=== PATIENT | male | born 1940 | race Asian ===

== ENCOUNTER 2016-09-05 12:56 | Inpatient (IN) | payer OTHER ==
[2016-09-05] VITALS (10 sets, daily range): BP systolic 125–147; BP diastolic 57–77
[~2016-09-05] VITALS: Ht 162.6 cm; Wt 83.9 kg
[~2016-09-05 12:56] MED LIST: ACET-1182 GT; ALLO100T21 GT; AMLO10TA GT; ASPI81CT89 GT; BISA10SU2 GT; CARV12.52 GT; CRAN450C GT; DIGO-91 GT; DOCU100C14 GT; FURO-570 PO; ISOS10TA9 GT; LACT1POW GT; MAGN400S GT; METO5SOL24 IVP; MIRABULK GT; PANT40VI GT; SIMV20TA6 GT; [UNRECOGNIZED DRUG - CODE] GT; [UNRECOGNIZED DRUG - CODE] IV
[2016-09-05] MEDS ORDERED: NACL 0.9% 1,000 ML IV SCH (13:03)
[2016-09-05] MEDS ORDERED: ONDANSETRON 4 MG/2 ML VIAL IVP ONE (13:05)
--- NOTE | 2016-09-05 13:37 | NUR ---
75/M BIBA TO ED WITH FOR R/O TB. PT WAS SENT FROM [facility] WITH POSITIVE CHEST XRAY AND LEFT LOWER LOBE INFILTRATE. PT IS NOT COUGHING. PT IS NOT AAO. LUNGS CLEAR BILAT. PT ARRIVED WITH G-TUBE IN PLACE AND MENDIETA CATHETER. NO SIGNS OF PAIN. PT IS ON MECHANICAL VENTILALTOR WITH TRACH. VSS. HR EVEN AND REGULAR. NO SIGNS OF DISTRESS.
[2016-09-05 13:38] LABS: BASOPHILS # (AUTO) 0.1 K/uL (0.00-0.22); BASOPHILS % (AUTO) 1.1 % (0.0-2.0); EOSINOPHILS # (AUTO) 0.4 K/uL (0-0.4); HEMATOCRIT 37.3 % (36-52); HEMOGLOBIN 12.2 g/dL (12.0-18.0); LYMPHOCYTES # (AUTO) 0.9 K/uL (2.0-11.5); LYMPHOCYTES % (AUTO) 11.1 % (20.5-51.1); MEAN CORPUSCULAR HEMOGLOBIN 30 pg (27-31); MEAN CORPUSCULAR HGB CONC 33 g/dL (33-37); MEAN CORPUSCULAR VOLUME 93 fL (80-94); MONOCYTES # (AUTO) 0.7 K/uL (0.8-1.0); MONOCYTES % (AUTO) 8.8 % (1.7-9.3); NEUTROPHILS # (AUTO) 6.4 K/uL (1.8-7.7); PLATELET COUNT (AUTO) 250 K/uL (140-450); RED CELL DISTRIBUTION WIDTH 13.1 % (11.6-13.7); WHITE BLOOD COUNT (AUTO) 8.5 K/uL (4.8-10.8)
[2016-09-05 13:47] LABS: APPEARANCE,URINE CLOUDY (CLEAR); BILIRUBIN,URINE NEGATIVE (NEGATIVE); BLOOD, URINE TRACE-I (NEGATIVE); COLOR,URINE YELLOW (YELLOW); LEUKOCYTE ESTERASE ,URINE 2+ (NEGATIVE); NITRITE, URINE NEGATIVE (NEGATIVE); PROTEIN,URINE 1+ (NEGATIVE); UGLUCOSE NEGATIVE (NEGATIVE); UROBILINOGEN,URINE 0.2 EU/dL (0.2 - 1)
[2016-09-05 13:55] LABS: BLOOD GAS BASE EXCESS 4.6 mmol/L (-2.0-2.0); BLOOD GAS HCO3 29.2 mmol/L; BLOOD GAS PCO2 43.6 mmHg (20-50); BLOOD GAS PH 7.444 (7.35-7.45); BLOOD GAS PO2 85.7 mmHg
[2016-09-05 13:57] LABS: ALANINE AMINOTRANSFERASE 25 U/L (12-78); ALBUMIN 3.8 g/dL (3.4-5.0); ALKALINE PHOSPHATASE 82 U/L (46-116); ANION GAP 10.8 (8-16); ASPARTATE AMINOTRANSFERASE 23 U/L (15-37); CALCIUM 9.6 mg/dL (8.5-10.1); CARBON DIOXIDE 33.1 mmol/L (21-32); CHLORIDE 99 mmol/L (98-107); GLUCOSE 159 mg/dL (74-106); POTASSIUM 3.9 mmol/L (3.5-5.1); SODIUM SERUM 139 mmol/L (136-145); TOTAL BILIRUBIN 0.6 mg/dL (0.0-1.0); TOTAL PROTEIN, SERUM 8.2 g/dL (6.4-8.2); UREA NITROGEN, BLOOD 31 mg/dL (7-18)
--- NOTE | 2016-09-05 13:58 | NUR ---
TRACH PT EQUIPPED WITH A PORTEX 7. INNER CANNULA, TRACH GAUZE AND TIES ARE NOT SOILED AT THIS TIME AND DONT NEED TO BE REPLACED. AIRWAY IS PATENT AND TRACH IS SECURE. VENT SETTINGS ARE AC 12, VT 500, PEEP 5 AND FIO2 28%. PT IS NOT SOB AND NOT IN RESPIRATORY DISTRESS AT THIS TIME. VENT IS PLUGGED INTO RED OUTLET WITH ALARMS ON AND FUNCTIONING. B.S ARE CLEAR BILATERALLY TO AUSCULTATION.
[2016-09-05 13:59] LABS: AMYLASE 10 U/L (25-115); INR 1.1 (0.8-1.2); LIPASE 54 U/L (73-393); PARTIAL THROMBOPLASTIN TIME 25.6 secs (22-35.6); PROTHROMBIN TIME 10.8 secs (10.8-13.4)
--- NOTE | 2016-09-05 14:13 | NUR ---
TRANSFERRED PATIENT TO RADIOLOGY FOR CHEST CT REMOVED FROM VENTILATOR PLACED AMBU BAG TO TRACH WITH SUPPLEMENTAL OXYGENT AT 15 LPM BAG DEPRESSION EVERY 6 SECONDS HR 72 SATURATION 100% TOLERATED TRANSFER AND CT SCAN WELL WITHOUT INCIDENT
--- NOTE | 2016-09-05 14:25 | NUR ---
TRANSFERRED BACK TO ICU-8 PLACED BACK ON VENTILATOR WITH SAME SETTINGS NOTED TOLERATED WELL WITHOUT INCIDENT
[2016-09-05 14:28] LABS: BACTERIA,URINE 3+ /HPF (None Seen); RBC,URINE 0-5 (RARE) /HPF (0-5); SQUAMOUS EPITHELIAL CELL,UR 0-3 (FEW) /LPF (0-3 (FEW)); WBC,URINE 16-25 (MOD) /HPF (0-5)
--- NOTE | 2016-09-05 14:30 | NUR ---
PT TAKEN TO CT VIA [facility]
[2016-09-05] MEDS ORDERED: DIGO-91 PO (14:56)
[2016-09-05] MEDS ORDERED: POTA10TA10 GT (15:04)
[2016-09-05] MEDS ORDERED: SIME80CT70 GT (15:04)
[2016-09-05] MEDS ORDERED: CLON-527 GT (15:04)
[2016-09-05] MEDS ORDERED: NUTR-583 GT (15:04)
[2016-09-05] MEDS ORDERED: INSU100S45 SUBQ (15:04)
[2016-09-05] MEDS ORDERED: MULT-2253 GT (15:04)
[2016-09-05] MEDS ORDERED: FAMO-90 GT (15:04)
[2016-09-05] MEDS ORDERED: NA P135N19 RC (15:04)
--- NOTE | 2016-09-05 15:10 | NUR ---
Patient appears to be resting comfortably in bed. Vital Signs within normal limits. Respirations even and unlabored.
[2016-09-05] MEDS ORDERED: cefTRIAXone 2,000 MG in DEXTROSE 5% 100 ML IV ONE (15:20)
[2016-09-05] MEDS ORDERED: cefTRIAXone 2,000 MG VIAL ONE (15:39)
[2016-09-05] MEDS ORDERED: ONDANSETRON 4 MG/2 ML VIAL IVP PRN (16:35)
[2016-09-05] MEDS ORDERED: MORPHINE SULFATE 2 MG/ML SYR IVP PRN (16:35)
[2016-09-05] MEDS ORDERED: HYDROcodone/APAP 5/325 MG 1 TAB TAB GT PRN (16:35)
[2016-09-05 16:43] LABS: LACTIC ACID 1.3 mmol/L (0.4-2.0)
[2016-09-05] MEDS ORDERED: SODIUM PHOSPHATE 118 ML ENEM RC PRN (16:45)
[2016-09-05] MEDS ORDERED: BISACODYL 5 MG TABEC GT PRN (16:45)
[2016-09-05] MEDS ORDERED: ACETAMINOPHEN 160 MG/5 ML UDC GT PRN (16:45)
[2016-09-05] MEDS ORDERED: cloNIDine 0.1 MG TAB GT PRN (16:45)
--- NOTE | 2016-09-05 16:51 | NUR ---
Patient appears to be resting comfortably in bed. Vital Signs within normal limits. Respirations even and unlabored.
[2016-09-05] MEDS ORDERED: SIMETHICONE 80 MG TAB.CHEW GT SCH (17:00)
[2016-09-05] MEDS ORDERED: CARVEDILOL 12.5 MG TAB GT SCH (17:14)
[2016-09-05] MEDS ORDERED: FUROSEMIDE 40 MG TAB GT SCH (17:23)
[2016-09-05] MEDS: NACL 0.9% 1,000 ML IV SCH (17:30)
--- NOTE | 2016-09-05 17:30 | NUR ---
ADMITTED A 75 YO MALE FROM [facility] WITH ADMITTING DX TO RO TB,ELEVATED TROPONIN,NSTEMI.PT SATURATING 99 PERCENT.FLACC=0,RIGHT WRIST 22 GAUGE PIV WITH NS AT 100 ML/H.MENDIETA TO GRAVITY AND CHANGED WITH A NEW ONE BY SOLDER LEVELER PRINTED CIRCUIT BOARDS.PT TOLERATED WELL.PACED RHYTHM.GTUBE CLAMPED WITH GTUBE SITE CLEAN.TRACHE TO VENT PORTEX NUMBER 7 WITH VENT SETTING FOLLOWS.FIO2=28 PERCENT,ST=432,AC=12,PEEP=5.ON TB ISOLATION ROOM.
--- NOTE | 2016-09-05 17:32 | NUR ---
Patient will be admitted to care of DR MEDLEY. Admited to ICU. Will go to room 3. Belongings list completed. Report to NATANAEL QUIROZ.
--- NOTE | 2016-09-05 17:50 | NUR ---
ASLEEP RESTING COMFORTABLY NO PULMONARY DISTRESS NOTED BREATH SOUNDS CLEAR BILATERAL WITH GOOD CHEST RISE AIRWAY PATENT
[2016-09-05] MEDS ORDERED: METOCLOPRAMIDE 10 MG/2 ML INJ VIAL IVP SCH (18:00)
[2016-09-05 18:01] LABS: FREE T4 (FREE THYROXINE) 1.34 ng/dL (0.76-1.46)
[2016-09-05 18:02] LABS: MAGNESIUM 2.2 mg/dL (1.8-2.4); PHOSPHORUS 4.4 mg/dL (2.5-4.9); THYROID STIMULATING HORMONE 2.58 uIU/mL (0.34-3.76)
[2016-09-05 18:16] LABS: CHOL/HDL RATIO 3.8 (1-4.5)
--- NOTE | 2016-09-05 18:46 | NUR ---
RCV'D PT ON CARESPARE VENT SETTINGS ARE AC 12,500,5,28% VENT IS PLUGGED INTO RED OUTLET. AMBU BAG AT BEDSIDE. PT HAS A TRACH PORTEX 7. TRACH IS SECURED AND IN PLACE. SKIN IS PATENT AND CLEAN. CLEAR BS SAT 97%. NO DISTRESS OR SOB NOTED. PT IS ASLEEP COMFORTABLY. WILL CONTINUE TO MONITOR.
--- NOTE | 2016-09-05 19:45 | NUR ---
RECEIVED REPORT FROM GABRIELLA SANTOYO. PATIENT IS AAOX1, NONVERBAL, AND BEDBOUND. PATIENT IS TRACH TO VENT WITH SETTINGS OF FIO2 28%, TIDAL VOLUME 500, A/C 12, AND PEEP 5. NO SIGNS OF RESPIRATORY DISTRESS OR SOB NOTED. VITALS ARE WNL. FLACC 0. BREATH SOUNDS ARE DIMINISHED AND THERE ARE ACTIVE BOWEL SOUNDS. THERE IS A G-TUBE IN THE LEFT UPPER QUADRANT AND IT IS CLAMPED. THERE IS A MENDIETA CATHETER IN PLACE DRAINING TO GRAVITY WITH MODERATE AMOUNT OF YELLOW URINE NOTED. THERE IS A #22 IN THE RIGHT WRIST RECEIVING NORMAL SALINE AT 100ML/HR. SITE IS DRY, INTACT, AND PATENT. HOB AT 30 DEGREES WITH BED IN LOW POSITION. CONTINUE TO MONITOR PATIENT.
[2016-09-05] MEDS ORDERED: DEXTROSE 50% 50 ML SYR IVP PRN (19:50)
[2016-09-05] MEDS ORDERED: ALBUTEROL SULFATE/IPRATROPIU 3 ML SOL IH PRN (19:50)
--- NOTE | 2016-09-05 19:55 | NUR ---
VAP ORAL CARE RENDERED. NO SIGNS OF RESPIRATORY DISTRESS NOTED. CONTINUE TO MONITOR.
[2016-09-05] MEDS ORDERED: NON-FORMULARY ITEM (Cranberry Fruit Concentrate (Cranberry) 450 MG) GT SCH (21:00)
--- NOTE | 2016-09-05 21:10 | NUR ---
VENT CHECK DONE. SPUTUM SAMPLE COLLECTED AND SENT TO LAB WITHOUT INCIDENT. NO SOB OR DISTRESS NOTED. WILL CONTINUE TO MONITOR.
[2016-09-05] MEDS: LACTOBACILLUS RHAMNOSUS GG 1 EACH CAP GT SCH (21:37)
[2016-09-05] MEDS: METOCLOPRAMIDE 10 MG/2 ML INJ VIAL IVP SCH (21:37)
[2016-09-05] MEDS: ISOSORBIDE DINITRATE 10 MG TAB GT SCH (21:37)
[2016-09-05] MEDS: FAMOTIDINE 20 MG TAB GT SCH (21:37)
--- NOTE | 2016-09-05 21:45 | NUR ---
DUST COLLECTOR TREATER AT BEDSIDE FOR SCHEDULED LAB DRAW.
[2016-09-05] MEDS: BLOOD GLUCOSE MONITORING 1 DEV DEV FS SCH (21:47)
[2016-09-05] MEDS: SIMVASTATIN 20 MG TAB GT SCH (21:55)
--- NOTE | 2016-09-05 21:59 | NUR ---
TOLERATED DUE MEDICATIONS WITH NO S/S OF SOB OR DISCOMFORT NOTED. CONTINUE TO MONITOR.
--- NOTE | 2016-09-05 22:14 | NUR ---
PATIENT HAD MODERATE SOFT LOOSE YELLOWISH BROWN STOOL. PERINEAL CARE PROVIDED. PATIENT REPOSITIONED FOR COMFORT. NO SIGNS OF SOB OR RESPIRATORY DISTRESS NOTED. HOB AT 30 DEGREES WITH BED IN LOW POSITION. CONTINUE TO MONITOR PATIENT.
--- NOTE | 2016-09-05 23:41 | NUR ---
RESPIRATORY THERAPIST AT BEDSIDE.
[2016-09-06] VITALS (24 sets, daily range): BP systolic 120–158; BP diastolic 66–81
--- NOTE | 2016-09-06 00:26 | NUR ---
PATIENT REPOSITIONED FOR COMFORT. VAP ORAL CARE RENDERED. NO SIGNS OF SOB OR RESPIRATORY DISTRESS NOTED. HOB AT 30 DEGREES WITH BED IN LOW POSITION. CONTINUE TO MONITOR PATIENT.
--- NOTE | 2016-09-06 02:04 | NUR ---
PATIENT REPOSITIONED FOR COMFORT. NO SIGNS OF SOB NOTED. HOB AT 30 DEGREES WITH BED IN LOW POSITION. CONTINUE TO MONITOR PATIENT.
[2016-09-06] MEDS: NACL 0.9% 1,000 ML IV SCH ×2 (03:21→15:13)
--- NOTE | 2016-09-06 03:30 | NUR ---
VAP ORAL CARE RENDERED. NO SIGNS OF SOB NOTED. CONTINUE TO MONITOR PATIENT.
--- NOTE | 2016-09-06 03:30 | NUR ---
OBTAINED SPUTUM WITH NO INCIDENT AND SENT TO THE LAB. NO SOB OR DISTRESS NOTED. WILL CONTINUE TO MONITOR.
--- NOTE | 2016-09-06 03:35 | NUR ---
RESPIRATORY THERAPIST AT BEDSIDE.
[2016-09-06] MEDS: METOCLOPRAMIDE 10 MG/2 ML INJ VIAL IVP SCH ×3 (04:24→21:01)
--- NOTE | 2016-09-06 04:53 | NUR ---
MORNING CARE RENDERED. PROVIDED BED BATH. PATIENT HAD SMALL LOOSE YELLOW BROWNISH BM. PERINEAL CARE PROVIDED. CHANGED LINENS AND GOWN. REPOSITIONED PATIENT TO OFFLOAD PRESSURE AREAS. NO SIGNS OF SOB NOTED. SCDS IN PLACE FOR VTE PROPHYLAXIS. HOB AT 30 DEGREES WITH BED IN LOW POSITION. CONTINUE TO MONITOR PATIENT.
--- NOTE | 2016-09-06 05:20 | NUR ---
CERTIFIED ALCOHOL AND DRUG COUNSELOR AT BEDSIDE FOR SCHEDULED LAB DRAWS.
--- NOTE | 2016-09-06 05:20 | NUR ---
TRACH CARE DONE WITHOUT INCIDENT. NO SOB OR DISTRESS NOTED. PRECISION STRUCTURAL METAL FITTER AT BEDSIDE TO DRAW BLOOD AND RN MONIQUE AT BEDSIDE. WILL CONTINUE TO MONITOR.
[2016-09-06 05:46] LABS: BASOPHILS # (AUTO) 0.1 K/uL (0.00-0.22); BASOPHILS % (AUTO) 0.7 % (0.0-2.0); EOSINOPHILS # (AUTO) 0.6 K/uL (0-0.4); HEMATOCRIT 38.1 % (36-52); HEMOGLOBIN 12.6 g/dL (12.0-18.0); LYMPHOCYTES # (AUTO) 1.1 K/uL (2.0-11.5); LYMPHOCYTES % (AUTO) 11.8 % (20.5-51.1); MEAN CORPUSCULAR HEMOGLOBIN 31 pg (27-31); MEAN CORPUSCULAR HGB CONC 33 g/dL (33-37); MEAN CORPUSCULAR VOLUME 93 fL (80-94); MONOCYTES # (AUTO) 0.7 K/uL (0.8-1.0); MONOCYTES % (AUTO) 7.9 % (1.7-9.3); NEUTROPHILS # (AUTO) 6.8 K/uL (1.8-7.7); NEUTROPHILS % (AUTO) 73.6 % (42.2-75.2); PLATELET COUNT (AUTO) 234 K/uL (140-450); RED BLOOD CELL COUNT(AUTO) 4.09 MIL/uL (4.20-6.10); RED CELL DISTRIBUTION WIDTH 12.7 % (11.6-13.7); WHITE BLOOD COUNT (AUTO) 9.3 K/uL (4.8-10.8)
[2016-09-06] MEDS: ALBUTEROL SULFATE/IPRATROPIU 3 ML SOL IH SCH ×3 (06:00→19:33)
[2016-09-06 06:05] LABS: ANION GAP 11.3 (8-16); CARBON DIOXIDE 32.1 mmol/L (21-32); CHLORIDE 102 mmol/L (98-107); CREATININE 0.9 mg/dL (0.6-1.3); GLUCOSE 117 mg/dL (74-106); POTASSIUM 3.4 mmol/L (3.5-5.1); SODIUM SERUM 142 mmol/L (136-145); UREA NITROGEN, BLOOD 24 mg/dL (7-18)
[2016-09-06 06:21] LABS: HIV 1/0/2 ABS, QUAL Non Reactive (Non Reactive)
[2016-09-06] MEDS: BLOOD GLUCOSE MONITORING 1 DEV DEV FS SCH ×4 (06:32→21:00)
--- NOTE | 2016-09-06 06:32 | NUR ---
PATIENT'S BLOOD SUGAR IS 121. NO INSULIN COVERAGE NEEDED AT THIS TIME. RESPIRATORY THERAPIST AT BEDSIDE FOR SCHEDULED BREATHING TX. WILL CONTINUE TO MONITOR PATIENT. Addendum: 09/06/16 at 0636 by Jayla Otto RN VENT CHECK, NOT BREATHING TX.
--- NOTE | 2016-09-06 06:35 | NUR ---
REC'D PT ON CARESCAPE VENT SETTINGS AC12 VT 500 PEEP 5 FIO2 28% ALARMS ON AND FUNCTIONING PROPERLY, NO I\L TX GIVEN, SXN PT MODERATE AMT OF THICK YELLOW SECRETIONS, B\S ARE RHONCHI BILATERALLY, AMBU BAG AT [facility] AND VENTILATOR IS PLUGGED INTO RED OUTLET, PT IS TRACH WITH PORTEX 7 AND SKIN INTEGRITY IS INTACT, PT IS RESTING WITH NO SIGNS OF DISTRESS NOTED AT THIS TIME
--- NOTE | 2016-09-06 06:40 | NUR ---
DR. ZAVALETA AT BEDSIDE.
[2016-09-06 06:50] LABS: PHOSPHORUS 3.1 mg/dL (2.5-4.9)
--- NOTE | 2016-09-06 07:10 | NUR ---
PATIENT IN STABLE CONDITION. NO S/S OF SOB OR RESPIRATORY DISTRESS NOTED. ALL PATIENT'S NEEDS ATTENDED TO DURING SHIFT. ENDORSED CONTINUITY OF CARE TO SUCHADA RN.
--- NOTE | 2016-09-06 07:17 | NUR ---
RECEIVED REPORT FROM MONIQUE SANTYOO. . PT IS BED BOUND TRACH TO VENT SETTING AC 12 VT 500 FIO 228%PEEP OF 5 FIO2 98% IV FLUID HAS #22 ONRT WRIST INFUSING NS AE 100ML/HR GT FEEDING WITH DIABETIC SOURCE AT 10 ML/HR ABD SLIGHT DISTENDED. B/S ACTIVE.F/C TO GRAVITY DRAINAGE .DRAIN CLEAR JANIS URINE.
--- NOTE | 2016-09-06 07:49 | NUR ---
PATIENT HAS BEEN SCREENED AND CATEGORIZED HIGH NUTRITION RISK. PATIENT WILL BE SEEN WITHIN 1-2 DAYS OF ADMISSION. 09/06/16-09/07/[address]
[2016-09-06 08:19] LABS: T4 (THYROXINE) 8.3 ug/dL (4.5-12.0)
--- NOTE | 2016-09-06 08:30 | NUR ---
vent check, no sxn required at this time, airway is patent and pt is resting with no signs of distress noted at this time
[2016-09-06] MEDS: POLYETHYLENE GLYCOL 17 GM/PKT GT SCH (08:44)
[2016-09-06] MEDS: LACTOBACILLUS RHAMNOSUS GG 1 EACH CAP GT SCH ×2 (08:45→21:01)
[2016-09-06] MEDS: ALLOPURINOL 100 MG TAB GT SCH (08:45)
[2016-09-06] MEDS: amLODIPine 5 MG TAB GT SCH (08:46)
[2016-09-06] MEDS: CARVEDILOL 12.5 MG TAB GT SCH ×2 (08:46→17:42)
[2016-09-06] MEDS: ASPIRIN 81 MG TAB.CHEW GT SCH (08:46)
[2016-09-06] MEDS: ISOSORBIDE DINITRATE 10 MG TAB GT SCH ×2 (08:47→21:02)
[2016-09-06] MEDS: FUROSEMIDE 40 MG TAB GT SCH ×2 (08:48→21:02)
[2016-09-06] MEDS: FAMOTIDINE 20 MG TAB GT SCH ×2 (08:48→21:02)
[2016-09-06] MEDS ORDERED: LACTOBACILLUS RHAMNOSUS GG 1 EACH CAP GT SCH (09:00)
[2016-09-06] MEDS ORDERED: DIGOXIN 0.125 MG TAB GT SCH (09:00)
[2016-09-06] MEDS ORDERED: cefTRIAXone 2,000 MG in DEXTROSE 5% 100 ML IV SCH (09:00)
[2016-09-06] MEDS ORDERED: FUROSEMIDE 40 MG TAB GT SCH (09:00)
--- NOTE | 2016-09-06 09:40 | NUR ---
SEEN BY DR. KEITA AT BEDSIDE , NO ORDER CHANGED.
--- NOTE | 2016-09-06 10:24 | NUR ---
VENT CHECK, SXN PT FOR ACID FAST MODERATE AMT OF YELLOW SECRETIONS, SPUTUM GIVEN TO RN BERNICE Murphy\S ARE RHONCHI BILATERALLY PT IS RESTING WITH NO SIGNS OF DISTRESS NOTED AT THIS TIME
--- NOTE | 2016-09-06 11:30 | NUR ---
BL GLUCOSE 114 NO INSULIN COVER NEEDED
--- NOTE | 2016-09-06 12:54 | NUR ---
VENT CHECK, NO SXN NEEDED AIRWAY PATENT I\L TX GIVEN WITH DUONEB 3ML WITH NO ADVERSE REACTION POST TX, B\S ARE RHONCHI AND PT IS RESTING WITH NO SIGNS OF DISTRESS NOTED
[2016-09-06] MEDS ORDERED: POTASSIUM CHLORIDE 20% 40 MEQ/15 ML UDC GT SCH (13:00)
[2016-09-06] MEDS ORDERED: CLINICAL MONITORING MC PRN (13:00)
[2016-09-06 13:08] LABS: HEMOGLOBIN A1C 5.7 % (4.8-5.6)
--- NOTE | 2016-09-06 14:00 | NUR ---
SEEN BY DR. HERNANDEZ AT BEDSIDE ORDER RECEIVED
--- NOTE | 2016-09-06 14:10 | NUR ---
09/06/16 RD INITIAL ASSESSMENT COMPLETED PLEASE REFER TO NUTRITION ASSESSMENT UNDER CARE ACTIVITY FOR ESTIMATED NUTRITIONAL NEEDS. RD RECOMMENDATIONS: RECOMMEND INCREASE TUBE FEED DIABETISOURCE TO 55 ML/HR X 24 HR AND DISCONTINUE PROSOURCE QD --THIS WILL PROVIDE 1584 KCAL AND 79 GM PROTEIN AND WILL MEET 100% OF ESTIMATED KCAL AND PROTEIN NEEDS. --NOTE RD WILL MONITOR RENAL LABS 2. RD WILL F/U 2-3 DAYS; HIGH RISK. DOMINIC WIN RD
--- NOTE | 2016-09-06 14:42 | NUR ---
VENT CHECK, SXN PT SMALL AMT OF YELLOW SECRETIONS, B\S ARE RHONCHI AND TRACH CARE DONE: CHANGED TRACH TIE AND GAUZE AND INNER CANNULA
--- NOTE | 2016-09-06 16:30 | NUR ---
BLOOD GLUCOSE 127 NO INSULIN NEEDED. PT INCONTINENT LOOSE YELLOW BM MODERATE AMOUNT.
[2016-09-06] MEDS ORDERED: SIMETHICONE 80 MG TAB.CHEW GT PRN (17:00)
--- NOTE | 2016-09-06 17:22 | NUR ---
VENT CHECK, NATANAEL ELLIS PT MODERATE AMT OF YELLOW SECRETIONS, PT IS NOW RESTING WITH NO SIGNS OF DISTRESS NOTED AT THIS TIME
[2016-09-06] MEDS: PIPERACILLIN/TAZOBACTAM 4.5 GM in DEXTROSE 5% 100 ML IV SCH ×2 (17:43→23:03)
--- NOTE | 2016-09-06 20:00 | NUR ---
EYES OPEN, DOES NOT FOLLOW COMMANDS, PACED RHYTHM, TRACH TO VENT, NO RESPIRATORY DISTRESS, IVF NS AT 50 ML/HR, IV SITE LFA G#22 PATENT, MENDIETA CATH DRAINING LT JANIS URINE. GT FEEDING DIABETISOURCE AT 40 ML/HR, NO RESIDUAL OBTAINED, HOB ELEVATED, TURNED AND REPOSITIONED, FLACC 0. Addendum: 09/06/16 at 2324 by Nicolle Polanco RN MENDIETA CATH DRAINING CLEAR YELLOW URINE
[2016-09-06] MEDS ORDERED: DIGOXIN 0.125 MG/2.5 ML UDC GT SCH (20:10)
[2016-09-06] MEDS: SIMVASTATIN 20 MG TAB GT SCH (21:02)
--- NOTE | 2016-09-06 21:21 | NUR ---
US BLE DONE AT BEDSIDE AT THIS TIME.
--- NOTE | 2016-09-06 23:26 | NUR ---
PATIENT HAD A MODERATE AMOUNT OF SOFT STOOL, BED BATH GIVEN COMPLETE LINEN CHANGE DONE. SUCTIONED WITH SMALL AMOUNT OF WHITE SECRETIONS, TURNED AND REPOSITIONED, FLACC 0.
[2016-09-07] VITALS (24 sets, daily range): BP systolic 126–154; BP diastolic 55–90
--- NOTE | 2016-09-07 03:58 | NUR ---
GT FEEDING RATE INCREASED TO 50 ML/HR, NO RESIDUAL OBTAINED, TURNED AND REPOSITIONED, NO RESPIRATORY DISTRESS, FLACC 0.
[2016-09-07] MEDS: PIPERACILLIN/TAZOBACTAM 4.5 GM in DEXTROSE 5% 100 ML IV SCH (05:23)
[2016-09-07] MEDS: METOCLOPRAMIDE 10 MG/2 ML INJ VIAL IVP SCH ×3 (05:23→20:33)
[2016-09-07 05:45] LABS: ANION GAP 12.5 (8-16); CALCIUM 8.6 mg/dL (8.5-10.1); CARBON DIOXIDE 31.1 mmol/L (21-32); CHLORIDE 103 mmol/L (98-107); GLUCOSE 135 mg/dL (74-106); POTASSIUM 3.6 mmol/L (3.5-5.1); SODIUM SERUM 143 mmol/L (136-145); UREA NITROGEN, BLOOD 21 mg/dL (7-18)
[2016-09-07 05:48] LABS: BASOPHILS % (AUTO) 0.5 % (0.0-2.0); EOSINOPHILS # (AUTO) 0.6 K/uL (0-0.4); EOSINOPHILS % (AUTO) 5.9 % (0.0-4.0); HEMATOCRIT 35.7 % (36-52); LYMPHOCYTES % (AUTO) 10.3 % (20.5-51.1); MEAN CORPUSCULAR HEMOGLOBIN 31 pg (27-31); MEAN CORPUSCULAR HGB CONC 33 g/dL (33-37); MEAN CORPUSCULAR VOLUME 93 fL (80-94); MONOCYTES # (AUTO) 1.1 K/uL (0.8-1.0); MONOCYTES % (AUTO) 11.1 % (1.7-9.3); NEUTROPHILS # (AUTO) 7.1 K/uL (1.8-7.7); NEUTROPHILS % (AUTO) 72.2 % (42.2-75.2); PLATELET COUNT (AUTO) 219 K/uL (140-450); RED BLOOD CELL COUNT(AUTO) 3.84 MIL/uL (4.20-6.10); WHITE BLOOD COUNT (AUTO) 9.8 K/uL (4.8-10.8)
[2016-09-07 05:50] LABS: MAGNESIUM 2.1 mg/dL (1.8-2.4); PHOSPHORUS 2.7 mg/dL (2.5-4.9)
--- NOTE | 2016-09-07 06:00 | NUR ---
AM CARE PROVIDED, GT FEEDING TOLERATING WELL, NO RESPIRATORY DISTRESS, TURNED AND REPOSITIONED, FLACC 0.
[2016-09-07] MEDS: ALBUTEROL SULFATE/IPRATROPIU 3 ML SOL IH SCH ×3 (06:55→19:23)
--- NOTE | 2016-09-07 06:58 | NUR ---
RECEIVED PT ON CARESCAPE ON A/C 12 VT500 PEEP5 FIO2 28 ALARMS ARE ON AND FUNCTIONAL BMV HOB PTS TRACH PORTEX 7 IS SECURE PT IN HF QUIET BS CRACKLES HHN GIVEN I\L WITH 3 MG DUONEB VENT PLUGGED INTO RED OUTLET
--- NOTE | 2016-09-07 07:30 | NUR ---
RECEIVED REPORT FROM NATANAEL JOLLY. NO SIGNS OF ACUTE DISTRESS AT THIS TIME, FLACC 0. IV TO LEFT FOREARM #22 PATENT AND INTACT. PT IS TRACH TO VENT. FIO2: 28%, AC: 12, TV: 500, PEEP: 5. PACEMAKER TO LEFT UPPER CHEST. WOUND NOTED TO RIGHT SCAPULA, DRESSING DRY AND INTACT. G TUBE IN PLACE TO TUBE FEEDING. MENDIETA CATHETER IN PLACE DRAINING TO GRAVITY DRAINAGE BAG. SAFETY PRECAUTIONS IN PLACE WITH BED IN LOWEST POSITION AND SIDE RAILS UP. CALL LIGHT WITHIN REACH. PT IS ON AIRBORNE AND CONTACT ISOLATION WITH SIGNS POSTED OUTSIDE OF PT'S ROOM. PT IS CURRENTLY PACED RHYTHM. WILL CONTINUE TO MONITOR.
[2016-09-07] MEDS: BLOOD GLUCOSE MONITORING 1 DEV DEV FS SCH ×4 (07:39→20:56)
--- NOTE | 2016-09-07 07:44 | NUR ---
DR. ZAVALETA IN TO SEE PT. WILL FOLLOW UP ON ORDERS.
[2016-09-07] MEDS: DIGOXIN 0.125 MG/2.5 ML UDC GT SCH (08:11)
[2016-09-07] MEDS: CARVEDILOL 12.5 MG TAB GT SCH ×2 (08:11→17:04)
[2016-09-07] MEDS: FAMOTIDINE 20 MG TAB GT SCH ×2 (08:11→20:32)
[2016-09-07] MEDS: POLYETHYLENE GLYCOL 17 GM/PKT GT SCH (08:11)
[2016-09-07] MEDS: LACTOBACILLUS RHAMNOSUS GG 1 EACH CAP GT SCH ×2 (08:12→20:31)
[2016-09-07] MEDS: ISOSORBIDE DINITRATE 10 MG TAB GT SCH ×2 (08:12→20:56)
[2016-09-07] MEDS: amLODIPine 5 MG TAB GT SCH (08:12)
[2016-09-07] MEDS: FUROSEMIDE 40 MG TAB GT SCH ×2 (08:12→20:34)
[2016-09-07] MEDS: ALLOPURINOL 100 MG TAB GT SCH (08:19)
--- NOTE | 2016-09-07 08:53 | NUR ---
CHECKED TUBE FEEDING RESIDUAL: NONE NOTED. CHECKED BP: 131/64 AND HR: 60. ADMINISTERED MEDICATION ORDERED. PT TOLERATED WELL. INCREASED TUBE FEEDING RATE TO GOAL OF 55 ML/HR. WILL CONTINUE TO MONITOR.
--- NOTE | 2016-09-07 08:54 | NUR ---
PT HAD MODERATE SIZED BOWEL MOVEMENT. SOFT AND BROWN IN COLOR. PROVIDED HYGIENE CARE, TURNED AND REPOSITIONED FOR COMFORT.
[2016-09-07] MEDS: ASPIRIN 81 MG TAB.CHEW GT SCH (09:03)
--- NOTE | 2016-09-07 09:08 | NUR ---
VENT CHECK BS CRACKLES I\L LAVAGE AND SX MOD WHITE
--- NOTE | 2016-09-07 09:26 | NUR ---
DR. BECKER IN TO SEE PT. WILL FOLLOW UP ON ORDERS.
[2016-09-07] MEDS: Z-GUARD PASTE TP SCH (09:30)
--- NOTE | 2016-09-07 09:59 | NUR ---
DR. KEITA IN TO SEE PT. WILL FOLLOW UP ON ORDERS.
--- NOTE | 2016-09-07 10:23 | NUR ---
VENT CHECK BS DIMINISHED
[2016-09-07] MEDS: INSULIN LISPRO SLIDING SCALE 100 UNITS/ML VIAL SUBQ PRN (11:50)
[2016-09-07] MEDS ORDERED: MEROPENEM 1,000 MG in NACL 0.9% 100 ML IV SCH (13:00)
[2016-09-07] MEDS: ERTAPENEM SODIUM 1,000 MG in NACL 0.9% 50 ML IV SCH (14:11)
[2016-09-07] MEDS: NACL 0.9% 1,000 ML IV SCH (14:12)
--- NOTE | 2016-09-07 14:20 | NUR ---
PT TOLERATED MEDS WELL.
--- NOTE | 2016-09-07 17:00 | NUR ---
QUANTIFERON TB GOLD NEGATIVE, PT NO LONGER ON AIRBORNE PRECAUTIONS, BUT STILL REMAINS ON CONTACT ISOLATION.
--- NOTE | 2016-09-07 19:17 | NUR ---
ENDORSED CARE TO NATANAEL JOLLY. PT IN STABLE CONDITION.
--- NOTE | 2016-09-07 19:37 | NUR ---
RECEIVED PT ON NOTED PARAMETERS, TOLERATING SUPPORT WELL. NO RESP DISTRESS NOTED, SXN SMALL AMT OT THICK/THIN CREAM SECRETIONS, ADMINISTERED HHNTX TOLERATED WELL. AIRWAY PATENT AND SECURED.
--- NOTE | 2016-09-07 20:00 | NUR ---
OPEN EYES TO VERBAL STIMULUS, PACED RHYTHM, TRACH TO VENT, ON GT FEEDING DIABETISOURCE AT 55 ML/HR, NO RESIDUAL OBTAINED, HOB ELEVATED, IVF NS AT 50 ML/HR, RFA G#22 PATENT AND INTACT, MENDIETA CATH DRAINING CLEAR YELLOW URINE. PATIENT HAS SMALL SOFT BM, WASHED AND CLEANED, TURNED AND REPOSITIONED, FLACC 0.
[2016-09-07] MEDS: SIMVASTATIN 20 MG TAB GT SCH (20:34)
--- NOTE | 2016-09-07 22:18 | NUR ---
PATIENT RESTING COMFORTABLY, TURNED AND REPOSITIONED, FLACC 0.
[2016-09-08] VITALS (20 sets, daily range): BP systolic 111–162; BP diastolic 64–81
[2016-09-08] MEDS: NACL 0.9% 1,000 ML IV SCH ×2 (00:11→10:06)
--- NOTE | 2016-09-08 00:49 | NUR ---
TURNED AND REPOSITIONED, NO GT RESIDUAL OBTAINED, NO SOB, FLACC 0.
--- NOTE | 2016-09-08 03:33 | NUR ---
PATIENT SLEEPING COMFORTABLY, NO RESPIRATORY DISTRESS, NO GT RESIDUAL OBTAINED.
--- NOTE | 2016-09-08 05:11 | NUR ---
PATIENT HAD A LARGE SOFT STOOL, WASHED AND CLEANED, KEEP DRY AND CLEAN. SUCTIONED WITH SMALL AMOUNT OF WHITE SECRETIONS, FLACC 0
[2016-09-08] MEDS: METOCLOPRAMIDE 10 MG/2 ML INJ VIAL IVP SCH ×3 (06:02→21:29)
[2016-09-08 06:27] LABS: ANION GAP 11.1 (8-16); CARBON DIOXIDE 30.2 mmol/L (21-32); CHLORIDE 103 mmol/L (98-107); CREATININE 0.9 mg/dL (0.6-1.3); GLUCOSE 150 mg/dL (74-106); POTASSIUM 3.3 mmol/L (3.5-5.1); SODIUM SERUM 141 mmol/L (136-145); UREA NITROGEN, BLOOD 17 mg/dL (7-18)
--- NOTE | 2016-09-08 06:28 | NUR ---
AM CARE PROVIDED, GT FEEDING TOLERATED WELL, NO RESPIRATORY DISTRESS, TURNED AND REPOSITIONED, FLACC 0.
[2016-09-08 06:29] LABS: BASOPHILS % (AUTO) 0.5 % (0.0-2.0); EOSINOPHILS # (AUTO) 0.7 K/uL (0-0.4); EOSINOPHILS % (AUTO) 7.8 % (0.0-4.0); HEMATOCRIT 35.5 % (36-52); HEMOGLOBIN 11.9 g/dL (12.0-18.0); LYMPHOCYTES % (AUTO) 11.1 % (20.5-51.1); MEAN CORPUSCULAR HEMOGLOBIN 31 pg (27-31); MEAN CORPUSCULAR HGB CONC 33 g/dL (33-37); MEAN CORPUSCULAR VOLUME 93 fL (80-94); MONOCYTES # (AUTO) 0.9 K/uL (0.8-1.0); MONOCYTES % (AUTO) 9.6 % (1.7-9.3); NEUTROPHILS # (AUTO) 6.6 K/uL (1.8-7.7); PLATELET COUNT (AUTO) 227 K/uL (140-450); RED CELL DISTRIBUTION WIDTH 13.3 % (11.6-13.7); WHITE BLOOD COUNT (AUTO) 9.2 K/uL (4.8-10.8)
[2016-09-08] MEDS: BLOOD GLUCOSE MONITORING 1 DEV DEV FS SCH ×4 (06:30→21:53)
[2016-09-08 06:32] LABS: MAGNESIUM 2.2 mg/dL (1.8-2.4); PHOSPHORUS 2.4 mg/dL (2.5-4.9)
[2016-09-08] MEDS: INSULIN LISPRO SLIDING SCALE 100 UNITS/ML VIAL SUBQ PRN (06:39)
[2016-09-08] MEDS: ALBUTEROL SULFATE/IPRATROPIU 3 ML SOL IH SCH ×3 (07:00→20:17)
--- NOTE | 2016-09-08 07:00 | NUR ---
RECEIVED ON A [employer] Entertainment[employer]APE R860 VENTILATOR PLUGGED INTO RED OUTLET TOLERATING WELL WITHOUT INCIDENT TO A PORTEX #7 DCT AIRWAY SECURED WITH A EDMAR TRAC TIE CUFF PRESSURE CHECKED FOR MOV AMBU BAG NOTED AT [facility] LOC ASLEEP RESTING WELL NO RESPIRATORY DISTRESS NOTED BREATH SOUNDS DIFFUSED RHONCHI BILATERAL WITH GOOD CHEST RISE DEEP TRACHEAL SUCTION FOR SMALL THIN YELLOW SECRETIONS AIRWAY PATENT
[2016-09-08] MEDS: CARVEDILOL 12.5 MG TAB GT SCH ×2 (07:45→16:56)
--- NOTE | 2016-09-08 08:00 | NUR ---
INITIAL SHIFT ASSESSMENT DONE (SEE ASSESSMENT PART). OPENING EYES SPONTANEOUSLY BUT NOT FOLLOWING ANY COMMAND. LUE IS CONTRACTED. RUE AND BLE ARE RIGID. NO SIGNS OF PAIN OR AGITATION. ON VENTILATOR VIA TRACH, TOLERATING CURRENT SETTINGS WELL. O2 SAT 96-99%. SBP IN 130'S-140'S. 100% PACED ON MONITOR. NO ECTOPY NOTED. ON TUBE FEEDING VIA G-TUBE, TOLERATING WELL. NO RESIDUALS NOTED. HOB ELEVATED. UPDATED OF PLAN OF CARE. WILL CONTINUE TO MONITOR.
--- NOTE | 2016-09-08 08:30 | NUR ---
DR ZAVALETA AND MEDICAL INTERNS ARE IN THE ROOM. UPDATED OF STATUS AND LAB RESULTS. STATED THAT HE WILL ORDER IN THE CPOE FOR [facility].
[2016-09-08] MEDS: ASPIRIN 81 MG TAB.CHEW GT SCH (09:01)
[2016-09-08] MEDS: DIGOXIN 0.125 MG/2.5 ML UDC GT SCH (09:01)
[2016-09-08] MEDS: ISOSORBIDE DINITRATE 10 MG TAB GT SCH ×2 (09:01→21:26)
[2016-09-08] MEDS: LACTOBACILLUS RHAMNOSUS GG 1 EACH CAP GT SCH ×2 (09:01→21:26)
[2016-09-08] MEDS: FUROSEMIDE 40 MG TAB GT SCH ×2 (09:02→21:28)
[2016-09-08] MEDS: FAMOTIDINE 20 MG TAB GT SCH ×2 (09:02→21:28)
[2016-09-08] MEDS: amLODIPine 5 MG TAB GT SCH (09:02)
[2016-09-08] MEDS: ALLOPURINOL 100 MG TAB GT SCH (09:02)
[2016-09-08] MEDS: POLYETHYLENE GLYCOL 17 GM/PKT GT SCH (09:02)
[2016-09-08] MEDS: Z-GUARD PASTE TP SCH (09:03)
--- NOTE | 2016-09-08 09:11 | NUR ---
ASLEEP RESTING WELL NO SOB NOTED GOOD CHEST RISE
[2016-09-08] MEDS ORDERED: POTASSIUM PHOSPHATE 15 MM in NACL 0.9% 250 ML IV ONE (09:15)
--- NOTE | 2016-09-08 10:00 | NUR ---
RESTING IN BED. NO SIGNS OF PAIN OR AGITATION NOTED. TOLERATING VENTILATOR WELL. O2 SAT 96-99%. SBP IN 110'S-130'S. 100% PACED ON MONITOR. NO ECTOPY NOTED. HOB ELEVATED. WILL CONTINUE TO MONITOR.
--- NOTE | 2016-09-08 10:48 | NUR ---
RESTING COMFORTABLY NO PULMONARY DISTRESS NOTED BREATH SOUNDS DIFFUSED RHONCHI BILATERAL GOOD CHEST RISE DEEP TRACHEAL SUCTION FOR SMALL THIN YELLOW SECRETIONS AIRWAY PATENT
--- NOTE | 2016-09-08 11:20 | NUR ---
DR TOVAR IS IN THE ROOM. UPDATED OF STATUS. NO NEW ORDER RECEIVE.
--- NOTE | 2016-09-08 12:00 | NUR ---
REASSESSMENT DONE. NEURO STATUS STILL THE SAME. NO SIGNS OF PAIN OR AGITATION. TOLERATING CURRENT VENTILATOR SETTINGS WELL. O2 SAT 98-100%. SBP IN 120'S. 100% PACED ON MONITOR. NO ECTOPY NOTED. TOLERATING TUBE FEEDING WELL. NO RESIDUALS NOTED. HOB ELEVATED. UPDATED OF PLAN OF CARE. WILL CONTINUE TO MONITOR.
[2016-09-08] MEDS: ERTAPENEM SODIUM 1,000 MG in NACL 0.9% 50 ML IV SCH (12:45)
--- NOTE | 2016-09-08 12:57 | NUR ---
NO PULMONARY DISTRESS NOTED BREATH SOUNDS DIFFUSED RHONCHI BILATERAL WITH GOOD CHEST RISE DEEP TRACHEAL SUCTION FOR SMALL THIN YELLOW SECRETIONS AIRWAY PATENT
--- NOTE | 2016-09-08 13:23 | NUR ---
SS NOTE: SENT CURRENT MICROBIOLOGY TO [facility], RECEIVED FAX CONFIRMATION
--- NOTE | 2016-09-08 14:00 | NUR ---
RESTING IN BED. NO SIGNS OF PAIN OR AGITATION NOTED. TOLERATING VENTILATOR WELL. O2 SAT 98-99%. SBP IN 110'S-120'S. 100% PACED ON MONITOR. NO ECTOPY NOTED. HOB ELEVATED. WILL CONTINUE TO MONITOR.
--- NOTE | 2016-09-08 14:30 | NUR ---
HAS BM AT THIS TIME, MODERATE AMOUNT, PASTY, AND BROWN COLOR. GIVEN PERICARE AND LINENS ARE CHANGE. TOLERATED THE PROCEDURE WELL.
--- NOTE | 2016-09-08 14:42 | NUR ---
DR HERNANDEZ IS IN THE ROOM. UPDATED OF STATUS. NO NEW ORDER RECEIVE.
--- NOTE | 2016-09-08 14:53 | NUR ---
ASLEEP STABLE NO PULMONARY DISTRESS NOTED BREATH SOUNDS INSP/EXP RHONCHI RIGHT SIDE; DIFFUSED EXP RHONCHI LEFT SIDE GOOD CHEST RISE DEEP TRACHEAL SUCTION FOR SMALL THIN YELLOW SECRETIONS AIRWAY PATENT
--- NOTE | 2016-09-08 16:00 | NUR ---
REASSESSMENT DONE. NEURO STATUS UNCHANGED. NO SIGNS OF PAIN OR AGITATION NOTED. TOLERATING CURRENT VENTILATOR SETTINGS WELL. O2 SAT 98-99%. SBP IN 110'S-120'S. 100% PACED ON MONITOR. NO ECTOPY NOTED. TOLERATING TUBE FEEDING WELL. NO RESIDUALS NOTED. HOB ELEVATED. UPDATED OF PLAN OF CARE. WILL CONTINUE TO MONITOR.
--- NOTE | 2016-09-08 17:06 | NUR ---
STABLE NO SOB NOTED BREATH SOUNDS CLEAR BILATERAL WITH GOOD AERATION THROUGHOUT AIRWAY PATENT
--- NOTE | 2016-09-08 17:10 | NUR ---
HAS BM AGAIN AT THIS TIME, LARGE AMOUNT, PASTY, AND BROWN COLOR. GIVEN PARTIAL BATH AND LINENS ARE CHANGE. TOLERATED THE PROCEDURE WELL.
--- NOTE | 2016-09-08 17:30 | NUR ---
REPORT GIVEN TO JEROD RN, RN GIA.
--- NOTE | 2016-09-08 19:00 | NUR ---
REPORT GIVEN TO INCOMING HAND PAINTER RN, RN AYLIN.
--- NOTE | 2016-09-08 19:20 | NUR ---
RECEIVED PATIENT REPORT FROM DAY SHIFT NATANAEL HURST. ON MOLD TOOLER, FULL CODE, WITHDRAWS TO PAIN, UNABLE TO FOLLOW COMMANDS. WITH TRACH TO VENT: FIO2 28%, TV 500, AC RATE OF 12, PEEP OF 5. WITH G-TUBE CONNECTED TO FEEDING PUMP RUNNING TUBE FEEDING DIABETISOURCE AC AT 55ML/HR, WATER FLUSH 40 ML Q4H. WITH PERIPHERAL IV G22 ON RIGHT ARM, CONNECTED TO IV PUMP RUNNING IVF OF NS AT 50 ML/HR. WITH MENDIETA CATHETER CONNECTED TO URINE BAG DRAINING YELLOWISH URINE OUTPUT. SCD ON BOTH LEGS. FOR TRANSFER TO TELEMETRY UNIT.
--- NOTE | 2016-09-08 19:20 | NUR ---
REPORT GIVEN TO NATANAEL VIERA. Addendum: 09/08/16 at 1942 by Abeba Louis RN NATANAEL VIERA RECEIVED REPORT FROM FILLER SHAKER.
--- NOTE | 2016-09-08 19:30 | NUR ---
TRANSFERRED TO TELEMETRY UNIT ROOM 109 B PER BED WITH RT MYESHA AND OPERATIONS LIAISON IRENE WITH PORTABLE MONITOR AND MANUAL AMBUBAGGING ON OXYGEN.
--- NOTE | 2016-09-08 20:00 | NUR ---
ORAL CARE DONE WITH VAP ORAL KIT ASSISTED WITH SUCTIONING. REPOSITIONED PATIENT. BED IN LOW POSITION. ASPIRATION PRECAUTION. NO RESIDUAL.
[2016-09-08] MEDS: SIMVASTATIN 20 MG TAB GT SCH (21:28)
[2016-09-09] VITALS (8 sets, daily range): BP systolic 128–146; BP diastolic 66–79
--- NOTE | 2016-09-09 | NUR ---
HAD A BOWEL MOVEMENT, CLEANED UP AND REPOSITIONED PATIENT. Addendum: 09/09/16 at 0222 by Jennifer Spicer RN LARGE BM OF LOOSE YELLOWISH STOOL.
--- NOTE | 2016-09-09 04:12 | NUR ---
ORAL CARE DONE WITH VAP ORAL KIT ASSISTED WITH SUCTIONING. REPOSITIONED PATIENT. BED IN LOW POSITION. NO SIGNS OF DISTRESS OR DISCOMFORT AT THIS TIME.
[2016-09-09] MEDS: METOCLOPRAMIDE 10 MG/2 ML INJ VIAL IVP SCH ×3 (05:02→20:39)
--- NOTE | 2016-09-09 05:28 | NUR ---
AM CARE DONE. HAD A BOWEL MOVEMENT, SMALL YELLOWISH, SOFT. PATIENT CLEANED UP AND REPOSITIONED.
[2016-09-09] MEDS: BLOOD GLUCOSE MONITORING 1 DEV DEV FS SCH ×4 (06:34→20:49)
--- NOTE | 2016-09-09 06:36 | NUR ---
SUCTIONING OF SECRETIONS DONE PER TRACH. SKIN TEAR ON RT. SCAPULAR AREA OPEN WOUND SLIGHTLY SOAKED, DRESSING CHANGED.
[2016-09-09] MEDS: ALBUTEROL SULFATE/IPRATROPIU 3 ML SOL IH SCH ×3 (06:49→19:41)
--- NOTE | 2016-09-09 07:00 | NUR ---
received pt on vent with settings as charted breath sounds present bilat clear sxn pt with min amt clear secs trach site secure portex 7 pt stable no resp distress a this time ambu bag at bedside will continue to monitor pt vent plugged into red outlet
--- NOTE | 2016-09-09 07:12 | NUR ---
PATIENT REPORT ENDORSED TO LUIGI HERZOG RN FOR CONTINUITY OF CARE. NO SIGNS OF RESPIRATORY DISTRESS OR DISCOMFORT AT THIS TIME.
--- NOTE | 2016-09-09 07:13 | NUR ---
RECEIVED REPORT FROM NIGHT RN AT PT BEDSIDE. PT RESTING IN BED, ON TRACH TO VENT FIO2 28% SATURATING 100%. PATIENT APHASIC. EYES OPEN TO STIMULI. LUE CONTRACTED, EDEMATOUS BUE/BLE. HAS PACEMAKER TO RANDI. G-TUBE TO LUQ, 250ML RESIDUAL NOTED, ABDOMINAL DISTENSION NOTED. SCDS IN PLACE. MENDIETA TO GRAVITY TO MODERATE OUTPUT. LINENS CLEAN AND DRY. NO S/S OF DISTRESS NOTED. BED IN LOWEST POSITION. BED ALARM CHECKED.
[2016-09-09] MEDS: LACTOBACILLUS RHAMNOSUS GG 1 EACH CAP GT SCH ×2 (08:45→20:40)
[2016-09-09] MEDS: ASPIRIN 81 MG TAB.CHEW GT SCH (08:45)
[2016-09-09] MEDS: ISOSORBIDE DINITRATE 10 MG TAB GT SCH ×2 (08:46→20:40)
[2016-09-09] MEDS: DIGOXIN 0.125 MG/2.5 ML UDC GT SCH (08:46)
[2016-09-09] MEDS: POLYETHYLENE GLYCOL 17 GM/PKT GT SCH (08:47)
[2016-09-09] MEDS: FUROSEMIDE 40 MG TAB GT SCH ×2 (08:47→20:39)
[2016-09-09] MEDS: amLODIPine 5 MG TAB GT SCH (08:48)
[2016-09-09] MEDS: CARVEDILOL 12.5 MG TAB GT SCH ×2 (08:48→16:16)
[2016-09-09] MEDS: FAMOTIDINE 20 MG TAB GT SCH ×2 (08:48→20:40)
[2016-09-09] MEDS: ALLOPURINOL 100 MG TAB GT SCH (08:49)
[2016-09-09] MEDS: Z-GUARD PASTE TP SCH (09:00)
[2016-09-09 09:14] LABS: BASOPHILS # (AUTO) 0.1 K/uL (0.00-0.22); BASOPHILS % (AUTO) 0.8 % (0.0-2.0); EOSINOPHILS # (AUTO) 0.5 K/uL (0-0.4); EOSINOPHILS % (AUTO) 5.7 % (0.0-4.0); HEMATOCRIT 37.4 % (36-52); HEMOGLOBIN 12.2 g/dL (12.0-18.0); LYMPHOCYTES # (AUTO) 1.1 K/uL (2.0-11.5); LYMPHOCYTES % (AUTO) 13.5 % (20.5-51.1); MEAN CORPUSCULAR HEMOGLOBIN 31 pg (27-31); MEAN CORPUSCULAR HGB CONC 33 g/dL (33-37); MEAN CORPUSCULAR VOLUME 94 fL (80-94); MONOCYTES # (AUTO) 0.7 K/uL (0.8-1.0); MONOCYTES % (AUTO) 7.9 % (1.7-9.3); NEUTROPHILS # (AUTO) 5.9 K/uL (1.8-7.7); NEUTROPHILS % (AUTO) 72.1 % (42.2-75.2); PLATELET COUNT (AUTO) 213 K/uL (140-450); RED BLOOD CELL COUNT(AUTO) 3.99 MIL/uL (4.20-6.10); RED CELL DISTRIBUTION WIDTH 13.4 % (11.6-13.7); WHITE BLOOD COUNT (AUTO) 8.3 K/uL (4.8-10.8)
--- NOTE | 2016-09-09 09:24 | NUR ---
VENT CHECK COMPLETED. PT IS NOT SOB AND NOT IN RESPIRATORY DISTRESS AT THIS TIME. TRACH IS SECURE. VENT ALARMS ARE ON AND FUNCTIONING.
[2016-09-09 09:31] LABS: MAGNESIUM 2.4 mg/dL (1.8-2.4); PHOSPHORUS 2.7 mg/dL (2.5-4.9)
[2016-09-09 09:34] LABS: CALCIUM 8.8 mg/dL (8.5-10.1); CARBON DIOXIDE 29.6 mmol/L (21-32); CHLORIDE 105 mmol/L (98-107); CREATININE 0.8 mg/dL (0.6-1.3); GLUCOSE 120 mg/dL (74-106); POTASSIUM 3.6 mmol/L (3.5-5.1); SODIUM SERUM 142 mmol/L (136-145); UREA NITROGEN, BLOOD 17 mg/dL (7-18)
--- NOTE | 2016-09-09 09:35 | NUR ---
PATIENT TOLERATED AM MEDS. NO S/S OF DISTRESS AT THIS TIME. WILL CONTINUE TO MONITOR.
--- NOTE | 2016-09-09 10:00 | NUR ---
PATIENT ASSISTED IN CHANGING OF POSITIONS. NO S/S OF ACUTE DISTRESS.
--- NOTE | 2016-09-09 12:20 | NUR ---
ASSISTED PT IN CHANGE OF POSITIONS. LINENS CLEAN AND DRY. IV SITE PATENT AND INTACT. PATIENT TOLERATING G-TUBE FEEDING AT THIS TIME. SAFETY MEASURES ENSURED. NO S/S OF ACUTE DISTRESS.
[2016-09-09] MEDS: ERTAPENEM SODIUM 1,000 MG in NACL 0.9% 50 ML IV SCH (13:04)
--- NOTE | 2016-09-09 14:17 | NUR ---
ASSISTED PATIENT IN CHANGING OF POSITIONS. LINENS CLEAN AND DRY. NO S/S OF ACUTE DISTRESS NOTED. WILL CONTINUE TO MONITOR.
--- NOTE | 2016-09-09 14:47 | NUR ---
09/09/16 RD FOLLOW UP COMPLETED PLEASE REFER TO NUTRITION PROGRESS NOTE UNDER CARE ACTIVITY FOR ESTIMATED NUTRITION NEEDS. RD RECOMMENDATIONS: 1. CONTINUE CURRENT NUTRITION SUPPORT DIABETISOURCE AC AT 55 ML/HR X 24 HR, FREE WATER FLUSH: 40 ML Q4H, VIA GTUBE. 2. IF PT CONTINUES WITH HIGH RESIDUALS AND DISTENDED ABDOMEN CONSIDER DECREASE TUBE FEED RATE TO 20 ML/HR AND GRADUALLY INCREASE TOLERATED BY 10 ML Q6H TO GOAL OF 55 ML/HR. 3. RD WILL F/U 2-3 DAYS; HIGH RISK. DOMINIC WIN RD
--- NOTE | 2016-09-09 16:10 | NUR ---
ASSISTED IN CHANGING OF POSITIONS. LINENS CLEAN AND DRY. NO S/S OF ACUTE DISTRESS.
[2016-09-09] MEDS: NACL 0.9% 1,000 ML IV SCH (16:11)
--- NOTE | 2016-09-09 19:19 | NUR ---
ENDORSED PLAN OF CARE TO NIGHT RN AT PT BEDSIDE. NO S/S OF ACUTE DISTRESS.
--- NOTE | 2016-09-09 19:30 | NUR ---
RECEIVED REPORT FROM LUIGI SANTOYO. PATIENT IS SLEEPING IN BED, BUT OPENS EYES SPONTANEOUSLY. PATIENT IS NONVERBAL, BEDBOUND, AND DOES NOT FOLLOW SIMPLE COMMANDS. NO SIGNS OF SOB OR RESPIRATORY DISTRESS NOTED. PATIENT IS TRACH TO VENT WITH SETTINGS OF FIO2 28%, TIDAL VOLUME 500, A/C 12, AND PEEP 5. BREATH SOUNDS ARE CLEAR AND BOWEL SOUNDS ARE ACTIVE. THERE IS A G-TUBE PRESENT. PATIENT IS RECEIVING G-TUBE FEEDING OF DIABETESOURCE AC AT 55ML/HR. PATIENT IS TOLERATING FEEDING WELL WITH 5ML RESIDUAL. THERE IS A MENDIETA CATHETER DRAINING TO GRAVITY WITH MODERATE AMOUNT OF CLEAR YELLOW URINE NOTED. SCDS ARE IN PLACE FOR VTE PROPHYLAXIS. VAP ORAL CARE RENDERED. HOB AT 30 DEGREES WITH BED IN LOW POSITION FOR SAFETY PRECAUTIONS. CALL LIGHT WITHIN REACH. WILL CONTINUE TO MONITOR PATIENT. Addendum: 09/09/16 at 2109 by Jayla Otto RN THERE IS A #22 IN THE RIGHT FOREARM RECEIVING NORMAL SALINE AT 50 ML/HR. SITE IS DRY, INTACT, AND PATENT.
--- NOTE | 2016-09-09 19:41 | NUR ---
PT RECEIVED FROM [facility] ON NOTED VENT SETTINGS. PT EYES OPEN, PT HAS A #7 [place] TRACH SECURE IN PLACE. BREATH SOUNDS ARE COARSE, CLEARING AFTER HHN INLINE TX AND SUCTIONING OF SMALL AMOUNT THICK CREAMY SECRETIONS. NO ADVERSE EFFECTS NOTED. VENT ALARMS ON AND AUDIBLE. VENT PLUGGED INTO RED ELECTRICAL OUTLET. AMBU BAG ON SIDE OF VENT.
[2016-09-09] MEDS: SIMVASTATIN 20 MG TAB GT SCH (20:40)
--- NOTE | 2016-09-09 20:56 | NUR ---
TOLERATED SCHEDULED MEDICATION ADMINISTRATION. NO SIGNS OF SOB OR DISTRESS NOTED. BLOOD SUGAR IS 142. NO INSULIN COVERAGE NEEDED AT THIS TIME. HOB AT 30 DEGREES WITH BED IN LOW POSITION. WILL CONTINUE TO MONITOR PATIENT.
--- NOTE | 2016-09-09 21:32 | NUR ---
VENT CHECKED. PT AWAKE, BREATH SOUNDS DIM/CLEAR. NO SUCTIONING DONE AT THIS TIME. NO DISTRESS NOTED. WILL CONTINUE TO MONITOR.
--- NOTE | 2016-09-09 21:44 | NUR ---
PATIENT REPOSITIONED FOR COMFORT. NO SIGNS OF SOB NOTED. HOB AT 30 DEGREES WITH BED IN LOW POSITION. CONTINUE TO MONITOR PATIENT.
--- NOTE | 2016-09-09 23:28 | NUR ---
VENT CHECKED. PT ASLEEP, BREATH SOUNDS COARSE, PT LAVAGED AND SUCTIONED SMALL AMOUNT THICK CREAMY SECRETIONS. NO ADVERSE EFFECTS NOTED. WILL CONTINUE TO MONITOR.
--- NOTE | 2016-09-09 23:48 | NUR ---
PATIENT REPOSITIONED FOR COMFORT. VAP ORAL CARE RENDERED. NO SIGNS OF SOB OR RESPIRATORY DISTRESS NOTED. HOB AT 30 DEGREES WITH BED IN LOW POSITION FOR SAFETY MEASURES. WILL CONTINUE TO MONITOR PATIENT.
[2016-09-10] VITALS: BP 145/74
--- NOTE | 2016-09-10 01:15 | NUR ---
VENT CHECKED. PT AWAKE, BREATH SOUNDS CLEAR/DIMINISHED BASES. NO DISTRESS/SOB/WHEEZING NOTED AT THIS TIME. NO SUCTIONING DONE. WILL CONTINUE TO MONITOR.
--- NOTE | 2016-09-10 01:55 | NUR ---
PATIENT REPOSITIONED FOR COMFORT. NO SIGNS OF SHORTNESS OF BREATH OR DISTRESS NOTED. HOB AT 30 DEGREES WITH BED IN LOW POSITION. CONTINUE TO MONITOR PATIENT.
--- NOTE | 2016-09-10 03:32 | NUR ---
PATIENT SLEEPING IN BED. NO SIGNS OF SOB OR RESPIRATORY DISTRESS NOTED. VITALS ARE WNL. VAP ORAL CARE RENDERED. HOB AT 30 DEGREES WITH BED IN LOW POSITION. CONTINUE TO MONITOR PATIENT.
--- NOTE | 2016-09-10 03:41 | NUR ---
VENT CHECKED. PT ASLEEP, HME, TRACH GAUZE CHANGED. BREATH SOUNDS, SLIGHTLY COARSE, CLEARING POST LAVAGE AND SUCTIONING OF SMALL AMOUNT CREAMY SECRETIONS. NO ADVERSE EFFECTS NOTED. WILL CONTINUE TO MONITOR.
[2016-09-10 04:00] VITALS: BP 142/68
--- NOTE | 2016-09-10 04:30 | NUR ---
MORNING CARE RENDERED. BED BATH PROVIDED. PATIENT'S LINENS AND GOWN CHANGED. PATIENT REPOSITIONED FOR COMFORT. NO SIGNS OF RESPIRATORY DISTRESS NOTED. HOB AT 30 DEGREES WITH BED IN LOW POSITION. CONTINUE TO MONITOR.
[2016-09-10] MEDS: METOCLOPRAMIDE 10 MG/2 ML INJ VIAL IVP SCH ×3 (05:11→22:04)
--- NOTE | 2016-09-10 05:27 | NUR ---
VENT CHECKED. PT AWAKE. BREATH SOUNDS CLEAR DIMINISHED BASES, NO SUCTIONING NEEDED.
--- NOTE | 2016-09-10 05:45 | NUR ---
CPAS AT BEDSIDE FOR SCHEDULED LAB DRAWS.
[2016-09-10] MEDS: BLOOD GLUCOSE MONITORING 1 DEV DEV FS SCH ×4 (06:23→20:48)
--- NOTE | 2016-09-10 07:00 | NUR ---
PATIENT IN STABLE CONDITION. ALL NEEDS ATTENDED TO DURING SHIFT. ENDORSED CONTINUITY OF CARE TO LUIGI SANTOYO.
--- NOTE | 2016-09-10 07:02 | NUR ---
RECEIVED SBAR REPORT FROM NIGHT NURSE AT PT BEDSIDE. PT RESTING IN BED. APHASIC, ON TRACH TO VENT. NO S/S OF ACUTE DISTRESS. G-TUBE SITE PATENT AND INTACT, 10ML RESIDUAL NOTED. IV SITE PATENT AND INTACT. SCDS IN PLACE. PATIENT ON 28% FIO2 SATURATING 99%. SAFETY MEASURES ENSURED. WILL CONTINUE TO MONITOR.
[2016-09-10 07:25] LABS: BASOPHILS # (AUTO) 0.1 K/uL (0.00-0.22); BASOPHILS % (AUTO) 0.7 % (0.0-2.0); EOSINOPHILS # (AUTO) 0.4 K/uL (0-0.4); EOSINOPHILS % (AUTO) 4.1 % (0.0-4.0); HEMATOCRIT 36.2 % (36-52); HEMOGLOBIN 11.8 g/dL (12.0-18.0); LYMPHOCYTES # (AUTO) 1.4 K/uL (2.0-11.5); LYMPHOCYTES % (AUTO) 14.4 % (20.5-51.1); MEAN CORPUSCULAR HEMOGLOBIN 30 pg (27-31); MEAN CORPUSCULAR HGB CONC 33 g/dL (33-37); MEAN CORPUSCULAR VOLUME 93 fL (80-94); MONOCYTES # (AUTO) 0.9 K/uL (0.8-1.0); MONOCYTES % (AUTO) 9.5 % (1.7-9.3); NEUTROPHILS % (AUTO) 71.3 % (42.2-75.2); PLATELET COUNT (AUTO) 213 K/uL (140-450); RED BLOOD CELL COUNT(AUTO) 3.88 MIL/uL (4.20-6.10); RED CELL DISTRIBUTION WIDTH 13.6 % (11.6-13.7); WHITE BLOOD COUNT (AUTO) 9.8 K/uL (4.8-10.8)
[2016-09-10] MEDS: ALBUTEROL SULFATE/IPRATROPIU 3 ML SOL IH SCH ×3 (07:32→19:24)
[2016-09-10 07:43] LABS: MAGNESIUM 2.5 mg/dL (1.8-2.4); PHOSPHORUS 2.6 mg/dL (2.5-4.9)
[2016-09-10 07:45] LABS: ANION GAP 11.8 (8-16); CALCIUM 8.5 mg/dL (8.5-10.1); CARBON DIOXIDE 28.6 mmol/L (21-32); CHLORIDE 105 mmol/L (98-107); CREATININE 0.9 mg/dL (0.6-1.3); GLUCOSE 138 mg/dL (74-106); POTASSIUM 3.4 mmol/L (3.5-5.1); SODIUM SERUM 142 mmol/L (136-145); UREA NITROGEN, BLOOD 18 mg/dL (7-18)
[2016-09-10 08:00] VITALS: BP 158/81
--- NOTE | 2016-09-10 08:00 | NUR ---
ASSISTED PT IN CHANGING OF POSITIONS. LINENS CLEAN AND DRY. OFFLOADED PRESSURE AREAS. NO S/S OF ACUTE DISTRESS. ORAL CARE DONE.
--- NOTE | 2016-09-10 08:40 | NUR ---
PATIENT ATE BREAKFAST WITHOUT ASSIST. NO S/S OF ACUTE DISTRESS. TREMORS NOTED. IV SITE PATENT AND INTACT. CALL LIGHT WITHIN REACH. Addendum: 09/10/16 at 1328 by Max Nunez RN WRONG PATIENT.
--- NOTE | 2016-09-10 08:41 | NUR ---
PATIENT RESTING IN BED. NO S/S OF ACUTE DISTRESS. IV SITE PATENT AND INTACT.
[2016-09-10] MEDS: Z-GUARD PASTE TP SCH (09:00)
[2016-09-10] MEDS: FUROSEMIDE 40 MG TAB GT SCH (09:00)
[2016-09-10] MEDS: ALLOPURINOL 100 MG TAB GT SCH (10:04)
[2016-09-10] MEDS: LACTOBACILLUS RHAMNOSUS GG 1 EACH CAP GT SCH ×2 (10:05→21:00)
[2016-09-10] MEDS: CARVEDILOL 12.5 MG TAB GT SCH ×2 (10:05→16:23)
[2016-09-10] MEDS: amLODIPine 5 MG TAB GT SCH (10:05)
[2016-09-10] MEDS: ISOSORBIDE DINITRATE 10 MG TAB GT SCH ×2 (10:06→22:04)
[2016-09-10] MEDS: FAMOTIDINE 20 MG TAB GT SCH ×2 (10:06→22:04)
[2016-09-10] MEDS: ASPIRIN 81 MG TAB.CHEW GT SCH (10:06)
[2016-09-10] MEDS: DIGOXIN 0.125 MG/2.5 ML UDC GT SCH (10:07)
[2016-09-10] MEDS: POLYETHYLENE GLYCOL 17 GM/PKT GT SCH (10:08)
--- NOTE | 2016-09-10 10:10 | NUR ---
PATIENT ASSISTED IN CHANGING OF POSITIONS. LINENS CLEAN AND DRY. MENDIETA DRAINING TO GRAVITY. NO S/S OF ACUTE DISTRESS. WILL CONTINUE TO MONITOR.
[2016-09-10 12:00] VITALS: BP 116/67
--- NOTE | 2016-09-10 12:00 | NUR ---
ASSISTED PT IN CHANGING OF POSITIONS. LINENS CLEAN AND DRY. OFFLOADED PRESSURE AREAS. NO S/S OF ACUTE DISTRESS. ORAL CARE DONE.
[2016-09-10] MEDS: ERTAPENEM SODIUM 1,000 MG in NACL 0.9% 50 ML IV SCH (12:21)
[2016-09-10] MEDS: NACL 0.9% 1,000 ML IV SCH (12:24)
--- NOTE | 2016-09-10 13:20 | NUR ---
PATIENT SLEEPING. NO S/S OF ACUTE DISTRESS.
--- NOTE | 2016-09-10 13:25 | NUR ---
PATIENT SITTING UP AT BEDSIDE EATING LUNCH. PATIENT STILL HAVING MILD TREMORS, TOLERATING LUNCH WELL. Addendum: 09/10/16 at 1327 by Max Nunez RN WRONG PATIENT.
--- NOTE | 2016-09-10 14:20 | NUR ---
ASSISTED PT IN CHANGING OF POSITIONS. LINENS CLEAN AND DRY. OFFLOADED PRESSURE AREAS. NO S/S OF ACUTE DISTRESS. ORAL CARE DONE.
[2016-09-10] MEDS ORDERED: KCL 20 MEQ/WATER INJ PREMIX 100 ML IV SCH (14:45)
[2016-09-10 16:00] VITALS: BP 130/63
--- NOTE | 2016-09-10 16:10 | NUR ---
PT ASSISTED IN CHANGING OF POSITIONS. LINENS CLEAN AND DRY. NO S/S OF DISTRESS NOTED.
--- NOTE | 2016-09-10 18:00 | NUR ---
ASSISTED PT IN CHANGING OF POSITIONS. LINENS CLEAN AND DRY. IV SITE PATENT AND INTACT.
--- NOTE | 2016-09-10 19:14 | NUR ---
ENDORSED PLAN OF CARE TO NIGHT RN. SBAR REPORT GIVEN AT BEDSIDE. NO S/S OF ACUTE DISTRESS.
--- NOTE | 2016-09-10 19:15 | NUR ---
RECEIVED REPORT FROM MORNING NURSE AT BEDSIDE. PT IS DROWSY, APHASIC, OPEN EYES TO PAIN STIMULI, UNABLE TO RESPOND TO COMMAND, FLACC 0. ON TRACH TO VENT WITH SETTING FIO2 28, TV 500, R 12, PEEP 5, NO S/S OF SOB/DISTRESS, BREATHING EVEN AND UNLABORED, CLEAR LUNG SOUNDS. TELE MONITOR WITH 100% PACED, SOFT ABD WITH ACTIVE BOWEL SOUNDS, GT TO TF WITH DIABETICSOURCE AT 55ML/HR, RESIDUAL 10ML. IV SITE TO RIGHT FOREARM 22GA RUNNING WITH NS. MENDIETA CATHETER DRAINING CLOUDY YELLOW URINE VIA GRAVITY. AFRIBRILE, SKIN IS WARM AND DRY TO TOUCH, REDNESS TO SACRAL AREA, SKIN TEAR TO RIGHT SCAPULA. CONTRACTURE TO ALL EXTREMITIES, REQUIRES TOTAL CARE. SCD'S TO BLE. ASPIRATION PRECAUTION IN PLACE, SAFETY MEASURES MAINTAINED. WILL CONTINUE TO MONITOR.
[2016-09-10 20:00] VITALS: BP 139/76
--- NOTE | 2016-09-10 20:15 | NUR ---
ORAL CARE PROVIDED, POSITION CHANGED FOR OFF LOAD PRESSURE, VSS.
--- NOTE | 2016-09-10 21:30 | NUR ---
SCHEDULED MEDICATION GIVEN, PT TOLERATED WELL.
[2016-09-10] MEDS: SIMVASTATIN 20 MG TAB GT SCH (22:03)
[2016-09-10] MEDS: FUROSEMIDE 20 MG TAB GT SCH (22:04)
[2016-09-11] VITALS (7 sets, daily range): BP systolic 98–138; BP diastolic 59–82
--- NOTE | 2016-09-11 | NUR ---
NO CHANGE OF CONDITION AT THIS TIME. POSITION CHANGED FOR OFF LOAD PRESSURE, ORAL CARE PROVIDED, VSS.
--- NOTE | 2016-09-11 04:00 | NUR ---
NO CHANGE OF CONDITION, AM CARE PROVIDED, ORAL CARE PROVIDED, POSITION CHANGED FOR OFF LOAD PRESSURE. VSS.
[2016-09-11] MEDS: METOCLOPRAMIDE 10 MG/2 ML INJ VIAL IVP SCH ×2 (05:25→13:31)
[2016-09-11] MEDS: BLOOD GLUCOSE MONITORING 1 DEV DEV FS SCH ×3 (06:01→16:33)
[2016-09-11] MEDS: ALBUTEROL SULFATE/IPRATROPIU 3 ML SOL IH SCH ×2 (06:52→12:48)
[2016-09-11 06:56] LABS: BASOPHILS # (AUTO) 0.1 K/uL (0.00-0.22); EOSINOPHILS # (AUTO) 0.4 K/uL (0-0.4); EOSINOPHILS % (AUTO) 4.8 % (0.0-4.0); HEMATOCRIT 36.3 % (36-52); LYMPHOCYTES # (AUTO) 1.5 K/uL (2.0-11.5); LYMPHOCYTES % (AUTO) 18.2 % (20.5-51.1); MEAN CORPUSCULAR HEMOGLOBIN 31 pg (27-31); MEAN CORPUSCULAR HGB CONC 33 g/dL (33-37); MEAN CORPUSCULAR VOLUME 93 fL (80-94); MONOCYTES # (AUTO) 0.8 K/uL (0.8-1.0); MONOCYTES % (AUTO) 9.4 % (1.7-9.3); NEUTROPHILS # (AUTO) 5.3 K/uL (1.8-7.7); NEUTROPHILS % (AUTO) 66.6 % (42.2-75.2); PLATELET COUNT (AUTO) 226 K/uL (140-450); RED BLOOD CELL COUNT(AUTO) 3.93 MIL/uL (4.20-6.10); RED CELL DISTRIBUTION WIDTH 13.6 % (11.6-13.7); WHITE BLOOD COUNT (AUTO) 8.1 K/uL (4.8-10.8)
--- NOTE | 2016-09-11 07:00 | NUR ---
RECEIVED PT STABLE ON VENT SUPPORT AT DOCUMENTED SETTINGS, SUCTIONED SMALL THICK CLEAR WHITE SECRETIONS, HHN TX GIVEN, TOLERATED WELL, NO RESP DISTRESS OR SOB NOTED, PORTEX 7 TRACH PATENT/SECURED/MIDLINE, CONT PULSE OX ON, VENT PLUGGED INTO RED OUTLET, AMBU BAG BEDSIDE, WILL CONTINUE TO MONITOR.
--- NOTE | 2016-09-11 07:10 | NUR ---
REPORT GIVEN TO MORNING SHIFT NURSE AT BEDSIDE FOR CONTINUE OF CARE.
--- NOTE | 2016-09-11 07:11 | NUR ---
RECEIVED PT ASLEEP BUT RESPONSIVE TO STIMULI, NO S/S OF RESPIRATORY DISTRESS, NONVERBAL, WITH TRACH CONNECTED TO VENT FIO2 28%, WITH GTUBE 5ML RESIDUAL CONNECTED TO DIABETISOURCE TOLERATING WELL. WITH MENDIETA CATH CONNECTED TO URINE BAG DRAINING YELLOW URINE, WITH IV ACCESS AT RIGHT FOREARM 22G INFUSING FLUIDS WELL, WITH RIGHT SCAPULAR SKIN TEAR. SAFETY PRECAUTIONS ENFORCED. CALL LIGHT WITHIN REACH, WILL CONTINUE TO MONITOR.
[2016-09-11 07:14] LABS: SODIUM SERUM 142 mmol/L (136-145)
[2016-09-11 07:15] LABS: ANION GAP 9.3 (8-16); CALCIUM 8.8 mg/dL (8.5-10.1); CARBON DIOXIDE 29.3 mmol/L (21-32); CHLORIDE 107 mmol/L (98-107); CREATININE 0.9 mg/dL (0.6-1.3); GLUCOSE 133 mg/dL (74-106); POTASSIUM 3.6 mmol/L (3.5-5.1); UREA NITROGEN, BLOOD 18 mg/dL (7-18)
[2016-09-11 07:25] LABS: MAGNESIUM 2.4 mg/dL (1.8-2.4); PHOSPHORUS 2.5 mg/dL (2.5-4.9)
[2016-09-11] MEDS: POLYETHYLENE GLYCOL 17 GM/PKT GT SCH (08:15)
[2016-09-11] MEDS: DIGOXIN 0.125 MG/2.5 ML UDC GT SCH (08:15)
[2016-09-11] MEDS: ALLOPURINOL 100 MG TAB GT SCH (08:15)
[2016-09-11] MEDS: FAMOTIDINE 20 MG TAB GT SCH (08:15)
[2016-09-11] MEDS: ASPIRIN 81 MG TAB.CHEW GT SCH (08:17)
[2016-09-11] MEDS: CARVEDILOL 12.5 MG TAB GT SCH ×2 (08:18→17:21)
[2016-09-11] MEDS: amLODIPine 5 MG TAB GT SCH (08:19)
[2016-09-11] MEDS: FUROSEMIDE 20 MG TAB GT SCH (08:19)
[2016-09-11] MEDS: ISOSORBIDE DINITRATE 10 MG TAB GT SCH (08:20)
[2016-09-11] MEDS: NACL 0.9% 1,000 ML IV SCH (08:20)
[2016-09-11] MEDS: LACTOBACILLUS RHAMNOSUS GG 1 EACH CAP GT SCH (08:21)
--- NOTE | 2016-09-11 08:42 | NUR ---
DUE MEDS GIVEN VIA GTUBE WITH 2 ML RESIDUAL, TOLERATED WELL. REPOSITIONED PT ON THE SIDE
[2016-09-11] MEDS: Z-GUARD PASTE TP SCH (08:59)
--- NOTE | 2016-09-11 10:03 | NUR ---
REPOSITIONED PT TO THE SIDE WITH ACUTE CARE CERTIFIED NURSING ASSISTANT, NO S/S OF DISTRESS. WILL CONTINUE TO MONITOR.
--- NOTE | 2016-09-11 12:09 | NUR ---
REPOSITIONED PT TO SIDE, SUCTIONED PRN. NO S/S OF RESPIRATORY DISTRESS. WILL CONTINUE TO MONITOR.
[2016-09-11] MEDS ORDERED: BLOO1STR10 FS (13:22)
[2016-09-11] MEDS ORDERED: FURO20TA8 GT (13:22)
[2016-09-11] MEDS ORDERED: D50SYR IVP (13:22)
[2016-09-11] MEDS ORDERED: HEPA500055 SUBQ (13:22)
[2016-09-11] MEDS ORDERED: CLON0.1T42 GT (13:22)
[2016-09-11] MEDS ORDERED: HUMSLIDE SUBQ (13:22)
[2016-09-11] MEDS ORDERED: ERTA1VIA IV (13:25)
[2016-09-11] MEDS: ERTAPENEM SODIUM 1,000 MG in NACL 0.9% 50 ML IV SCH (13:30)
--- NOTE | 2016-09-11 14:12 | NUR ---
PT REPOSITIONED TO SIDE, KEPT CLEAN AND DRY.
--- NOTE | 2016-09-11 15:45 | NUR ---
DC ORDER ACKNOWLEDGED; PER [facility], PT MAY RETURN TO [facility]24A W/ ISOLATION PRECAUTIONS AT ANYTIME. ENDORSED TO NATANAEL MILLER, MAY CALL REPORT TO [phone] [facility] ARRANGED PENDING AUTH#. SPOKE WITH MASOUD AT [facility], AUTH# FOR TRANSPORT PENDING. WILL FOLLOW UP.
--- NOTE | 2016-09-11 16:12 | NUR ---
ASSISTED PT IN REPOSITIONING, KEPT CLEAN AND DRY, ALL NEEDS ATTENDED. CALL LIGHT WITHIN REACH, WILL CONTINUE TO MONITOR.
--- NOTE | 2016-09-11 17:06 | NUR ---
CALLED MASOUD ([facility] [phone]), NO ANSWER, LEFT MESSAGE REQUESTING AUTH# FOR TRANSPORTATION. Addendum: 09/11/16 at 1848 by Idalmis Valdez RN CORRECTION: [facility] [phone]
--- NOTE | 2016-09-11 18:00 | NUR ---
SISTER TONY NOTIFIED
--- NOTE | 2016-09-11 18:05 | NUR ---
[facility] ARRIVED AT THIS TIME TO TRANSPORT PT. CALLED [facility], DISPATCH STATES THAT THEY CAN TRANSPORT PATIENT WITHOUT AUTH# AT THIS TIME. ATTEMPTED TO CALL [email or web address], NO ANSWER. REPORT GIVEN TO NATANAEL PADGETT AT [facility].
--- NOTE | 2016-09-11 18:29 | NUR ---
PT PICKED UP BY [facility], SCAPULAR WOUND PHOTOS TAKEN, GTUBE DISCONNECTED FROM FEEDING AND VENT, NO S/S OF RESPIRATORY DISTRESS. PT LEFT WITH MENDIETA CATH AND IV ACCESS ON LEFT HAND 22G PATENT AND INTACT. ALSO WITH GTUBE. PT LEFT UNIT IN STABLE CONDITION ACCOMPANIED BY [facility] NURSES WITH RT SPECIALIST. TELE BOX REMOVED.
== END 2016-09-11 18:29 | DRG 207 ==
LOC: MED 12:56 → MIC 16:43 → MTU 09-08 19:59
PROVIDERS: ADMIT Family Medicine; ATTEND Family Medicine
PROC: 5A1955Z Respiratory Ventilation, Greater than 96 Consecutive Hours (ICD-10-PCS; principal; 2016-09-05)
DX: J69.0 Pneumonitis due to inhalation of food and vomit (principal); N17.0 Acute kidney failure with tubular necrosis; I50.43 Acute on chronic combined systolic (congestive) and diastolic (congestive) heart failure; J96.10 Chronic respiratory failure, unspecified whether with hypoxia or hypercapnia; D68.69 Other thrombophilia; I69.359 Hemiplegia and hemiparesis following cerebral infarction affecting unspecified side; N39.0 Urinary tract infection, site not specified; E11.21 Type 2 diabetes mellitus with diabetic nephropathy; I48.2 Chronic atrial fibrillation; I11.0 Hypertensive heart disease with heart failure; N13.9 Obstructive and reflux uropathy, unspecified; R13.10 Dysphagia, unspecified; E78.1 Pure hyperglyceridemia; E66.9 Obesity, unspecified; E78.00 Pure hypercholesterolemia, unspecified; E87.6 Hypokalemia; B96.20 Unspecified Escherichia coli [E. coli] as the cause of diseases classified elsewhere; E78.5 Hyperlipidemia, unspecified; J44.9 Chronic obstructive pulmonary disease, unspecified; M10.9 Gout, unspecified; K21.9 Gastro-esophageal reflux disease without esophagitis; Z79.82 Long term (current) use of aspirin; Z93.0 Tracheostomy status; Z93.1 Gastrostomy status; Z79.899 Other long term (current) drug therapy; Z68.33 Body mass index [BMI] 33.0-33.9, adult; Z95.0 Presence of cardiac pacemaker
CPT/HCPCS: 36415; 36600; 71010; 71250; 80048; 80053; 80162; 81001; 82150; 82248; 82553; 82803; 82948; 83036; 83605; 83690; 83735; 83880; 84100; 84436; 84439; 84443; 84479; 84484; 85025; 85379; 85610; 85730; 86702; 87040; 87070; 87077; 87081; 87086; 87116; 87186; 87190; 87205; 87206; 89220; 93005; 93925; 93970; 94003; 94640; 96361; 96365; 96375; 99285; J0696; J1335; J1644; J1815; J2185; J2405; J2543; J2765; J3480; J7030; J7060; J7620; Q0092

== ENCOUNTER 2018-01-09 13:43 | Inpatient (IN) | payer OTHER ==
[~2018-01-09] VITALS: Ht 180.3 cm; Wt 86.4 kg
[2018-01-09] VITALS (8 sets, daily range): BP systolic 93–132; BP diastolic 25–51
[2018-01-09] MEDS: DEXT 5% / NACL 0.9% 500 ML IV SCH (00:45)
[~2018-01-09 13:43] MED LIST changes: +BLOO1STR56 FS; +CLON0.1T42 GT; +D50SYR IVP; -DIGO-91 GT; +DIGO-91 PO; +DOCU-3 GT; -DOCU100C14 GT; +ERTA1VIA IV; +FAMO-90 GT; -FURO-570 PO; +FURO20TA8 GT; +HEPA500056 SUBQ; +HUMSLIDE SUBQ; +INSU100S45 SUBQ; -LACT1POW GT; -MAGN400S GT; -METO5SOL24 IVP; -MIRABULK GT; +MULT-2253 GT; +NA P133E RC; -PANT40VI GT; +SIME80CT70 GT; -[UNRECOGNIZED DRUG - CODE] IV
--- NOTE | 2018-01-09 13:55 | NUR ---
PT BIBA FOR ABNORMAL LABS PLACED ON CARESCAPE VENT WITH SETTINGS AC12 VT 500 PEEP 5 FIO2 50% B\S ARE COARSE BILATERALLY AND SPUTUM WAS COLLECTED AND GIVEN TO NATANAEL POLLOCK PT IS TRACH WITH PORTEX 7 AND SKIN INTEGRITY IS INTACT.
[2018-01-09] MEDS ORDERED: NACL 0.9% 1,000 ML IV ONE (14:05)
--- NOTE | 2018-01-09 14:05 | NUR ---
77m biba from [facility] [place] with c/o elevated temp and abnormal labs. Patient is trach to vent. Pulse ox on arrival 98%. RR are tachypneic and unlabored. Skin is pale/dry/warm. HR= 60s. Per premium card cancellation clerk, patient was given tylenol at 1230 today, unknown dose. Pt abd is distended and firm with gtube in place. Patient with jain, noted hematuria. RT by bedside. Patient placed on cardiac monitoring, bp, pulse, and pulse ox monitoring. NAD at this time. WIll continue to monitor.
--- NOTE | 2018-01-09 14:30 | NUR ---
lab by bedside
[2018-01-09 14:50] LABS: HEMATOCRIT 24.3 % (36-52); HEMOGLOBIN 7.6 g/dL (12.0-18.0); MEAN CORPUSCULAR HEMOGLOBIN 29 pg (27-31); MEAN CORPUSCULAR HGB CONC 31 g/dL (33-37); MEAN CORPUSCULAR VOLUME 91.9 fL (80-94); PLATELET COUNT (AUTO) 194 K/uL (140-450); RED BLOOD CELL COUNT(AUTO) 2.65 MIL/uL (4.20-6.10); RED CELL DISTRIBUTION WIDTH 16.3 % (11.6-13.7); WHITE BLOOD COUNT (AUTO) 25.7 K/uL (4.8-10.8)
--- NOTE | 2018-01-09 14:50 | NUR ---
er md bautista by bedside for central line placement. patient tolerating well.
--- NOTE | 2018-01-09 15:25 | NUR ---
VENT CHECK, AIRWAY IS PATENT AND PT IS RESTING
[2018-01-09 15:27] LABS: LYMPHOCYTES % (MANUAL) 4 % (20-46); MONOCYTES % (MANUAL) 4 % (5-12)
[2018-01-09 15:41] LABS: ALBUMIN 2.3 g/dL (3.4-5.0); ANION GAP 16.6 (8-16); ASPARTATE AMINOTRANSFERASE 41 U/L (15-37); CARBON DIOXIDE 22.4 mmol/L (21-32); CHLORIDE 92 mmol/L (98-107); CREATININE 3.3 mg/dL (0.7-1.3); GLUCOSE 287 mg/dL (74-106); SODIUM SERUM 125 mmol/L (136-145); TOTAL BILIRUBIN 0.7 mg/dL (0.0-1.0)
[2018-01-09 15:43] LABS: UREA NITROGEN, BLOOD 166 mg/dL (7-18)
[2018-01-09] MEDS ORDERED: PIPERACILLIN/TAZOBACTAM 3.375 GM in DEXTROSE 5% 50 ML IV ONE (15:45)
[2018-01-09] MEDS ORDERED: INSULIN REGULAR, HUMAN 100 UNIT/ML VIAL SUBQ ONE (15:45)
[2018-01-09] MEDS ORDERED: LEVOFLOXACIN 500 MG/D5W PREMIX 100 ML IV ONE (15:45)
[2018-01-09] MEDS ORDERED: FUROSEMIDE 40 MG/4 ML VIAL IVP ONE (15:45)
[2018-01-09] MEDS ORDERED: PIPERACILLIN/TAZOBACTAM 3.375 GM VIAL IV ONE (15:59)
[2018-01-09] MEDS ORDERED: NACL 0.9% 1,000 ML IV SCH (16:11)
[2018-01-09] MEDS ORDERED: HYDROcodone/APAP 5/325 MG 1 TAB TAB PO PRN (16:15)
[2018-01-09] MEDS ORDERED: ACETAMINOPHEN 325 MG TAB PO PRN (16:15)
[2018-01-09] MEDS ORDERED: ONDANSETRON 4 MG/2 ML VIAL IM/IVP PRN (16:15)
[2018-01-09] MEDS ORDERED: ZOLPIDEM 5 MG TAB PO PRN (16:15)
[2018-01-09] MEDS ORDERED: LORazepam 2 MG/ML VIAL IM/IVP PRN (16:15)
[2018-01-09] MEDS ORDERED: DOCUSATE SODIUM 100 MG GELCAP PO PRN (16:15)
[2018-01-09] MEDS ORDERED: MORPHINE SULFATE 2 MG/ML SYR IVP PRN (16:15)
--- NOTE | 2018-01-09 16:20 | NUR ---
pt positioned to left side. diaper changed. large bm noted. nad. vss.
[2018-01-09 16:39] LABS: APPEARANCE,URINE SL CLOUDY (CLEAR); BILIRUBIN,URINE NEGATIVE (NEGATIVE); BLOOD, URINE 3+ (NEGATIVE); COLOR,URINE YELLOW (YELLOW); LEUKOCYTE ESTERASE ,URINE 3+ (NEGATIVE); NITRITE, URINE NEGATIVE (NEGATIVE); UGLUCOSE NEGATIVE (NEGATIVE)
[2018-01-09 16:42] LABS: RBC,URINE 20-50 /HPF (0-5); WBC,URINE 20-60 /HPF (0-5)
--- NOTE | 2018-01-09 17:01 | NUR ---
VENT CHECK, NO SXN NEEDED AIRWAY IS PATENT AND DECREASED FIO2 TO 40% NOTIFIED DR. GARCIA
[2018-01-09 17:03] LABS: MAGNESIUM 3.4 mg/dL (1.8-2.4); PHOSPHORUS 4.4 mg/dL (2.5-4.9); THYROID STIMULATING HORMONE 1.17 uIU/mL (0.34-3.74)
--- NOTE | 2018-01-09 17:31 | NUR ---
awaiting to transfer patient. nikolay. drake.
--- NOTE | 2018-01-09 17:51 | NUR ---
Patient will be admitted to care of [facility]. Admited to Tele. Will go to room icu 1. Belongings list completed. Report to Nafisa partida bedside report.
--- NOTE | 2018-01-09 18:00 | NUR ---
RECEIVED PT FROM ER VIA GURNEY. HAS SPONTANEOUS EYES OPENING, NONVERBAL, WITHDRAWS TO PAIN. SKIN DRY AND WARM TO TOUCH. PUPILS REACTIVE TO LIGHT. ON TRACH TO VENT AC 12 FIO2 40/% TV 500 PEEP 5. RIGHT IJ TRIPLE LUMEN CATHETER NOTED. INTACT WITH GOOD BLOOD RETURNS. FLUSHED. LUNGS WHEEZING. ABDOMEN ROUND, NON-TENDER, DISTENDED. ACTIVE BOWEL SOUND. G-TUBE IN LUQ. ATTACHED TO LOW TO INTERMITTENT SUCTION. MENDIETA CATHETER IN PLACE DRAINING CLEAR YELLOW URINE VIA GRAVITY IN MINIMAL AMOUNT. CONTRACTED UPPER AND LOWER EXTREMITIES. EDEMATOUS BOTH UPPER AND LOWER EXTREMITIES. KEPT HOB ELEVATED. BED IN LOW POSITION LOCKED. WILL CONTINUE TO MONITOR.
--- NOTE | 2018-01-09 19:00 | NUR ---
DR. MARROQUIN WAS PAGE FOR CONSULTED.
--- NOTE | 2018-01-09 19:30 | NUR ---
RECEIVED REPORT FROM MORNING SHIFT RNCHOLO, FOR CONTINUITY OF CARE. AFEBRILE VSS. AFEBRILE. NONVERBAL AT BASELINE, UNABLE TO RESPOND TO COMMANDS. FAINT WHEEZES HEARD ON UPPER BILATERAL LOBES. TRACH TO VENT AC/VC, FIO2=35%, VT 500, RR 12, FLOW 40L/MIN, PEEP 5. 100% PACED CARDIAC RHYTHM, LEFT UPPER CHEST PACEMAKER. GTUBE IN PLACE, HYPOACTIVE BOWEL SOUNDS ON AUSCULTATION. UNKNOWN OF LAST BOWEL MOVEMENT. MENDIETA CATHETER IN PLACE, PATENT, URINE IS JANIS IN COLOR 400ML IN BAG AT START OF SHIFT. PICC LINE IN RIGHT UPPER CHEST INFUSING NS AT 60ML/HR. ASYMPTOMATIC, SALINE FLUSH. SKIN IS NORMAL IN COLOR, WARM AND DRY. 1+ PITTING EDEMA ON BILATERAL FEET. PT WITHDRAWS TO PAIN. CONTRACTURE OF UPPER EXTREMITIES. Addendum: 01/10/18 at 0314 by Delia Lombardo RN NOT A PICC LINE. CORRECTION: PT HAS CENTRAL LINE INSERTED AT RIGHT UPPER CHEST.
--- NOTE | 2018-01-09 19:50 | NUR ---
REPORT GIVEN TO GLUER AND WEDGER RN FOR CONTINUITY OF CARE. PT ON STABLE CONDITION.
[2018-01-09] MEDS ORDERED: DEXTROSE 50% 50 ML SYR IVP PRN (19:55)
--- NOTE | 2018-01-09 20:05 | NUR ---
DR. VELASCO AT BEDSIDE TO SEE PATIENT. STAT ORDER BMP.
--- NOTE | 2018-01-09 20:20 | NUR ---
LAB AT BEDSIDE TO COLLECT BMP.
[2018-01-09] MEDS ORDERED: THERAHONEY GEL 42.5 GM TP PRN (20:25)
[2018-01-09] MEDS ORDERED: Z-GUARD PASTE TP PRN (20:25)
--- NOTE | 2018-01-09 20:39 | NUR ---
RAFAELA AT BEDSIDE TO PERFORM RENAL ULTRASOUND.
[2018-01-09] MEDS ORDERED: cloNIDine 0.1 MG TAB GT PRN (20:45)
[2018-01-09] MEDS: BLOOD GLUCOSE MONITORING 1 DEV DEV FS SCH (21:19)
[2018-01-09] MEDS: INSULIN LISPRO SLIDING SCALE 100 UNITS/ML VIAL SUBQ PRN (21:25)
--- NOTE | 2018-01-09 21:27 | NUR ---
BG = 214, 4 UNITS INSULIN GIVEN PER PROTOCOL/SLIDING SCALE.
[2018-01-09 21:42] LABS: ANION GAP 14.5 (8-16); CARBON DIOXIDE 24.5 mmol/L (21-32); CHLORIDE 93 mmol/L (98-107); CREATININE 3.2 mg/dL (0.7-1.3); GLUCOSE 233 mg/dL (74-106); SODIUM SERUM 127 mmol/L (136-145)
[2018-01-09 21:48] LABS: UREA NITROGEN, BLOOD 163 mg/dL (7-18)
[2018-01-09] MEDS: ISOSORBIDE DINITRATE 10 MG TAB GT SCH (22:00)
[2018-01-09] MEDS: PIPER/TAZO 2.25GM/D5W PREMIX 50 ML IV SCH (22:00)
[2018-01-09] MEDS ORDERED: PIPERACILLIN/TAZOBACTAM 2.25 GM VIAL IV ONE (22:00)
--- NOTE | 2018-01-09 22:00 | NUR ---
CALLED DR. VELASCO AND INFORMED OF CRITICAL LAB RESULT AND PATIENT CONDITION. PROVIDED TELEPHONE ORDER TO INCREASE FLUIDS TO 75ML/HR. SOFIYA CRUZ OUT.
[2018-01-09] MEDS: GLYCOPYRROLATE 0.2 MG/ML VIAL IV SCH (22:07)
[2018-01-09] MEDS ORDERED: GLYCOPYRROLATE 0.2 MG/ML VIAL ONE (22:09)
[2018-01-09] MEDS ORDERED: DEXT 5% / NACL 0.45% 1,000 ML IV SCH (22:45)
--- NOTE | 2018-01-09 23:51 | NUR ---
CALLED DR. SMITH, INFORMED OF PRIOR TELEPHONE ORDER VIA DR. VELASCO. DR OF 75ML/HR NS. D5 CURRENTLY ORDERED IN EMAR AT 60ML/HR. DR. SMITH TO ADJUST/UPDATE NEW ORDER.
[2018-01-10] VITALS (19 sets, daily range): BP systolic 96–156; BP diastolic 42–66
--- NOTE | 2018-01-10 00:28 | NUR ---
LEFT MSG FOR DR. SMITH VIA DR. SAGASTUME. REPORTED CRITICAL LAB VALUE: TROPONIN 0.185.
[2018-01-10] MEDS: Z-GUARD PASTE TP SCH ×2 (01:03→13:48)
--- NOTE | 2018-01-10 03:40 | NUR ---
IRRIGATED MENDIETA WITH 40ML NS FLUSHES. WILL CONTINUE TO MONITOR I/O. URINE OUTPUT OF 675ml FROM START OF SHIFT.
--- NOTE | 2018-01-10 03:44 | NUR ---
VAP ORAL CARE PROVIDED. HOB ELEVATED ABOVE 30 DEG. CONTACT PRECAUTIONS MAINTAINED.
--- NOTE | 2018-01-10 04:50 | NUR ---
LAB A BEDSIDE TO COLLECT SAMPLE.
[2018-01-10] MEDS: PIPER/TAZO 2.25GM/D5W PREMIX 50 ML IV SCH ×2 (04:54→13:47)
--- NOTE | 2018-01-10 05:04 | NUR ---
DR. SMITH ON UNIT, REITERATED THAT THERE ARE NO TUBE FEEDING ORDER AT THIS TIME, WAITING TO SEE A1C RESULT.
[2018-01-10 05:53] LABS: HEMATOCRIT 24.1 % (36-52); HEMOGLOBIN 7.7 g/dL (12.0-18.0); MEAN CORPUSCULAR HEMOGLOBIN 29 pg (27-31); MEAN CORPUSCULAR HGB CONC 32 g/dL (33-37); MEAN CORPUSCULAR VOLUME 91.3 fL (80-94); PLATELET COUNT (AUTO) 183 K/uL (140-450); RED BLOOD CELL COUNT(AUTO) 2.64 MIL/uL (4.20-6.10); RED CELL DISTRIBUTION WIDTH 16.3 % (11.6-13.7); WHITE BLOOD COUNT (AUTO) 16.4 K/uL (4.8-10.8)
--- NOTE | 2018-01-10 06:15 | NUR ---
PT IS SLEEPING, APPEARS TO BE WITHOUT DISTRESS.
[2018-01-10 06:19] LABS: ANION GAP 15.6 (8-16); CARBON DIOXIDE 23.5 mmol/L (21-32); CHLORIDE 94 mmol/L (98-107); CREATININE 3.2 mg/dL (0.7-1.3); GLUCOSE 181 mg/dL (74-106); POTASSIUM 5.1 mmol/L (3.5-5.1); SODIUM SERUM 128 mmol/L (136-145)
[2018-01-10] MEDS: BLOOD GLUCOSE MONITORING 1 DEV DEV FS SCH ×4 (06:42→20:33)
[2018-01-10] MEDS: INSULIN LISPRO SLIDING SCALE 100 UNITS/ML VIAL SUBQ PRN ×3 (06:57→16:16)
--- NOTE | 2018-01-10 07:09 | NUR ---
REC'D PT ON CARESCAPE VENT SETTINGS AC12 VT 500 PEEP 5 FIO2 35% ALARMS ON AND AUDIBLE VENT IS PLUGGED INTO RED OUTLET, SXN PT MODERATED AMT OF THIN YELLOW SECRETIONS, B\S ARE CRACKLES BILATERALLY, PT IS TRACH WITH PORTEX 7 AND SKIN INTEGRITY IS INTACT PT IS RESTING WITH NO SIGNS OF DISTRESS NOTED AT THIS TIME AMBU BAG AT SIDE OF VENT
--- NOTE | 2018-01-10 07:30 | NUR ---
RECEIVED REPORT FROM SENIOR PROJECT LEADER/TEAM LEAD RN. PT RESTING IN BED. SPONTANEOUS EYES OPENING, NONVERBAL, DOES NOT FOLLOW COMMAND. PACED RHYTHM ON MONITOR. SKIN DR AND WARM TO TOUCH. ON TRACH TO VENT AC 12 FIO2 35% TV 500 PEEP 5. RIGHT IJ TRIPLE LUMEN INTACT WITH GOOD BLOOD RETURNS. D5% NS RUNNING AT 75 ML/HR. LUNGS WHEEZES ON AUSCULTATION. ABDOMEN ROUND, DISTENDED. G-TUBE IN PLACE ATTACHED TO LOW TO INTERMITTENT SUCTION. ON MENDIETA CATH DRAINING YELLOW CLOUDY URINE VIA GRAVITY IN MINIMAL AMOUNT. SACRAL PRESSURE WOUND PRESENT. EDEMATOUS BOTH LOWER EXTREMITIES. QUADRIPLEGIC. CONTRACTED UPPER EXTREMITIES. KEPT HOB ELEVATED, BED IN LOW POSITION, LOCKED. WILL CONTINUE TO MONITOR.
[2018-01-10 08:12] LABS: UREA NITROGEN, BLOOD 171 mg/dL (7-18)
[2018-01-10 08:17] LABS: HEPATITIS B SURFACE ANTIBODY Reactive (.); HEPATITIS B SURFACE ANTIGEN Negative (Negative); HEPATITIS C VIRUS ANTIBODY 0.1 s/co ratio (0.0-0.9); T4 (THYROXINE) 4.7 ug/dL (4.5-12.0)
[2018-01-10 08:41] LABS: MAGNESIUM 3.4 mg/dL (1.8-2.4); PHOSPHORUS 3.7 mg/dL (2.5-4.9)
[2018-01-10 08:54] LABS: LYMPHOCYTES % (MANUAL) 4 % (20-46); MONOCYTES % (MANUAL) 7 % (5-12)
[2018-01-10] MEDS: ISOSORBIDE DINITRATE 10 MG TAB GT SCH ×2 (08:55→20:32)
[2018-01-10] MEDS: ASPIRIN 81 MG TAB.CHEW GT SCH (08:55)
[2018-01-10] MEDS: ATORVASTATIN 20 MG TAB GT SCH (08:55)
[2018-01-10] MEDS: CARVEDILOL 12.5 MG TAB GT SCH ×2 (08:55→20:32)
[2018-01-10] MEDS: FAMOTIDINE 20 MG TAB GT SCH (08:56)
[2018-01-10] MEDS: amLODIPine 5 MG TAB GT SCH (08:56)
[2018-01-10] MEDS: BISACODYL 10 MG SUPP RC SCH ×2 (08:57→09:00)
[2018-01-10] MEDS: DOCUSATE SODIUM 100 MG GELCAP PO SCH (08:57)
[2018-01-10] MEDS: DIGOXIN 0.125 MG TAB PO SCH (08:58)
[2018-01-10] MEDS ORDERED: FUROSEMIDE 40 MG/4 ML VIAL IVP SCH (09:00)
--- NOTE | 2018-01-10 09:00 | NUR ---
OKAY TO GIVE G-TUBE MEDICATION PER DR. BANKS. ADMINISTER MEDICATION ORDER. HR RANGED FRO 60-64. DIGOXIN NOT GIVEN. DR. BANKS AWARE.
--- NOTE | 2018-01-10 09:01 | NUR ---
PATIENT HAS BEEN SCREENED AND CATEGORIZED HIGH NUTRITION RISK. PATIENT WILL BE SEEN WITHIN 1-2 DAYS OF ADMISSION. 01/10/18 01/11/[address]
[2018-01-10] MEDS: ALLOPURINOL 100 MG TAB GT SCH (09:02)
[2018-01-10] MEDS: GLYCOPYRROLATE 0.2 MG/ML VIAL IV SCH ×2 (09:07→20:33)
--- NOTE | 2018-01-10 09:15 | NUR ---
WOUND CARE EVALUATION NOTE: REASON FOR EVALUATION: LOW SUE SCORE AND SACRAL WOUND SKIN ASSESSMENT DONE WITH PRIMARY RN AT 9:00 AM WITH THIS 77Y/O MALE PT ADMITTED [place] [facility] [place] [facility] WITH INITIAL DX ELEVATED TEMP. AND ABNORMAL LABS. PAST MEDICAL HX INCLUDES HTN, COPD, CHRONIC TRACH, DM, A FIB, GOUT, CVA WITH HEMIPLEGIA AND LEFT UPPER ARM CONTRACTURES. ALL ABOVE INFORMATION OBTAINED FROM ADMISSION H&P. LABS ARE WBC 16.4, H/H 7.7/21.1, GLUCOSE 181 AND ALBUMIN 2.3. PT IS AWAKE. SKIN IS WARM AND DRY, R/L ARMS NULTIPLE TATTOO. GT AND F/C IN PLACE. BLE FEW HAIR GROWTH, NO EDEMA. DORSAL PEDAL PULSES PRESENT AND NORMAL. CAPILLARY REFILLED < 2 SEC.FOOT DROP OBSERVED. INCONTINENT OF BOWEL AND X1 DURING ASSESSMENT. PLAN OF CARE DISCUSSED WITH PRIMARY RN. CLARIFICATION: NO PRESSURE INJURY OBSERVED AT THIS TIME. INCONTINENT ASSOCIATE DERMATITIS OBSERVED TO R/L INNER BUTTOCKS NOTICED. INTEGUMENTARY: -TRACH SITE KENNETH STOMA SKIN DRY AND CLEAN. SKIN INTACT. - GT SITE KENNETH STOMA SKIN REDNESS WITH SKIN INTACT. -ABDOMEN DISTENDED, NON-TENDER TO TOUCH. -BLANCHABLE REDNESS TO SACROCOCCYX 2X2CM -IAD TO RIGHT AND LEFT INNER BUTTOCKS EXTENDED TO PERIANAL PARTIAL THICKNESS SKIN LOSS WITH 5X4X0.2 CM IRREGULAR SHAPE, WOUND BED IS PINK, CLEAN AND MOIST. NO ODOR. -BLE DRYNESS. RECOMMENDATIONS: -KEEP SKIN DRY AND CLEAN AT ALL TIMES, PLEASE CHECK Q2H AND PRN FOR INCONTINENCY OF BOWEL AND BLADDER. -CLEANSE GT SITE KENNETH STOMA SKIN EROSION WITH WOUND CARE SOLUTION, PAT DRY, APPLY HYDRAGUARD TO GT-SITE KENNETH-STOMA SKIN AND COVER WITH SPLIT DRESSING QD AND PRN IF SOILING. -APPLY HYDRAGUARD TO R/L LE BIDWC AND PRN IF SOILING - APPLY Z-GUARD TO INNER BUTTOCKS EXTENDED TO PERIANAL BID AND PRN IF SOILING -APPLY FORM DRESSING TO SACROCOCCY Q7 DAYS AND PRN IF SOILING PREVENTION -OFFLOAD BILATERAL HEELS BY PLACING PILLOWS UNDER CALVES UNLESS OTHERWISE CONTRAINDICATED -PRESSURE REDISTUBUTION SURFACE THERAPY -TURN AND REPOSITION Q2H, OFFLOAD SACRALCOCCYX AND BUTTOCKS BY TURNING RIGHT AND LEFT -CONTINUE TO FOLLOW RD RECOMMENDATIONS ALL ABOVE RECOMMENDATIONS DISCUSSED WITH PRIMARY RN. WILL FOLLOW UP PT Q7-10 DAYS. PLEASE CONTACT WOUND CARE NURSE FOR ANY QUESTION AND CHANGE OF WOUND CONDITION.
--- NOTE | 2018-01-10 09:42 | NUR ---
UPDATED LABS TO DR. MARIE AND MADE AWARE ABOUT BRADYCARDIA AND HOLDING DIGOXIN. SAID OKAY.
--- NOTE | 2018-01-10 09:45 | NUR ---
PT HAD BM X1, NORMAL. DULCOLAX SUPPOSITORY NOT GIVEN. DR. BANKS MADE AWARE.
--- NOTE | 2018-01-10 10:19 | NUR ---
SEEN BY DR. STANLEY. MADE AWARE ABOUT BLOOD STAIN ON CATHETER AND WIDE URETHRAL OPENING. NO ACTIVE BLEEDING AT CATHETER AT THIS TIME.
[2018-01-10] MEDS ORDERED: PROBIOTIC SCREEN 1 EA MISC MC PRN (10:50)
--- NOTE | 2018-01-10 11:13 | NUR ---
VENT CHECK, SXN PT SMALL AMT OF YELLOW SECRETIONS, LAB AT BEDSIDE
--- NOTE | 2018-01-10 12:22 | NUR ---
RT MADE AWARE ABOUT SPUTUM RE-COLLECTION.
[2018-01-10 12:26] LABS: CHOL/HDL RATIO 4.5 (1-4.5)
[2018-01-10 12:41] LABS: HEPATITIS B CORE AB TOTAL Positive (Negative)
--- NOTE | 2018-01-10 12:55 | NUR ---
SEEN BY DR. FAUSTIN. UPDATED PT CONDITION.
--- NOTE | 2018-01-10 13:08 | NUR ---
VENT CHECK DONE SPUTUM SAMPLE OBTAINED PT SUCTIONED
[2018-01-10] MEDS: DEXT 5% / NACL 0.9% 500 ML IV SCH ×3 (13:10→20:00)
[2018-01-10] MEDS ORDERED: VANCOMYCIN PER PHARMACY MC PRN (13:10)
--- NOTE | 2018-01-10 13:34 | NUR ---
CALLED CT AND RT FOR F/U CT ABDOMEN AND PELVIS ORDER. SAID WILL GIVE CALL BACK WHEN THEY ARE READY.
[2018-01-10] MEDS: THERAHONEY GEL 42.5 GM TP SCH (13:48)
[2018-01-10] MEDS ORDERED: VANCOMYCIN 1GM/DEXT 5% PREMIX 200 ML IV SCH (14:00)
--- NOTE | 2018-01-10 14:19 | NUR ---
PT TO CT FOR SCAN OF ABD BAGGED WITH 100% FIO2 AT 1433 BACK TO ICU ONE AND PLACED ON VENT WITH SAME SETTINGS
--- NOTE | 2018-01-10 14:38 | NUR ---
01/10/18 RD INITIAL ASSESSMENT COMPLETED PLEASE REFER TO NUTRITION ASSESSMENT UNDER CARE ACTIVITY FOR ESTIMATED NUTRITIONAL NEEDS. 1. NEPRO WITH CARBSTEADY AT GOAL RATE 50 ML/HR. START RATE @ 10 ML/HR. INCREASE BY 10 Q6H. WATER FLUSH 100 ML Q4H. (2160 KCAL, 97 G PROTEIN, 1440 ML FLUID). 2. RD TO FOLLOW-UP 2-3 DAYS, HIGH RISK CHAPINCITO DOMINGUEZ, RD
--- NOTE | 2018-01-10 14:55 | NUR ---
VENT CHECK, NO SXN NEEDED AIRWAY IS PATENT DECREASED FIO2 TO 28%
--- NOTE | 2018-01-10 15:00 | NUR ---
Maitre D' Notes: I attempted to met with patient for a screen to discuss, gather and confirm Patient information. Patient was not awake and alert. Unable to verbalized his needs.
--- NOTE | 2018-01-10 15:10 | NUR ---
RESTING IN BED AWAKE. ADMINISTERED MEDICATION. TOLERATING WELL. NO CHANGE IN LOC. WILL CONTINUE TO MONITOR.
[2018-01-10] MEDS ORDERED: SODIUM PHOSPHATE 118 ML ENEM RC SCH (17:00)
[2018-01-10] MEDS ORDERED: BISACODYL 10 MG SUPP RC SCH (17:00)
--- NOTE | 2018-01-10 17:16 | NUR ---
Stool for ob sent to the lab.
--- NOTE | 2018-01-10 19:15 | NUR ---
ENDORSED TO REAL ESTATE AGENT/BROKER RN FOR CONTINUITY OF CARE. PT ON STABLE CONDITION.
--- NOTE | 2018-01-10 19:20 | NUR ---
RECEIVED BEDSIDE REPORT FROM MORNING SHIFT RNCHOLO. PT IS NONVERBAL AT BASELINE WITH SPONTANEOUS EYE OPENING. TRACH TO JOSE, FIO2=35, VT 500, RATE 12/MIN, FLOW 40L/MIN, PEEP=5, PMAX 50. VAP ORAL CARE PROVIDED AT BEDSIDE. TEMP 99.2 VSS, 100% PACED RHYTHM ON PUBLISHING SPECIALIST NOTED. TUBE FEEDING ON HOLD PER DR. SEYMOUR (ENDORSED VIA MORNING SHIFT RN) GTUBE IN PLACE, NO RESIDUAL, AUSCULTATED FOR APPROPRIATE PLACEMENT. BOWEL SOUNDS ACTIVE IN ALL FOUR QUADRANTS.MENDIETA IN PLACE, PATENT INFUSING, 24HOUR URINE COLLECTION STARTED AT 1645, URINE IS LIGHT JANIS IN COLOR. NO BLEEDING AT SITE OF MENDIETA CATHETER. SKIN IS NON-INTACT, WOUND AT SACRAL AREA/BUTTOCKS. PT IS PARAPLEGIC, BILATERAL UPPER EXTREMITY CONTRACTURES. SCDS ON BILATERAL LEGS. HOB ELEVATED ABOVE 30 DEG. Addendum: 01/10/18 at 2245 by Delia Lombardo RN 1+ PITTING EDEMA ON BILATERAL FEET.
[2018-01-10] MEDS: MEROPENEM 500 MG in NACL 0.9% 50 ML IV SCH (20:33)
--- NOTE | 2018-01-10 22:45 | NUR ---
PT IS SLEEPING QUIETLY, NO SIGNS OF DISTRESS NOTED.
--- NOTE | 2018-01-10 23:31 | NUR ---
PRN COLACE GIVEN. VAP ORAL CARE PROVIDED AT BEDSIDE AND PT REPOSITIONED AND PILLOW SUPPORT PROVIDED, APPEARS FREE OF DISCOMFORT AND LYING RESTFULLY/QUIETLY.
--- NOTE | 2018-01-10 23:48 | NUR ---
TEMP OF 100.5. PRN TYLENOL GIVEN AND ICE PACK FOR COOLING MEASURES.
[2018-01-11] VITALS (19 sets, daily range): BP systolic 98–160; BP diastolic 41–65
--- NOTE | 2018-01-11 00:02 | NUR ---
CALLED AND INFORMED DR. SAGASTUME THAT COLACE WAS GIVEN PER ORDER AND THAT DULCOLAX WAS NOT GIVEN PRIOR TO START OF SHIFT AND NOW DC'D. STATED IF NO BM DURING THE NIGHT, THEN WILL FOLLOW-UP WITH ORDERS FOR AM IF NEEDED.
[2018-01-11] MEDS: Z-GUARD PASTE TP SCH ×2 (01:33→12:59)
--- NOTE | 2018-01-11 01:37 | NUR ---
TEMP REASSESS: 99.4
[2018-01-11] MEDS: DEXT 5% / NACL 0.9% 500 ML IV SCH (02:30)
--- NOTE | 2018-01-11 02:45 | NUR ---
TEMP 99.0, BED BATH W/ PILLOW SUPPORT, REPOSITIONING, CATHETER CARE PROVIDED. SCD'S ON BILATERAL LEGS. MENDIETA IS PATENT, URINE CLOUDY, YELLOW IN COLOR. NO BM AT THIS TIME.
--- NOTE | 2018-01-11 04:10 | NUR ---
VAP ORAL CARE PROVIDED, HOB ELEVATED. 75ML/HR D5NS INFUSING. CONTACT AND PRECAUTIONS MAINTAINED. FLACC 0, PT SLEEPING APPEARS WITHOUT DISTRESS. AFEBRILE, TEMP OF 97.6.
[2018-01-11 05:11] LABS: HEMATOCRIT 22.1 % (36-52); MEAN CORPUSCULAR HEMOGLOBIN 29 pg (27-31); MEAN CORPUSCULAR HGB CONC 32 g/dL (33-37); MEAN CORPUSCULAR VOLUME 91.3 fL (80-94); PLATELET COUNT (AUTO) 188 K/uL (140-450); RED BLOOD CELL COUNT(AUTO) 2.42 MIL/uL (4.20-6.10); RED CELL DISTRIBUTION WIDTH 16.4 % (11.6-13.7); WHITE BLOOD COUNT (AUTO) 14.5 K/uL (4.8-10.8)
[2018-01-11 05:36] LABS: MAGNESIUM 3.3 mg/dL (1.8-2.4); PHOSPHORUS 4.2 mg/dL (2.5-4.9)
[2018-01-11 05:42] LABS: ANION GAP 14.9 (8-16); CARBON DIOXIDE 22.4 mmol/L (21-32); CHLORIDE 99 mmol/L (98-107); CREATININE 3.3 mg/dL (0.7-1.3); GLUCOSE 180 mg/dL (74-106); POTASSIUM 4.3 mmol/L (3.5-5.1); SODIUM SERUM 132 mmol/L (136-145)
[2018-01-11 06:25] LABS: UREA NITROGEN, BLOOD 166 mg/dL (7-18)
[2018-01-11 06:40] LABS: LYMPHOCYTES % (MANUAL) 11 % (20-46); MONOCYTES % (MANUAL) 4 % (5-12)
--- NOTE | 2018-01-11 06:40 | NUR ---
PT HAD A SMEAR. DULCOLAX SUPPOSITORY INSERTED AT THIS TIME PER DR. BANKS VERBAL ORDER. PT CURRENTLY HAVING A BOWEL MOVEMENT, WILL CONTINUE TO MONITOR.
--- NOTE | 2018-01-11 07:10 | NUR ---
PROVIDED BEDSIDE REPORT TO MORNING SHIFT RNJANET, FOR CONTINUITY OF CARE.
--- NOTE | 2018-01-11 07:22 | NUR ---
RECEIVED REPORT FROM NOC RN FOR CONTINUITY OF CARE. PATIENT IS ASLEEP. ON TRACH TO VENT, AC 12, TV 500, FIO2 35% AND PEEP OF 5. SKIN WARM TO TOUCH WNL TOENAILS WNL, NO EDEMA, WITH HAIR GROWTH AND +2 BILATERAL PEDAL PULSES. FC IN PLACE TO CLOUDY YELLOW URINE IN MODERATE AMOUNT. LUQ G TUBE PATENT AND INTACT, CLAMPED AT THIS TIME. ON NPO EXCEPT MEDS. ABDOMEN IS DISTENDED. PUPILS REACTIVE TO LIGHT. BM NOTED TO PASTY BROWN/BLACK STOOLS IN MODERATE AMOUNT. CLEANED AND REPOSITIONED, PATIENT TOLERATED WELL. RIJ CENTRAL LINE TLC PATENT AND INTACT TO NS AT 75 CC/H. SAFETY MEASURES IN PLACE. WILL CONTINUE TO MONITOR PATIENT.
[2018-01-11] MEDS: BLOOD GLUCOSE MONITORING 1 DEV DEV FS SCH ×4 (07:41→20:29)
[2018-01-11] MEDS: INSULIN LISPRO SLIDING SCALE 100 UNITS/ML VIAL SUBQ PRN ×4 (07:45→21:57)
--- NOTE | 2018-01-11 08:10 | NUR ---
DR TOVAR AND GROUP ROUNDING ON THE PATIENT. WILL FOLLOW UP WITH ORDERS.
--- NOTE | 2018-01-11 08:19 | NUR ---
RECEIVED ON A my[employer]SCAPE R860 VENTILATOR PLUGGED INTO RED OUTLET TOLERATING WELL WITHOUT ADVERSE REACTIONS NOTED TO A PORTEX DCT #7 AIRWAY SECURED WITH A D ISSA TRACH TIE CUFF PRESSURE CHECKED NOTED AMBU BAG NOTED AT HOB LOC ASLEEP NO EVIDENCE OF SOB NOTED BREATH SOUNDS COARSE CRACKLES BILATERAL WITH GOOD CHEST RISE DEEP TRACHEAL SUCTION FOR MODERATE THIN YELLOW SECRETIONS AIRWAY PATENT
[2018-01-11] MEDS: ATORVASTATIN 20 MG TAB GT SCH (08:21)
[2018-01-11] MEDS: ALLOPURINOL 100 MG TAB GT SCH (08:21)
[2018-01-11] MEDS: MEROPENEM 500 MG in NACL 0.9% 50 ML IV SCH ×2 (08:21→20:30)
[2018-01-11] MEDS: CARVEDILOL 12.5 MG TAB GT SCH ×3 (08:22→20:30)
[2018-01-11] MEDS: LACTOBACILLUS RHAMNOSUS GG 1 EACH CAP PO SCH (08:22)
[2018-01-11] MEDS: ISOSORBIDE DINITRATE 10 MG TAB GT SCH ×3 (08:22→20:29)
[2018-01-11] MEDS: FAMOTIDINE 20 MG TAB GT SCH (08:22)
[2018-01-11] MEDS: DIGOXIN 0.125 MG TAB PO SCH ×2 (08:23→08:59)
[2018-01-11] MEDS: amLODIPine 5 MG TAB GT SCH ×2 (08:23→08:59)
[2018-01-11] MEDS: TAMSULOSIN 0.4 MG CAP PO SCH (08:23)
[2018-01-11] MEDS: DOCUSATE SODIUM 100 MG GELCAP PO SCH (08:23)
[2018-01-11] MEDS: GLYCOPYRROLATE 0.2 MG/ML VIAL IV SCH ×2 (08:24→21:52)
[2018-01-11] MEDS: ASPIRIN 81 MG TAB.CHEW GT SCH (08:25)
--- NOTE | 2018-01-11 08:30 | NUR ---
BP AND HEART RATE MEDICATIONS WITHELD AT THIS TIME, HR 59 BPM. HEPARIN AND ASPIRIN WITHELD WELL PATIENT WITH STOOL OB +. RESIDENT PHYSICIAN DR. BANKS AWARE.
[2018-01-11] MEDS ORDERED: VANCOMYCIN 1,250 MG in DEXTROSE 5% 250 ML IV SCH (09:30)
[2018-01-11] MEDS ORDERED: VANCOMYCIN 1,250 MG in NACL 0.9% 250 ML IV SCH (09:30)
--- NOTE | 2018-01-11 09:44 | NUR ---
PATIENT IS RESTING QUIETLY AT THIS TIME. NOT ON ANY RESPIRATORY DISTRESS.
--- NOTE | 2018-01-11 10:08 | NUR ---
RESTING WELL NO APPARENT PULMONARY DISTRESS NOTED AT THIS TIME BREATH SOUNDS DIFFUSED EXP RHONCHI BILATERAL WITH GOOD CHEST RISE DEEP TRACHEAL SUCTIONS FOR SMALL THICK YELLOW WITH BLOOD TINGE SECRETIONS AIRWAY PATENT
[2018-01-11] MEDS: DEXT 5% /NACL 0.9% 1,000 ML IV SCH ×2 (10:29→21:59)
--- NOTE | 2018-01-11 10:35 | NUR ---
DR. STANLEY IN, SEEN AND EXAMINED PATIENT. WILL FOLLOW UP WITH ORDERS.
--- NOTE | 2018-01-11 10:50 | NUR ---
PATIENT'S SISTER TONY PALACIOS IN, UPDATED OF PATIENT'S CONDITION. DR. STANLEY DISCUSSED CODE STATUS TO PATIENT'S SISTER . PATIENT'S SISTER SIGNED DNR CODE STATUS. FORM PLACED IN THE CHART.
--- NOTE | 2018-01-11 11:14 | NUR ---
STABLE NO APPARENT PULMONARY DISTRESS NOTED BREATH SOUNDS DIFFUSED RHONCHI BILATERAL GOOD CHEST RISE DEEP TRACHEAL SUCTION FOR SMALL THIN YELLOW WITH BLOOD TINGE SECRETIONS AIRWAY PATENT SATURATION 99% ON FIO2 OF 30% TITRATED FIO2 TO 30% JANET/RN NOTIFIED
--- NOTE | 2018-01-11 11:15 | NUR ---
PER RT FIO2 DECREASED TO 30%. PATIENT TOLERATING WELL. O2 SAT 97%.
[2018-01-11] MEDS: THERAHONEY GEL 42.5 GM TP SCH (12:58)
--- NOTE | 2018-01-11 13:06 | NUR ---
NO APPARENT RESPIRATORY DISTRESS NOTED GOOD CHEST RISE
--- NOTE | 2018-01-11 13:15 | NUR ---
DR. COX IN, SEEN AND EXAMINED PATIENT. WILL FOLLOW UP WITH ORDERS.
--- NOTE | 2018-01-11 13:37 | NUR ---
NO S/S OF RESPIRATORY DISTRESS NOTED AT THIS TIME
--- NOTE | 2018-01-11 13:50 | NUR ---
DR FAUSTIN IN, SEEN AND EXAMINED PATIENT. NO NEW ORDERS MADE AT THIS TIME.
--- NOTE | 2018-01-11 14:11 | NUR ---
BM NOTED TO SMALL PASTY BROWN STOOLS. CLEANSED AND REPOSITION AT THIS TIME. PATIENT TOLERATED WELL.
--- NOTE | 2018-01-11 15:06 | NUR ---
STABLE NO SOB NOTED GOOD CHEST RISE AND AERATION THROUGHOUT PULMONARY VELAZCO AIRWAY PATENT TOLERATING VENTILATORY SUPPORT WELL WITHOUT INCIDENT
[2018-01-11] MEDS ORDERED: fentaNYL 0.05 MG/ML VIAL ONE (15:36)
[2018-01-11] MEDS ORDERED: MIDAZOLAM 2 MG/2 ML VIAL ONE (15:36)
--- NOTE | 2018-01-11 15:40 | NUR ---
REQUEST FOR SERVICES Jess RODRIGUEZ RCP ATTENDING FOR NEPHROSTOMY PROCEDURE WITH VENTILATOR MANAGEMENT
--- NOTE | 2018-01-11 15:43 | NUR ---
TAKEN TO OR FOR LEFT NEPHROSTOMY TUBE INSERTION ACCOMPANIED BY OR STAFF AND RT.
--- NOTE | 2018-01-11 15:43 | NUR ---
PATIENT TAKEN OFF VENTILATOR BY Rj SPAIN PLACED ON SUPPLEMENTAL OXYGEN VIA E-TANK AT 15 LPM TO AMBU BAG/INLINE SUCTION CATHETER/TRACHEOSTOMY AMBU BAG DEPRESSED EVERY 6 SECONDS HR 60 SATURATION 96% PATIENT TRANSFERRED TO [facility] FOR NEPHROSTOMY PROCEDURE TOLERATED TRANSFER WELL WITHOUT ANY ADVERSE REACTIONS NOTED Addendum: 01/11/18 at 1707 by Giorgio Webster RT Rj SPAIN RCP
--- NOTE | 2018-01-11 15:48 | NUR ---
PATIENT TRANSFERRED TO OR TABLE AND PLACED ON RIGHT SIDE FLAT POSITION FOR LEFT NEPHROSTOMY PROCEDURE DR GUTIERREZ ATTENDING
--- NOTE | 2018-01-11 16:00 | NUR ---
DUE TO PATIENT POSITION INDICATED AT 1548 SATURATION DESCENDING TO 91% INCREASED FIO2 TO 60% DR GUTIERREZ MADE AWARE
[2018-01-11] MEDS ORDERED: LIDOCAINE 2% 1000 MG/50 ML VIAL INJ ONE (16:01)
--- NOTE | 2018-01-11 16:03 | NUR ---
SATURATION ASCENDING TO 98% ON FIO2 OF 60% DR GUTIERREZ MADE AWARE
--- NOTE | 2018-01-11 16:20 | NUR ---
NEPHROSTOMY PROCEDURE COMPLETED THIS TIME TOLERATED VENTILATORY AND PROCEDURE WELL WITHOUT INCIDENT
--- NOTE | 2018-01-11 16:28 | NUR ---
PATIENT REMOVED FROM VENTILATORY SUPPORT PLACED ON SUPPLEMENTAL OXYGEN VIA E-TANK AT 15 LPM TO AMBU BAG/INLINE SUCTION CATHETER/TRACHEOSTOMY PATIENT TRANSFERRED BACK TO ICU-1 AMBU BAG DEPRESSED EVERY 6 SECONDS HR 59-60 SATURATION 95%
--- NOTE | 2018-01-11 16:30 | NUR ---
GOT A CALL FROM RADIOLOGIST DR. GUTIERREZ, STATED THAT PROCEDURE WENT WELL AND PATIENT TOLERATED WELL. HE STATED THAT PUS DRAINAGE WAS SENT OUT TO LAB FOR CULTURE. DRESSING WILL BE CHANGE EVERY OTHER DAY OR IF SOILED.
--- NOTE | 2018-01-11 16:33 | NUR ---
PATIENT PLACED BACK ON VENTILATOR SUPPORT WITH SAME SETTINGS BY Rj SPAIN RCP
--- NOTE | 2018-01-11 16:36 | NUR ---
RECEIVED PATIENT FROM OR STAFF, S/P LEFT NEPHROSTOMY INSERTION. ATTACHED BACK TO MONITOR. PATIENT IN STABLE CONDITION.
[2018-01-11] MEDS ORDERED: AMIKACIN PER PHARMACY MC PRN (17:10)
--- NOTE | 2018-01-11 17:24 | NUR ---
DR. Jase MARIE IN SEEN AND EXAMINED PATIENT, WILL FOLLOW UP WITH ORDERS.
--- NOTE | 2018-01-11 17:34 | NUR ---
NO APPARENT RESPIRATORY DISTRESS NOTED BREATH SOUNDS RHONCHI BILATERAL WITH GOOD CHEST RISE DEEP TRACHEAL SUCTION FOR MODERATE THICK YELLOW SECRETIONS AIRWAY PATENT
--- NOTE | 2018-01-11 18:52 | NUR ---
Received pt stable on vent support at documented settings, suctioned small amounts of thick yellow secretions, no resp distress or sob noted at this time, Portex 7 trach secured/patent/midline, alarms set and audible, ambu bag at bedside, vent plugged into red outlet, pulse ox on, will cont to monitor.
--- NOTE | 2018-01-11 19:15 | NUR ---
RECEIVED BEDSIDE REPORT FROM MORNING SHIFT RN FOR CONTINUITY OF CARE. PT NONVERBAL AT BASELINE, UNABLE TO RESPOND TO COMMANDS, OPENS EYES SPONTANEOUSLY. TRACH TO VENT FI02= 30%, VT 500, RATE 12/MIN, FLOW 45L/MIN, PEEP5, PMAX 45. 100% PACED RHYTHM ON SAFETY TEACHER, HR 59-60, AFEBRILE TEMP 98.0. LUNG SOUNDS CLEAR ON UPPER BILATERAL LOBES, DIMINISHED IN BILATERAL LOWER LOBES. BOWEL SOUND HYPOACTIVE IN ALL FOR QUADRANTS ON AUSCULTATION, GTUBE IN PLACE IN LUQ, NEPHRO 1.8 CALS AT 10ML PER HOUR INFUSING. ABDOMINAL DISTENSION NOTED, ROUNDED AND FIRM TO TOUCH. LEFT NEPHROSTOMY TUBE RED AND YELLOW, PUS-FILLED FLUID NOTED, DRESSING IS DRY AND INTACT. MENDIETA CATHETER IN PLACE, PATENT, URINE IS CLOUDY AND YELLOW IN COLOR. RIGHT SUBCLAVIAN CENTRAL LINE INFUSING D5NS AT 75ML/HR, SALINE FLUSHED WITH BLOOD RETURN. UPPER BILATERAL EXTREMITY CONTRACTURE, OPTIFORM ON SACROCOCCYX DRY AND INTACT. 1+ PITTING EDEMA ON BIALTERAL FEET. HOB ELEVATED ABOVE 30 DEG, CONTACT AND FALL PRECAUTIONS MAINTAINED.
[2018-01-11] MEDS ORDERED: AMIKACIN 400 MG in DEXTROSE 5% 100 ML IV SCH (20:00)
--- NOTE | 2018-01-11 21:40 | NUR ---
HELD SUBQ HEPARIN SODIUM PER ORDER, LOW HGB AND POSITIVE FOBT.
--- NOTE | 2018-01-11 23:25 | NUR ---
PT REPOSITIONED, PILLOW SUPPORT PROVIED, SCDS ON BILATERAL LEGS. HOB ELEVATED ABOVE 30 DEG. VAP ORAL CARE PROVIDED, EMPTIED NEPHROSTOMY BAG 275ML (RED-YELLOW, PUSS LIKE FLUID). EMPTIED MENDIETA, 625ML.
[2018-01-12] VITALS (17 sets, daily range): BP systolic 123–151; BP diastolic 48–64
[2018-01-12] MEDS: Z-GUARD PASTE TP SCH ×2 (00:42→12:17)
--- NOTE | 2018-01-12 01:22 | NUR ---
BED BATH PROVIDED, SACRAL-COCCYX WOUND AREA CLEANSED WITH WOUND CLEANSER, THERAHONEY, AND CLEAN DRESSING. PT REPOSITIONED, PILLOW SUPPORT PROVIDED, SCDS ON BILATERAL LEGS. HYDRAGUARD APPLIED TO PERINEUM PER ORDER. CLEANSED GTUBE SITE WITH WOUND CLEANSER, NEW DRESSING APPLIED.
--- NOTE | 2018-01-12 02:13 | NUR ---
INCREASE TUBE FEEDING BY 10ML/HR PER ORDER. GTUBE TO FEED NOW AT 30ML/HR, H20 FLUSH Q4H OF 100ML.
--- NOTE | 2018-01-12 04:36 | NUR ---
LAB, [facility], AT BEDSIDE FOR BLOOD DRAW.
[2018-01-12 05:48] LABS: ANION GAP 13.5 (8-16); CARBON DIOXIDE 22.3 mmol/L (21-32); CHLORIDE 103 mmol/L (98-107); CREATININE 2.8 mg/dL (0.7-1.3); GLUCOSE 201 mg/dL (74-106); POTASSIUM 3.8 mmol/L (3.5-5.1); SODIUM SERUM 135 mmol/L (136-145)
[2018-01-12 05:56] LABS: UREA NITROGEN, BLOOD 143 mg/dL (7-18)
[2018-01-12] MEDS ORDERED: VANCOMYCIN PER PHARMACY MC PRN (06:15)
--- NOTE | 2018-01-12 06:35 | NUR ---
PT SISTER, TONY PALACIOS, CALLED WANTED TO SPEAK TO DOCTOR TO DISCUSS THE INFECTION PT HAS IN HIS BLOOD. STATED SHE SPOKE WITH DOCTOR YESTERDAY AND WOULD LIKE TO GET MORE CLARIFICATION ON 'NAME/TYPE" OF SPECIFIC INFECTION. WILL ENDORSE TO MORNING SHIFT RN.
--- NOTE | 2018-01-12 06:36 | NUR ---
Called resident for critical lab result bun 143, no new order received
[2018-01-12] MEDS: NACL 0.9% 1,000 ML IV SCH ×2 (06:40→19:50)
[2018-01-12 06:47] LABS: HEMATOCRIT 24.2 % (36-52); HEMOGLOBIN 7.7 g/dL (12.0-18.0); MEAN CORPUSCULAR HEMOGLOBIN 29 pg (27-31); MEAN CORPUSCULAR HGB CONC 32 g/dL (33-37); MEAN CORPUSCULAR VOLUME 91.6 fL (80-94); PLATELET COUNT (AUTO) 231 K/uL (140-450); RED BLOOD CELL COUNT(AUTO) 2.64 MIL/uL (4.20-6.10); RED CELL DISTRIBUTION WIDTH 16.1 % (11.6-13.7); WHITE BLOOD COUNT (AUTO) 15.7 K/uL (4.8-10.8)
--- NOTE | 2018-01-12 07:20 | NUR ---
DR. BANKS AT BEDSIDE, INFORMED THAT PATIENT HAD BOWEL MOVEMENT, DESCRIBED PASTY. INFORMED DRTd THAT LAB CALLED, [facility], STATED BMP WAS ALREADY COLLECTED WITH THE 5AM LAB AND THAT THE CURRENT/NEW ORDER STATED "TRENDING" DR. BANKS STATED SHE WOULD CANCEL THE ORDER DUE TO PRIOR COLLECTION FORM LAB. LAB CALLED BACK AND UPDATED THAT THE WOULD CANCEL THE ORDER.
[2018-01-12 07:21] LABS: MAGNESIUM 3.3 mg/dL (1.8-2.4); PHOSPHORUS 3.8 mg/dL (2.5-4.9)
[2018-01-12] MEDS: BLOOD GLUCOSE MONITORING 1 DEV DEV FS SCH ×4 (07:30→20:37)
--- NOTE | 2018-01-12 07:30 | NUR ---
PROVIDED BEDSIDE REPORT TO MORNING SHIFT RN. Addendum: 01/12/18 at 0757 by Delia Lombardo RN ENDORSED TO MORNING SHIFT DREAD SANTOYO, THAT TONY PALACIOS (PT SISTER) REQUESTED FOLLOWUP ABOUT "SPECIFIC TYPE OF INFECTION PT HAS IN HIS BLOOD"
--- NOTE | 2018-01-12 07:34 | NUR ---
RECEIVED TRACH PT WITH A PORTEX 7 TRACH ON VENT. SETTINGS AC 12, VT 500, PEEP 5 AND FIO2 30%. PT SUCTIONED OBTAINED SMALL AMOUNT OF THICK YELLOW SECRETIONS, AIRWAY IS PATENT AND TRACH IS SECURE. PT OPENS HIS EYES BUT IS NOT ALERT. VENT IS PLUGGED INTO A RED OUTLET WITH ALARMS ON AND FUNCTIONING. AMBU BAG IS PRESENT NEAR BEDSIDE. WILL CONTINUE TO MONITOR.
--- NOTE | 2018-01-12 07:35 | NUR ---
RECEIVED REPORT FROM PIGS FEET CLEANER RN AT BEDSIDE, PT IS OPEN EYES ONLY, NON-VERBAL, UNABLE TO FOLLOW COMMANDS AND MAKE NEEDS KNOWN. VSS, FLACC 0, TRACH TO VENT WITH SETTING FIO2 30, TV 500, R 12, PEEP 5, NO S/S OF DISTRESS, RHONCHI LUNG SOUNDS BERT. PT HAS A PACEMAKER, PACED RHYTHM ON AGRISCIENCE TEACHER, DISTENDED ABDOMEN WITH ACTIVE BOWEL SOUNDS, GT IN PLACE FEEDING WITH NEPRO AT 50ML/HR, 20ML RESIDUALS NOTED. NEPHROSTOMY TUBE TO GRAVITY NOTED, F/C IN PLACE WITH YELLOW URINE TO GRAVITY, RIGID TO ALL EXTREMITIES, SKIN IS WARM AND DRY TO TOUCH, (SEE WOUND ASSESSMENT), CENTRAL LINE TO RIJ, TLC, PATENT, RUNNING NS AT 75ML/HR, PLACED PT IN COMFORT POSITION, HOB ELEVATED, SAFETY MEASURES IN PLACE, CALL LIGHT WITHIN REACH, WILL CONTINUE TO MONITOR.
[2018-01-12 07:45] LABS: EOSINOPHILS % (MANUAL) 2 % (0-4); LYMPHOCYTES % (MANUAL) 7 % (20-46); MONOCYTES % (MANUAL) 5 % (5-12)
[2018-01-12] MEDS: MEROPENEM 500 MG in NACL 0.9% 50 ML IV SCH ×2 (08:57→20:12)
[2018-01-12] MEDS: DOCUSATE 100 MG/10 ML UDC GT SCH (08:58)
[2018-01-12] MEDS: ASCORBIC ACID 500 MG/5 ML ORASYR PO SCH (08:58)
[2018-01-12] MEDS: GLYCOPYRROLATE 0.2 MG/ML VIAL IV SCH (08:58)
[2018-01-12] MEDS: ASPIRIN 81 MG TAB.CHEW GT SCH (08:58)
[2018-01-12] MEDS: CARVEDILOL 12.5 MG TAB GT SCH ×2 (08:59→20:13)
[2018-01-12] MEDS: TAMSULOSIN 0.4 MG CAP PO SCH (08:59)
[2018-01-12] MEDS: amLODIPine 5 MG TAB GT SCH (08:59)
[2018-01-12] MEDS: ISOSORBIDE DINITRATE 10 MG TAB GT SCH ×2 (08:59→20:13)
[2018-01-12] MEDS: ATORVASTATIN 20 MG TAB GT SCH (08:59)
[2018-01-12] MEDS: LACTOBACILLUS RHAMNOSUS GG 1 EACH CAP PO SCH (08:59)
[2018-01-12] MEDS: DIGOXIN 0.125 MG TAB PO SCH (09:00)
[2018-01-12] MEDS ORDERED: FERROUS SULFATE 300 MG/5 ML UDC GT SCH (09:00)
[2018-01-12] MEDS: ALLOPURINOL 100 MG TAB GT SCH (09:00)
[2018-01-12] MEDS ORDERED: SODIUM FERRIC GLUCONATE 125 MG in NACL 0.9% 100 ML IV SCH (09:00)
[2018-01-12] MEDS: FAMOTIDINE 20 MG TAB GT SCH (09:00)
--- NOTE | 2018-01-12 09:00 | NUR ---
SCHEDULED MEDICATION GIVEN, NO ADVERSE EFFECTS NOTED, PT TOLERATED WELL.
[2018-01-12] MEDS: INSULIN LISPRO SLIDING SCALE 100 UNITS/ML VIAL SUBQ PRN ×4 (09:25→20:46)
--- NOTE | 2018-01-12 09:33 | NUR ---
PT SUCTIONED OBTAINED SMALL AMOUNT OF THICK YELLOW SECRETIONS, AIRWAY IS PATENT AND TRACH REMAINS SECURE. WILL CONTINUE TO MONITOR.
--- NOTE | 2018-01-12 10:15 | NUR ---
DR. STANLEY CAME IN TO SEE PT AT BEDSIDE, WILL FOLLOW UP WITH NEW ORDERS.
--- NOTE | 2018-01-12 11:00 | NUR ---
Applied Psychology Chair Notes: I attempted to contact patients Sister Taty Pickens at [phone] to discuss and gather Patient's additional information. Patient's Sister did not responded and these handbook writer left her a Voice Mail MSG with my contact information and a request for a call back.
--- NOTE | 2018-01-12 11:30 | NUR ---
DR. MARIE CAME IN TO SEE PT AT BEDSIDE, WILL FOLLOW UP WITH NEW ORDERS.
--- NOTE | 2018-01-12 12:00 | NUR ---
NO S/S OF DISTRESS, ORAL CARE PROVIDED,POSITION CHANGED FOR OFF LAOD PRESSURE. VSS, FLACC 0
[2018-01-12] MEDS: THERAHONEY GEL 42.5 GM TP SCH (12:17)
[2018-01-12 12:26] LABS: FERRITIN 324 ng/mL (30-400); FOLIC ACID > 20.00 ng/mL (>3.0)
--- NOTE | 2018-01-12 13:41 | NUR ---
PT TOLERATING VENT SETTINGS WELL NO RESPIRATORY DISTRESS NOTED. PT BEING CLEANED BY NURSES AT THIS TIME. WILL CONTINUE TO MONITOR.
--- NOTE | 2018-01-12 14:30 | NUR ---
DR. WALTER CAME IN TO SEE PT AT BEDSIDE, WILL FOLLOW UP WITH NEW ORDERS.
--- NOTE | 2018-01-12 15:00 | NUR ---
Cage Cashier Notes: I attempted to met with patient for a screen to discuss, gather and confirm Patient information. Patient was not awake and alert. Unable to verbalized his needs.
--- NOTE | 2018-01-12 16:00 | NUR ---
NO S/S OF DISTRESS, VSS, FLACC 0, ORAL CARE PROVIDED, POSITION CHANGED FOR OFF LOAD PRESSURE.
--- NOTE | 2018-01-12 16:38 | NUR ---
01/12/18 RD FOLLOW UP COMPLETED PLEASE REFER TO NUTRITION PROGRESS NOTE UNDER CARE ACTIVITY FOR ESTIMATED NUTRITIONAL NEEDS. 1. CONTINUE NEPRO WITH CARBSTEADY AT GOAL RATE 50 ML/HR. WATER FLUSH 100 ML Q4H DIET TOLERATED --THIS WILL PROVIDE 2160 KCAL (92% ESTIMATED ENERGY NEEDS) AND 97 GM PROTEIN (103% ESTIMATED PROTEIN NEEDS) 2. RD TO FOLLOW-UP 2-3 DAYS, HIGH RISK CHAPINCITO DOMINGUEZ, RD
--- NOTE | 2018-01-12 16:47 | NUR ---
Risk Management Internship Notes: I called Yasir from admissions at [facility] to discuss, confirm and gather patient's information. Per Yasir Patient has sister Taty Davidson as his Medical decision maker. Patient is on 7 days skilled bed hold and is able to return to their facility when ready and clear for discharge. Patient has no issues with medications and there is a possible discharge for 01/13/18. I thanked Yasir for her information and told her that I will follow up with updates tomorrow.
--- NOTE | 2018-01-12 17:31 | NUR ---
PT REMAINS ON DOCUMENTED VENT SETTINGS. PT SUCTIONED OBTAINED SMALL AMOUNT OF THICK YELLOW SECRETIONS, AIRWAYS IS PATENT AND TRACH IS SECURE. PT IS NOT IN ANY DISTRESS AT THIS TIME. VENT ALARMS REMAIN ON AND FUNCTIONING.
--- NOTE | 2018-01-12 19:04 | NUR ---
Received pt stable on vent support at documented settings, suctioned small amount of thick yellow secretions, no resp distress or SOB noted at this time, Portex 7 trach secured/patent/midline, alarms set and audible, ambu bag at bedside, vent plugged into red outlet, pulse ox on, will cont to monitor.
--- NOTE | 2018-01-12 19:17 | NUR ---
REPORT GIVEN TO DEPENDENCY CASE MANAGER NURSE FOR CONTINUE OF CARE, PT IS IN STABLE CONDITION AT THIS TIME.
--- NOTE | 2018-01-12 19:19 | NUR ---
RECEIVED REPORT FROM AM NURSE. PATIENT NONVERBAL OPENS EYES SPONTANEOUSLY. AFEBRILE. LUNG SOUNDS DIMINISHED CHRONIC TRACH TO VENT. FIO2 20 VT 500 RATE 12 PEEP 5/ [ACED RHYTHM ON MONITOR. GT PATENT NO RESIDUAL NOTED. ON NEPRO 60ML/HR. ABD DISTENDED. F/C PATENT INTACT. NEPHROSTOMY TUBE PATENT INTACT. IV SITE RIGHT IJ. PATENT INTACT. BED IN LOWEST POSITION. CALL LIGHT WITHIN REACH. WILL CONTINUE TO MONITOR.
[2018-01-12] MEDS: METOCLOPRAMIDE 10 MG/2 ML INJ VIAL IVP SCH (20:12)
[2018-01-12] MEDS: SENNA 8.6 MG TAB PO SCH (20:12)
[2018-01-12 21:09] LABS: TRANSFERRIN 173 mg/dL (200-370)
--- NOTE | 2018-01-12 23:05 | NUR ---
PT IN STABLE CONDITION. NO SIGNS OF ACUTE DISTRESS NOTED. WILL CONTINUE TO MONITOR.
--- NOTE | 2018-01-12 23:50 | NUR ---
DR. ASENCIO TO EVALUATE PATIENT. ORDERED CBC AND BNP LAB TEST IN AM.
[2018-01-13] VITALS (16 sets, daily range): BP systolic 135–158; BP diastolic 53–77
--- NOTE | 2018-01-13 00:22 | NUR ---
PT REPOSITIONED AT [facility] ORAL CARE PROVIDED AT THIS TIME. WILL CONTINUE TO MONITOR.
[2018-01-13] MEDS: Z-GUARD PASTE TP SCH ×2 (00:43→12:51)
--- NOTE | 2018-01-13 02:20 | NUR ---
CHANGED TO NEW FEEDING TUBE AND FEEDING NEPRO 50 ML/HR. NO RESIDUAL NOTED. ABD STILL DISTENDED. REPOSITIONED AT THIS TIME. NO SIGNS OF ACUTE DISTRESS NOTED.
[2018-01-13] MEDS: METOCLOPRAMIDE 10 MG/2 ML INJ VIAL IVP SCH ×2 (04:15→12:50)
--- NOTE | 2018-01-13 04:58 | NUR ---
LAB AT BEDSIDE AT THIS TIME. [facility] LABS VIA CENTRAL LINE RIJ. NO SIGNS OF ACUTE DISTRESS NOTED.
[2018-01-13 05:35] LABS: HEMOGLOBIN 7.6 g/dL (12.0-18.0)
[2018-01-13 05:45] LABS: HEMATOCRIT 23.5 % (36-52); MEAN CORPUSCULAR HEMOGLOBIN 29 pg (27-31); MEAN CORPUSCULAR HGB CONC 32 g/dL (33-37); MEAN CORPUSCULAR VOLUME 91.6 fL (80-94); PLATELET COUNT (AUTO) 281 K/uL (140-450); RED BLOOD CELL COUNT(AUTO) 2.57 MIL/uL (4.20-6.10); RED CELL DISTRIBUTION WIDTH 16.2 % (11.6-13.7); WHITE BLOOD COUNT (AUTO) 15.1 K/uL (4.8-10.8)
[2018-01-13 06:14] LABS: ANION GAP 13.5 (8-16); CARBON DIOXIDE 22.7 mmol/L (21-32); CHLORIDE 108 mmol/L (98-107); CREATININE 2.4 mg/dL (0.7-1.3); GLUCOSE 175 mg/dL (74-106); POTASSIUM 3.2 mmol/L (3.5-5.1); SODIUM SERUM 141 mmol/L (136-145)
[2018-01-13 06:15] LABS: MAGNESIUM 3.3 mg/dL (1.8-2.4); PHOSPHORUS 3.6 mg/dL (2.5-4.9)
[2018-01-13 06:16] LABS: UREA NITROGEN, BLOOD 127 mg/dL (7-18)
--- NOTE | 2018-01-13 06:24 | NUR ---
RECIEVED CRITICAL LAB VALUE AT 0615 OF BUN [address] REPORTED TO DR. SMITH. BUN TRENDING DOWNWARD AT THIS TIME. WILL CONTINUE TO FOLLOW UP ADDITIONAL ORDERS.
--- NOTE | 2018-01-13 06:36 | NUR ---
REC'D PT ON CARESCAPE VENT SETTINGS AC12 500 PEEP 5 FIO2 30% ALARMS ON AND AUDIBLE AND AMBU BAG IS AT SIDE OF VENT AND VENT IS PLUGGED INTO RED OUTLET, SNX PT SMALL AMT OF YELLOW THICK SECRETIONS,B\S ARE CLEAR BILATERALLY, PT IS TRACH WITH PORTEX 7 AND SKIN INTEGRITY IS INTACT PT IS RESTING WITH NO SIGNS OF DISTRESS NOTED
--- NOTE | 2018-01-13 06:39 | NUR ---
DR. FAUSTIN AT BEDSIDE TO EVALUATE PATIENT. UPDATED ON PATIENT'S CURRENT CONDITION. WILL CONTINUE TO FOLLOW UP ANY ADDITIONAL ORDERS.
[2018-01-13] MEDS: BLOOD GLUCOSE MONITORING 1 DEV DEV FS SCH ×3 (06:45→16:30)
[2018-01-13] MEDS ORDERED: KCL 20 MEQ/WATER INJ PREMIX 100 ML IV SCH (07:00)
--- NOTE | 2018-01-13 07:15 | NUR ---
ENDORSED CARE TO INCOMING SHIFT. PT IN STABLE CONDITION. BED IN LOWEST POSITION. CALL LIGHT WITHIN REACH.
[2018-01-13 07:22] LABS: EOSINOPHILS % (MANUAL) 3 % (0-4); LYMPHOCYTES % (MANUAL) 10 % (20-46); MONOCYTES % (MANUAL) 8 % (5-12)
[2018-01-13] MEDS ORDERED: AMIKACIN 400 MG in DEXTROSE 5% 100 ML IV SCH (08:00)
--- NOTE | 2018-01-13 08:21 | NUR ---
RECEIVED REPORT FROM NIGHT NURSE GLADYS. PATIENT [id number] TO NAME. NON VERBAL. SPONTANEOUS EYE OPENING. TRACH TO VENT. VENT SETTING: FiO2-30% TV-500 RATE-12 PEEP-5. LUNG SOUNDS DIMINISHED. S1S2 HEARD. SKIN WARM DRY. EYES REACTIVE TO LIGHT. ABD DISTENDED. REDNESS IN KENNETH AREA. NEPHROSTOMY SIGHT COVERED AND DRAINING. GT TUBE TO FEEDING. MENDIETA CATH IN PLACE. RIJ FLUSHED NS RUNNING AT 75MLS. PACED RHYTHM ON MONITOR. Addendum: 01/13/18 at 1100 by Tricia Sood RN SPELLING ERROR: RESPONSIVE
--- NOTE | 2018-01-13 08:29 | NUR ---
VENT CHECK, PT IS SLEEPING WITH NO SIGNS OF DISTRESS NOTED AIRWAY IS PATENT
[2018-01-13] MEDS: MEROPENEM 500 MG in NACL 0.9% 50 ML IV SCH (08:44)
[2018-01-13] MEDS: DOCUSATE 100 MG/10 ML UDC GT SCH (08:46)
[2018-01-13] MEDS: ASCORBIC ACID 500 MG/5 ML ORASYR PO SCH (08:46)
[2018-01-13] MEDS: SENNA 8.6 MG TAB PO SCH (08:47)
[2018-01-13] MEDS: ALLOPURINOL 100 MG TAB GT SCH (08:47)
[2018-01-13] MEDS: LACTOBACILLUS RHAMNOSUS GG 1 EACH CAP PO SCH (08:47)
[2018-01-13] MEDS: ASPIRIN 81 MG TAB.CHEW GT SCH (08:48)
[2018-01-13] MEDS: CARVEDILOL 12.5 MG TAB GT SCH (08:48)
[2018-01-13] MEDS: FAMOTIDINE 20 MG TAB GT SCH (08:48)
[2018-01-13] MEDS: ISOSORBIDE DINITRATE 10 MG TAB GT SCH (08:48)
[2018-01-13] MEDS: TAMSULOSIN 0.4 MG CAP PO SCH (08:49)
[2018-01-13] MEDS: DIGOXIN 0.125 MG TAB PO SCH (08:49)
[2018-01-13] MEDS: amLODIPine 5 MG TAB GT SCH (08:49)
[2018-01-13] MEDS: ATORVASTATIN 20 MG TAB GT SCH (08:49)
--- NOTE | 2018-01-13 10:25 | NUR ---
VENT CHECK, SXN PT MODERATE AMT OF THICK YELLOW SECRETIONS, PT IS RESTING
[2018-01-13] MEDS: NACL 0.9% 1,000 ML IV SCH (11:00)
--- NOTE | 2018-01-13 11:00 | NUR ---
SPOKE WITH DR FAUSTIN ABOUT PATIENT BEING DISCHARGED BACK TO SNF TODAY. CALLED SOCIAL WORK TO INFORM. WILL FOLLOW UP.
[2018-01-13] MEDS ORDERED: VANCOMYCIN 1GM/DEXT 5% PREMIX 200 ML IV SCH ×2 (11:15→14:00)
[2018-01-13] MEDS ORDERED: VANCOMYCIN PER PHARMACY MC PRN (11:15)
[2018-01-13] MEDS ORDERED: Amikacin Per Pharmacy MC (11:32)
[2018-01-13] MEDS ORDERED: LACT10CA GT (11:32)
[2018-01-13] MEDS ORDERED: Vancomycin Per Pharmacy MC (11:32)
[2018-01-13] MEDS: INSULIN LISPRO SLIDING SCALE 100 UNITS/ML VIAL SUBQ PRN ×2 (11:57→18:16)
[2018-01-13] MEDS: THERAHONEY GEL 42.5 GM TP SCH (12:50)
--- NOTE | 2018-01-13 13:34 | NUR ---
VENT CHECK, SXN PT SMALL AMT OF YELLOW SECRETIONS, PT IS RESTING
[2018-01-13] MEDS ORDERED: VANC1.2511 IV (14:01)
[2018-01-13] MEDS ORDERED: MERO500P2 IV (14:03)
[2018-01-13] MEDS ORDERED: AMIK500I IV (14:06)
--- NOTE | 2018-01-13 14:47 | NUR ---
Barrel Tester And Drainer Notes: I called [facility] at to discuss Patient discharge today. I spoke to Kaylan about discussion with Yasir yesterday in regards to Patient discharging today and needing an isolation bed. Per Kaylan she will be calling me in about 15 mins to give me a room number due to making changes of rooms. Per Kaylan Accepting MD is Dr. Jeffery and they prefer for Patient to have his transport set up after 7:00 PM today. I thanked her for the information and ended the call.
--- NOTE | 2018-01-13 15:18 | NUR ---
Collections Curator Notes: I called [facility] at . I spoke to Kaylan about patient's room; She stated that Patient can go to room [address] Jeffery. Per Kaylan patient can arrive to [facility] after 18:00
--- NOTE | 2018-01-13 15:31 | NUR ---
VENT CHECK, NO SXN NEEDED PT IS RESTING
--- NOTE | 2018-01-13 17:07 | NUR ---
VENT CHECK, SNX PT SMALL AMT OF YELLOW SECRETIONS TRACH CARE DONE PT RESTING
--- NOTE | 2018-01-13 18:02 | NUR ---
CALLED REPORT TO [facility]. GAVE REPORT TO NURSE LORIN. WILL CONTINUE TO MONITOR PATIENT UNTIL TRANSPORT ARRIVES.
--- NOTE | 2018-01-13 19:45 | NUR ---
PATIENT WAS DISCHARGED BY BERNICE BECKFORD (ICU INFORMATION CLERK) AND SHERYL LOPEZ (RN) TO [facility] PATIENT TRANSPORTED BY [facility], PATIENT DOES NOT HAVE ANY BELONGINGS. CALLED PATIENT'S SISTER TONY PALACIOS TO NOTIFY ABOUT PATIENT'S TRANSFER TO [facility].
== END 2018-01-13 19:45 | DRG 870 ==
LOC: MED 13:43 → MIC 16:17
PROVIDERS: ADMIT General Practice; ATTEND General Practice
PROC: 5A1955Z Respiratory Ventilation, Greater than 96 Consecutive Hours (ICD-10-PCS; principal; 2018-01-09)
PROC: 05H533Z Insertion of Infusion Device into Right Subclavian Vein, Percutaneous Approach (ICD-10-PCS; 2018-01-09)
PROC: 0T9130Z Drainage of Left Kidney with Drainage Device, Percutaneous Approach (ICD-10-PCS; 2018-01-11)
DX: A41.81 Sepsis due to Enterococcus (principal); R65.21 Severe sepsis with septic shock; N17.0 Acute kidney failure with tubular necrosis; E43 Unspecified severe protein-calorie malnutrition; G82.50 Quadriplegia, unspecified; G93.41 Metabolic encephalopathy; J15.1 Pneumonia due to Pseudomonas; I21.4 Non-ST elevation (NSTEMI) myocardial infarction; G93.40 Encephalopathy, unspecified; J69.0 Pneumonitis due to inhalation of food and vomit; J96.21 Acute and chronic respiratory failure with hypoxia; G93.1 Anoxic brain damage, not elsewhere classified; E87.1 Hypo-osmolality and hyponatremia; I69.359 Hemiplegia and hemiparesis following cerebral infarction affecting unspecified side; J44.0 Chronic obstructive pulmonary disease with (acute) lower respiratory infection; Z99.11 Dependence on respirator [ventilator] status; D68.59 Other primary thrombophilia; N13.2 Hydronephrosis with renal and ureteral calculous obstruction; N39.0 Urinary tract infection, site not specified; D64.9 Anemia, unspecified; E87.5 Hyperkalemia; E83.41 Hypermagnesemia; B96.20 Unspecified Escherichia coli [E. coli] as the cause of diseases classified elsewhere; E11.22 Type 2 diabetes mellitus with diabetic chronic kidney disease; E86.0 Dehydration; I12.9 Hypertensive chronic kidney disease with stage 1 through stage 4 chronic kidney disease, or unspecified chronic kidney disease; I48.91 Unspecified atrial fibrillation; M10.9 Gout, unspecified; K21.9 Gastro-esophageal reflux disease without esophagitis; N18.3 Chronic kidney disease, stage 3 (moderate); E11.65 Type 2 diabetes mellitus with hyperglycemia; E78.5 Hyperlipidemia, unspecified; E87.8 Other disorders of electrolyte and fluid balance, not elsewhere classified; N40.0 Benign prostatic hyperplasia without lower urinary tract symptoms; L89.151 Pressure ulcer of sacral region, stage 1; B96.4 Proteus (mirabilis) (morganii) as the cause of diseases classified elsewhere; Z51.5 Encounter for palliative care; Z66 Do not resuscitate; Z79.4 Long term (current) use of insulin; Z93.0 Tracheostomy status; Z93.1 Gastrostomy status; Z93.6 Other artificial openings of urinary tract status; Z79.899 Other long term (current) drug therapy; Z79.82 Long term (current) use of aspirin; Z68.26 Body mass index [BMI] 26.0-26.9, adult
CPT/HCPCS: 36415; 36556; 36600; 50432; 51702; 71045; 74018; 76700; 76770; 77003; 80048; 80053; 80150; 80162; 80202; 81001; 82272; 82607; 82728; 82746; 82803; 82948; 83036; 83540; 83605; 83690; 83735; 83880; 84100; 84134; 84436; 84443; 84484; 85025; 85045; 85610; 85730; 86704; 86706; 86803; 87040; 87070; 87075; 87081; 87086; 87186; 87205; 87340; 89220; 93005; 94002; 94003; 96365; 96368; 96372; 96375; 99291; C1729; J0278; J1644; J1815; J1940; J1956; J2001; J2185; J2250; J2543; J2765; J2916; J3010; J3370; J3480; J3490; J7030; J7042; J7060; Q0092; Q9967

== ENCOUNTER 2018-01-15 11:33 | Inpatient (IN) | payer OTHER, MEDICAID ==
[~2018-01-15] VITALS: Ht 160 cm; Wt 82.6 kg
[2018-01-15] VITALS (8 sets, daily range): BP systolic 111–170; BP diastolic 44–69
[~2018-01-15 11:33] MED LIST changes: +AMIK500I IV; +Amikacin Per Pharmacy MC; -ERTA1VIA IV; +LACT10CA GT; +MERO500P2 IV; +VANC1.2511 IV; +Vancomycin Per Pharmacy MC
--- NOTE | 2018-01-15 11:33 | NUR ---
Patient BIBA to bed 1 at this time.
--- NOTE | 2018-01-15 11:40 | NUR ---
76 biba from [facility] for g-tube malfunction since this am. SEEN & ADMITTED HERE 01/09/18 FOR SEPSIS. PICC LINE R UPPER CHEST. MENDIETA'S CATH ;URINE GOOD FLOW 600 CC. NEPHROS L FLANK URINE WELL FLOW. Med Hx: CRF, Trach to Vent, DM, HTN, COPD. Contact Iso for ROOF ASSEMBLER-Sputum, ESBL-urine, MDRO-Blood. PT ON TRACH WITH VENT .AC Rate-12, TV-500,Peep-5, O2-3l Trach size Portex 7 cultrel. Rx: Amikacin 250mg q24hrs, Meropenem 500mg q 12hr, Vancomycin 250mg q 24hr.
--- NOTE | 2018-01-15 11:40 | NUR ---
pt biba for g tube malfunction placed on carescape vent settings ac12 vt 500 peep 5 fio2 30% alarms and audible vent is plugged into red outlet b\s are clear bilaterally sxn pt no return on sputum pt is trach with portex 7 and skin integrity is intact, ambu bag at hob
--- NOTE | 2018-01-15 12:08 | NUR ---
LAB AT BEDSIDE.
--- NOTE | 2018-01-15 12:25 | NUR ---
PT BACK FROM CT.
--- NOTE | 2018-01-15 12:27 | NUR ---
X [facility] AT BEDSIDE
[2018-01-15 12:54] LABS: HEMATOCRIT 26.8 % (36-52); HEMOGLOBIN 8.2 g/dL (12.0-18.0); MEAN CORPUSCULAR HEMOGLOBIN 28 pg (27-31); MEAN CORPUSCULAR HGB CONC 31 g/dL (33-37); MEAN CORPUSCULAR VOLUME 92.1 fL (80-94); PLATELET COUNT (AUTO) 422 K/uL (140-450); RED BLOOD CELL COUNT(AUTO) 2.91 MIL/uL (4.20-6.10); RED CELL DISTRIBUTION WIDTH 16.4 % (11.6-13.7)
[2018-01-15 13:19] LABS: EOSINOPHILS % (MANUAL) 1 % (0-4); LYMPHOCYTES % (MANUAL) 6 % (20-46); MONOCYTES % (MANUAL) 1 % (5-12)
--- NOTE | 2018-01-15 13:27 | NUR ---
REPORT GIVEN TO DAVID DU
[2018-01-15 13:30] LABS: APPEARANCE,URINE HAZY (CLEAR); COLOR,URINE YELLOW (YELLOW)
[2018-01-15 13:31] LABS: BILIRUBIN,URINE NEGATIVE (NEGATIVE); BLOOD, URINE 2+ (NEGATIVE); LEUKOCYTE ESTERASE ,URINE 2+ (NEGATIVE); NITRITE, URINE NEGATIVE (NEGATIVE); UGLUCOSE NEGATIVE (NEGATIVE)
[2018-01-15 13:31] LABS: PROTHROMBIN TIME 10.9 secs (10.8-13.4)
[2018-01-15 13:38] LABS: RBC,URINE 3-10 (FEW) /HPF (0-5); WBC,URINE 16-25 (MOD) /HPF (0-5)
--- NOTE | 2018-01-15 13:38 | NUR ---
vent check, no sxn needed airway is patent and pt is resting
[2018-01-15 13:39] LABS: ALBUMIN 2.9 g/dL (3.4-5.0); ANION GAP 13.7 (8-16); ASPARTATE AMINOTRANSFERASE 23 U/L (15-37); CARBON DIOXIDE 25.4 mmol/L (21-32); CHLORIDE 115 mmol/L (98-107); CREATININE 1.7 mg/dL (0.7-1.3); GLUCOSE 171 mg/dL (74-106); POTASSIUM 3.1 mmol/L (3.5-5.1); SODIUM SERUM 151 mmol/L (136-145); TOTAL BILIRUBIN 0.3 mg/dL (0.0-1.0)
[2018-01-15 13:46] LABS: UREA NITROGEN, BLOOD 93 mg/dL (7-18)
--- NOTE | 2018-01-15 13:51 | NUR ---
BUN-93, TROP, 0.169. DR ERICA MCCRARY.
[2018-01-15] MEDS ORDERED: ACETAMINOPHEN 325 MG TAB PO PRN (13:55)
[2018-01-15] MEDS ORDERED: DOCUSATE SODIUM 100 MG GELCAP PO PRN (13:55)
[2018-01-15] MEDS ORDERED: ONDANSETRON 4 MG/2 ML VIAL IM/IVP PRN (13:55)
[2018-01-15] MEDS ORDERED: NACL 0.9% 1,000 ML IV SCH (13:55)
[2018-01-15] MEDS ORDERED: HYDROcodone/APAP 7.5/325 MG 1 TAB PO PRN (14:00)
--- NOTE | 2018-01-15 14:00 | NUR ---
RECEIVED REPORT FROM DAVID DU
[2018-01-15] MEDS ORDERED: SODIUM PHOSPHATE 118 ML ENEM RC SCH (14:10)
[2018-01-15] MEDS ORDERED: ACETAMINOPHEN 650 MG/20.3 ML UDC GT SCH (14:10)
[2018-01-15] MEDS ORDERED: MEROPENEM 500 MG in NACL 0.9% 100 ML IV ONE ×2 (14:10→14:20)
[2018-01-15] MEDS ORDERED: DEXTROSE 50% 50 ML SYR IVP PRN ×2 (14:10→15:05)
[2018-01-15] MEDS ORDERED: INSULIN LISPRO SLIDING SCALE 100 UNITS/ML VIAL SUBQ PRN (14:10)
[2018-01-15] MEDS ORDERED: MEROPENEM 1,000 MG VIAL IV ONE (14:14)
[2018-01-15] MEDS ORDERED: VANCOMYCIN PER PHARMACY MC PRN (14:20)
[2018-01-15] MEDS ORDERED: MEROPENEM 500 MG VIAL IV ONE ×2 (14:27→21:10)
[2018-01-15] MEDS ORDERED: ASPIRIN 600 MG SUPP RC ONE (14:40)
[2018-01-15 14:45] LABS: CHOL/HDL RATIO 2.8 (1-4.5); FREE T4 (FREE THYROXINE) 1.11 ng/dL (0.76-1.46); MAGNESIUM 2.9 mg/dL (1.8-2.4); PHOSPHORUS 4.6 mg/dL (2.5-4.9); THYROID STIMULATING HORMONE 1.88 uIU/mL (0.34-3.74)
[2018-01-15] MEDS ORDERED: ALBUTEROL SULFATE/IPRATROPIU 3 ML SOL IH PRN (14:50)
[2018-01-15] MEDS ORDERED: cloNIDine 0.1 MG TAB GT PRN (15:00)
[2018-01-15] MEDS ORDERED: ACETAMINOPHEN 650 MG/20.3 ML UDC GT PRN (15:05)
--- NOTE | 2018-01-15 15:10 | NUR ---
BM : LOOSE STOOL ;LARGE AMOUNT.
[2018-01-15] MEDS ORDERED: AMIKACIN PER PHARMACY MC PRN (15:15)
--- NOTE | 2018-01-15 15:18 | NUR ---
VENT CHECK, ABG DRAWN ON RR WITHOUT INCIDENT NO SXN NEEDED AIRWAY PATENT
[2018-01-15] MEDS ORDERED: SODIUM PHOSPHATE 118 ML ENEM RC PRN (15:30)
--- NOTE | 2018-01-15 15:30 | NUR ---
Patient will be admitted to care of DR TOVAR. Admited to TELE. Will go to room 123B. Belongings list completed. Report to CECELIA SANTOYO.
--- NOTE | 2018-01-15 15:30 | NUR ---
ARRIVED ON THE UNIT WITH R/T, 2 ER NURSES. PT IS AWAKE. NOT ORIENTED. PT HAS TRACH TO VENT. INTRODUCED MYSELF AND UPDATED THE BOARD. PT WAS HERE A WEEK AGO FOR SEPSIS. TODAY, IS HERE FOR DISPLACED GTUBE. PT HAS PICC LINE ON R SUBCLAVIAN, TRIPLE LUMEN SL. MENDIETA CATH IN PLACE. NEPHROSTOMY IN PLACE, CLOUDY SEDIMENTS IN BAG. FALL RISK PROTOCOL IN PLACE. 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 SACRAL WOUND AND L HEEL WOUND, ALL IN DRESSING. LARGE, DISTENDED ABD. DISPLACE GTUBE IN PLACE. MRSA SCREENING DONE. WILL CONTINUE TO ASSESS PT.
--- NOTE | 2018-01-15 15:39 | NUR ---
PT MOVED TO 123B BAGGED WITH 100% FIO2 AND PLACED BACK ON VENT WITH SAME SETTINGS
--- NOTE | 2018-01-15 16:10 | NUR ---
DR WALTER CAME AND ASSESSED PT. REMOVED GTUBE AT BEDSIDE. NO BLEEDING NOTED. WILL CONTINUE TO MONITOR PT.
[2018-01-15] MEDS: DEXT 5% / NACL 0.45% 1,000 ML IV SCH (16:30)
[2018-01-15] MEDS ORDERED: BLOOD GLUCOSE MONITORING 1 DEV DEV FS SCH (16:30)
[2018-01-15] MEDS: BLOOD GLUCOSE MONITORING 1 DEV DEV FS SCH ×2 (16:30→21:01)
[2018-01-15] MEDS: SIMETHICONE 80 MG TAB.CHEW GT SCH (17:00)
[2018-01-15] MEDS ORDERED: KCL 20 MEQ/WATER INJ PREMIX 200 ML IV SCH (17:00)
--- NOTE | 2018-01-15 17:00 | NUR ---
ABD US IS BEING DONE.
--- NOTE | 2018-01-15 17:10 | NUR ---
VENT CHECK, SXN PT FOR SPUTUM COLLECTION MODERATE AMT OF WHITE THICK SECRETIONS, RN CECELIA NOTIFIED, TRACH CARE DONE
--- NOTE | 2018-01-15 17:25 | NUR ---
R/T HERE FOR SPUTUM SAMPLE.
[2018-01-15] MEDS: INSULIN LISPRO SLIDING SCALE 100 UNITS/ML VIAL SUBQ PRN (17:45)
[2018-01-15] MEDS: METOCLOPRAMIDE 10 MG/2 ML INJ VIAL IVP SCH (17:45)
--- NOTE | 2018-01-15 18:00 | NUR ---
NG TUBE PLACED. ASKED MD TO ORDER A KUB TO CHECK FOR PLACEMENT.
--- NOTE | 2018-01-15 18:48 | NUR ---
CALLED RADIOLOGY TO COME AND TAKE XRAY.
--- NOTE | 2018-01-15 19:19 | NUR ---
ENDORSED PT TO THE QUENCHING CAR OPERATOR NURSE AT BEDSIDE FOR CONTINUITY OF CARE. PT IS IN STABLE CONDITION.
--- NOTE | 2018-01-15 19:20 | NUR ---
RECEIVED FROM AM RN IN BED WITH TRACH TO VENT. FI02 AT 50 %. 98 % 02 SAT. NEPHROSTOMY BAG PRESENT AND DRAINING WITH URINE. MENDIETA CATHETER IN PLACE AND DRAINING WITH URINE TOO. NONE VERBAL. TOTAL CARE. TELEMETRY MONITORING. PICC LINE TO RIGHT SUBCLAVIAN. ISOLATION PRECAUTION RT VARIOUS HX. OF INFECTION. DX. OF GT MALFUNCTION, UTI AND PNA. NEEDS WILL BE ANTICIPATED AND WILL BE MET. BED ALARM ON. FLACC 0-
[2018-01-15] MEDS: ALBUTEROL SULFATE/IPRATROPIU 3 ML SOL IH SCH (19:25)
[2018-01-15] MEDS: ISOSORBIDE DINITRATE 10 MG TAB GT SCH (21:00)
[2018-01-15] MEDS: FERROUS SULFATE 300 MG/5 ML UDC GT SCH (21:00)
[2018-01-15] MEDS ORDERED: MEROPENEM 500 MG VIAL IV SCH (21:00)
[2018-01-15] MEDS: DOCUSATE 100 MG/10 ML UDC GT SCH (21:00)
[2018-01-15] MEDS: CARVEDILOL 12.5 MG TAB GT SCH (21:00)
[2018-01-15] MEDS: MEROPENEM 500 MG in NACL 0.9% 50 ML IV SCH (21:10)
[2018-01-15] MEDS ORDERED: GLYCOPYRROLATE 0.2 MG/ML VIAL ONE (21:32)
[2018-01-15] MEDS: GLYCOPYRROLATE 0.2 MG/ML VIAL IV SCH (21:47)
--- NOTE | 2018-01-15 21:55 | NUR ---
CXR ORDERED BY RESIDENT MD REQUESTED BY ME TO CONFIRM NGT PLACEMENT. WAITING FOR RESULTS OF CXR TAKEN JUST NOW.
[2018-01-15] MEDS ORDERED: GENTAMICIN PER PHARMACY MC PRN (23:25)
--- NOTE | 2018-01-15 23:25 | NUR ---
PT. HAD CXR FOR CONFIRMATION OF NGT PLACEMENT. NO RESULTS IN TILL NOW. UNABLE TO GIVE TABLET FORM MEDICATIONS.
[2018-01-16] VITALS (10 sets, daily range): BP systolic 120–168; BP diastolic 47–72
[2018-01-16] MEDS ORDERED: GENTAMICIN 120 MG in NACL 0.9% 100 ML IV SCH ×2
[2018-01-16] MEDS ORDERED: AMPICILLIN 1,000 MG VIAL ONE ×2 (00:27→05:14)
[2018-01-16] MEDS ORDERED: GENTAMICIN 80 MG/2 ML VIAL ONE (00:28)
--- NOTE | 2018-01-16 00:39 | NUR ---
PT. ABDOMINAL DRAINAGE SUBMITTED FOR CULTURE. TOTAL CARE. TURNED TO SIDES Q 2H. ISOLATION PRECAUTIONS OBSERVED.
[2018-01-16] MEDS: AMPICILLIN 1,000 MG in NACL 0.9% 50 ML IV SCH ×5 (00:57→23:40)
--- NOTE | 2018-01-16 01:53 | NUR ---
INFORMED RESIDENT MD RE NGT PLACEMENT CXR RESULT. "OK" I WILL GO THERE AND CHECK IT AND SEE WHAT WE WILL DO ".
--- NOTE | 2018-01-16 03:00 | NUR ---
NGT DISCONTINUED ORDERED WITH TIP INTACT. TELEMETRY MONITORING. TURNED TO SIDES Q2H. TELEMETRY MONITORING.
--- NOTE | 2018-01-16 04:19 | NUR ---
SLEEPING. MOANS A LITTLE WHEN TOUCHED. TURNED TO SIDES Q 2H WITH PILLOW SUPPORT TO PRESSURE AREAS. NEEDS ANTICIPATED AND MET.
[2018-01-16] MEDS: BLOOD GLUCOSE MONITORING 1 DEV DEV FS SCH ×4 (05:52→21:30)
[2018-01-16] MEDS: INSULIN LISPRO SLIDING SCALE 100 UNITS/ML VIAL SUBQ PRN (05:53)
[2018-01-16 06:09] LABS: BASOPHILS % (AUTO) 0.1 % (0.0-2.0); EOSINOPHILS # (AUTO) 0.1 K/uL (0-0.4); EOSINOPHILS % (AUTO) 0.7 % (0.0-4.0); HEMATOCRIT 26.9 % (36-52); HEMOGLOBIN 8.5 g/dL (12.0-18.0); LYMPHOCYTES # (AUTO) 1.3 K/uL (2.0-11.5); LYMPHOCYTES % (AUTO) 7.4 % (20.5-51.1); MEAN CORPUSCULAR HEMOGLOBIN 29 pg (27-31); MEAN CORPUSCULAR HGB CONC 31 g/dL (33-37); MEAN CORPUSCULAR VOLUME 92.6 fL (80-94); MONOCYTES # (AUTO) 0.7 K/uL (0.8-1.0); MONOCYTES % (AUTO) 4.2 % (1.7-9.3); NEUTROPHILS # (AUTO) 15.3 K/uL (1.8-7.7); NEUTROPHILS % (AUTO) 87.6 % (42.2-75.2); PLATELET COUNT (AUTO) 440 K/uL (140-450); RED BLOOD CELL COUNT(AUTO) 2.91 MIL/uL (4.20-6.10); RED CELL DISTRIBUTION WIDTH 16.4 % (11.6-13.7); WHITE BLOOD COUNT (AUTO) 17.5 K/uL (4.8-10.8)
[2018-01-16 06:31] LABS: MAGNESIUM 2.7 mg/dL (1.8-2.4); PHOSPHORUS 4.1 mg/dL (2.5-4.9)
[2018-01-16 06:36] LABS: T4 (THYROXINE) 5.6 ug/dL (4.5-12.0)
[2018-01-16 06:37] LABS: ANION GAP 12.7 (8-16); CARBON DIOXIDE 25.9 mmol/L (21-32); CHLORIDE 118 mmol/L (98-107); CREATININE 1.5 mg/dL (0.7-1.3); GLUCOSE 169 mg/dL (74-106); POTASSIUM 3.6 mmol/L (3.5-5.1); SODIUM SERUM 153 mmol/L (136-145)
[2018-01-16] MEDS: ALBUTEROL SULFATE/IPRATROPIU 3 ML SOL IH SCH ×3 (06:48→19:31)
--- NOTE | 2018-01-16 06:54 | NUR ---
RCV'D PT ON MECHANICAL VENTILATION WITH CHARTED SETTINGS. PT IS TRACHED WITH PORTEX [address]ACH IS IN PLACE AND SECURED. VENT IS CONNECTED TO RED OUTLET. ALARMS AUDIBLE. HHN TX OF DUONEB IS GIVEN WITH NO ADVERSE REACTION. DECREASED FIO2 TO 30% SPO2 IS 99%. WILL CONTINUE TO MONITOR.
[2018-01-16 07:02] LABS: UREA NITROGEN, BLOOD 79 mg/dL (7-18)
--- NOTE | 2018-01-16 07:30 | NUR ---
RECEIVED REPORT FROM PATIENT SERVICES MANAGER RN. PT RESTING IN BED SPONTANEOUS EYES OPENING, RESPONSIVE TO STIMULI. ON TRACH TO VENT AC 12 FIO2 50% PEEP 5 TV 500. LUNGS CLEAR. ACTIVE BOWEL SOUND. ON MENDIETA CATHETER. NEPHROSTOMY TUBE ON LEFT FLANK REGION DRAINING STRAW COLORED DRAINAGE. OPEN WOUND NOTED ON LEFT HEEL COVERED WITH DRESSING. KEPT HOB ELEVATED. BED IN LOW POSITION LOCKED. WILL CONTINUE TO MONITOR. Addendum: 01/16/18 at 1943 by Nafisa Johnson RN BLISTER ON LEFT HEEL
--- NOTE | 2018-01-16 08:56 | NUR ---
PATIENT HAS BEEN SCREENED AND CATEGORIZED HIGH NUTRITION RISK. PATIENT WILL BE SEEN WITHIN 1-2 DAYS OF ADMISSION. 01/16/18 01/17/[address]
[2018-01-16] MEDS ORDERED: AMIKACIN 500 MG/2 ML VIAL IV SCH (09:00)
[2018-01-16] MEDS: FERROUS SULFATE 300 MG/5 ML UDC GT SCH ×2 (09:00→21:00)
[2018-01-16] MEDS: ASPIRIN 81 MG TAB.CHEW GT SCH (09:00)
[2018-01-16] MEDS: DOCUSATE 100 MG/10 ML UDC GT SCH ×2 (09:00→21:00)
--- NOTE | 2018-01-16 09:04 | NUR ---
BP 168/57. DR. BECK MADE AWARE.
[2018-01-16] MEDS: FUROSEMIDE 40 MG/4 ML VIAL IVP SCH (09:13)
[2018-01-16] MEDS: METOCLOPRAMIDE 10 MG/2 ML INJ VIAL IVP SCH ×3 (09:13→17:31)
[2018-01-16] MEDS: MEROPENEM 500 MG in NACL 0.9% 50 ML IV SCH ×2 (09:14→21:25)
--- NOTE | 2018-01-16 09:30 | NUR ---
PLACED NG-TUBE ORDERED. WILL FOLLOW UP FOR POSITIVE PLACEMENT. MED WILL BE ADMINISTERED AFTER CONFIRMATION OF NG-TUBE IN RIGHT PLACE. DR. KIRAN VILLANUEVA.
[2018-01-16] MEDS: GLYCOPYRROLATE 0.2 MG/ML VIAL IV SCH ×2 (10:01→21:46)
--- NOTE | 2018-01-16 11:55 | NUR ---
PT RESTING IN BED COMFORTABLY. NO CHANGE IN LOC. BP CHECKED WAS 159/61. DR. BECK MADE AWARE. WILL FOLLOW UP ON ORDER.
--- NOTE | 2018-01-16 13:46 | NUR ---
WAITING FOR CHEST X-RAY RESULT.
--- NOTE | 2018-01-16 14:49 | NUR ---
BP 173/64. DR. BECK MADE AWARE.
[2018-01-16] MEDS: CARVEDILOL 12.5 MG TAB GT SCH ×2 (14:51→21:00)
[2018-01-16] MEDS: LACTOBACILLUS RHAMNOSUS GG 1 EACH CAP GT SCH (14:51)
[2018-01-16] MEDS: SIMETHICONE 80 MG TAB.CHEW GT SCH ×3 (14:52→17:00)
[2018-01-16] MEDS: ISOSORBIDE DINITRATE 10 MG TAB GT SCH ×2 (14:52→21:00)
[2018-01-16] MEDS: amLODIPine 5 MG TAB GT SCH (14:52)
[2018-01-16] MEDS: FAMOTIDINE 20 MG TAB GT SCH (14:52)
[2018-01-16] MEDS: ATORVASTATIN 20 MG TAB PO SCH (14:53)
[2018-01-16] MEDS: MULTIVITAMIN/MINERALS 1 TAB GT SCH (14:53)
[2018-01-16] MEDS: ALLOPURINOL 100 MG TAB GT SCH (14:53)
[2018-01-16] MEDS: DIGOXIN 0.125 MG TAB PO SCH (14:53)
[2018-01-16] MEDS: SENNA 8.6 MG TAB GT SCH (14:53)
--- NOTE | 2018-01-16 14:58 | NUR ---
NG-TUBE INSERTED NOT COILED IN PART OF NECK PER X-RAY RESULT.B UNABLE TO ADMINISTER NG-TUBE MEDICINES FROM [address] BECK MADE AWARE. DISCONTINUED NGT-TUBE PER ORDERED.
[2018-01-16] MEDS: METOPROLOL 5 MG/5 ML VIAL IV PRN ×2 (15:13→21:24)
--- NOTE | 2018-01-16 15:45 | NUR ---
01/16/18 RD INITIAL ASSESSMENT COMPLETED PLEASE REFER TO NUTRITION ASSESSMENT UNDER CARE ACTIVITY FOR ESTIMATED NUTRITIONAL NEEDS. 1. CONTINUE NPO MEDICALLY APPROPRIATE 2. IF/WHEN MEDICALLY STABLE CONSIDER VITAL AF @ GOAL RATE 60 ML/HR. START AT 10 ML/HR AND INCREASE BY 10ML/HR Q6H. -THIS WILL PROVIDE 1440 ML, 1728 KCAL, 108 GM PROTEIN, MEETING 100% OF ESTIMATED NEEDS. 3. FREE WATER FLUSH [address] TO FOLLOW-UP 2-3 DAYS, HIGH RISK [address]
--- NOTE | 2018-01-16 16:08 | NUR ---
SEEN BY DR. WALTER. PLANNED FOR PEG TUBE PLACEMENT TOMORROW. WILL FOLLOW UP ON ORDER. Addendum: 01/16/18 at 1609 by Nafisa Johnson RN NEW PEG TUBE
--- NOTE | 2018-01-16 16:36 | NUR ---
BP 168/58. DR. BECK AWARE.
[2018-01-16] MEDS: DEXT 5% / NACL 0.45% 1,000 ML IV SCH (16:56)
[2018-01-16] MEDS ORDERED: ENALAPRILAT 2.5 MG/2 ML VIAL IVP SCH (17:00)
--- NOTE | 2018-01-16 18:28 | NUR ---
PT HAD NO BM DURING SHIFT. UNABLE TO COLLECT STOOL SAMPLE FOR C. DIFF.
--- NOTE | 2018-01-16 19:04 | NUR ---
RESTING IN BED COMFORTABLY. NO CHANGE IN LOC. WILL CONTINUE TO MONITOR.
--- NOTE | 2018-01-16 19:25 | NUR ---
RECEIVED IN BED TOTAL CARE. QUADRIPLEGIC. NEPHROSTOMY AND MENDIETA CATHETER INTACT AND DRAINING WITH YELLOW URINE. DRESSING TO ABDOMEN PEG SITE INTACT. TRACH TO VENT WITH BREATHING TREATMENTS SCHEDULED. ISOLATION PRECAUTIONS OBSERVED RT HISTORY OF VARIOUS INFECTION. ON IV ABT THERAPY. FOR PEG INSERTION TOMORROW BY MD WALTER.(GI SPECIALIST). PT. WILL BE TURNED Q 2 H . TELEMETRY MONITORING.
--- NOTE | 2018-01-16 19:25 | NUR ---
ENDORSED TO ELEMENTARY SPANISH TEACHER RN FOR CONTINUITY OF CARE. PT ON STABLE CONDITION.
--- NOTE | 2018-01-16 19:39 | NUR ---
Received pt stable on vent support at documented settings, suctioned small amount of thick white secretions, hhn tx given, tolerated well, no resp distress or SOB noted at this time, Portex 7 trach secured/patent/midline, alarms set and audible, ambu bag at bedside, vent plugged into red outlet, pulse ox on, will cont to monitor.
[2018-01-16] MEDS ORDERED: GLYCOPYRROLATE 0.2 MG/ML VIAL ONE (21:38)
--- NOTE | 2018-01-16 21:49 | NUR ---
HEPARIN SUBQ HELD FOR NOW ORDERED BY RESIDENT MD PORTILLO RT BLEEDING IN THE NOSE FROM NGT RE-INSERTION BY AM RN. STILL ON CONTINUOS NOSE CLAMP APPLIED. WASHTUB WORKER AWARE AND ASSISTED IN TAKING CARE OF PT. TURNED TO SIDES. PILLOW SUPPORT TO PRESSURE AREAS.
--- NOTE | 2018-01-16 22:18 | NUR ---
RAPID RHINO APPLIED TO BILATERAL NOSE BY SLIPPER MAKER . WILL MONITOR CLOSELY. RESIDENT BANDAR CAME IN TO SEE PT. NO FURTHER ORDERS GIVEN. KEPT CLEAN AND DRY.
--- NOTE | 2018-01-16 23:19 | NUR ---
RESIDENT MDS IN HERE TO CHECK ON PT. NO FURTHER ORDERS GIVEN. NEEDS WILL BE ANTICIPATED AND WILL BE MET. TURNED PT. TO SIDES BY SASH FINISHER,PROGRESSIVE DIE MAKER , AND NURSES. PILLOW SUPPORT TO PRESSURE AREAS.
--- NOTE | 2018-01-17 00:21 | NUR ---
PT. STILL WITH SLIGHT BLOOD COMING FROM MOUTH. SUCTIONED PRN. WILL BE TURNED Q 2H. TOTAL CARE.
[2018-01-17] MEDS: GENTAMICIN 80 MG in DEXTROSE 5% 100 ML IV SCH (00:30)
--- NOTE | 2018-01-17 02:00 | NUR ---
TURNED TO SIDES . PILLOW SUPPORT TO PRESSURE AREAS. TELEMETRY MONITORING. PT. ASLEEP. WAKES UP / OPENS EYES WHEN MOVED OR TOUCHED. APHASIC. COLD GAUZE TO NOSTRILS . ISOLATION PRECAUTIONS .
--- NOTE | 2018-01-17 04:00 | NUR ---
PT. SUCTIONED BY RESIDENT MD OLMOS THRU MOUTH AND NOSE WITH KASSIE . ABLE TO SUCTION SUSAN BLOOD . RESPIRATORY THERAPIST ASSISTED MD. CONTINUOS COLD GAUZE INSERTED IN NOSTRILS. TRACH TO VENT. 02 SAT 99 %. TELEMETRY MONITORING. NEEDS ANTICIPATED AND MET.
[2018-01-17] MEDS: AMPICILLIN 1,000 MG in NACL 0.9% 50 ML IV SCH ×4 (04:52→23:58)
[2018-01-17] MEDS: INSULIN LISPRO SLIDING SCALE 100 UNITS/ML VIAL SUBQ PRN ×3 (05:20→21:42)
[2018-01-17] MEDS: BLOOD GLUCOSE MONITORING 1 DEV DEV FS SCH ×4 (05:20→21:31)
[2018-01-17 06:15] VITALS: BP 152/58
[2018-01-17 06:17] LABS: MEAN CORPUSCULAR HEMOGLOBIN 29 pg (27-31); MEAN CORPUSCULAR HGB CONC 31 g/dL (33-37); MEAN CORPUSCULAR VOLUME 92.8 fL (80-94); PLATELET COUNT (AUTO) 508 K/uL (140-450); RED BLOOD CELL COUNT(AUTO) 2.37 MIL/uL (4.20-6.10); RED CELL DISTRIBUTION WIDTH 16.6 % (11.6-13.7); WHITE BLOOD COUNT (AUTO) 22.7 K/uL (4.8-10.8)
--- NOTE | 2018-01-17 06:26 | NUR ---
AM PERSONAL HYGIENE RENDERED. TURNED TO SIDES Q 2H. TELEMETRY MONITORING. TOTAL CARE.
[2018-01-17 06:30] LABS: ANION GAP 12.7 (8-16); CARBON DIOXIDE 24.8 mmol/L (21-32); CHLORIDE 123 mmol/L (98-107); CREATININE 1.9 mg/dL (0.7-1.3); GLUCOSE 189 mg/dL (74-106); POTASSIUM 3.5 mmol/L (3.5-5.1); SODIUM SERUM 157 mmol/L (136-145)
[2018-01-17 06:38] LABS: MAGNESIUM 2.2 mg/dL (1.8-2.4); PHOSPHORUS 2.7 mg/dL (2.5-4.9)
[2018-01-17 07:02] LABS: HEMOGLOBIN 6.8 g/dL (12.0-18.0)
--- NOTE | 2018-01-17 07:25 | NUR ---
ENDORSED TO THE NEXT RN FOR CONTINUITY OF CARE. PT. TOTAL CARE. HGB RESULT 6.8 REPORTED TO RESIDENT MD. PT. OPENS EYES WHEN TOUCHED. APHASIC AND TOTAL CARE. IMMOBILE.
--- NOTE | 2018-01-17 07:26 | NUR ---
RECEIVED REPORT FROM STATION USHER NURSE. PATIENT SITTING IN BED. CONTINUOUSLY BLEEDING THROUGH NOSE AND MOUTH, MD ALREADY AWARE. ON TRACH TO VENT WITH VENT SETTINGS: FI02:30%, VT:500, RR:12, PEEP:5, WITH O2 SAT AT 100%. NO DISTRESS NOTED. ABDOMEN SOFT, GTUBE SITE STOMA NOTED WITHOUT GTUBE. HAS RIGHT IJ TRIPLE LUMEN INFUSING IVF PER MD ORDERS. APHASIC, HAS SACRAL WOUND AND LEFT HEEL WOUND. DRESSING IS DRY AND INTACT. REVIEWED PLAN OF CARE WITH PATIENT. UNABLE TO COMPREHEND. SAFETY MEASURES IN PLACE, CALL LIGHT WITHIN REACH. WILL CONTINUE TO MONITOR.
[2018-01-17] MEDS: ALBUTEROL SULFATE/IPRATROPIU 3 ML SOL IH SCH ×3 (07:41→19:29)
--- NOTE | 2018-01-17 07:41 | NUR ---
RECEIVED ON A [employer] IntermediaSCAPE R860 VENTILATOR PLUGGED INTO RED OUTLET TOLERATING WELL WITHOUT ADVERSE REACTIONS NOTED TO A PORTEX DCT #7 SECURED WITH A EDMAR TRACH TIE CUFF PRESSURE CHECKED NOTED AMBU BAG NOTED AT BEDSIDE LOC QUIET BUT RESPONSIVE PATIENT PRESENTING WITH PERFUSE BLEEDING FROM LEFT NARES SUCTIONED RIGHT NARES FOR THIN TO CLOTTED BLOOD ORAL SUCTION FOR MOEDRATE THIN CLEAR TO BLOOD TINGE SECRETIONS DR CJ TOVAR AND CHAVO/RN AT BEDSIDE AWARE BREATH SOUNDS CLEAR BILATERAL WITH GOOD CHEST RISE AND AERATION THROUGHOUT AIRWAY PATENT
[2018-01-17 07:55] LABS: UREA NITROGEN, BLOOD 90 mg/dL (7-18)
[2018-01-17 08:00] VITALS: BP 162/66
[2018-01-17] MEDS ORDERED: OCTREOTIDE ACETATE 1.25 MG in NACL 0.9% 250 ML IV SCH (08:00)
[2018-01-17] MEDS: ALLOPURINOL 100 MG TAB GT SCH (09:00)
[2018-01-17] MEDS: FAMOTIDINE 20 MG TAB GT SCH (09:00)
[2018-01-17] MEDS: MULTIVITAMIN/MINERALS 1 TAB GT SCH (09:00)
[2018-01-17] MEDS: FERROUS SULFATE 300 MG/5 ML UDC GT SCH ×2 (09:00→21:28)
[2018-01-17] MEDS: DIGOXIN 0.125 MG TAB PO SCH (09:00)
[2018-01-17] MEDS: LACTOBACILLUS RHAMNOSUS GG 1 EACH CAP GT SCH (09:00)
[2018-01-17] MEDS: SIMETHICONE 80 MG TAB.CHEW GT SCH ×3 (09:00→17:35)
[2018-01-17] MEDS: DOCUSATE 100 MG/10 ML UDC GT SCH ×2 (09:00→21:28)
[2018-01-17] MEDS: SENNA 8.6 MG TAB GT SCH (09:00)
[2018-01-17] MEDS: CARVEDILOL 12.5 MG TAB GT SCH ×2 (09:00→21:28)
[2018-01-17] MEDS: ASPIRIN 81 MG TAB.CHEW GT SCH (09:00)
[2018-01-17] MEDS: ISOSORBIDE DINITRATE 10 MG TAB GT SCH ×2 (09:00→21:27)
[2018-01-17] MEDS: ATORVASTATIN 20 MG TAB PO SCH (09:00)
[2018-01-17] MEDS: amLODIPine 5 MG TAB GT SCH (09:00)
[2018-01-17 09:24] LABS: LYMPHOCYTES % (MANUAL) 6 % (20-46); MONOCYTES % (MANUAL) 5 % (5-12)
--- NOTE | 2018-01-17 09:55 | NUR ---
RESTING WELL GOOD CHEST RISE DEEP TRACHEAL SUCTION FOR MODERATE THIN BLOODY SECRETIONS ORAL PHARYNGEAL SUCTIONING FOR COPIOUS THIN BLOOD WITH CLOTS RIGHT NASAL SUCTIONNG FOR MODERATE THIN BLOODY SECRETIONS WITH CLOTS GAUZE PACKING CHANGED AT LEFT NARES
[2018-01-17 10:05] LABS: PROTHROMBIN TIME 12.7 secs (10.8-13.4)
[2018-01-17] MEDS: MEROPENEM 500 MG in NACL 0.9% 50 ML IV SCH ×2 (10:29→22:56)
[2018-01-17] MEDS: FUROSEMIDE 40 MG/4 ML VIAL IVP SCH (10:30)
[2018-01-17] MEDS: PANTOPRAZOLE 40 MG INJ VIAL IVP SCH ×2 (10:30→22:57)
[2018-01-17] MEDS: METOCLOPRAMIDE 10 MG/2 ML INJ VIAL IVP SCH ×3 (10:30→17:35)
[2018-01-17] MEDS: GLYCOPYRROLATE 0.2 MG/ML VIAL IV SCH ×2 (10:31→22:57)
--- NOTE | 2018-01-17 10:49 | NUR ---
NO SOB NOTED GOOD CHEST RISE AND AERATION THROUGHOUT LUNG VELAZCO AIRWAY PATENT
[2018-01-17] MEDS ORDERED: fentaNYL 0.05 MG/ML VIAL ONE (10:56)
[2018-01-17] MEDS ORDERED: diphenhydrAMINE 50 MG/ML VIAL ONE (10:56)
[2018-01-17] MEDS ORDERED: MIDAZOLAM 2 MG/2 ML VIAL ONE (10:56)
--- NOTE | 2018-01-17 11:10 | NUR ---
WOUND CARE CONSULT PENDING, PT IS NOT IN STABLE CONDITION, PER PRIMARY RN, PT. HAVING ACTIVE BLEEDING AT THIS TIME.
--- NOTE | 2018-01-17 11:48 | NUR ---
ACCOUNT RECEIVABLE ASSOCIATE REQUEST FOR STAND BY DR DIANA WALTER AT BEDSIDE FOR EGD AND PEG PLACEMENT
[2018-01-17 12:00] VITALS: BP 118/44
--- NOTE | 2018-01-17 12:00 | NUR ---
DR. WALTER AT BEDSIDE TO PERFORM EGD PROCEDURE AT BEDSIDE. WILL CONTINUE TO MONITOR.
--- NOTE | 2018-01-17 12:34 | NUR ---
EGD PROCEDURE COMPLETE, PATIENT IN STABLE CONDITION. PER DR. WALTER, BLEEDING WAS IN POSTERIOR NASOPHARYNX AREA, 5 CC MENDIETA CATHETER BALLOON PLACED ON IT WITH TENSION. DR. WALTER WANTS MENDIETA CATHETER BALLOON TO STAY FOR [address] ME[address] IN PLACE, CALL LIGHT WITHIN REACH. WILL CONTINUE TO MONITOR.
--- NOTE | 2018-01-17 13:23 | NUR ---
NO DISTRESS NOTED GOOD CHEST RISE DEEP TRACHEAL SUCTION FOR MODERATE THIN BLOODY SECRETIONS AIRWAY PATENT
--- NOTE | 2018-01-17 13:24 | NUR ---
FEVER NOTED ON PATIENT WITH 102.5, TYLENOL GIVEN PER MD ORDERS VIA GTUBE. WILL CONTINUE TO MONITOR.
--- NOTE | 2018-01-17 14:00 | NUR ---
1 UNIT OF PRBC TRANSFUSION STARTED. WILL CONTINUE TO MONITOR PER PROTOCOL. PATIENT CONTINUES TO HAVE BLEEDING IN POSTERIOR NASOPHARANX. SUCTIONED MOUTH. WILL CONTINUE TO MONITOR.
--- NOTE | 2018-01-17 15:18 | NUR ---
WOUND CARE EVALUATION NOTE: REASON FOR EVALUATION: LOW SUE SCORE AND SACRAL WOUND SKIN ASSESSMENT DONE WITH PRIMARY RN AT 3:00PM WITH THIS 77Y/O MALE [place] [facility] [place] [facility] WITH INITIAL DX GT DISPLACEMENT. PAST MEDICAL HX INCLUDES HTN, COPD, CHRONIC TRACH, DM, A FIB, GOUT, CVA WITH HEMIPLEGIA AND LEFT UPPER ARM CONTRACTURES. ALL ABOVE INFORMATION OBTAINED FROM ADMISSION H&P. LABS ARE WBC 22.7, H/H 6.8/22, GLUCOSE 189 AND ALBUMIN 2.9. PT IS ASLEEP. SKIN IS WARM AND DRY, NEW GT IN PLACE AND F/C PATENT WITH MODERATE AMOUNT CLEAR YELLOW URINE OUTPUT. BLE FEW HAIR GROWTH, NO EDEMA. DORSAL PEDAL PULSES PRESENT AND NORMAL. CAPILLARY REFILLED < 2 SEC WITH FOOT DROP OBSERVED. PLAN OF CARE DISCUSSED WITH PRIMARY RN. INTEGUMENTARY: -TRACH SITE KENNETH STOMA SKIN DRY AND CLEAN. SKIN INTACT. - LUQ ABDOMEN OLD GT SITE DRY HEALING SCAR NO S/S OF INFECTION. -MID ABDOMEN NEW GT SITE, KENNETH STOMA SKIN DRY AND INTACT. -ABDOMEN DISTENDED, NON-TENDER TO TOUCH. -LEFT HEEL DTI 1X0.8CM 100% MAROON COLOR -STAGE 2 PRESSURE INJURY SACROCOCCYX 2X0.8X0.1CM WOUND BED IS RED, MOIST, NO ODOR, NO DRAINAGE, PERIWOUND SKIN INTACT, SURROUNDING REDNESS EXTENDED TO RIGHT AND LEFT INNER BUTTOCKS -IAD TO RIGHT AND LEFT INNER BUTTOCKS PARTIAL THICKNESS SKIN LOSS WITH 3X2X0.1 CM IRREGULAR SHAPE, WOUND BED IS PINK, CLEAN AND MOIST. NO ODOR. -BLE DRYNESS. RECOMMENDATIONS: -KEEP SKIN DRY AND CLEAN AT ALL TIMES, PLEASE CHECK Q2H AND PRN FOR INCONTINENCY OF BOWEL -CLEANSE OLD GT SITE CLOSED STOMA SKIN WITH NS, PAT DRY, APPLY HYDRAGUARD BID AND OPEN -APPLY HYDRAGUARD TO R/L LE BIDWC AND PRN IF SOILING -APPLY Z-GUARD TO INNER BUTTOCKS EXTENDED TO PERIANAL BID AND PRN IF SOILING -CLEANSE SACROCOCCYX WOUND WITH NS. PAT DRY APPLY Z-GUARD AND COVER WITH FORM DRESSING TO SACROCOCCYX BIDWC AND PRN IF SOILING -APPLY SKIN PREP TO LEFT HEEL DTI BID -APPLY HEEL RAISER TO LEFT HEEL AT ALL TIMES -OFFLOAD BILATERAL HEELS BY PLACING PILLOWS UNDER CALVES UNLESS OTHERWISE CONTRAINDICATED -PRESSURE REDISTRIBUTION SURFACE THERAPY -TURN AND REPOSITION Q2H, OFFLOAD SACROCOCCYX AND BUTTOCKS BY TURNING RIGHT AND LEFT -CONTINUE TO FOLLOW RD RECOMMENDATIONS COMORBIDITIES RELATED TO DELAY WOUND HEALING AND FURTHER SKIN BREAKS: INFECTION, DM, LOW ALBUMIN LEVEL AND HOB ELEVATED THE MAJORITY OF TIMES DUE TO MEDICAL REASONS. ALL ABOVE RECOMMENDATIONS DISCUSSED WITH PRIMARY RN. WILL FOLLOW UP PT Q7-10 DAYS. PLEASE CONTACT WOUND CARE NURSE FOR ANY QUESTION AND CHANGE OF WOUND CONDITION.
--- NOTE | 2018-01-17 15:55 | NUR ---
RESTING WELL WITH NO EVIDENCE OF RESPIRATORY DISTRESS NOTED GOOD CHEST RISE
[2018-01-17 16:00] VITALS: BP 117/47
--- NOTE | 2018-01-17 16:00 | NUR ---
1 UNIT OF PRBC INFUSION STARTED AT THIS TIME. WILL CONTINUE TO MONITOR PER PROTOCOL. PATIENT LYING DOWN IN BED SLEEPING, AROUSABLE BY SHAKING. CONTINUES TO HAVE BLEEDING ON NOSE AND MOUTH. MENDIETA CATH TENSION BALLOON IN PLACE ON LEFT NOSE.
[2018-01-17] MEDS ORDERED: DEXTROSE 5% 1,000 ML IV SCH (16:40)
--- NOTE | 2018-01-17 17:00 | NUR ---
1 UNIT OF PRBC COMPLETED AT THIS TIME. NO REACTIONS NOTED. WILL CONTINUE TO MONITOR.
[2018-01-17] MEDS: Z-GUARD PASTE TP PRN (17:34)
--- NOTE | 2018-01-17 17:36 | NUR ---
NO SOB NOTED GOOD CHEST RISE AND AERATION THROUGHOUT PULMONARY VELAZCO AIRWAY PATENT
--- NOTE | 2018-01-17 18:50 | NUR ---
2ND UNIT OF PRBC STARTED AT THIS TIME. SUCTIONED PATIENT ON ORAL AREA DUE TO BLEEDING. SAFETY MEASURES IN PLACE, CALL LIGHT WITHIN REACH. WILL CONTINUE TO MONITOR.
--- NOTE | 2018-01-17 19:35 | NUR ---
GAVE REPORT TO MANAGER EMS NURSE FOR CONTINUITY OF CARE. PATIENT IN STABLE CONDITION.
--- NOTE | 2018-01-17 19:36 | NUR ---
RECEIVED REPORT FROM CHAVO ANDRE NURSE AT BEDSIDE FOR CONTINUITY OF CARE PT. SLEEPING HE IS APHASIC. ON A VENT: 30% FIO2 RR 22 NO SOB NO S/S OF DISTRESS. PT HAS RIJ 3 LUMEN RUNNING WITH 1 UNIT OF BLOOD. (BLOOD STARTED AT 1850) PT HAS CATHETER IN LEFT NOSTRIL INFLATED TO STOP ACTIVE BLEEDING. PT ALSO HAS NEPHROSTOMY TUBE IN LEFT KIDNEY WITH DRAINING BAG AT SIDE OF BED. MENDIETA CATHETER IN PLACE. A BOOT ON LEFT AND HAS LEFT HEEL DTI. WOUND SACRAL STAGE II. BED LOWERED WILL CONTINUE TO MONITOR.
[2018-01-17 20:00] VITALS: BP 124/49
[2018-01-17 21:01] VITALS: BP 126/45
--- NOTE | 2018-01-17 21:28 | NUR ---
ADMIN MEDS THROUGH NEW G-TUBE. NO RESIDUAL. FLUSH MEDS FINE. WILL CONTINUE TO MONITOR.
--- NOTE | 2018-01-17 22:50 | NUR ---
END OF BLOOD TRANSFUSION. CHARGE NURSE MD MITESH PARKINSON AWARE OF COMPLETION OF 2 BAG OF 1 UNIT RBC. WILL CONTINUE TO MONITOR.
--- NOTE | 2018-01-17 23:00 | NUR ---
PT STILL ACTIVELY BLEEDING FROM MOUTH AND NOSE. WILL CONTINUE TO MONITOR.
--- NOTE | 2018-01-17 23:58 | NUR ---
AMPICILLIN STARTED AT 2358 50ML TO BE INFUSED AT A RATE 100ML/HR. WILL CONTINUE TO MONITOR.
[2018-01-18] VITALS (8 sets, daily range): BP systolic 104–152; BP diastolic 35–58
[2018-01-18 00:17] LABS: BASOPHILS % (AUTO) 0.1 % (0.0-2.0); HEMOGLOBIN 7.2 g/dL (12.0-18.0); LYMPHOCYTES # (AUTO) 2.2 K/uL (2.0-11.5); MEAN CORPUSCULAR HEMOGLOBIN 29 pg (27-31); MEAN CORPUSCULAR HGB CONC 31 g/dL (33-37); MONOCYTES # (AUTO) 1.9 K/uL (0.8-1.0); MONOCYTES % (AUTO) 7.9 % (1.7-9.3); NEUTROPHILS # (AUTO) 20.3 K/uL (1.8-7.7); PLATELET COUNT (AUTO) 388 K/uL (140-450); RED BLOOD CELL COUNT(AUTO) 2.53 MIL/uL (4.20-6.10); RED CELL DISTRIBUTION WIDTH 15.9 % (11.6-13.7)
--- NOTE | 2018-01-18 00:39 | NUR ---
AMPICILLIN IVPB INFUSION HAS ENDED WILL CONTINUE TO MONITOR.
[2018-01-18 01:00] LABS: WHITE BLOOD COUNT (AUTO) 24.4 K/uL (4.8-10.8)
[2018-01-18] MEDS: GENTAMICIN 80 MG in DEXTROSE 5% 100 ML IV SCH (01:00)
--- NOTE | 2018-01-18 01:03 | NUR ---
*CRITICAL LAB: GENTAMYCIN TROUGH 2.8 HIGH. CALLED AFTER HOURS PHARMACY TO MAKE THEM AWARE OF CHANGES. THEY STATED THEY WILL WAIT UNITL AM TO MAKE A DECISION. MD SAGASTUME AWARE AND WILL CONTINUE TO MONITOR.
[2018-01-18] MEDS ORDERED: NACL 0.9% 500 ML IV ONE (01:05)
--- NOTE | 2018-01-18 01:05 | NUR ---
RT AND MD SAGASTUME AT BEDSIDE. STATED THEY GOT MANY CHUCKS OF COAGULATED BLOOD FROM MOUTH SUCTIONING. WILL CONTINUE TO MONITOR.
--- NOTE | 2018-01-18 01:28 | NUR ---
PER MD SAGASTUME ORDERS STARTED 500ML NS BOLUS ON PT. CURRENT BP 96/42 HR 72.WILL CONTINUE TO MONITOR.
--- NOTE | 2018-01-18 02:03 | NUR ---
ENDED NS 500ML BOLUS. RESTARTED D5 50ML/HR. UPDATED BP 104/42 HR 77. WILL CONTINUE TO MONITOR.
--- NOTE | 2018-01-18 03:24 | NUR ---
CHANGED PT BEDDING AND CLEANED PT . PT HAD SMALL BLK STICKY BOWEL MOVEMENT SIGNS OF BLEEDING. ALSO CHECKED SACRAL WOUND DRY AND INTACT. AND LEFT HEEL DTI BANDAGE STILL IN PLACE DRY AND INTACT WILL CONTINUE TO MONITOR.
[2018-01-18] MEDS: AMPICILLIN 1,000 MG in NACL 0.9% 50 ML IV SCH ×3 (05:40→17:25)
--- NOTE | 2018-01-18 05:40 | NUR ---
STARTED AMPICILLIN 50ML TO BE INFUSED AT RATE 100ML/HR.
[2018-01-18] MEDS: INSULIN LISPRO SLIDING SCALE 100 UNITS/ML VIAL SUBQ PRN ×2 (05:41→23:38)
[2018-01-18] MEDS: BLOOD GLUCOSE MONITORING 1 DEV DEV FS SCH ×4 (05:48→21:00)
[2018-01-18 06:17] LABS: ANION GAP 14.3 (8-16); CARBON DIOXIDE 22.1 mmol/L (21-32); CHLORIDE 125 mmol/L (98-107); CREATININE 2.8 mg/dL (0.7-1.3); GLUCOSE 180 mg/dL (74-106); POTASSIUM 3.4 mmol/L (3.5-5.1); SODIUM SERUM 158 mmol/L (136-145)
[2018-01-18 06:18] LABS: BASOPHILS # (AUTO) 0.1 K/uL (0.00-0.22); BASOPHILS % (AUTO) 0.4 % (0.0-2.0); LYMPHOCYTES # (AUTO) 2.1 K/uL (2.0-11.5); LYMPHOCYTES % (AUTO) 9.1 % (20.5-51.1); MEAN CORPUSCULAR HEMOGLOBIN 28 pg (27-31); MEAN CORPUSCULAR HGB CONC 31 g/dL (33-37); MEAN CORPUSCULAR VOLUME 91.6 fL (80-94); MONOCYTES # (AUTO) 1.5 K/uL (0.8-1.0); MONOCYTES % (AUTO) 6.5 % (1.7-9.3); NEUTROPHILS # (AUTO) 19.2 K/uL (1.8-7.7); PLATELET COUNT (AUTO) 350 K/uL (140-450); RED CELL DISTRIBUTION WIDTH 15.7 % (11.6-13.7); WHITE BLOOD COUNT (AUTO) 22.8 K/uL (4.8-10.8)
[2018-01-18 06:20] LABS: MAGNESIUM 2.3 mg/dL (1.8-2.4)
--- NOTE | 2018-01-18 06:20 | NUR ---
ENDED AMPICILLIN INFUSION. WILL CONTINUE TO MONITOR.
[2018-01-18 06:24] LABS: PROTHROMBIN TIME 12.9 secs (10.8-13.4)
[2018-01-18 06:35] LABS: UREA NITROGEN, BLOOD 112 mg/dL (7-18)
[2018-01-18 06:36] LABS: HEMOGLOBIN 6.8 g/dL (12.0-18.0)
[2018-01-18] MEDS: ALBUTEROL SULFATE/IPRATROPIU 3 ML SOL IH SCH ×3 (06:48→19:17)
--- NOTE | 2018-01-18 07:09 | NUR ---
RECIVEED PT ON VENT WITH SETTINGS CHARTED BREATH SOUNDS PRESENT BILAT WITH SOME RHONCHI IMPROVED POST SXN WITH REDDISH SECS PT WITH BLEEDING FROM NOSE SXN SECS FROM MOUTH VENT PLUGGED INTO RED OUTLET WILL CONTINUE TO MONITOR PT ON VENT TRACH SITE SECURE
--- NOTE | 2018-01-18 07:23 | NUR ---
ENDORSED REPORT TO DAYSNHFT NURSE FOR CONTINUITY OF CARE.
--- NOTE | 2018-01-18 07:24 | NUR ---
RECEIVED REPORT FROM THE ASSOCIATE DIRECTOR FINANCIAL AID NURSE AT BEDSIDE FOR CONTINUITY OF CARE. PT AWAKE, NOT ORIENTED. APHASIC. PT HAS A MENDIETA CATH IN HIS L NOSTRIL, A BALLOON WAS INFLATED TO KEEP FROM BLEEDING. DRY BLOOD ON HIS FACE. PT HAS TRACH TO VENT. PICC LINE ON R SUBCLAVIAN TRIPLE LUMEN, D5 AT 30ML. NEW GTUBE, WORKING FINE PER ASSOCIATE DIRECTOR FINANCIAL AID NURSE. L NEPHROSTOMY TUBE STILL IN PLACE. MENDIETA CATH STILL IN PLACE. STILL NO FEEDING STARTED. LBM, SMALL TARRY BLACK STOOL. PT ALSO HAS A SACRAL WOUND AND L HEEL WOUND, DRESSING IN PLACE. WILL ASSESS LATER. PT LABS TODAY IS EVERYWHERE. LOW K 3.4, BUN/CREAT 112/2.8, HGB 6.8, WBC 22.8 (ON DOWN TREND). PER ASSOCIATE DIRECTOR FINANCIAL AID NURSE, BP IS STABLE, AND HELD THE GENTAMYCIN LAST NIGHT. WILL CONTINUE TO MONITOR PT.
--- NOTE | 2018-01-18 08:40 | NUR ---
NOTIFIED DR BECK REGARDING LOW K, HIGH BUN/CREATININE, LOW HBG. MD AWARE. THERE IS AN ORDER FOR ENT CONSULT AND A TRANSFER ORDER FOR HLOC FOR THE NON-STOP BLEEDING FROM NOSE. WILL BE AWAITING ORDERS.
--- NOTE | 2018-01-18 08:59 | NUR ---
RECEIVED ORDER FOR TRANSFER TO HIGHER LEVEL OF CARE FOR ENT. CALLED [facility] AND SPOKE WITH JULIANO. FAXED FACE SHEET TO HER AT [phone].. SHE CALLED BACK AND ASKED FOR DR. TOVAR'S PHONE NUMBER, WHICH I GAVE HER AND I GAVE HER THE PHONE NUMBER TO THE RESIDENT. I CALLED [facility] AND SPOKE WITH VALENTÍN. I FAXED FACE SHEET , ORDER AND H&P TO HIM AT [phone]. HE TOLD ME TO CALL ER TO GET THE MEDICARE HOSPITALIST PRIVATE INVESTIGATOR TODAY. I CALLED ER AND SPOKE WITH SLOAN. SHE SAID THE PHYSICIAN IS DR. KNOX, . I GAVE THE NUIMBER TO DR. BECK.
[2018-01-18] MEDS: MEROPENEM 500 MG in NACL 0.9% 50 ML IV SCH ×2 (09:33→23:34)
[2018-01-18] MEDS: DOCUSATE 100 MG/10 ML UDC GT SCH ×2 (09:34→23:35)
[2018-01-18] MEDS: PANTOPRAZOLE 40 MG INJ VIAL IVP SCH ×2 (09:34→23:34)
[2018-01-18] MEDS: FERROUS SULFATE 300 MG/5 ML UDC GT SCH ×2 (09:34→23:35)
[2018-01-18] MEDS: METOCLOPRAMIDE 10 MG/2 ML INJ VIAL IVP SCH ×3 (09:34→16:21)
[2018-01-18] MEDS: FUROSEMIDE 40 MG/4 ML VIAL IVP SCH (09:34)
[2018-01-18] MEDS: ATORVASTATIN 20 MG TAB PO SCH (09:35)
[2018-01-18] MEDS: GLYCOPYRROLATE 0.2 MG/ML VIAL IV SCH ×2 (09:35→23:34)
[2018-01-18] MEDS: SIMETHICONE 80 MG TAB.CHEW GT SCH ×3 (09:35→16:21)
[2018-01-18] MEDS: LACTOBACILLUS RHAMNOSUS GG 1 EACH CAP GT SCH (09:35)
[2018-01-18] MEDS: ALLOPURINOL 100 MG TAB GT SCH (09:35)
[2018-01-18] MEDS: FAMOTIDINE 20 MG TAB GT SCH (09:36)
[2018-01-18] MEDS: MULTIVITAMIN/MINERALS 1 TAB GT SCH (09:36)
[2018-01-18] MEDS: SENNA 8.6 MG TAB GT SCH (09:36)
[2018-01-18] MEDS: amLODIPine 5 MG TAB GT SCH (09:36)
[2018-01-18] MEDS: CARVEDILOL 12.5 MG TAB GT SCH ×2 (09:37→23:35)
[2018-01-18] MEDS: ISOSORBIDE DINITRATE 10 MG TAB GT SCH ×2 (09:37→23:35)
[2018-01-18] MEDS: DIGOXIN 0.125 MG TAB PO SCH (09:38)
--- NOTE | 2018-01-18 09:59 | NUR ---
ADMINISTERED MORNING MEDS VIA GTUBE AND PICC LINE. PT TOLERATED WELL. CHECKED FOR PLACEMENT, RESIDUAL -0, AND PATENCY. FUNCTIONING WELL. ADMINISTERED MERREM. PT TOLERATING WELL. NOTED, STILL BLEEDING VIA NOSTRIL. WILL CONTINUE TO MONITOR PT. WILL ASK MD REGARDING G TUBE FEEDING.
--- NOTE | 2018-01-18 10:34 | NUR ---
RECEIVED A CALL FROM JULIANO FROM [facility]. SHE SAID PER HER PHYSICIAN, DR. HANNA, THEY CANNOT ACCEPT THE PATIENT. DR. BECK CALLED [facility] AND FAXED INFORMATION. CALLED [facility] AND SPOKE WITH SUZANNE. SHE SAID SHE WOULD FAX ME A TRANSFER PACKET TO BE FILLED OUT.
--- NOTE | 2018-01-18 11:45 | NUR ---
STARTED BLOOD TRANSFUSION. 2ND RN VERIFIED. PT TOLERATING WELL CONTINUE TO MONITOR PT.
[2018-01-18] MEDS ORDERED: GENTAMICIN 80 MG in DEXTROSE 5% 100 ML IV SCH (12:00)
--- NOTE | 2018-01-18 12:33 | NUR ---
FAXED TRANSFER REQUEST FORM INCLUDING CLINICALS TO [facility] [phone] PHONE [phone]
--- NOTE | 2018-01-18 12:38 | NUR ---
FAXED TRANSFER BACK AGREEMENT TO [facility] [phone]
[2018-01-18] MEDS ORDERED: SILVER NITRATE APPLICATOR 1 EA SWAB TP SCH (12:50)
--- NOTE | 2018-01-18 13:03 | NUR ---
I CALLED [facility] AND SPOKE WITH DAVID. THEY HAVE AN ACCEPTING ENT, BUT STILL MEED [facility] PHYSICIAN TO ACCEPT AND THEY STILL NEED TO GET AN ICU BED. I CALLED [facility] AND SPOKE WITH JULIANO ABOUT POS OF THIS PATIENT BEING ACCEPTED THERE. SHE THOUGHT THAT DR. TOVAR COULD SPEAK WITH [facility] PHYSICIAN [employer] CHAIR, DR. TRIVEDI. PHONE [phone].. I CALLED DR. TOVAR AND THAO TEXTED THE PHONE NUMBER TO HIM.
[2018-01-18] MEDS ORDERED: DEXT 5% / NACL 0.45% 1,000 ML IV SCH (13:10)
--- NOTE | 2018-01-18 13:47 | NUR ---
DR. CERVANTES CAME IN AND SAW PT. REMOVED THE BALLOON FROM THE MENDIETA IN THE NARES. NO MORE BLEEDING. PER DR. BECK, WILL CANCEL THE TRANSFER. PT STILL ON BLOOD TRANSFUSION. WILL CONTINUE TO MONITOR PT. Addendum: 01/18/18 at 1404 by Susie Knox RN DR. WALTER IS HERE ALSO TO ASSESS PT.
[2018-01-18] MEDS: DEXTROSE 5% 1,000 ML IV SCH (14:15)
--- NOTE | 2018-01-18 14:55 | NUR ---
SISTER IS HERE, SIGNED THE POLST. PT IS NOW DNR.
--- NOTE | 2018-01-18 15:20 | NUR ---
01/18/18 RD FOLLOW UP COMPLETED PLEASE REFER TO NUTRITION ASSESSMENT UNDER CARE ACTIVITY FOR ESTIMATED NUTRITIONAL NEEDS. 1. CONTINUE VITAL AF @ GOAL RATE 45 ML/HR. START AT 10 ML/HR AND INCREASE BY 10ML/HR Q6H. -THIS WILL PROVIDE 1080 ML, 1296 KCAL, 81 GM PROTEIN, MEETING 100% OF ESTIMATED KCAL NEEDS AND 90% OF PROTEIN NEEDS. 2. FREE WATER FLUSH [address] TO FOLLOW-UP 2-3 DAYS, HIGH RISK [address] RD
--- NOTE | 2018-01-18 15:25 | NUR ---
FINISHED BLOOD TRANSFUSION. 300ML PRBC'S GIVEN. PT TOLERATED WELL. REMOVED ALL TUBING, PUT IN RED BIO HAZARD BAG AND DISPOSED OF.
--- NOTE | 2018-01-18 15:45 | NUR ---
STARTED GTUBE FEEDING. VITAL AF @ 10ML/HR. INCREASE 10ML Q 6HR. GOAL IS 45ML/HR. H20 FLUSH 70ML/Q4. WILL CONTINUE TO MONITOR PT.
--- NOTE | 2018-01-18 15:52 | NUR ---
CALLED [facility] AND SPOKE WITH DAVID,[phone] AND GAVE HER THE PHONE NUMBER TO THE FLOOR IF A BED BECOMES AVAILABLE. [place] [facility] [place]POKE WITH SALENA,[phone] AND GAVE HER THE PHONE NUMBER TO THE FLOOR IF A BED BECOMES AVAILABLE. I CALLED [facility] AND SPOKE WITH ANEL AND GAVE HER THE PHONE NUMBER TO THE FLOOR IF A BED BECOMES AVILABLE. SHE SAID THEY STILL NEED AND ACCEPTING PHYSICIAN.
--- NOTE | 2018-01-18 17:05 | NUR ---
RECEIVED A CALL FROM [facility] BILL OF LADING CLERK AND STATED THAT THEY MIGHT ACCEPT THE PT BUT OF NOW THERE IS NO BED AVAILABLE. JUVENCIO ALSO STATED THAT SHE HAD BEEN TRYING TO GET HOLD OF DR. TOVAR AND FOR SOME REASONS HER CALLS DID NOT GO THRU. JUVENCIO LEFT A NUMBER FOR DR. TOVAR TO GIVE HER A CALL INSTEAD. DR. FAUSTIN NOTIFIED AND STATED HE WILL PASS THE MESSAGE TO DR. TOVAR. GAVE DR. RAMIN HENNING'S PHONE NUMBER. #[phone]
--- NOTE | 2018-01-18 17:08 | NUR ---
PER CHARGE NURSE, [facility] CALLED. MAY ACCEPT PT BUT NO BED OF YET. THEIR MD WANTS TO TALK TO DR. TOVAR, NOT THE RESIDENT. DR BECK NOTIFIED. DR BECK WILL TEXT DR TOVAR AND RELAY MESSAGE.
--- NOTE | 2018-01-18 17:30 | NUR ---
ADMINISTERED AMPICILLIN. PT TOLERATING WELL. WILL CONTINUE TO MONITOR PT.
--- NOTE | 2018-01-18 17:49 | NUR ---
CONTINUED TO MONITOR PT ON VENT WITH STTINGS CHARTED BREATH SOUNDS PRESENT BILAT SXN PT WITH MIN TO MOD AMT REDDISH SECS TRACH SITE SECURE VENT PLUGGED INTO RED OUTLET AMBU BAG AT BEDSIDE
[2018-01-18] MEDS ORDERED: LEVOFLOXACIN 500 MG/D5W PREMIX 100 ML IV SCH (19:00)
--- NOTE | 2018-01-18 19:12 | NUR ---
ENDORSED PT TO THE SAFETY ASSISTANT NURSE AT BEDSIDE FOR CONTINUITY OF CARE. PT IS IN STABLE CONDITION. LITTLE BIT OF BLEEDING FROM THE NOSE. VERY LITTLE.
--- NOTE | 2018-01-18 19:17 | NUR ---
RECEIVED ON A [employer]maSourceAPE R860 VENTILATOR PLUGGED INTO RED OUTLET TOLERATING WELL WITHOUT ADVERSE REACTIONS NOTED TO A PORTEX DCT #7 AIRWAY SECURED WITH A EDMAR TRACH TIE CUFF PRESSURE CHECKED AC NOTED AMBU BAG AT BEDSIDE AWAKE NO EVIDENCE AT THIS TME OF PULMONARY DISTRESS NOTED BREATH SOUNDS CLEAR BILATERAL WITH GOOD CHEST RISE AND AERATION THROUGHOUT LUNG VELAZCO AIRWAY PATENT Addendum: 01/18/18 at 1944 by Giorgio Webster RT SATURATION 99% ON FIO2 OF 99% POST HHN THERAPY TITRATED FIO2 TO 28% YANETH RIVERA-7 CONTIUOUS PULSE OXIMETRY AT BESIDE ON AND FUNCTIONING WELL LOW SATURATION SET AT 92%
--- NOTE | 2018-01-18 19:30 | NUR ---
RECEIVED REPORT FROM [facility] AT BEDSIDE FOR CONTINUITY OF CARE PT. SLEEPING HE IS APHASIC. ON A VENT: 30% FIO2 RR 22 NO SOB NO S/S OF DISTRESS. PT HAS RIJ 3 LUMEN RUNNING WITH D5 80ML/HR. PT HAS GAUZE ON LEFT NOSTRIL TO STOP NOSE BLEEDING. PT ALSO HAS NEPHROSTOMY TUBE IN LEFT KIDNEY WITH DRAINING BAG AT SIDE OF BED. MENDIETA CATHETER IN PLACE. A BOOT ON LEFT AND HAS LEFT HEEL DTI. WOUND SACRAL STAGE II. TUBE FEEDING 10ML/HR AND 70 WATER Q4H. BED LOWERED WILL CONTINUE TO MONITOR.
--- NOTE | 2018-01-18 20:05 | NUR ---
SHERYL/RN NOTIFIED OF SUPPLEMENTAL OXYGEN TITRATION TO 28%
--- NOTE | 2018-01-18 21:54 | NUR ---
RESTING COMFORTABLY NO DISTRESS NOTED GOOD CHEST RISE
--- NOTE | 2018-01-18 22:00 | NUR ---
TUBE FEEDING RESIDUAL 5ML. INCREASED FEEDING 20ML/HR WATER 70ML. WILL CONTINUE TO MONITOR.
--- NOTE | 2018-01-18 23:00 | NUR ---
SPOKE TO MD DAVIS ABOUT MENDIETA AND UTI. SUSAN STATED HE WILL TAKE A LOOK AT THE PT. NO ORDERS GIVEN.
--- NOTE | 2018-01-18 23:35 | NUR ---
STABLE NO APPARENT RESPIRATORY DISTRESS NOTED GOOD CHEST RISE DEEP TRACHEAL SUCTION FOR MODERATE THICK PALE YELLOW WITH BLOOD TINGE SECRETIONS AIRWAY PATENT
[2018-01-18] MEDS: LINEZOLID 600MG PREMIX 300 ML IV SCH (23:58)
--- NOTE | 2018-01-19 01:09 | NUR ---
STABLE TOLERATING VENTILATORY SUPPORT WELL WITHOUT INCIDENT GOOD CHEST RISE AND AERATION THROUGHOUT BILATERAL LUNG VELAZCO AIRWAY PATENT
[2018-01-19 01:43] VITALS: BP 125/40
--- NOTE | 2018-01-19 02:15 | NUR ---
PT STABLE, NO SIGNS OF DISTRESS NOTED AT THIS TIME. BED IN LOWEST POSITION, BED ALARM ON. CALL LIGHT WITHIN REACH, WILL CONTINUE TO MONITOR.
--- NOTE | 2018-01-19 03:24 | NUR ---
NO SOB NOTED AT THIS TIME GOOD CHEST RISE
--- NOTE | 2018-01-19 03:51 | NUR ---
CHANGED PT AND CHECKED WOUNDS BANDAGES STILL CLEAN AND INTACT. WILL CONTINUE TO MONITOR.
--- NOTE | 2018-01-19 05:07 | NUR ---
ROOPA FROM [facility] CALLED ABOUT POSSIBLE TRANSFER TO HOSPITAL TODAY. LET HIM KNOW PT IS STILL IN SAME CONDITION AND NO CHANGES OVERNIGHT. HE SAID HE IS HOPEFUL PT WILL HAVE A BED BY TODAY.
--- NOTE | 2018-01-19 05:09 | NUR ---
RESTING COMFORTABLY NO DISTRESS NOTED GOOD CHEST RISE AIRWAY PATENT
[2018-01-19] MEDS: DEXTROSE 5% 1,000 ML IV SCH ×2 (05:41→14:48)
[2018-01-19] MEDS: BLOOD GLUCOSE MONITORING 1 DEV DEV FS SCH ×4 (05:41→20:29)
[2018-01-19] MEDS: INSULIN LISPRO SLIDING SCALE 100 UNITS/ML VIAL SUBQ PRN ×3 (05:43→16:52)
--- NOTE | 2018-01-19 06:00 | NUR ---
RESIDUAL 10ML/HR. INCREASED FEEDING BY 30ML/HR. WILL CONTINUE TO MONITOR.
[2018-01-19 06:14] LABS: BASOPHILS % (AUTO) 0.2 % (0.0-2.0); EOSINOPHILS % (AUTO) 0.3 % (0.0-4.0); HEMATOCRIT 23.6 % (36-52); HEMOGLOBIN 7.7 g/dL (12.0-18.0); LYMPHOCYTES # (AUTO) 1.7 K/uL (2.0-11.5); LYMPHOCYTES % (AUTO) 11.8 % (20.5-51.1); MEAN CORPUSCULAR HEMOGLOBIN 29 pg (27-31); MEAN CORPUSCULAR HGB CONC 32 g/dL (33-37); MONOCYTES # (AUTO) 0.8 K/uL (0.8-1.0); MONOCYTES % (AUTO) 5.6 % (1.7-9.3); NEUTROPHILS # (AUTO) 11.7 K/uL (1.8-7.7); NEUTROPHILS % (AUTO) 82.1 % (42.2-75.2); PLATELET COUNT (AUTO) 279 K/uL (140-450); RED BLOOD CELL COUNT(AUTO) 2.66 MIL/uL (4.20-6.10); WHITE BLOOD COUNT (AUTO) 14.3 K/uL (4.8-10.8)
[2018-01-19 06:23] VITALS: BP 118/46
[2018-01-19 07:03] LABS: ANION GAP 15.1 (8-16); CARBON DIOXIDE 22.2 mmol/L (21-32); CHLORIDE 121 mmol/L (98-107); CREATININE 2.4 mg/dL (0.7-1.3); GLUCOSE 197 mg/dL (74-106); POTASSIUM 3.3 mmol/L (3.5-5.1); SODIUM SERUM 155 mmol/L (136-145)
[2018-01-19 07:10] LABS: MAGNESIUM 2.1 mg/dL (1.8-2.4); PHOSPHORUS 4.2 mg/dL (2.5-4.9)
[2018-01-19] MEDS: ALBUTEROL SULFATE/IPRATROPIU 3 ML SOL IH SCH ×3 (07:18→19:35)
--- NOTE | 2018-01-19 07:22 | NUR ---
ENDORSED REPORT TO DAYSHIFT NURSE AT BEDSIDE FOR CONTINUITY OF CARE.
[2018-01-19 07:23] LABS: UREA NITROGEN, BLOOD 102 mg/dL (7-18)
--- NOTE | 2018-01-19 07:25 | NUR ---
RECEIVED TRACH PT WITH A PORTEX 7 TRACH ON VENT. SETTINGS AC 12, VT 500, PEEP 5 AND FIO2 28%. PT IS NOT AWAKE AT THIS TIME BUT IS NOT IN ANY DISTRESS. VENT IS PLUGGED INTO A RED OUTLET WITH ALARMS ON AND FUNCTIONING. WILL CONTINUE TO MONITOR.
[2018-01-19] MEDS ORDERED: KCL 20 MEQ/WATER INJ PREMIX 200 ML IV SCH (08:00)
[2018-01-19] MEDS: MEROPENEM 500 MG in NACL 0.9% 50 ML IV SCH (08:30)
[2018-01-19] MEDS: amLODIPine 5 MG TAB GT SCH (08:31)
[2018-01-19] MEDS: FERROUS SULFATE 300 MG/5 ML UDC GT SCH ×2 (08:31→20:30)
[2018-01-19] MEDS: LINEZOLID 600MG PREMIX 300 ML IV SCH ×2 (08:31→20:31)
[2018-01-19] MEDS: DOCUSATE 100 MG/10 ML UDC GT SCH ×2 (08:31→20:30)
[2018-01-19] MEDS: LACTOBACILLUS RHAMNOSUS GG 1 EACH CAP GT SCH (08:32)
[2018-01-19] MEDS: DIGOXIN 0.125 MG TAB PO SCH (08:32)
[2018-01-19] MEDS: ISOSORBIDE DINITRATE 10 MG TAB GT SCH ×2 (08:32→20:31)
[2018-01-19] MEDS: FAMOTIDINE 20 MG TAB GT SCH (08:32)
[2018-01-19] MEDS: SIMETHICONE 80 MG TAB.CHEW GT SCH ×3 (08:32→16:50)
[2018-01-19] MEDS: MULTIVITAMIN/MINERALS 1 TAB GT SCH (08:33)
[2018-01-19] MEDS: ALLOPURINOL 100 MG TAB GT SCH (08:33)
[2018-01-19] MEDS: ATORVASTATIN 20 MG TAB PO SCH (08:33)
[2018-01-19] MEDS: SENNA 8.6 MG TAB GT SCH (08:33)
[2018-01-19] MEDS: CARVEDILOL 12.5 MG TAB GT SCH ×2 (08:33→20:30)
[2018-01-19] MEDS: METOCLOPRAMIDE 10 MG/2 ML INJ VIAL IVP SCH ×3 (08:34→16:51)
[2018-01-19] MEDS: GLYCOPYRROLATE 0.2 MG/ML VIAL IV SCH ×2 (08:34→20:31)
[2018-01-19] MEDS: PANTOPRAZOLE 40 MG INJ VIAL IVP SCH ×2 (08:34→20:31)
--- NOTE | 2018-01-19 09:03 | NUR ---
ADMINISTERED MORNING MEDS VIA GTUBE. CHECKED FOR PLACEMENT, RESIDUAL-0, AND PATENCY. PT TOLERATING WELL. RESTARTED FEEDING AT 30ML. ANTIBIOTICS KRIDER INFUSING. WILL CONTINUE TO MONITOR PT.
--- NOTE | 2018-01-19 10:05 | NUR ---
PT SUCTIONED OBTAINED MODERATE AMOUNT OF THICK YELLOW SECRETIONS, AIRWAY IS PATENT AND TRACH IS SECURE.
--- NOTE | 2018-01-19 10:59 | NUR ---
PER ORDER, CALLED [facility], [facility], [facility] AND [facility] AND CANCELED TRANSFER TO HIGHER LEVEL OF CARE.
--- NOTE | 2018-01-19 11:21 | NUR ---
R/T HERE. ADMINISTERED BS CHECK. BS 177. WILL NEED 2 UNITS OF INSULIN COVERAGE. WILL GIVE WITH 1300 MEDS. CHECKED RESIDUAL ON GTUBE FEEDING. LESS THAN 5 ML. INCREASED TO 40ML/HR. WILL CONTINUE TO MONITOR PT.
--- NOTE | 2018-01-19 11:30 | NUR ---
Assistant Professor Of Criminal Justice Notes: I Faxed Patient's Clinical information to [facility] at for Patient to return [facility] for [facility]. Possible discharge tomorrow 01/20/18
[2018-01-19 12:00] VITALS: BP 109/40
--- NOTE | 2018-01-19 12:11 | NUR ---
ADMINISTERED AFTERNOON SCHEDULED MED AND INSULIN. PT TOLERATED WELL. NO RESIDUAL. WILL CONTINUE TO MONITOR PT.
--- NOTE | 2018-01-19 14:49 | NUR ---
PT RESTING COMFORTABLY. NO SIGNS OF DISTRESS. WILL CONTINUE TO MONITOR PT.
[2018-01-19 16:00] VITALS: BP 116/44
--- NOTE | 2018-01-19 17:16 | NUR ---
PT REMAINS ON DOCUMENTED VENT SETTINGS NO CHANGES MADE AT THIS TIME. TRACH REMAINS SECURE WITH A PATENT AIRWAY. VENT ALARMS REMAIN ON AND FUNCTIONING.
[2018-01-19] MEDS ORDERED: LEVOFLOXACIN 250 MG/D5 PREMIX 50 ML IV SCH (19:00)
--- NOTE | 2018-01-19 19:13 | NUR ---
ENDORSED PT TO THE DEPLOYMENT ENGINEER NURSE AT BEDSIDE FOR CONTINUITY OF CARE. PT IS IN STABLE CONDITION.
--- NOTE | 2018-01-19 19:15 | NUR ---
RECEIVED REPORT FROM DAY SHIFT RN FOR CONTINUITY OF CARE. PT IS APHASIC, ON TRACH TO VENT SETTINGS: PEEP 5, VT 500, FIO2: 28%, AND FLOW 40. PT IS UNABLE TO MAKE NEEDS KNOWN, UNABLE TO FOLLOW COMMANDS. PT SKIN IS NON-INTACT, SEE WOUND ASSESSMENT. PT HAS A TLC CENTAL LINE TO RIGHT SUBCLAVIAN, ASYMPTOMATIC, INTACT AND PATENT. VITAL SIGNS WITHIN NORMAL LIMITS. PT STABLE, NO SIGNS OF DISTRESS NOTED AT THIS TIME. BED IN LOWEST POSITION, BED ALARM ON. CALL LIGHT WITHIN REACH, WILL CONTINUE TO MONITOR.
--- NOTE | 2018-01-19 19:50 | NUR ---
Received pt stable on vent support at documented settings, suctioned small amounts of thick white secretions, hhn tx given, tolerated well, no resp distress or SOB noted at this time, Portex 7 trach secured/patent/midline, alarms set and audible, ambu bag at bedside, vent plugged into red outlet, pulse ox on, will cont to monitor.
[2018-01-19 20:00] VITALS: BP 116/53
[2018-01-19] MEDS ORDERED: PIPERACILLIN/TAZOBACTAM 3.375 GM VIAL IV ONE (20:29)
[2018-01-19] MEDS: PIPER/TAZO 3.375GM/D5W PREMIX 50 ML IV SCH (20:40)
--- NOTE | 2018-01-19 20:40 | NUR ---
ADMINISTERED SCHEDULED MEDICATIONS, PT TOLERATED WELL. FLUSHED IN BETWEEN MEDS WITH 10CC WATER AND AFTER ALL MEDICATIONS WITH 50cc WATER.
--- NOTE | 2018-01-19 22:40 | NUR ---
NO RESIDUAL NOTICED. SUCTIONED PT BECAUSE HE WAS SATURATING AT 91%, AFTER SUCTIONING O2 SATURATION WENT UP TO 100%. PT STABLE, NO SIGNS OF DISTRESS NOTED AT THIS TIME. BED IN LOWEST POSITION, BED ALARM ON. CALL LIGHT WITHIN REACH, WILL CONTINUE TO MONITOR.
[2018-01-20] VITALS: BP 116/45
--- NOTE | 2018-01-20 02:15 | NUR ---
PT STABLE, NO SIGNS OF DISTRESS NOTED AT THIS TIME. BED IN LOWEST POSITION, BED ALARM ON. CALL LIGHT WITHIN REACH, WILL CONTINUE TO MONITOR.
[2018-01-20] MEDS: DEXTROSE 5% 1,000 ML IV SCH ×2 (03:50→16:53)
[2018-01-20 04:00] VITALS: BP 133/52
[2018-01-20] MEDS ORDERED: PIPERACILLIN/TAZOBACTAM 3.375 GM VIAL IV ONE (04:48)
[2018-01-20] MEDS: PIPER/TAZO 3.375GM/D5W PREMIX 50 ML IV SCH ×3 (04:56→21:08)
--- NOTE | 2018-01-20 06:17 | NUR ---
PT HAD BM, PT WAS CLEANED AGAIN AND REPOSITIONED AGAIN. PT TOLERATED WELL.
[2018-01-20] MEDS: BLOOD GLUCOSE MONITORING 1 DEV DEV FS SCH ×4 (06:59→21:07)
[2018-01-20] MEDS: INSULIN LISPRO SLIDING SCALE 100 UNITS/ML VIAL SUBQ PRN ×3 (06:59→17:08)
[2018-01-20 07:18] LABS: BASOPHILS % (AUTO) 0.2 % (0.0-2.0); EOSINOPHILS # (AUTO) 0.2 K/uL (0-0.4); EOSINOPHILS % (AUTO) 1.3 % (0.0-4.0); HEMATOCRIT 23.2 % (36-52); HEMOGLOBIN 7.6 g/dL (12.0-18.0); LYMPHOCYTES # (AUTO) 1.4 K/uL (2.0-11.5); LYMPHOCYTES % (AUTO) 10.1 % (20.5-51.1); MEAN CORPUSCULAR HEMOGLOBIN 30 pg (27-31); MEAN CORPUSCULAR HGB CONC 33 g/dL (33-37); MEAN CORPUSCULAR VOLUME 90.5 fL (80-94); MONOCYTES # (AUTO) 0.7 K/uL (0.8-1.0); MONOCYTES % (AUTO) 5.3 % (1.7-9.3); NEUTROPHILS # (AUTO) 11.5 K/uL (1.8-7.7); NEUTROPHILS % (AUTO) 83.1 % (42.2-75.2); PLATELET COUNT (AUTO) 281 K/uL (140-450); RED BLOOD CELL COUNT(AUTO) 2.57 MIL/uL (4.20-6.10); RED CELL DISTRIBUTION WIDTH 16.6 % (11.6-13.7); WHITE BLOOD COUNT (AUTO) 13.9 K/uL (4.8-10.8)
--- NOTE | 2018-01-20 07:37 | NUR ---
ENDORSED PT TO DAY SHIFT RN FOR CONTINUITY OF CARE. PT IN STABLE CONDITION.
--- NOTE | 2018-01-20 07:40 | NUR ---
RECEIVED REPORT FROM WIND PLANT MANAGER NURSE, PT IS RESTING IN BED AAOX1, APHASIC, PT HAS CENTRAL LINE ON RIGHT UPPER CHEST, X3 LUMEN, PATENT, INTACT, FLUSHING WELL, PT IS ON A TRACH TO VENT, PT HAS SACRAL PRESSURE ULCER, DRESSING IS DRY AND INTACT, LEFT HEEL WOUND, PT HAS G-TUBE IN PLACE, NO RESIDUAL AT THIS TIME, PT HAS LEFT NEPHROSTOMY, MENDIETA CATHETER IN PLACE, CLOUDY YELLOW URINE NOTED, NO S/S OF RESPIRATORY DISTRESS OR DISCOMFORT NOTED, DISCUSSED PLAN OF CARE WITH PT, PT UNABLE TO VERBALIZE UNDERSTANDING, SAFETY/FALL PRECAUTIONS ARE IN PLACE, CALL LIGHT IS WITHIN REACH, WILL CONTINUE TO MONITOR.
[2018-01-20 07:49] LABS: ANION GAP 11.9 (8-16); CARBON DIOXIDE 22.4 mmol/L (21-32); CHLORIDE 117 mmol/L (98-107); CREATININE 2.2 mg/dL (0.7-1.3); GLUCOSE 171 mg/dL (74-106); POTASSIUM 3.3 mmol/L (3.5-5.1); SODIUM SERUM 148 mmol/L (136-145)
[2018-01-20] MEDS: ALBUTEROL SULFATE/IPRATROPIU 3 ML SOL IH SCH ×3 (07:55→19:14)
--- NOTE | 2018-01-20 07:55 | NUR ---
RECEIVED ON A GE CARESCAPE R860 PLUGGED INTO RED OUTLET TOLERATING WELL WITHOUT INCIDENT TO A PORTEX DCT #7 AIRWAY SECURED WITH A EDMAR TRACH TIE CUFF PRESSURE CHECKED NOTED AMBU BAG AT BEDSIDE YANETH RADICAL-7 CONTINUOUS PULSE OXIMETER AT BEDSIDE ON AND FUNCTIONING WELL LOW SATURATION SET AT 92% LOC AWAKE NO RESPONSIVE TO MECHANICAL ENGINEERING LECTURER VERBAL COMMANDS BREATH SOUNDS RHONCHI BILATERAL WITH GOOD CHEST RISE DEEP TRACHEAL SUCTION FOR SMALL THIN YELLOW SECRETIONS AIRWAY PATENT
[2018-01-20 07:57] LABS: UREA NITROGEN, BLOOD 86 mg/dL (7-18)
[2018-01-20 08:00] VITALS: BP 132/44
[2018-01-20] MEDS: FERROUS SULFATE 300 MG/5 ML UDC GT SCH ×2 (08:13→21:08)
[2018-01-20] MEDS: ISOSORBIDE DINITRATE 10 MG TAB GT SCH ×2 (08:13→21:08)
[2018-01-20] MEDS: DOCUSATE 100 MG/10 ML UDC GT SCH ×2 (08:13→21:07)
[2018-01-20] MEDS: ALLOPURINOL 100 MG TAB GT SCH (08:14)
[2018-01-20] MEDS: CARVEDILOL 12.5 MG TAB GT SCH ×2 (08:14→21:08)
[2018-01-20] MEDS: LACTOBACILLUS RHAMNOSUS GG 1 EACH CAP GT SCH (08:14)
[2018-01-20] MEDS: SENNA 8.6 MG TAB GT SCH (08:14)
[2018-01-20] MEDS: SIMETHICONE 80 MG TAB.CHEW GT SCH ×3 (08:14→16:56)
[2018-01-20] MEDS: ATORVASTATIN 20 MG TAB PO SCH (08:15)
[2018-01-20] MEDS: FAMOTIDINE 20 MG TAB GT SCH (08:15)
[2018-01-20] MEDS: amLODIPine 5 MG TAB GT SCH (08:15)
[2018-01-20] MEDS: DIGOXIN 0.125 MG TAB PO SCH (08:16)
[2018-01-20] MEDS: PANTOPRAZOLE 40 MG INJ VIAL IVP SCH ×2 (08:16→21:08)
[2018-01-20] MEDS: SULFAMETH/TRIMETH DS 800/160MG 1 TAB PO SCH (08:16)
[2018-01-20] MEDS: LINEZOLID 600MG PREMIX 300 ML IV SCH ×2 (08:16→21:09)
[2018-01-20] MEDS: METOCLOPRAMIDE 10 MG/2 ML INJ VIAL IVP SCH ×3 (08:17→16:56)
[2018-01-20] MEDS: GLYCOPYRROLATE 0.2 MG/ML VIAL IV SCH ×2 (08:17→21:08)
[2018-01-20] MEDS: MULTIVITAMIN/MINERALS 1 TAB GT SCH (08:18)
[2018-01-20 08:29] LABS: MAGNESIUM 2.2 mg/dL (1.8-2.4); PHOSPHORUS 3.8 mg/dL (2.5-4.9)
--- NOTE | 2018-01-20 09:22 | NUR ---
01/20/18 RD FOLLOW UP COMPLETED PLEASE REFER TO NUTRITION PROGRESS NOTE UNDER CARE ACTIVITY FOR ESTIMATED NUTRITION NEEDS. RD RECOMMENDATIONS: 1. CONTINUE VITAL AF @ GOAL RATE 45 ML/HR. -THIS WILL PROVIDE 1080 ML, 1296 KCAL, 81 GM PROTEIN, MEETING 100% OF ESTIMATED KCAL NEEDS AND 90% OF PROTEIN NEEDS. 2. RD TO FOLLOW-UP 2-3 DAYS, HIGH RISK RAFAELA MICHELLE, MS, RDN
--- NOTE | 2018-01-20 09:43 | NUR ---
NO EVIDENCE OF PULMONARY DISTRESS NOTED AT THIS TIME GOOD CHEST RISE
--- NOTE | 2018-01-20 10:15 | NUR ---
PATIENT REPOSITIONED FOR COMFORT, ALL NEEDS ARE MET AT THIS TIME, NO S/S OF RESPIRATORY DISTRESS OR DISCOMFORT NOTED, CALL LIGHT WITHIN REACH, WILL CONTINUE TO MONITOR.
--- NOTE | 2018-01-20 11:08 | NUR ---
NO DISTRESS NOTED DEEP TRACHEAL SUCTION FOR SMALL THIN YELLOW SECRETIONS AIRWAY PATENT
[2018-01-20] MEDS ORDERED: POTASSIUM CHLORIDE 20% 40 MEQ/15 ML UDC GT SCH ×2 (11:30→15:15)
[2018-01-20 12:00] VITALS: BP 130/42
--- NOTE | 2018-01-20 12:00 | NUR ---
PT RESTING IN BED, NO S/S OF RESPIRATORY DISTRESS OR DISCOMFORT NOTED.
--- NOTE | 2018-01-20 13:30 | NUR ---
Total PrestigeSCAPE R860 WITH ID# [id number] PRESENTING WITH "FROZEN SCREEN" UNABLE TO PLACE ON STANBY TO TURN OFF AND ON FOR REBOOT "VENTILATOR DID NOT AFFECT PATIENT" VENTILATOR REMOVED FROM PATIENT AND REPLACED WITH A saperatec CARESCAPE R860 WITH ID# [id number] Addendum: 01/20/18 at 1608 by Giorgio Webster RT ACTUAL TIME 1335 Addendum: 01/20/18 at 1746 by Giorgio Webster RT NEW ID # [id number]
--- NOTE | 2018-01-20 13:35 | NUR ---
RESTING WELL NO SOB NOTED GOOD CHEST RISE AND AERATION THROUGHOUT LUNG VELAZCO AIRWAY
--- NOTE | 2018-01-20 15:50 | NUR ---
NO APPARENT RESPIRATORY DISTRESS NOTED GOOD CHEST RISE
[2018-01-20 16:00] VITALS: BP 121/51
--- NOTE | 2018-01-20 17:30 | NUR ---
PATIENT REPOSITIONED FOR COMFORT, NO S/S OF DISCOMFORT NOTED, CALL LIGHT WITHIN REACH.
--- NOTE | 2018-01-20 17:35 | NUR ---
NO PULMONARY DISTRESS NOTED AT THIS TIME DEEP TRACHEAL SUCTION FOR MODERATE THIN YELLOW SECRETIONS AIRWAY PATENT
--- NOTE | 2018-01-20 19:10 | NUR ---
ENDORSED PT TO FRAME CATCHER NURSE FOR CONTINUITY OF CARE. PT STABLE AT THIS TIME.
[2018-01-20 20:00] VITALS: BP 124/44
--- NOTE | 2018-01-20 21:11 | NUR ---
ADMINISTERED SCHEDULED MEDICATIONS, PT TOLERATED WELL.
[2018-01-21] VITALS (7 sets, daily range): BP systolic 103–118; BP diastolic 35–48
[2018-01-21] MEDS: PIPER/TAZO 3.375GM/D5W PREMIX 50 ML IV SCH ×3 (05:02→20:57)
[2018-01-21] MEDS: BLOOD GLUCOSE MONITORING 1 DEV DEV FS SCH ×4 (07:04→20:57)
--- NOTE | 2018-01-21 07:46 | NUR ---
ENDORSED PT TO DAY SHIFT RN FOR CONTINUITY OF CARE. PT IN STABLE CONDITION.
--- NOTE | 2018-01-21 07:47 | NUR ---
RECEIVED REPORT FROM VIOLIN TEACHER NURSE, PT IS RESTING IN BED AAOX1, APHASIC, PT HAS CENTRAL LINE ON RIGHT UPPER CHEST, X3 LUMEN, PATENT, INTACT, FLUSHING WELL, PT IS ON A TRACH TO VENT, PT HAS SACRAL PRESSURE ULCER, DRESSING IS DRY AND INTACT, LEFT HEEL WOUND, PT HAS G-TUBE IN PLACE, NO RESIDUAL AT THIS TIME, PT HAS LEFT NEPHROSTOMY, MENDIETA CATHETER IN PLACE, NO S/S OF RESPIRATORY DISTRESS OR DISCOMFORT NOTED, DISCUSSED PLAN OF CARE WITH PT, PT UNABLE TO VERBALIZE UNDERSTANDING, SAFETY/FALL PRECAUTIONS ARE IN PLACE, CALL LIGHT IS WITHIN REACH, WILL CONTINUE TO MONITOR.
[2018-01-21 07:52] LABS: BASOPHILS % (AUTO) 0.3 % (0.0-2.0); EOSINOPHILS # (AUTO) 0.2 K/uL (0-0.4); EOSINOPHILS % (AUTO) 2.2 % (0.0-4.0); HEMATOCRIT 21.6 % (36-52); HEMOGLOBIN 7.1 g/dL (12.0-18.0); LYMPHOCYTES # (AUTO) 1.2 K/uL (2.0-11.5); LYMPHOCYTES % (AUTO) 12.2 % (20.5-51.1); MEAN CORPUSCULAR HEMOGLOBIN 30 pg (27-31); MEAN CORPUSCULAR HGB CONC 33 g/dL (33-37); MEAN CORPUSCULAR VOLUME 90.8 fL (80-94); MONOCYTES # (AUTO) 0.7 K/uL (0.8-1.0); MONOCYTES % (AUTO) 7.2 % (1.7-9.3); NEUTROPHILS # (AUTO) 7.7 K/uL (1.8-7.7); NEUTROPHILS % (AUTO) 78.1 % (42.2-75.2); PLATELET COUNT (AUTO) 260 K/uL (140-450); RED BLOOD CELL COUNT(AUTO) 2.38 MIL/uL (4.20-6.10); RED CELL DISTRIBUTION WIDTH 16.3 % (11.6-13.7); WHITE BLOOD COUNT (AUTO) 9.9 K/uL (4.8-10.8)
[2018-01-21] MEDS: ALBUTEROL SULFATE/IPRATROPIU 3 ML SOL IH SCH ×3 (07:53→19:02)
--- NOTE | 2018-01-21 07:53 | NUR ---
RECEIVED ON A [employer] CARESCAPE R860 VENTILATOR PLUGGED INT0 RED OUTLET TOLERATING WELL WITHOUT INCIDENT TO A PORTEX DCT #7 AIRWAY SECURED WITH A EDMAR TRACH TIE CUFF PRESSURE CHECKED NOTED AMBU BAG AT BEDSIDE MASIMO RADICAL-7 CONTINUOS PULSE OXIMETER AT BEDSIDE ON AND FUNCTIONING WELL LOW SATURATION ALARM SET AT 92% RESTING WELL NO SOB NOTED BREATH SOUNDS CLEAR BILATERAL WITH GOOD CHEST RISE AND AERATION THROUGHOUT LUNG VELAZCO AIRWAY PATENT
[2018-01-21 08:07] LABS: MAGNESIUM 2.2 mg/dL (1.8-2.4); PHOSPHORUS 3.8 mg/dL (2.5-4.9)
--- NOTE | 2018-01-21 08:10 | NUR ---
SATURATION 100% ON FIO2 OF 28% POST HHN THERAPY TITRATED FIO2 TO 26% HANK/RN NOTIFIED
[2018-01-21 08:11] LABS: ANION GAP 10.1 (8-16); CARBON DIOXIDE 22.2 mmol/L (21-32); CHLORIDE 114 mmol/L (98-107); CREATININE 2.1 mg/dL (0.7-1.3); GLUCOSE 121 mg/dL (74-106); POTASSIUM 3.3 mmol/L (3.5-5.1); SODIUM SERUM 143 mmol/L (136-145)
[2018-01-21] MEDS: LINEZOLID 600MG PREMIX 300 ML IV SCH ×2 (08:49→21:47)
[2018-01-21] MEDS: DOCUSATE 100 MG/10 ML UDC GT SCH ×2 (08:50→20:57)
[2018-01-21] MEDS: PANTOPRAZOLE 40 MG INJ VIAL IVP SCH ×2 (08:50→20:58)
[2018-01-21] MEDS: FERROUS SULFATE 300 MG/5 ML UDC GT SCH ×2 (08:50→20:58)
[2018-01-21] MEDS: FAMOTIDINE 20 MG TAB GT SCH (08:51)
[2018-01-21] MEDS: ATORVASTATIN 20 MG TAB PO SCH (08:51)
[2018-01-21] MEDS: ALLOPURINOL 100 MG TAB GT SCH (08:51)
[2018-01-21] MEDS: SIMETHICONE 80 MG TAB.CHEW GT SCH ×3 (08:51→17:26)
[2018-01-21] MEDS: MULTIVITAMIN/MINERALS 1 TAB GT SCH (08:51)
[2018-01-21] MEDS: amLODIPine 5 MG TAB GT SCH (08:51)
[2018-01-21] MEDS: ISOSORBIDE DINITRATE 10 MG TAB GT SCH ×2 (08:52→20:59)
[2018-01-21] MEDS: SENNA 8.6 MG TAB GT SCH (08:52)
[2018-01-21] MEDS: CARVEDILOL 12.5 MG TAB GT SCH ×2 (08:52→20:59)
[2018-01-21] MEDS: LACTOBACILLUS RHAMNOSUS GG 1 EACH CAP GT SCH (08:52)
--- NOTE | 2018-01-21 08:52 | NUR ---
DUE MEDICATIONS GIVEN, PT TOLERATED WELL. NO S/S OF RESPIRATORY DISTRESS OR DISCOMFORT NOTED, WILL CONTINUE TO MONITOR.
[2018-01-21] MEDS: SULFAMETH/TRIMETH DS 800/160MG 1 TAB PO SCH (08:53)
[2018-01-21] MEDS: DIGOXIN 0.125 MG TAB PO SCH (08:53)
[2018-01-21] MEDS: METOCLOPRAMIDE 10 MG/2 ML INJ VIAL IVP SCH ×3 (08:53→17:26)
[2018-01-21] MEDS: DEXTROSE 5% 1,000 ML IV SCH (08:54)
[2018-01-21] MEDS: GLYCOPYRROLATE 0.2 MG/ML VIAL IV SCH ×2 (08:55→20:58)
--- NOTE | 2018-01-21 09:58 | NUR ---
NO EVIDENCE OF SOB NOTED GOOD CHEST RISE DEEP TRACHEAL SUCTION FOR MODERATE THICK YELLOW SECRETIONS AIRWAY PATENT OROPHARYNGEAL SUCTION FOR LARGE THICK YELLOW/CLEAR SECRETIONS
[2018-01-21 10:07] LABS: UREA NITROGEN, BLOOD 72 mg/dL (7-18)
--- NOTE | 2018-01-21 11:03 | NUR ---
NO PULMONARY DISTRESS NOTED GOOD CHEST RISE DEEP TRACHEAL SUCTION FOR SMALL THIN YELLOW SECRETIONS AIRWAY PATENT
[2018-01-21] MEDS ORDERED: KCL 20 MEQ/WATER INJ PREMIX 100 ML IV SCH (11:50)
[2018-01-21] MEDS: Z-GUARD PASTE TP PRN (12:05)
[2018-01-21] MEDS: INSULIN LISPRO SLIDING SCALE 100 UNITS/ML VIAL SUBQ PRN (12:11)
--- NOTE | 2018-01-21 12:15 | NUR ---
PT REPOSITIONED FOR COMFORT, ALL NEEDS MET AT THIS TIME, NO DISCOMFORT NOTED, WILL CONTINUE TO MONITOR
--- NOTE | 2018-01-21 13:39 | NUR ---
RESTING COMFORTABLY NO RESPIRATORY DISTRESS NOTED GOOD CHEST RISE DEEP TRACHEAL SUCTION FOR SMALL THIN YELLOW SECRETIONS AIRWAY PATENT TOLERATING VENTILATORY SUPPORT WELL
--- NOTE | 2018-01-21 14:47 | NUR ---
PT SLEEPING IN BED AT THIS TIME. NO S/S OF DISTRESS NOTED.
--- NOTE | 2018-01-21 15:39 | NUR ---
RESTING WELL GOOD CHEST RISE DEEP TRACHEAL SUCTION FOR MODERATE PALE YELLOW SECRETIONS AIRWAY PATENT
--- NOTE | 2018-01-21 17:16 | NUR ---
NO EVIDENCE OF PULMONARY DISTRESS NOTED GOOD EQUAL CHEST RISE WITH AERATION THROUGHOUT LUNG VELAZCO AIRWAY PATENT
--- NOTE | 2018-01-21 19:10 | NUR ---
ENDORSED PT TO CLERICAL TRANSCRIBER NURSE FOR CONTINUITY OF CARE. PT STABLE AT THIS TIME.
--- NOTE | 2018-01-21 19:11 | NUR ---
RECEIVED REPORT FROM DAYSHIFT NURSE AT BEDSIDE FOR CONTINUITY OF CARE. PT AWAKE. APHASIC NON-VERBAL PT IS TRACH TO VENT NO SOB NO S/S OF DISTRESS. PT HAS TRIPLE LUMEN UPPER CHEST RIJ. PT HAS MENDIETA AND NEPHROSTOMY TUVE WITH BAG ATTACHED. PT TUBE FEEDING 45ML/HR AND 70ML/H20 Q4H. PT SKIN IS NOT INTACT. (SEE OTHER NURSING NOTES) PT ALSO HAS A BOOT ON LEFT FOOT TO PROTECT HEEL. BED LOWERED CALL LIGHT WITHIN REACH WILL CONTINUE TO MONITOR.
--- NOTE | 2018-01-21 21:00 | NUR ---
PT IS STILL BLEEDING FROM LEFT NOSTRIL WILL CONTINUE TO MONITOR.
[2018-01-22] VITALS: BP 117/46
--- NOTE | 2018-01-22 | NUR ---
PT IS SLEEPING NO SOB NO S/S OF DISTRESS ON RA. WILL CONTINUE TO MONITOR.
--- NOTE | 2018-01-22 03:20 | NUR ---
CHANGED FEEDING ON MY PT TUBE FEEDING VITAL AF 45ML/HR 70 WATER Q4H.
[2018-01-22 04:00] VITALS: BP 121/57
[2018-01-22] MEDS: PIPER/TAZO 3.375GM/D5W PREMIX 50 ML IV SCH ×3 (05:42→20:55)
[2018-01-22] MEDS: BLOOD GLUCOSE MONITORING 1 DEV DEV FS SCH ×4 (05:48→20:55)
[2018-01-22] MEDS: INSULIN LISPRO SLIDING SCALE 100 UNITS/ML VIAL SUBQ PRN ×2 (05:56→13:03)
[2018-01-22 06:28] LABS: BASOPHILS % (AUTO) 0.4 % (0.0-2.0); EOSINOPHILS # (AUTO) 0.2 K/uL (0-0.4); EOSINOPHILS % (AUTO) 2.9 % (0.0-4.0); HEMATOCRIT 21.3 % (36-52); LYMPHOCYTES # (AUTO) 0.9 K/uL (2.0-11.5); LYMPHOCYTES % (AUTO) 11.3 % (20.5-51.1); MEAN CORPUSCULAR HEMOGLOBIN 30 pg (27-31); MEAN CORPUSCULAR HGB CONC 33 g/dL (33-37); MEAN CORPUSCULAR VOLUME 90.2 fL (80-94); MONOCYTES # (AUTO) 0.5 K/uL (0.8-1.0); MONOCYTES % (AUTO) 6.5 % (1.7-9.3); NEUTROPHILS # (AUTO) 6.4 K/uL (1.8-7.7); NEUTROPHILS % (AUTO) 78.9 % (42.2-75.2); PLATELET COUNT (AUTO) 228 K/uL (140-450); RED BLOOD CELL COUNT(AUTO) 2.36 MIL/uL (4.20-6.10); RED CELL DISTRIBUTION WIDTH 16.1 % (11.6-13.7); WHITE BLOOD COUNT (AUTO) 8.1 K/uL (4.8-10.8)
[2018-01-22 07:00] LABS: ANION GAP 13.4 (8-16); CARBON DIOXIDE 19.8 mmol/L (21-32); CHLORIDE 112 mmol/L (98-107); GLUCOSE 184 mg/dL (74-106); POTASSIUM 3.2 mmol/L (3.5-5.1); SODIUM SERUM 142 mmol/L (136-145)
[2018-01-22 07:07] LABS: UREA NITROGEN, BLOOD 67 mg/dL (7-18)
--- NOTE | 2018-01-22 07:10 | NUR ---
RECEIVED PATIENT REPORT AT BEDSIDE. PATIENT IS ASLEEP. NO S/S OF DISTRESS NOTED. PATIENT IS TRACH TO VENT WITH SETTINGS 28% FIO2, PEEP OF 5, 50L/MIN FLOW RATE. O2 SAT 98% AT THIS TIME. G-TUBE IN PLACE WITH FEEDING AT RATE OF 45ML/HR. MENDIETA CATHETER IN PLACE, DRAINING CLEAR YELLOW URINE. LEFT NEPHROSTOMY TUBE NOTED WITH CLEAR YELLOW URINE OUTPUT. PATIENT ON TELE MONITORING. BED LOWERED WITH CALL LIGHT WITHIN REACH. WILL CONTINUE TO MONITOR
[2018-01-22] MEDS: ALBUTEROL SULFATE/IPRATROPIU 3 ML SOL IH SCH ×3 (07:23→19:15)
--- NOTE | 2018-01-22 07:29 | NUR ---
ENDORSED REPORT TO DAYSHIFT NURSE AT BEDSIDE FOR CONTINUITY CARE.
--- NOTE | 2018-01-22 07:30 | NUR ---
NOTIFIED DR BECK ABOUT PATIENT'S DECREASED HGB LEVEL OF 7.0. NO NEW ORDERS
--- NOTE | 2018-01-22 07:31 | NUR ---
RECEIVED TRACH PT WITH A PORTEX 7 TRACH ON VENT. SETTINGS AC 12, VT 450, PEEP 5 AND FIO2 26%. VENT IS PLUGGED INTO A RED OUTLET WITH ALARMS ON AND FUNCTIONING. PT OPENS HIS EYES BUT IS NOT ALERT. PT SUCTIONED OBTAINED SMALL AMOUNT OF THICK WHITE SECRETIONS, AIRWAY IS PATENT.AMBU BAG IS PRESENT NEAR BEDSIDE. WILL CONTINUE TO MONITOR.
[2018-01-22 07:52] VITALS: BP 107/47
[2018-01-22] MEDS: DEXTROSE 5% 1,000 ML IV SCH (08:49)
[2018-01-22] MEDS ORDERED: FLUCONAZOLE 400 MG/NS PREMIX 200 ML IV SCH (09:00)
[2018-01-22] MEDS: LACTOBACILLUS RHAMNOSUS GG 1 EACH CAP GT SCH (09:00)
[2018-01-22] MEDS: MULTIVITAMIN/MINERALS 1 TAB GT SCH (09:00)
[2018-01-22] MEDS: CARVEDILOL 12.5 MG TAB GT SCH ×2 (09:01→20:56)
[2018-01-22] MEDS: FERROUS SULFATE 300 MG/5 ML UDC GT SCH ×2 (09:01→20:55)
[2018-01-22] MEDS: ATORVASTATIN 20 MG TAB PO SCH (09:01)
[2018-01-22] MEDS: ISOSORBIDE DINITRATE 10 MG TAB GT SCH ×2 (09:01→20:56)
[2018-01-22] MEDS: ALLOPURINOL 100 MG TAB GT SCH (09:02)
[2018-01-22] MEDS: FAMOTIDINE 20 MG TAB GT SCH (09:02)
[2018-01-22] MEDS: amLODIPine 5 MG TAB GT SCH (09:02)
[2018-01-22] MEDS: SIMETHICONE 80 MG TAB.CHEW GT SCH ×3 (09:02→16:37)
[2018-01-22] MEDS: DIGOXIN 0.125 MG TAB PO SCH (09:03)
[2018-01-22] MEDS: DOCUSATE 100 MG/10 ML UDC GT SCH ×2 (09:03→20:55)
[2018-01-22] MEDS: SENNA 8.6 MG TAB GT SCH (09:03)
[2018-01-22] MEDS: SULFAMETH/TRIMETH DS 800/160MG 1 TAB PO SCH (09:03)
[2018-01-22] MEDS: PANTOPRAZOLE 40 MG INJ VIAL IVP SCH ×2 (09:04→20:55)
[2018-01-22] MEDS: METOCLOPRAMIDE 10 MG/2 ML INJ VIAL IVP SCH ×3 (09:04→16:37)
[2018-01-22] MEDS: LINEZOLID 600MG PREMIX 300 ML IV SCH ×2 (09:41→22:12)
[2018-01-22] MEDS: GLYCOPYRROLATE 0.2 MG/ML VIAL IV SCH (09:42)
--- NOTE | 2018-01-22 11:30 | NUR ---
Wash House Supervisor Notes: I Called Yasir engineer and geologist to discuss Patient's status and possible discharge within a day or two. I asked Yasir if Patient is to discharge after his 7 days bed hold if the facility is able to accepting back to the facility. Per Yasir "Yes" and stated " Patient has been our resident for some time, and yes we will take him back even after seven day hold" Yasir also Provided Patent's room number 27- A with accepting MD Hassan. I thanked Yasir for the information an I told her I will follow up with her top set up discharge when Patient is ready and clear for discharge. She agreed and I ended the call,
[2018-01-22] MEDS: KCL 20 MEQ/WATER INJ PREMIX 100 ML IV SCH ×2 (11:36→14:21)
[2018-01-22] MEDS: NACL 0.45% 1,000 ML IV SCH (11:36)
[2018-01-22 12:00] VITALS: BP 109/48
--- NOTE | 2018-01-22 13:30 | NUR ---
PATIENT GIVEN BED BATH. PATIENT HAD A BM. STOOL BLACK, LOOSE, AND LARGE IN AMOUNT. PATIENT CLEANED AND REPOSITIONED FOR COMFORT. PATIENT TOLERATED WELL. MADE DR EBCK AWARE OF PATIENT'S BM
--- NOTE | 2018-01-22 15:35 | NUR ---
PATIENT EVALUATED BY WOUND CARE NURSE. PATIENT HAD A BM. STOOL BLACK, SMALL IN AMOUNT. PATIENT CLEANED AND REPOSITIONED FOR COMFORT. NEW WOUND DRESSING APPLIED. PATIENT TOLERATED WELL
[2018-01-22 16:00] VITALS: BP 121/50
[2018-01-22] MEDS: GLYCOPYRROLATE 1 MG TAB GT SCH (16:37)
--- NOTE | 2018-01-22 17:10 | NUR ---
SKIN ASSESSMENT DONE WITH PRIMARY RN, PROBLEM AREAS RESPONDING TO TREATMENT AND IMPROVING, LEFT NEPHROSTOMY TUBE IN PLACE DRESSING DRY AND CLEAN. OLD GT SITE, SCAR DRY AND CLEAN. WILL CONTINUE CURRENT TREATMENT PLANS.
--- NOTE | 2018-01-22 17:30 | NUR ---
PT REMAINS ON DOCUMENTED VENT SETTINGS. PT IS NOT SOB AND NOT IN RESPIRATORY DISTRESS AT THIS TIME. TRACH REMAINS SECURE WITH A PATENT AIRWAY. VENT ALARMS REMAIN ON AND FUNCTIONING.
--- NOTE | 2018-01-22 19:30 | NUR ---
PATIENT REPORT GIVEN AT BEDSIDE. PATIENT ENDORSED IN STABLE CONDITION
--- NOTE | 2018-01-22 19:31 | NUR ---
RECEIVED REPORT FROM DAYSHIFT NURSE AT BEDSIDE FOR CONTINUITY OF CARE. PT AWAKE. APHASIC NON-VERBAL PT IS TRACH TO VENT NO SOB NO S/S OF DISTRESS. PT HAS TRIPLE LUMEN UPPER CHEST RIJ IV NS 150ML.HR FROM 1ST LINE AND SECOND LINE NS 10ML/HR TKO. PT HAS MENDIETA AND NEPHROSTOMY TUBE WITH BAG ATTACHED. PT TUBE FEEDING 45ML/HR AND 70ML/H20 Q4H. PT SKIN IS NOT INTACT. (SEE OTHER NURSING NOTES) PT ALSO HAS A BOOT ON LEFT FOOT TO PROTECT HEEL. BED LOWERED CALL LIGHT WITHIN REACH WILL CONTINUE TO MONITOR.
[2018-01-22 20:00] VITALS: BP 124/56
[2018-01-22] MEDS: CALCIUM CARBONATE 500 MG TAB GT SCH (20:55)
--- NOTE | 2018-01-22 21:00 | NUR ---
ADMIN MEDS. NO RESIDUAL ON FEEDING PUMP. PT RESTING. WILL CONTINUE TO MONITOR.
[2018-01-23] VITALS: BP 118/55
--- NOTE | 2018-01-23 | NUR ---
PT RESTING CHANGED GAUZE IN LEFT NOSTRIL TO PREVENT BLEEDING. AND ASSESSED TRACH TO VENT: SUCTION PT: PT HAD A BIT OF CLEAR FLUIDS. PT O2 SAT IS 100% NO SOB NO S/S OF DISTRESS ON RA.
--- NOTE | 2018-01-23 02:00 | NUR ---
CHANGED PT TUBE FEEDING. AND TUBING. NO RESIDUAL NOTED. FEEDING VITAL AF RUNNING AT 45ML/HR AND 70 WATER Q4H.
--- NOTE | 2018-01-23 03:09 | NUR ---
PT HAD LOOSE BOWEL MOVEMENT. WILL CONTINUE TO MONITOR.
[2018-01-23 04:36] VITALS: BP 124/52
[2018-01-23] MEDS: PIPER/TAZO 3.375GM/D5W PREMIX 50 ML IV SCH ×3 (05:57→20:45)
[2018-01-23] MEDS: BLOOD GLUCOSE MONITORING 1 DEV DEV FS SCH ×4 (06:00→20:45)
[2018-01-23] MEDS: NACL 0.45% 1,000 ML IV SCH (07:00)
[2018-01-23] MEDS: ALBUTEROL SULFATE/IPRATROPIU 3 ML SOL IH SCH ×3 (07:01→19:15)
--- NOTE | 2018-01-23 07:01 | NUR ---
REC'D PT ON CARESCAPE VENT SETTINGS AC 12 VT 500 PEEP 5 FIO2 24% ALARMS ON AND AUDIBLE AND AMBU BAG AT HOB, I\L TX GIVEN WITH DUONEB 3ML WITH NO ADVERSE REACTION POST TX B\S ARE CLEAR BILATERALLY, SXN PT SMALL AMT OF THIN WHITE SECRETIONS PT IS TRACH WITH PORTEX 7 AND SKIN INTEGRITY IN INTACT, PT IS RESTING WITH NO SIGNS OF DISTRESS NOTED AT THIS TIME .
[2018-01-23] MEDS: GLYCOPYRROLATE 1 MG TAB GT SCH ×2 (07:30→17:15)
--- NOTE | 2018-01-23 07:35 | NUR ---
ENDORSED REPORT TO DAYSARFT NURSE FOR CONTINUITY OF CARE.
--- NOTE | 2018-01-23 07:40 | NUR ---
RECEIVED PT FROM BIT GRINDER NURSE, SHERYL, PT IS ON A TRACH TO VENT AT FIO2 OF 24% AND RATE OF 12. PT IS ASLEEP AND RESPIRATION EVEN, FALL PRECAUTION INITIATED, BED IN LOW POSITION, YELLOW GOWN, ARM BAND AND SIGN AT THE DOOR IN PLACE. PT HAS A CENTRAL LINE IN PL;MARIELA IN THE RT SUBCLAVIAN AND HAS A LEFT NEPHROSTOMY TUBE IN PLACE, DRAINED 300ML OF URINE. PT HAS A MENDIETA CATHETER IN PLACE AND DRAINED 300ML OF URINE. PT HAS A CONTINUOUS FEEDING AT A RATE OF 45ML/HR WITH WATER FLUSHING OF 70ML Q4H. PT IS ON CONTACT ISOLATION FOR ESBL OF URINE. NO SIGN OF DISTRESS NOTED. WILL CONTINUE TO MONITOR PT.
[2018-01-23 08:00] VITALS: BP 130/50
[2018-01-23 08:23] LABS: BASOPHILS % (AUTO) 0.3 % (0.0-2.0); EOSINOPHILS # (AUTO) 0.2 K/uL (0-0.4); MONOCYTES # (AUTO) 0.5 K/uL (0.8-1.0); RED CELL DISTRIBUTION WIDTH 16.6 % (11.6-13.7)
--- NOTE | 2018-01-23 08:32 | NUR ---
VENT CHECK NO SXN REQUIRED AT THIS TIME AIRWAY IS PATENT PT RESTING
--- NOTE | 2018-01-23 08:34 | NUR ---
CHART REVIEW DONE.
[2018-01-23 08:48] LABS: EOSINOPHILS % (AUTO) 2.7 % (0.0-4.0); HEMATOCRIT 23.7 % (36-52); HEMOGLOBIN 7.9 g/dL (12.0-18.0); LYMPHOCYTES % (AUTO) 12.1 % (20.5-51.1); MEAN CORPUSCULAR HEMOGLOBIN 30 pg (27-31); MEAN CORPUSCULAR HGB CONC 33 g/dL (33-37); MEAN CORPUSCULAR VOLUME 90.5 fL (80-94); MONOCYTES % (AUTO) 6.5 % (1.7-9.3); NEUTROPHILS # (AUTO) 6.5 K/uL (1.8-7.7); NEUTROPHILS % (AUTO) 78.4 % (42.2-75.2); PLATELET COUNT (AUTO) 232 K/uL (140-450); RED BLOOD CELL COUNT(AUTO) 2.62 MIL/uL (4.20-6.10); WHITE BLOOD COUNT (AUTO) 8.3 K/uL (4.8-10.8)
[2018-01-23 08:49] LABS: ANION GAP 15.5 (8-16); CARBON DIOXIDE 19.1 mmol/L (21-32); CHLORIDE 112 mmol/L (98-107); CREATININE 1.9 mg/dL (0.7-1.3); GLUCOSE 121 mg/dL (74-106); POTASSIUM 3.6 mmol/L (3.5-5.1); SODIUM SERUM 143 mmol/L (136-145); UREA NITROGEN, BLOOD 57 mg/dL (7-18)
[2018-01-23 08:52] LABS: MAGNESIUM 2.1 mg/dL (1.8-2.4); PHOSPHORUS 3.6 mg/dL (2.5-4.9)
[2018-01-23] MEDS: amLODIPine 5 MG TAB GT SCH (09:00)
[2018-01-23] MEDS: CARVEDILOL 12.5 MG TAB GT SCH ×2 (09:00→20:47)
[2018-01-23] MEDS: FERROUS SULFATE 300 MG/5 ML UDC GT SCH ×2 (09:15→20:46)
[2018-01-23] MEDS: MULTIVITAMIN/MINERALS 1 TAB GT SCH (09:16)
[2018-01-23] MEDS: DOCUSATE 100 MG/10 ML UDC GT SCH ×2 (09:16→20:45)
[2018-01-23] MEDS: SULFAMETH/TRIMETH DS 800/160MG 1 TAB PO SCH (09:16)
[2018-01-23] MEDS: PANTOPRAZOLE 40 MG INJ VIAL IVP SCH ×2 (09:16→20:45)
[2018-01-23] MEDS: SIMETHICONE 80 MG TAB.CHEW GT SCH ×3 (09:17→17:15)
[2018-01-23] MEDS: METOCLOPRAMIDE 10 MG/2 ML INJ VIAL IVP SCH ×3 (09:17→17:14)
[2018-01-23] MEDS: SENNA 8.6 MG TAB GT SCH (09:17)
[2018-01-23] MEDS: LACTOBACILLUS RHAMNOSUS GG 1 EACH CAP GT SCH (09:18)
[2018-01-23] MEDS: ALLOPURINOL 100 MG TAB GT SCH (09:18)
[2018-01-23] MEDS: CALCIUM CARBONATE 500 MG TAB GT SCH ×2 (09:18→20:47)
[2018-01-23] MEDS: FAMOTIDINE 20 MG TAB GT SCH (09:18)
[2018-01-23] MEDS: ATORVASTATIN 20 MG TAB PO SCH (09:19)
[2018-01-23] MEDS: ISOSORBIDE DINITRATE 10 MG TAB GT SCH ×2 (09:20→20:47)
[2018-01-23] MEDS: LINEZOLID 600MG PREMIX 300 ML IV SCH ×2 (09:23→21:35)
[2018-01-23] MEDS: DIGOXIN 0.125 MG TAB PO SCH (09:24)
--- NOTE | 2018-01-23 10:30 | NUR ---
DR. CASTELLANO CAME TO THE PT'S ROOM AND CHECKED ON THE PT. CHECKED NEPHROSTOMY TUBE AND INFORMED DR. CASTELLANO THAT GOT AN OUTPUT OF 300ML. DR. CASTELLANO ACKNOWLEDGED.
[2018-01-23] MEDS ORDERED: SODIUM BICARBONATE 650 MG TAB GT SCH (10:42)
--- NOTE | 2018-01-23 11:00 | NUR ---
PT WAS REPOSITIONED AND CLEANED AND MADE COMFORTABLE ON THE BED, APPLIED Z- GUARD IN THE SACRAL AND LEFT HEEL AND REINFORCED WITH DRESSING.
--- NOTE | 2018-01-23 11:01 | NUR ---
vent check, sxn pt moderate amt of thick white secretions pt is getting cleaned.
--- NOTE | 2018-01-23 11:41 | NUR ---
CALLED YRIS AT [facility] [place]. I INFORMED HER NO DISCHARGE TODAY, AND SHE SAID SHE DOES HAVE AN ISOLATION BED FOR HIM WHEN DISCHARGED.
[2018-01-23] MEDS: INSULIN LISPRO SLIDING SCALE 100 UNITS/ML VIAL SUBQ PRN (11:52)
[2018-01-23 12:00] VITALS: BP 123/55
--- NOTE | 2018-01-23 12:50 | NUR ---
DR. CORDERO CAME TO THE PT'S ROOM AND CHECKED ON THE PT.
--- NOTE | 2018-01-23 13:23 | NUR ---
vent check, no sxn needed pt sleeping with no signs of distress noted at this time no hhn given
--- NOTE | 2018-01-23 15:21 | NUR ---
VENT CHECK, SXN PT SMALL AMT OF WHITE SECRETIONS PT SLEEPING TRACH CARE DONE CHANGED TRACH GAUZE
[2018-01-23 16:00] VITALS: BP 129/51
--- NOTE | 2018-01-23 16:33 | NUR ---
SPOKE TO DR. BECK REGARDING THE PT'S MENDIETA CATHETER AND DR. BECK SAID THAT BECAUSE THE PT BLEEDS EASILY, MD SAID TO LEAVE THE MENDIETA CATHETER IN PLACE. PT'S URINE WAS ASSESSED AND COLOR IS YELLOW, CLEAR AND NO FOUL ODOR, NO SIGN OF INFECTION NOTED.
--- NOTE | 2018-01-23 16:45 | NUR ---
PT IS ASLEEP, BLOOD GLUCOSE CHECKED DONE AND RESULT IS 131, NO INSULIN COVERAGE NEEDED. VITAL SIGNS TAKEN AND IS STABLE. NO SIGN OF DISTRESS NOTED. WILL MONITOR PT.
--- NOTE | 2018-01-23 16:46 | NUR ---
vent check airway patent pt sleeping no signs of distress noted
--- NOTE | 2018-01-23 16:55 | NUR ---
PT WASA CLEANED AND REPOSITIONED WITH THE HELP OF RN, CHAVO AND WATER VALVE REPAIRERRITA. AND PT WASA MADE COMFORTABLE ON THE BED. NO SIGN OF DISTRESS NOTED. WILL CONTINUE TO MONITOR.
--- NOTE | 2018-01-23 17:05 | NUR ---
DR. MARIE CAME TO THE PT'S ROOM AND CHECKED THE PT.
--- NOTE | 2018-01-23 17:38 | NUR ---
CALLED RT TO CHECK THE PT, RT INCREASED THE FIO2 TO 35% AND PT"S O2 SATURATION IS BETWEEN 92%-94%. WILL MONITOR PT.
--- NOTE | 2018-01-23 17:38 | NUR ---
called to pt's room due to pt desaturating to 87% increased fio2 to 35% and changed finger probe helga scruggs at bedside
--- NOTE | 2018-01-23 19:30 | NUR ---
ENDORSED PT TO OBJECT ORIENTED DEVELOPER NURSEJUAN FOR CONTINUITY OF CARE. PT IS STABLE AT THIS TIME.
--- NOTE | 2018-01-23 19:31 | NUR ---
RECEIVED PT FROM DAY SHIFT NURSE ROSANA-NATANAEL. PT IS ON A TRACH TO VENT AT FIO2 OF 35% AND RATE OF 12. PT IS APHASIC, ASLEEP AND RESPIRATION EVEN, FALL PRECAUTIONS IN PLACE, BED IN LOW POSITION, YELLOW GOWN, ARM BAND AND SIGN AT THE DOOR IN PLACE. NO S/S OF RESPIRATORY DISTRESS OR DISCOMFORT NOTED AT THIS TIME. PT HAS A CENTRAL LINE IN PLACE-RT SUBCLAVIAN; LEFT NEPHROSTOMY TUBE IN PLACE; MENDIETA CATHETER IN PLACE; PT HAS A CONTINUOUS FEEDING AT A RATE OF 45ML/HR WITH WATER FLUSHING OF 70ML Q4H. PT IS ON CONTACT ISOLATION FOR ABD WOUND YEAST, SPUTUM GRAM NEGATIVE RODS, PSEUDOMONAS AERUGINOSA-MILL WASHER. SACRAL PRESSURE ULCER COVERED WITH OPTIFOAM, LEFT HEEL COVERED WITH OPTIFOAM AND BOOT. WHITE BOARD UPDATED. INTRODUCED SELF-NO REACTION FROM PT. WILL CONTINUE TO MONITOR.
[2018-01-23 20:00] VITALS: BP 136/65
--- NOTE | 2018-01-23 20:00 | NUR ---
VITAL SIGNS TAKEN AND TOLERATED WELL. BLOOD GLUCOSE 126- NO INSULIN COVERAGE NEEDED. NO S/S OF RESPIRATORY DISTRESS OR DISCOMFORT NOTED AT THIS TIME. WILL CONTINUE TO MONITOR.
--- NOTE | 2018-01-23 20:00 | NUR ---
ASSISTED YONY SOTELO WITH PT ROTATION WELL PERINEAL CARE DUE TO INCONTINENT OF STOOL FOUND. PT TOLERATED WELL. NO S/S OF RESPIRATORY DISTRESS OR DISCOMFORT NOTED. WILL CONTINUE TO MONITOR.
--- NOTE | 2018-01-23 20:45 | NUR ---
DR. DAVIS IN TO SEE PT. ASKED MD ABOUT NOSE TAMPON- SEEMS TO CONTINUE TO SATURATE IN BLOOD SINCE I WAS GIVEN REPORT. MD ALLOWED FOR RN TO CHANGE DRESSING. ALSO ASKED ABOUT MENDIETA CATHETER SINCE BAG DID NOT LOOK FAMILIAR TO UNIT. SAID MENDIETA CATHETER WAS PLACED IN ER AND NOTED DATE PLACED ON THE BAG FOR 01/15/2018- DATE OF ADMISSION
[2018-01-23] MEDS: SODIUM BICARBONATE 650 MG TAB GT SCH (20:46)
--- NOTE | 2018-01-23 20:50 | NUR ---
SCHEDULED MEDICATION GIVEN AND TOLERATED WELL. PT HAD ZERO RESIDUAL ON G-TUBE. NO S/S OF RESPIRATORY DISTRESS OR DISCOMFORT NOTED AT THIS TIME. WILL CONTINUE TO MONITOR.
--- NOTE | 2018-01-23 21:02 | NUR ---
VENT CK DONE AND SAT IS 100%, DECREASED FIO2 TO 30%
--- NOTE | 2018-01-23 21:40 | NUR ---
SCHEDULED MEDICATION ZYVOX GIVEN AND TOLERATED WELL. NO S/S OF RESPIRATORY DISTRESS OR DISCOMFORT NOTED AT THIS TIME. WILL CONTINUE TO MONITOR.
--- NOTE | 2018-01-23 22:00 | NUR ---
YONY SOTELO ASSISTED PT WITH REPOSITIONING. PT TOLERATED WELL. WILL CONTINUE TO MONITOR.
[2018-01-24] VITALS: BP 116/53
--- NOTE | 2018-01-24 00:15 | NUR ---
VITAL SIGNS TAKEN AND TOLERATED WELL. NO S/S OF RESPIRATORY DISTRESS OR DISCOMFORT NOTED AT THIS TIME. NEW SYRINGE PLUNGER PLACED. GAUZE TAMPON REPLACED AFTER BECOMING SATURATED. PT TOLERATED WELL. NO S/S OF RESPIRATORY DISTRESS OR DISCOMFORT NOTED AT THIS TIME. WILL CONTINUE TO MONITOR.
--- NOTE | 2018-01-24 02:00 | NUR ---
PT CONTINUES TO SLEEP. NO S/S OF RESPIRATORY DISTRESS OR DISCOMFORT NOTED AT THIS TIME. WILL CONTINUE TO MONITOR.
[2018-01-24] MEDS: NACL 0.45% 1,000 ML IV SCH (03:00)
[2018-01-24 04:00] VITALS: BP 128/62
--- NOTE | 2018-01-24 04:00 | NUR ---
ASSISTED LEGAL COLLECTOR JULIA WITH ROTATING PT TO HIS RIGHT SIDE AND PERINEAL CARE AFTER SECOND BM. NEW BOTTLE OF VITAL AF TUBE FEEDING STARTED INFUSING. VITAL SIGNS TAKEN AND TOLERATED WELL. NO S/S OF RESPIRATORY DISTRESS OR DISCOMFORT NOTED AT THIS TIME. WILL CONTINUE TO MONITOR.
[2018-01-24] MEDS: PIPER/TAZO 3.375GM/D5W PREMIX 50 ML IV SCH ×3 (04:58→21:45)
[2018-01-24] MEDS: ALBUTEROL SULFATE/IPRATROPIU 3 ML SOL IH SCH ×3 (06:40→18:54)
--- NOTE | 2018-01-24 06:40 | NUR ---
REC'D PT ON CARESCAPE VENT SETTINGS AC12 VT500 PEEP 5 FIO2 30% ALARMS ON AND AUDIBLE AND AMBU BAG AT HOB I\L TX GIVEN WITH DUONEB 3ML WITH NO ADVERSE REACTION POST TX B\S ARE CLEAR SNX PT SMALL AMT OF THIN CREAM COLOR SECRETIONS, PT IS TRACH WITH PORTEX 7 AND SKIN INTEGRITY IS INTACT PT IS RESTING
[2018-01-24] MEDS: BLOOD GLUCOSE MONITORING 1 DEV DEV FS SCH ×4 (06:50→21:33)
--- NOTE | 2018-01-24 06:50 | NUR ---
BLOOD GLUCOSE 167- WILL ADMINISTER INSULIN COVERAGE
[2018-01-24] MEDS: INSULIN LISPRO SLIDING SCALE 100 UNITS/ML VIAL SUBQ PRN (06:54)
[2018-01-24] MEDS: GLYCOPYRROLATE 1 MG TAB GT SCH ×2 (06:55→17:52)
--- NOTE | 2018-01-24 07:00 | NUR ---
SCHEDULED MEDICATION GIVEN. INSULIN COVERAGE GIVEN. PT TOLERATED WELL. NO S/S OF RESPIRATORY DISTRESS OR DISCOMFORT NOTED AT THIS TIME. WILL CONTINUE TO MONITOR.
[2018-01-24 07:35] LABS: BASOPHILS % (AUTO) 0.3 % (0.0-2.0); EOSINOPHILS # (AUTO) 0.2 K/uL (0-0.4); EOSINOPHILS % (AUTO) 2.7 % (0.0-4.0); HEMATOCRIT 21.6 % (36-52); HEMOGLOBIN 7.1 g/dL (12.0-18.0); LYMPHOCYTES # (AUTO) 0.8 K/uL (2.0-11.5); LYMPHOCYTES % (AUTO) 12.5 % (20.5-51.1); MEAN CORPUSCULAR HEMOGLOBIN 30 pg (27-31); MEAN CORPUSCULAR HGB CONC 33 g/dL (33-37); MEAN CORPUSCULAR VOLUME 91.7 fL (80-94); MONOCYTES # (AUTO) 0.5 K/uL (0.8-1.0); MONOCYTES % (AUTO) 8.1 % (1.7-9.3); NEUTROPHILS # (AUTO) 4.9 K/uL (1.8-7.7); NEUTROPHILS % (AUTO) 76.4 % (42.2-75.2); PLATELET COUNT (AUTO) 203 K/uL (140-450); RED BLOOD CELL COUNT(AUTO) 2.35 MIL/uL (4.20-6.10); RED CELL DISTRIBUTION WIDTH 16.8 % (11.6-13.7); WHITE BLOOD COUNT (AUTO) 6.5 K/uL (4.8-10.8)
--- NOTE | 2018-01-24 07:45 | NUR ---
RECEIVED SBAR REPORT FROM NIGHT RN AT PT BEDSIDE. PATIENT IS RESTING IN BED. TRACH TO VENT. APHASIC. DOES NOT RESPOND TO VERBAL COMMANDS. CONTRACTED BUE. WITHDRAWS FROM PAIN. PATIENT IS ON BEDSIDE O2 MONITOR. 100% PACED ON TELE MONITOR. PATIENT IS BEDBOUND. OFFLOADED PRESSURE AREAS. SKIN CLEAN AND DRY. NOTED WITH G-TUBE FEEDING, 60ML RESIDUAL NOTED. MENDIETA CATH IN PLACE TO GRAVITY IN MODERATE AMOUNT. PATIENT NOTED WITH LEFT SIDE NEPHROSTOMY TUBE, MODERATE CLEAR YELLOW DRAINING TO BAG. HEELS OFFLOADED ON BOOT AND PILLOWS. EDEMATOUS BUE/BLE, ELEVATED EXTREMITIES. BED IN LOWEST POSITION. VENT ALARMS AND BEDSIDE MONITORS CHECKED. CENTRAL LINE NOTED RIGHT SUBCLAVIAN, PATENT/INTACT.
[2018-01-24 07:51] LABS: ANION GAP 12.6 (8-16); CARBON DIOXIDE 20.2 mmol/L (21-32); CHLORIDE 110 mmol/L (98-107); CREATININE 1.7 mg/dL (0.7-1.3); GLUCOSE 169 mg/dL (74-106); SODIUM SERUM 140 mmol/L (136-145); UREA NITROGEN, BLOOD 49 mg/dL (7-18)
[2018-01-24 07:52] LABS: PROTHROMBIN TIME 10.3 secs (10.8-13.4)
[2018-01-24 07:54] LABS: PHOSPHORUS 3.6 mg/dL (2.5-4.9)
--- NOTE | 2018-01-24 07:54 | NUR ---
ENDORSED PT CARE TO DAY SHIFT NURSE MEGAN FOR CONTINUITY OF CARE.
[2018-01-24 08:00] VITALS: BP 125/56
[2018-01-24 08:00] LABS: POTASSIUM 2.8 mmol/L (3.5-5.1)
[2018-01-24] MEDS ORDERED: KCL 20 MEQ/WATER INJ PREMIX 200 ML IV ONE (08:10)
[2018-01-24] MEDS: MULTIVITAMIN/MINERALS 1 TAB GT SCH (08:23)
[2018-01-24] MEDS: ATORVASTATIN 20 MG TAB PO SCH (08:23)
[2018-01-24] MEDS: SENNA 8.6 MG TAB GT SCH (08:23)
[2018-01-24] MEDS: LINEZOLID 600MG PREMIX 300 ML IV SCH ×2 (08:23→21:45)
[2018-01-24] MEDS: FERROUS SULFATE 300 MG/5 ML UDC GT SCH ×2 (08:24→21:44)
[2018-01-24] MEDS: SULFAMETH/TRIMETH DS 800/160MG 1 TAB PO SCH (08:24)
[2018-01-24] MEDS: ISOSORBIDE DINITRATE 10 MG TAB GT SCH ×2 (08:24→21:44)
[2018-01-24] MEDS: DIGOXIN 0.125 MG TAB PO SCH (08:24)
[2018-01-24] MEDS: SIMETHICONE 80 MG TAB.CHEW GT SCH ×3 (08:24→17:53)
[2018-01-24] MEDS: ALLOPURINOL 100 MG TAB GT SCH (08:24)
[2018-01-24] MEDS: amLODIPine 5 MG TAB GT SCH (08:24)
[2018-01-24] MEDS: LACTOBACILLUS RHAMNOSUS GG 1 EACH CAP GT SCH (08:24)
[2018-01-24] MEDS: SODIUM BICARBONATE 650 MG TAB GT SCH ×2 (08:24→21:45)
[2018-01-24] MEDS: FAMOTIDINE 20 MG TAB GT SCH (08:24)
[2018-01-24] MEDS: CARVEDILOL 12.5 MG TAB GT SCH ×2 (08:25→21:45)
[2018-01-24] MEDS: CALCIUM CARBONATE 500 MG TAB GT SCH ×2 (08:25→21:44)
[2018-01-24] MEDS: PANTOPRAZOLE 40 MG INJ VIAL IVP SCH ×2 (08:25→21:45)
[2018-01-24] MEDS: METOCLOPRAMIDE 10 MG/2 ML INJ VIAL IVP SCH ×3 (08:25→17:52)
[2018-01-24] MEDS: DOCUSATE 100 MG/10 ML UDC GT SCH ×2 (08:25→21:44)
[2018-01-24] MEDS ORDERED: KCL 20 MEQ/WATER INJ PREMIX 200 ML IV SCH (08:30)
--- NOTE | 2018-01-24 09:00 | NUR ---
vent check, no sxn needed airway is patent and pt is resting
--- NOTE | 2018-01-24 10:10 | NUR ---
PATIENT ASSISTED IN CHANGING OF POSITIONS. LARGE LOOSE STOOL NOTED, SKIN KEPT CLEAN AND DRY. OFFLOADED PRESSURE AREAS. INTERMITTENT COUGHS WITH MINIMAL THIN SECRETIONS NOTED. ORAL CARE PROVIDED. NO ACUTE DISTRESS NOTED.
--- NOTE | 2018-01-24 11:14 | NUR ---
VENT CHECK, SXN PT SMALL AMT OF CREAM COLOR THIN SECRETIONS, AIRWAY IS PATENT AND PT IS RESTING
[2018-01-24 12:00] VITALS: BP 110/55
--- NOTE | 2018-01-24 13:21 | NUR ---
VENT CHECK, NO SNX NEEDED AIRWAY PATENT PT SLEEPING WITH NO SIGNS OF DISTRESS NOTED NO HHN GIVEN AT THIS TIME
--- NOTE | 2018-01-24 13:58 | NUR ---
PATIENT ASSISTED IN CHANGING OF POSITIONS. LINENS CLEAN AND DRY. OFFLOADED PRESSURE AREAS. TOLERATING TUBE FEEDINGS. NO ACUTE DISTRESS NOTED.
[2018-01-24 16:00] VITALS: BP 113/56
--- NOTE | 2018-01-24 16:10 | NUR ---
PATIENT ASSISTED IN CHANGING OF POSITIONS Q2H DURING SHIFT. PATIENT SKIN KEPT CLEAN AND DRY. OFFLOADED PRESSURE AREAS. ORAL CARE PROVIDED AT THIS TIME. NO ACUTE DISTRESS NOTED.
--- NOTE | 2018-01-24 16:22 | NUR ---
vent check, sxn pt airway is patent and trach care done pt is resting
[2018-01-24 18:48] LABS: ANION GAP 12.1 (8-16); CARBON DIOXIDE 20.5 mmol/L (21-32); CHLORIDE 110 mmol/L (98-107); CREATININE 1.6 mg/dL (0.7-1.3); GLUCOSE 131 mg/dL (74-106); POTASSIUM 3.6 mmol/L (3.5-5.1); SODIUM SERUM 139 mmol/L (136-145); UREA NITROGEN, BLOOD 49 mg/dL (7-18)
--- NOTE | 2018-01-24 19:30 | NUR ---
ASSUMED CARE OF PATIENT, ASLEEP AROUSABLE. OPENS EYES. NO DISTRESS. TRACH TO VENT. RT AT BEDSIDE TO CHECK ON PATIENT. CALL LIGHT WITHIN REACH. CARE BOARD UPDATED.
--- NOTE | 2018-01-24 19:40 | NUR ---
SBAR REPORT GIVEN TO NIGHT RN AT PT BEDSIDE. PATIENT RESTING IN BED, NO ACUTE DISTRESS NOTED.
[2018-01-24 20:00] VITALS: BP 131/55
--- NOTE | 2018-01-24 20:00 | NUR ---
REPOSITIONED SUPINE POSITION. VITAL SIGNS STABLE. AFEBRILE. NO COMPLAINS. CALL LIGHT WITHIN REACH. HOB ELEVATED AT ALL TIMES.
--- NOTE | 2018-01-25 | NUR ---
VITAL SIGNS STABLE. AFEBRILE. PERICARE DONE. BED BATH RENDERED. REPOSITIONED TO RIGHT SIDE LYING. CALL LIGHT WITHIN REACH.
[2018-01-25 00:05] VITALS: BP 121/60
[2018-01-25 04:31] VITALS: BP 134/54
--- NOTE | 2018-01-25 04:35 | NUR ---
REPOSITIONED TO LEFT SIDE LYING. VITAL SIGNS STABLE. AFEBRILE. CALL LIGHT WITHIN REACH.
[2018-01-25] MEDS: PIPER/TAZO 3.375GM/D5W PREMIX 50 ML IV SCH ×3 (04:40→20:32)
[2018-01-25] MEDS: BLOOD GLUCOSE MONITORING 1 DEV DEV FS SCH ×4 (06:09→20:38)
[2018-01-25] MEDS: GLYCOPYRROLATE 1 MG TAB GT SCH ×2 (06:44→16:41)
[2018-01-25] MEDS: ALBUTEROL SULFATE/IPRATROPIU 3 ML SOL IH SCH ×3 (06:50→19:08)
--- NOTE | 2018-01-25 07:10 | NUR ---
ENDORSED CARE AT BEDSIDE WITH BARRIGA RN, PATIENT IN STABLE CONDITION.
--- NOTE | 2018-01-25 07:11 | NUR ---
RECEIVED REPORT FROM PEDIATRIC DENTAL HYGIENIST RN. PATIENT IS NON-VERBAL, OPENS EYES TO SHAKING. IS TRACH TO VENT WITH NO SIGNS AND SYMPTOMS OF DISTRESS NOTED AT THIS TIME. UPPER AND LOWER EXTREMITIES ARE CONTRACTED. HAS RIGHT SUBCLAVIAN TRIPLE LUMEN PICC LINE. INFUSING NS AT 5 ML/HR. HAS LEFT NEPHROSTOMY TUBE, AND HAS A MENDIETA CATHETER. HAS A G TUBE WITH VITAL AF AT 45 ML/HR. HAS HEAL PROTECTOR BOOT TO THE LEFT FOOT. BED IS IN LOWEST POSITION, SIDE RAILS UP X3, CALL LIGHT WITHIN REACH. WILL CONTINUE TO MONITOR.
--- NOTE | 2018-01-25 07:15 | NUR ---
RECIVED PT ON VENT WITH SETTINGS CHARTED BREATH SOUNDS PRESENT BILAT COARSE SXN PT WITH MIN AMT OFF WHITE SECS TRACH SITE SECURE AMBU BAG AT BEDSIDE VENT PLUGGED INTO RED OUTLET WILL CONTINUE TO MONITOR PT ON VENT
[2018-01-25 08:00] VITALS: BP 128/59
[2018-01-25] MEDS: FERROUS SULFATE 300 MG/5 ML UDC GT SCH ×2 (08:30→20:31)
[2018-01-25] MEDS: METOCLOPRAMIDE 10 MG/2 ML INJ VIAL IVP SCH ×3 (08:30→16:40)
[2018-01-25] MEDS: PANTOPRAZOLE 40 MG INJ VIAL IVP SCH ×2 (08:30→20:31)
[2018-01-25] MEDS: ALLOPURINOL 100 MG TAB GT SCH (08:31)
[2018-01-25] MEDS: LINEZOLID 600MG PREMIX 300 ML IV SCH ×2 (08:31→20:35)
[2018-01-25] MEDS: SODIUM BICARBONATE 650 MG TAB GT SCH ×2 (08:31→20:32)
[2018-01-25] MEDS: LACTOBACILLUS RHAMNOSUS GG 1 EACH CAP GT SCH (08:31)
[2018-01-25] MEDS: ATORVASTATIN 20 MG TAB PO SCH (08:31)
[2018-01-25] MEDS: ISOSORBIDE DINITRATE 10 MG TAB GT SCH ×2 (08:32→20:32)
[2018-01-25] MEDS: SULFAMETH/TRIMETH DS 800/160MG 1 TAB PO SCH (08:32)
[2018-01-25] MEDS: MULTIVITAMIN/MINERALS 1 TAB GT SCH (08:32)
[2018-01-25] MEDS: SIMETHICONE 80 MG TAB.CHEW GT SCH ×3 (08:32→16:41)
[2018-01-25] MEDS: CALCIUM CARBONATE 500 MG TAB GT SCH ×2 (08:32→20:33)
[2018-01-25] MEDS: FAMOTIDINE 20 MG TAB GT SCH (08:32)
[2018-01-25] MEDS: amLODIPine 5 MG TAB GT SCH (08:33)
[2018-01-25] MEDS: DIGOXIN 0.125 MG TAB PO SCH (08:34)
[2018-01-25 08:43] LABS: PHOSPHORUS 3.6 mg/dL (2.5-4.9)
[2018-01-25 08:45] LABS: RED BLOOD CELL COUNT(AUTO) 2.34 MIL/uL (4.20-6.10); WHITE BLOOD COUNT (AUTO) 6.2 K/uL (4.8-10.8)
[2018-01-25 08:46] LABS: EOSINOPHILS % (AUTO) 3.4 % (0.0-4.0); HEMATOCRIT 21.8 % (36-52); LYMPHOCYTES % (AUTO) 15.6 % (20.5-51.1); MEAN CORPUSCULAR HEMOGLOBIN 30 pg (27-31); MEAN CORPUSCULAR HGB CONC 32 g/dL (33-37); MEAN CORPUSCULAR VOLUME 93.1 fL (80-94); MONOCYTES % (AUTO) 9.5 % (1.7-9.3); NEUTROPHILS % (AUTO) 70.8 % (42.2-75.2); PLATELET COUNT (AUTO) 219 K/uL (140-450); RED CELL DISTRIBUTION WIDTH 17.7 % (11.6-13.7)
[2018-01-25 08:47] LABS: BASOPHILS % (AUTO) 0.7 % (0.0-2.0); EOSINOPHILS # (AUTO) 0.2 K/uL (0-0.4); MONOCYTES # (AUTO) 0.6 K/uL (0.8-1.0); NEUTROPHILS # (AUTO) 4.4 K/uL (1.8-7.7)
[2018-01-25 08:48] LABS: ANION GAP 13.3 (8-16); CARBON DIOXIDE 19.1 mmol/L (21-32); CHLORIDE 110 mmol/L (98-107); CREATININE 1.7 mg/dL (0.7-1.3); GLUCOSE 125 mg/dL (74-106); POTASSIUM 3.4 mmol/L (3.5-5.1); SODIUM SERUM 139 mmol/L (136-145); UREA NITROGEN, BLOOD 46 mg/dL (7-18)
--- NOTE | 2018-01-25 08:55 | NUR ---
INFORMED DR BECK OF H AND H RESULTS. HE STATED NO NEW ORDERS AT THIS TIME. PATIENT HAS NO SIGNS OF BLEEDING AT THIS TIME. WILL CONTINUE TO MONITOR.
[2018-01-25] MEDS: DOCUSATE 100 MG/10 ML UDC GT SCH ×2 (09:00→20:32)
[2018-01-25] MEDS: CARVEDILOL 12.5 MG TAB GT SCH ×2 (09:00→20:32)
[2018-01-25] MEDS: SENNA 8.6 MG TAB GT SCH (09:00)
[2018-01-25] MEDS ORDERED: KCL 20 MEQ/WATER INJ PREMIX 100 ML IV SCH (10:15)
[2018-01-25 12:00] VITALS: BP 131/57
[2018-01-25] MEDS ORDERED: EPOETIN ALFA 10,000 UNITS/ML VIAL IV SCH (13:55)
--- NOTE | 2018-01-25 15:37 | NUR ---
01/25/18 RD FOLLOW UP COMPLETED PLEASE REFER TO NUTRITION ASSESSMENT UNDER CARE ACTIVITY FOR ESTIMATED NUTRITIONAL NEEDS. 1. CONTINUE VITAL AF @ GOAL RATE 45 ML/HR. -THIS WILL PROVIDE 1080 ML, 1296 KCAL, 81 GM PROTEIN, MEETING 100% OF ESTIMATED KCAL NEEDS AND 90% OF PROTEIN NEEDS. 2. CONTINUE FREE WATER FLUSH [address] TO FOLLOW-UP 2-3 DAYS, HIGH RISK CHAPINCITO DOMINGUEZ RD
[2018-01-25 16:00] VITALS: BP 136/63
[2018-01-25] MEDS: INSULIN LISPRO SLIDING SCALE 100 UNITS/ML VIAL SUBQ PRN (16:42)
[2018-01-25] MEDS ORDERED: EPOETIN ALFA 10,000 UNITS/ML VIAL SUBQ SCH (17:00)
--- NOTE | 2018-01-25 17:05 | NUR ---
MADE DR BECK AWARE THAT PATIENTS PICC LINE LOOKS LIKE ITS LEAKING. INFORMED HIM THAT ONLY ONE OF THE LUMENS IS WORKING NOW. HE STATED PATIENT MIGHT BE GOING BACK TOMORROW AND MAYBE WE CAN TAKE IT OUT THEN.
--- NOTE | 2018-01-25 19:27 | NUR ---
ENDORSED PATIENT TO STATISTICAL DEVELOPER RN FOR CONTINUITY OF CARE. PATIENT IN STABLE CONDITION.
--- NOTE | 2018-01-25 19:28 | NUR ---
RECEIVED REPORT FROM DAY SHIFT RN FOR CONTINUITY OF CARE. PT IS APHASIC, ON TRACH TO VENT SETTINGS: PEEP 5, VT 500, FIO2: 30%, AND FLOW 50. PT IS UNABLE TO MAKE NEEDS KNOWN, UNABLE TO FOLLOW COMMANDS. PT SKIN IS NON-INTACT, SEE WOUND ASSESSMENT. PT HAS A TLC CENTRAL LINE TO RIGHT SUBCLAVIAN, WITH ONLY ONE PORT FUNCTIONING. VITAL SIGNS WITHIN NORMAL LIMITS. PT STABLE, NO SIGNS OF DISTRESS NOTED AT THIS TIME. BED IN LOWEST POSITION, BED ALARM ON. CALL LIGHT WITHIN REACH, WILL CONTINUE TO MONITOR.
[2018-01-25 20:00] VITALS: BP 133/61
--- NOTE | 2018-01-25 20:39 | NUR ---
ADMINISTERED SCHEDULED MEDICATIONS, PT TOLERATED WELL.
[2018-01-26] VITALS: BP 119/48
[2018-01-26 04:00] VITALS: BP 142/75
--- NOTE | 2018-01-26 04:00 | NUR ---
PT RESTING. VITAL SIGNS WITHIN NORMAL LIMITS. PT STABLE, NO SIGNS OF DISTRESS NOTED AT THIS TIME. BED IN LOWEST POSITION, BED ALARM ON. CALL LIGHT WITHIN REACH, WILL CONTINUE TO MONITOR.
[2018-01-26] MEDS: PIPER/TAZO 3.375GM/D5W PREMIX 50 ML IV SCH ×3 (05:24→20:36)
[2018-01-26] MEDS: BLOOD GLUCOSE MONITORING 1 DEV DEV FS SCH ×4 (06:20→20:34)
[2018-01-26] MEDS: GLYCOPYRROLATE 1 MG TAB GT SCH ×2 (06:37→17:00)
--- NOTE | 2018-01-26 06:39 | NUR ---
ADMINISTERED SCHEDULED MEDICATION, PT TOLERATED WELL.
[2018-01-26] MEDS: ALBUTEROL SULFATE/IPRATROPIU 3 ML SOL IH SCH ×3 (07:06→19:06)
--- NOTE | 2018-01-26 07:13 | NUR ---
RECEIVED TRACH PT WITH A PORTEX 7 TRACH ON VENT. SETTINGS AC 12, VT 500, PEEP 5 AND FIO2 30%. PT SUCTIONED OBTAINED MODERATE AMOUNT OF THICK WHITE SECRETIONS,AIRWAY IS PATENT AND TRACH IS SECURE. PT OPENS HIS EYES BUT IS NOT ALERT. VENT IS PLUGGED INTO A RED OUTLET WITH ALARMS ON AND FUNCTIONING. WILL CONTINUE TO MONITOR.
--- NOTE | 2018-01-26 07:30 | NUR ---
ENDORSED PT TO DAY SHIFT RN FOR CONTINUITY OF CARE. PT IN STABLE CONDITION.
--- NOTE | 2018-01-26 07:31 | NUR ---
RECEIVED REPORT FROM TRANSPORT CONDUCTOR RN. PATIENT IS NON-VERBAL, OPENS EYES TO SHAKING. IS TRACH TO VENT WITH NO SIGNS AND SYMPTOMS OF DISTRESS NOTED AT THIS TIME. UPPER AND LOWER EXTREMITIES ARE CONTRACTED. HAS RIGHT SUBCLAVIAN TRIPLE LUMEN PICC LINE. INFUSING NS AT 5 ML/HR. HAS LEFT NEPHROSTOMY TUBE, AND HAS A MENDIETA CATHETER. HAS A G TUBE WITH VITAL AF AT 45 ML/HR. HAS HEAL PROTECTOR BOOT TO THE LEFT FOOT. BED IS IN LOWEST POSITION, SIDE RAILS UP X3, CALL LIGHT WITHIN REACH. WILL CONTINUE TO MONITOR.
[2018-01-26 08:00] VITALS: BP 135/52
[2018-01-26 08:50] LABS: ANION GAP 11.6 (8-16); CARBON DIOXIDE 20.7 mmol/L (21-32); CHLORIDE 110 mmol/L (98-107); CREATININE 1.5 mg/dL (0.7-1.3); GLUCOSE 146 mg/dL (74-106); POTASSIUM 3.3 mmol/L (3.5-5.1); SODIUM SERUM 139 mmol/L (136-145); UREA NITROGEN, BLOOD 39 mg/dL (7-18)
[2018-01-26 08:59] LABS: WHITE BLOOD COUNT (AUTO) 5.9 K/uL (4.8-10.8)
[2018-01-26 09:00] LABS: HEMATOCRIT 22.4 % (36-52); HEMOGLOBIN 7.2 g/dL (12.0-18.0); MEAN CORPUSCULAR HEMOGLOBIN 30 pg (27-31); MEAN CORPUSCULAR HGB CONC 32 g/dL (33-37); MEAN CORPUSCULAR VOLUME 93.5 fL (80-94); RED CELL DISTRIBUTION WIDTH 17.2 % (11.6-13.7)
[2018-01-26] MEDS: DOCUSATE 100 MG/10 ML UDC GT SCH ×2 (09:00→20:34)
[2018-01-26] MEDS: SENNA 8.6 MG TAB GT SCH (09:00)
[2018-01-26 09:01] LABS: BASOPHILS % (AUTO) 0.4 % (0.0-2.0); EOSINOPHILS % (AUTO) 3.1 % (0.0-4.0); LYMPHOCYTES % (AUTO) 12.6 % (20.5-51.1); MONOCYTES % (AUTO) 9.8 % (1.7-9.3); NEUTROPHILS # (AUTO) 4.4 K/uL (1.8-7.7); NEUTROPHILS % (AUTO) 74.1 % (42.2-75.2); PLATELET COUNT (AUTO) 211 K/uL (140-450)
[2018-01-26 09:02] LABS: EOSINOPHILS # (AUTO) 0.2 K/uL (0-0.4); LYMPHOCYTES # (AUTO) 0.7 K/uL (2.0-11.5); MONOCYTES # (AUTO) 0.6 K/uL (0.8-1.0)
[2018-01-26] MEDS: FERROUS SULFATE 300 MG/5 ML UDC GT SCH (09:16)
[2018-01-26] MEDS: PANTOPRAZOLE 40 MG INJ VIAL IVP SCH ×2 (09:16→20:36)
[2018-01-26] MEDS: SODIUM BICARBONATE 650 MG TAB GT SCH ×2 (09:17→20:36)
[2018-01-26] MEDS: FAMOTIDINE 20 MG TAB GT SCH (09:17)
[2018-01-26] MEDS: METOCLOPRAMIDE 10 MG/2 ML INJ VIAL IVP SCH ×3 (09:17→17:00)
[2018-01-26] MEDS: CARVEDILOL 12.5 MG TAB GT SCH ×2 (09:17→20:35)
[2018-01-26] MEDS: MULTIVITAMIN/MINERALS 1 TAB GT SCH (09:17)
[2018-01-26] MEDS: amLODIPine 5 MG TAB GT SCH (09:18)
[2018-01-26] MEDS: ISOSORBIDE DINITRATE 10 MG TAB GT SCH ×2 (09:18→20:35)
[2018-01-26] MEDS: LACTOBACILLUS RHAMNOSUS GG 1 EACH CAP GT SCH (09:19)
[2018-01-26] MEDS: DIGOXIN 0.125 MG TAB PO SCH (09:19)
[2018-01-26] MEDS: SIMETHICONE 80 MG TAB.CHEW GT SCH ×3 (09:19→16:59)
[2018-01-26] MEDS: ALLOPURINOL 100 MG TAB GT SCH (09:19)
[2018-01-26] MEDS: ATORVASTATIN 20 MG TAB PO SCH (09:19)
[2018-01-26] MEDS: CALCIUM CARBONATE 500 MG TAB GT SCH ×2 (09:20→20:35)
[2018-01-26] MEDS: SULFAMETH/TRIMETH DS 800/160MG 1 TAB PO SCH (09:20)
--- NOTE | 2018-01-26 09:24 | NUR ---
FIO2 TITRATED TO 28%. NURSE MADE AWARE. WILL CONTINUE TO MONITOR.
--- NOTE | 2018-01-26 11:36 | NUR ---
PT SUCTIONED OBTAINED SMALL AMOUNT OF THICK WHITE SECRETIONS, AIRWAY IS PATENT AND TRACH IS SECURE. WILL CONTINUE TO MONITOR.
[2018-01-26 12:00] VITALS: BP 120/42
--- NOTE | 2018-01-26 12:05 | NUR ---
SPOKE WITH DR. BECK. HE SAID THE PATIENT WILL PROBABLY BE [place]CHAR[place] [facility] CALLED YRIS AT [facility] AND INFORMED HER. SHE SAID SHE WOULD BE [place] [facility] [place]. THE PATIENT CAN GO TO ROOM 27A UNDER DR[address] AMIN. SHE WILL NEED THE MED LIST AND THE DISCHARGE ORDER TOMORROW FAXED TO HER, FAX [phone].
--- NOTE | 2018-01-26 12:18 | NUR ---
FAXED MICROS AND MED LIST TO YRIS AT [facility] [phone] PHONE [phone]
[2018-01-26] MEDS ORDERED: POTASSIUM CHLORIDE 20% 40 MEQ/15 ML UDC GT SCH (14:30)
[2018-01-26] MEDS ORDERED: KCL 20 MEQ/WATER INJ PREMIX 200 ML IV ONE (14:50)
[2018-01-26] MEDS: SODIUM FERRIC GLUCONATE 125 MG in NACL 0.9% 100 ML IV SCH (15:55)
[2018-01-26 16:00] VITALS: BP 126/50
--- NOTE | 2018-01-26 17:30 | NUR ---
STARTED BLOOD TRANSFUSION ON PATIENT. INITIAL RATE OF 60 ML/HR. VITAL SIGNS ARE STABLE: BP OF 138/57, HR 60, RR 18, O2 98%, TEMP OF 97.3. WILL FOLLOW PROTOCOL AND INCREASE RATE TOLERATED. WILL CONTINUE TO MONITOR.
--- NOTE | 2018-01-26 17:33 | NUR ---
PT REMAINS ON DOCUMENTED VENT SETTINGS. VENT ALARMS REMAIN ON AND FUNCTIONING. TRACH REMAINS SECURE WITH A PATENT AIRWAY. PT SUCTIONED OBTAINED SMALL AMOUNT OF THICK SECRETIONS. PT IS NOT SOB AND NOT IN RESPIRATORY DISTRESS AT THIS TIME.
--- NOTE | 2018-01-26 18:31 | NUR ---
PATIENT HAS NO SIGNS AND SYMPTOMS OF ACUTE DISTRESS NOTED AT THIS TIME. WILL CONTINUE TO MONITOR.
--- NOTE | 2018-01-26 19:24 | NUR ---
ENDORSED PATIENT TO SOFTWARE APPLICATIONS ENGINEER RN FOR CONTINUITY OF CARE. PATIENT IN STABLE CONDITION.
--- NOTE | 2018-01-26 19:25 | NUR ---
RECEIVED REPORT FROM DAY SHIFT RN FOR CONTINUITY OF CARE. PT IS APHASIC, ON TRACH TO VENT SETTINGS: PEEP 5, VT 500, FIO2: 30%, AND FLOW 50. PT IS UNABLE TO MAKE NEEDS KNOWN, UNABLE TO FOLLOW COMMANDS. PT SKIN IS NON-INTACT, SEE WOUND ASSESSMENT. PT HAS A TLC CENTRAL LINE TO RIGHT SUBCLAVIAN, WITH ONLY ONE PORT FUNCTIONING, AND IS RECEIVING BLOOD TRANSFUSION. VITAL SIGNS WITHIN NORMAL LIMITS. PT STABLE, NO SIGNS OF DISTRESS NOTED AT THIS TIME. BED IN LOWEST POSITION, BED ALARM ON. CALL LIGHT WITHIN REACH, WILL CONTINUE TO MONITOR.
[2018-01-26 19:51] VITALS: BP 132/59
--- NOTE | 2018-01-26 20:37 | NUR ---
ADMINISTERED SCHEDULED MEDICATIONS, P TOLERATED WELL. NO RESIDUAL NOTED, FLUSHED WITH 10ML WATER AFTER EACH MEDICATION AND WITH 60ML WATER AFTER ALL MEDICATIONS ADMINISTERED.
--- NOTE | 2018-01-26 22:33 | NUR ---
VITAL SIGNS WITHIN NORMAL LIMITS. PT STABLE, NO SIGNS OF DISTRESS NOTED AT THIS TIME. BED IN LOWEST POSITION, BED ALARM ON. CALL LIGHT WITHIN REACH, WILL CONTINUE TO MONITOR. Addendum: 01/26/18 at 2306 by Ramona Harris RN DISREGARD.
--- NOTE | 2018-01-26 22:34 | NUR ---
PT RESTING, STABLE, NO SIGNS OF DISTRESS NOTED AT THIS TIME. BED IN LOWEST POSITION, BED ALARM ON. CALL LIGHT WITHIN REACH, WILL CONTINUE TO MONITOR.
--- NOTE | 2018-01-26 23:15 | NUR ---
SPOKE WITH DR ALVARADO ABOUT CANCELLATION OF ZYVOX AND ZOSYN, ASKED IF IT WAS INTENTIONAL OR IF PHARMACY AUTOMATICALLY CANCELLED IT AFTER A CERTAIN PERIOD OF TIME. DR ALVARADO WAS UNSURE AND SAID HE WOULD FIND OUT.
[2018-01-27] VITALS: BP 130/52
--- NOTE | 2018-01-27 02:35 | NUR ---
PT HAD VERY LARGE BOWEL MOVEMENT. CLEANED PT AND BED. CHANGED BEDDING AND REPOSITIONED PT AGAIN. PT TOLERATED EVERYTHING WELL.
[2018-01-27 04:00] VITALS: BP 139/57
[2018-01-27] MEDS: GLYCOPYRROLATE 1 MG TAB GT SCH (06:34)
[2018-01-27] MEDS: BLOOD GLUCOSE MONITORING 1 DEV DEV FS SCH ×4 (06:34→20:34)
[2018-01-27] MEDS: ALBUTEROL SULFATE/IPRATROPIU 3 ML SOL IH SCH ×3 (07:00→18:57)
--- NOTE | 2018-01-27 07:17 | NUR ---
ENDORSED PT TO DAY SHIFT RN FOR CONTINUITY OF CARE. PT IN STABLE CONDITION.
--- NOTE | 2018-01-27 07:18 | NUR ---
ENDORSED PT TO DAY SHIFT RN FOR CONTINUITY OF CARE. PT IN STABLE CONDITION.
--- NOTE | 2018-01-27 07:18 | NUR ---
REC'D PT ON CARESCAPE VENT SETTINGS AC12 VT 500 PEEP 5 FIO2 28% ALARMS ON AND AUDIBLE AND AMBU BAG IS AT HOB AND VENT IS PLUGGED INTO RED OUTLET, NO HHN GIVEN AT THIS TIME PT IS SLEEPING WITH NO SIGNS OF DISTRESS NOTED B\S ARE CLEAR BILATERALLY, SXN PT SMALL AMT OF CREAM COLOR SECRETIONS, PT IS TRACH WITH PORTEX 7 AND SKIN INTEGRITY IS INTACT
[2018-01-27 08:00] VITALS: BP 154/65
--- NOTE | 2018-01-27 08:46 | NUR ---
01/27/18 RD FOLLOW UP COMPLETED PLEASE REFER TO NUTRITION PROGRESS NOTE UNDER CARE ACTIVITY FOR ESTIMATED NUTRITION NEEDS. RD RECOMMENDATIONS: 1. CONTINUE VITAL AF @ GOAL RATE 45 ML/HR TOLERATED. -THIS WILL PROVIDE 1080 ML, 1296 KCAL, 81 GM PROTEIN, MEETING 100% OF ESTIMATED KCAL NEEDS AND 90% OF PROTEIN NEEDS. 2. CONTINUE FREE WATER FLUSH 70 ML Q4H TOLERATED. 3. RD TO FOLLOW-UP 2-3 DAYS, HIGH RISK RAFAELA MICHELLE MS, RDN
[2018-01-27] MEDS ORDERED: EPOETIN ALFA 10,000 UNITS/ML VIAL SUBQ SCH (09:00)
[2018-01-27] MEDS: SENNA 8.6 MG TAB GT SCH (09:00)
[2018-01-27] MEDS: DOCUSATE 100 MG/10 ML UDC GT SCH ×2 (09:00→20:56)
[2018-01-27] MEDS: SODIUM BICARBONATE 650 MG TAB GT SCH (09:18)
[2018-01-27] MEDS: PANTOPRAZOLE 40 MG INJ VIAL IVP SCH ×2 (09:19→20:56)
[2018-01-27] MEDS: MULTIVITAMIN/MINERALS 1 TAB GT SCH (09:19)
[2018-01-27] MEDS: ALLOPURINOL 100 MG TAB GT SCH (09:19)
[2018-01-27] MEDS: SIMETHICONE 80 MG TAB.CHEW GT SCH (09:20)
[2018-01-27] MEDS: CARVEDILOL 12.5 MG TAB GT SCH ×2 (09:20→20:56)
--- NOTE | 2018-01-27 09:20 | NUR ---
VENT CHECK AND ASSESS PATIENT. RN AT BEDSIDE WITH TRAINING ANOTHER RN AND WITH A STUDENT. B/S: CLEAR. DID NOT SUCTION PATIENT AT THIS TIME. PATIENT APPEARS COMFORTABLE WITH NO RESPIRATORY DISTRESS. WILL CONTINUE TO MONITOR.
[2018-01-27] MEDS: METOCLOPRAMIDE 10 MG/2 ML INJ VIAL IVP SCH ×3 (09:21→17:11)
[2018-01-27] MEDS: DIGOXIN 0.125 MG TAB PO SCH (09:21)
--- NOTE | 2018-01-27 09:21 | NUR ---
ABD NOTED TO BE DISTENDED. AIR HISSING OUT OF THE CONSTANCE VALVE WHEN RESIDUAL WAS BEING CHECKED. 45 ML OF RESIDUAL NOTED. BLOOD NOTED ON THE RESIDUAL. MEDICATIONS AND FEEDING HELD AT THIS TIME. NOTIFIED DR PACHECO
[2018-01-27 09:22] LABS: BASOPHILS % (AUTO) 0.3 % (0.0-2.0); EOSINOPHILS # (AUTO) 0.2 K/uL (0-0.4); EOSINOPHILS % (AUTO) 3.2 % (0.0-4.0); HEMATOCRIT 23.2 % (36-52); HEMOGLOBIN 7.6 g/dL (12.0-18.0); LYMPHOCYTES # (AUTO) 0.7 K/uL (2.0-11.5); LYMPHOCYTES % (AUTO) 11.7 % (20.5-51.1); MEAN CORPUSCULAR HEMOGLOBIN 30 pg (27-31); MEAN CORPUSCULAR HGB CONC 33 g/dL (33-37); MEAN CORPUSCULAR VOLUME 90.9 fL (80-94); MONOCYTES # (AUTO) 0.5 K/uL (0.8-1.0); MONOCYTES % (AUTO) 8.6 % (1.7-9.3); NEUTROPHILS # (AUTO) 4.4 K/uL (1.8-7.7); NEUTROPHILS % (AUTO) 76.2 % (42.2-75.2); PLATELET COUNT (AUTO) 155 K/uL (140-450); RED BLOOD CELL COUNT(AUTO) 2.56 MIL/uL (4.20-6.10); RED CELL DISTRIBUTION WIDTH 16.7 % (11.6-13.7); WHITE BLOOD COUNT (AUTO) 5.7 K/uL (4.8-10.8)
[2018-01-27] MEDS: amLODIPine 5 MG TAB GT SCH (09:22)
[2018-01-27] MEDS: ISOSORBIDE DINITRATE 10 MG TAB GT SCH ×2 (09:22→20:56)
[2018-01-27] MEDS: FAMOTIDINE 20 MG TAB GT SCH (09:23)
[2018-01-27] MEDS: CALCIUM CARBONATE 500 MG TAB GT SCH (09:23)
[2018-01-27] MEDS: ATORVASTATIN 20 MG TAB PO SCH (09:24)
--- NOTE | 2018-01-27 10:35 | NUR ---
PATIENT SEEN BY DR WALTER. DR WALTER NOTIFIED ABOUT AIR IN PATIENT'S ABD AND RESIDUALS. PER DR WALTER OK TO RESUME FEEDING AND ADMINISTER MEDICATIONS. KUB ORDERED
--- NOTE | 2018-01-27 11:06 | NUR ---
VENT CHECK AND PATIENT ASSESSMENT. CHECKED CUFF PRESSURE AND INFLATED TO 32CM H2O. LISTENED TO TRACH AREA AND NECK AND HEARD NO GURGLING OR AIR PASSAGE INDICATING THAT CUFF PRESSURE DOES NOT APPEAR TO HAVE A LEAK OR BE INSUFFICIENTLY INFLATED. B/S: CLEAR BILATERALLY. SUCTIONED PATIENT AND RECEIVED SMALL, WHITE, THIN SECRETIONS. AIRWAY IS PATENT. WILL CONTINUE TO MONITOR.
--- NOTE | 2018-01-27 11:40 | NUR ---
PATIENT GIVEN BED BATH. PATIENT HAD A BM. STOOL LARGE AND LOOSE. PATIENT CLEANED AND REPOSITIONED FOR COMFORT. PATIENT TOLERATED WELL
[2018-01-27 12:00] VITALS: BP 136/59
--- NOTE | 2018-01-27 13:24 | NUR ---
VENT CHECK, AIRWAY ASSESSMENT AND TREATMENT GIVEN INLINE. PATIENT TOLERATED TX WELL WITH NO ADVERSE EFFECTS.
[2018-01-27 14:58] LABS: PROTHROMBIN TIME 10.9 secs (10.8-13.4)
--- NOTE | 2018-01-27 15:37 | NUR ---
VENT CHECK AND PATIENT ASSESSMENT. CHANGED HME. B/S: CLEAR BILATERALLY.
[2018-01-27 16:00] VITALS: BP 138/55
[2018-01-27] MEDS: SODIUM FERRIC GLUCONATE 125 MG in NACL 0.9% 100 ML IV SCH (17:12)
[2018-01-27] MEDS: SIMETHICONE 40 MG/0.6 ML GT SCH (17:13)
--- NOTE | 2018-01-27 17:29 | NUR ---
VENT CHECK, TRACH CARE AND ASSESS PATIENT. CHANGED INNER CANNULA AND TRACH GAUZE/DRESSING. TRACH TIES ARE CLEAN. ASSESSED STOMA SIGHT THAT IS RED WITH NO MINIMAL SWELLING AND VERY LITTLE DRAINING OF CLEAR FLUID. ALTHOUGH RED, STOMA SIGHT APPEARS INTACT AND HEALING.
--- NOTE | 2018-01-27 19:06 | NUR ---
Received pt stable on vent support at documented settings, suctioned small amounts of thin white secretions, hhn tx given, tolerated well, no resp distress or SOB noted at this time, Portex 7 trach secured/patent/midline, alarms set and audible, ambu bag at bedside, vent plugged into red outlet, pulse ox on, will cont to monitor.
--- NOTE | 2018-01-27 19:30 | NUR ---
PATIENT REPORT GIVEN AT BEDSIDE. PATIENT ENDORSED IN STABLE CONDITION
[2018-01-27 20:00] VITALS: BP 140/58
--- NOTE | 2018-01-27 21:04 | NUR ---
ADMINISTERED SCHEDULED MEDICATIONS, PT TOLERATED WELL. 40ML RESIDUAL NOTED, FLUSHED WITH 10ML WATER AFTER EACH MEDICATION AND WITH 60ML WATER AFTER ALL MEDICATIONS ADMINISTERED. HELD COLACE DUE TO PT HAVING LOOSE WATERY STOOLS.
[2018-01-28] VITALS: BP 133/60
--- NOTE | 2018-01-28 02:15 | NUR ---
PT STABLE, NO SIGNS OF DISTRESS NOTED AT THIS TIME. BED IN LOWEST POSITION, BED ALARM ON. CALL LIGHT WITHIN REACH, WILL CONTINUE TO MONITOR.
[2018-01-28 04:00] VITALS: BP 137/57
[2018-01-28] MEDS: BLOOD GLUCOSE MONITORING 1 DEV DEV FS SCH ×2 (06:39→11:50)
--- NOTE | 2018-01-28 06:39 | NUR ---
FEEDING PUMP ALARM KEEPS GOING OFF, ALREADY RESET EVERYTHING WITH NO IMPROVEMENT. WILL CHANGE TUBING AGAIN.
--- NOTE | 2018-01-28 07:15 | NUR ---
ENDORSED PT TO DAY SHIFT RN FOR CONTINUITY OF CARE. PT IN STABLE CONDITION.
--- NOTE | 2018-01-28 07:20 | NUR ---
REPORT RECEIVED FROM MOTORIZED SQUAD COMMANDING OFFICER, PT SLEEPING QUIETLY IN NAD, RESP EVEN UNLABORED ON TRACH TO VENT, SKIN WARM DRY COLOR WNL, PLAN OF CARE REVIEWED, NO IMMEDIATE NEEDS AT THIS TIME, ALL SAFETY MEASURES IN PLACE, WILL CONTINUE TO MONITOR.
[2018-01-28] MEDS: ALBUTEROL SULFATE/IPRATROPIU 3 ML SOL IH SCH (07:40)
--- NOTE | 2018-01-28 07:41 | NUR ---
RECEIVED PATIENT ON CURRENT VENT SETTINGS AC/VC 500 RATE 12 PEEP 5 FIO2 24%. HHN DUONEB TX GIVEN INLINE WITH NO INCIDENT OR ADVERSE EFFECTS. B/S: COARSE BILATERALLY PRE AND POST TX. SUCTIONED PATIENT AND RECEIVED SMALL, WHITE, THIN SECRETIONS. PATIENT IS TRACH'D WITH A PORTEX SIZE 7 THAT IS SECURE WITH TRACH TIES. VENT BRAKE IS ON AND PLUGGED INTO RED OUTLET. AMBU BAG AT BEDSIDE. WILL CONTINUE TO MONITOR.
[2018-01-28 08:00] VITALS: BP 134/78
--- NOTE | 2018-01-28 08:09 | NUR ---
VITALS STABLE, PT RESTING QUIETLY IN NAD, POSITION CHANGED,
[2018-01-28] MEDS: DOCUSATE 100 MG/10 ML UDC GT SCH (09:00)
[2018-01-28] MEDS: SENNA 8.6 MG TAB GT SCH (09:00)
--- NOTE | 2018-01-28 09:28 | NUR ---
VENT CHECK AND ASSESS PATIENT. AIRWAY IS PATENT. PATIENT APPEARS COMFORTABLE WITH NO RESPIRATORY DISTRESS. WILL CONTINUE TO MONITOR.
--- NOTE | 2018-01-28 09:30 | NUR ---
PERICARE DONE, SACRAL DRESSING CHANGED, PHOTO TAKEN, MENDIETA DRAINING, NEPHROSTOMY IN PLACE, GT FEED ONGOING, TRACH TO VENT, AM MEDS GIVEN PER GT, PT JUAN FRANCISCO WELL, ABD LARGE, DISTENDED, + BS, GAS RELEASED VIA GT, AND LARGE FLATUS RELEASED UPON TURING PT, ABD SOFT NOW. ALL SAFETY MEASURES IN PLACE, WILL CONTINUE TO MONITOR
[2018-01-28] MEDS: MULTIVITAMIN/MINERALS 1 TAB GT SCH (09:32)
[2018-01-28] MEDS: PANTOPRAZOLE 40 MG INJ VIAL IVP SCH (09:32)
[2018-01-28] MEDS: amLODIPine 5 MG TAB GT SCH (09:33)
[2018-01-28] MEDS: METOCLOPRAMIDE 10 MG/2 ML INJ VIAL IVP SCH (09:33)
[2018-01-28] MEDS: ATORVASTATIN 20 MG TAB PO SCH (09:33)
[2018-01-28] MEDS: CARVEDILOL 12.5 MG TAB GT SCH (09:34)
[2018-01-28] MEDS: ISOSORBIDE DINITRATE 10 MG TAB GT SCH (09:34)
[2018-01-28] MEDS: SIMETHICONE 40 MG/0.6 ML GT SCH (09:35)
[2018-01-28] MEDS: ALLOPURINOL 100 MG TAB GT SCH (09:35)
[2018-01-28] MEDS: DIGOXIN 0.125 MG TAB PO SCH (09:35)
[2018-01-28 10:04] LABS: BASOPHILS % (AUTO) 0.3 % (0.0-2.0); EOSINOPHILS # (AUTO) 0.3 K/uL (0-0.4); EOSINOPHILS % (AUTO) 4.9 % (0.0-4.0); HEMATOCRIT 23.4 % (36-52); HEMOGLOBIN 7.8 g/dL (12.0-18.0); LYMPHOCYTES # (AUTO) 0.8 K/uL (2.0-11.5); LYMPHOCYTES % (AUTO) 14.7 % (20.5-51.1); MEAN CORPUSCULAR HEMOGLOBIN 31 pg (27-31); MEAN CORPUSCULAR HGB CONC 33 g/dL (33-37); MONOCYTES # (AUTO) 0.7 K/uL (0.8-1.0); MONOCYTES % (AUTO) 12.2 % (1.7-9.3); NEUTROPHILS # (AUTO) 3.6 K/uL (1.8-7.7); NEUTROPHILS % (AUTO) 67.9 % (42.2-75.2); PLATELET COUNT (AUTO) 150 K/uL (140-450); RED BLOOD CELL COUNT(AUTO) 2.54 MIL/uL (4.20-6.10); WHITE BLOOD COUNT (AUTO) 5.3 K/uL (4.8-10.8)
[2018-01-28 10:07] LABS: ANION GAP 11.4 (8-16); CARBON DIOXIDE 21.9 mmol/L (21-32); CHLORIDE 114 mmol/L (98-107); CREATININE 1.4 mg/dL (0.7-1.3); GLUCOSE 119 mg/dL (74-106); POTASSIUM 3.3 mmol/L (3.5-5.1); SODIUM SERUM 144 mmol/L (136-145); UREA NITROGEN, BLOOD 35 mg/dL (7-18)
[2018-01-28 10:11] LABS: MAGNESIUM 1.9 mg/dL (1.8-2.4); PHOSPHORUS 2.6 mg/dL (2.5-4.9)
--- NOTE | 2018-01-28 11:26 | NUR ---
VENT CHECK AND ASSESS PATIENT. PATIENT APPEARS COMFORTABLE WITH NO RESPIRATORY DISTRESS.
[2018-01-28 12:00] VITALS: BP 102/46
--- NOTE | 2018-01-28 12:18 | NUR ---
REPORT CALLED [place] [facility] [phone] , REPORT GIVENT O ANNA, AWAITING FOR [facility] BUCKET WASH OPERATOR AT 1300
--- NOTE | 2018-01-28 12:38 | NUR ---
CENTRAL LINE R SUBCLAVIAN LINE REMOVED, CATH TIP INTACT, BLEEDING CONTORLLED, PT JUAN FRANCISCO WELL, AWAITING TRANSPORT
--- NOTE | 2018-01-28 13:10 | NUR ---
[facility] HERE FOR TRANSPORT, REPORT GIVEN TO EMT, AT AT BEDSIDE, ALL BELONGINGS TAKEN WITH PT, TRANSFER TO [facility] NOW
== END 2018-01-28 13:10 | DRG 393 ==
LOC: MED 11:33 → MTU 13:55
PROVIDERS: ADMIT General Practice; ATTEND General Practice
PROC: 5A1955Z Respiratory Ventilation, Greater than 96 Consecutive Hours (ICD-10-PCS; principal; 2018-01-15)
PROC: 0D20XUZ Change Feeding Device in Upper Intestinal Tract, External Approach (ICD-10-PCS; 2018-01-17)
PROC: 30233N1 Transfusion of Nonautologous Red Blood Cells into Peripheral Vein, Percutaneous Approach (ICD-10-PCS; 2018-01-17)
DX: K94.23 Gastrostomy malfunction (principal); J96.20 Acute and chronic respiratory failure, unspecified whether with hypoxia or hypercapnia; N17.0 Acute kidney failure with tubular necrosis; R53.2 Functional quadriplegia; I50.43 Acute on chronic combined systolic (congestive) and diastolic (congestive) heart failure; J69.0 Pneumonitis due to inhalation of food and vomit; I21.A1 Myocardial infarction type 2; A41.51 Sepsis due to Escherichia coli [E. coli]; R65.21 Severe sepsis with septic shock; A41.81 Sepsis due to Enterococcus; E44.0 Moderate protein-calorie malnutrition; I24.9 Acute ischemic heart disease, unspecified; E87.0 Hyperosmolality and hypernatremia; I69.359 Hemiplegia and hemiparesis following cerebral infarction affecting unspecified side; D68.59 Other primary thrombophilia; K86.1 Other chronic pancreatitis; G93.1 Anoxic brain damage, not elsewhere classified; R18.8 Other ascites; K22.10 Ulcer of esophagus without bleeding; K92.2 Gastrointestinal hemorrhage, unspecified; D62 Acute posthemorrhagic anemia; J44.0 Chronic obstructive pulmonary disease with (acute) lower respiratory infection; B37.49 Other urogenital candidiasis; L03.90 Cellulitis, unspecified; I13.0 Hypertensive heart and chronic kidney disease with heart failure and stage 1 through stage 4 chronic kidney disease, or unspecified chronic kidney disease; Z66 Do not resuscitate; E78.5 Hyperlipidemia, unspecified; K21.9 Gastro-esophageal reflux disease without esophagitis; Y83.8 Other surgical procedures as the cause of abnormal reaction of the patient, or of later complication, without mention of misadventure at the time of the procedure; E87.6 Hypokalemia; I48.91 Unspecified atrial fibrillation; M10.9 Gout, unspecified; Z16.12 Extended spectrum beta lactamase (ESBL) resistance; E11.69 Type 2 diabetes mellitus with other specified complication; E11.43 Type 2 diabetes mellitus with diabetic autonomic (poly)neuropathy; K31.84 Gastroparesis; D63.8 Anemia in other chronic diseases classified elsewhere; L89.151 Pressure ulcer of sacral region, stage 1; K59.00 Constipation, unspecified; E78.00 Pure hypercholesterolemia, unspecified; B96.1 Klebsiella pneumoniae [K. pneumoniae] as the cause of diseases classified elsewhere; E83.51 Hypocalcemia; E11.22 Type 2 diabetes mellitus with diabetic chronic kidney disease; Y95 Nosocomial condition; R04.0 Epistaxis; N18.3 Chronic kidney disease, stage 3 (moderate); Z79.2 Long term (current) use of antibiotics; Z79.1 Long term (current) use of non-steroidal anti-inflammatories (NSAID); Z79.82 Long term (current) use of aspirin; Z79.4 Long term (current) use of insulin; Z79.899 Other long term (current) drug therapy; Z74.01 Bed confinement status; Z87.442 Personal history of urinary calculi; Z95.0 Presence of cardiac pacemaker; Z68.32 Body mass index [BMI] 32.0-32.9, adult
CPT/HCPCS: 36415; 36600; 71045; 74018; 76705; 80048; 80053; 80150; 80162; 80170; 80202; 81001; 82150; 82272; 82803; 82948; 83036; 83605; 83690; 83735; 83880; 83970; 84100; 84436; 84439; 84443; 84479; 84484; 85025; 85610; 85730; 86886; 86900; 86901; 86920; 87040; 87070; 87075; 87081; 87086; 87186; 87205; 89220; 93005; 93925; 94002; 94003; 94640; 96365; 99285; C9113; J0290; J0885; J1200; J1450; J1580; J1644; J1815; J1940; J1956; J2020; J2185; J2250; J2543; J2765; J2916; J3010; J3480; J3490; J7030; J7060; J7620; P9016; Q0092

== ENCOUNTER 2018-03-18 12:46 | Inpatient (IN) | payer OTHER ==
[2018-03-18] VITALS (7 sets, daily range): BP systolic 114–145; BP diastolic 47–68
[~2018-03-18] VITALS: Ht 177.8 cm; Wt 86.2 kg
[~2018-03-18 12:46] MED LIST changes: -AMIK500I IV; -Amikacin Per Pharmacy MC; -HEPA500056 SUBQ; -LACT10CA GT; -MERO500P2 IV; -VANC1.2511 IV; -Vancomycin Per Pharmacy MC
[2018-03-18] MEDS ORDERED: NACL 0.9% 500 ML IV ONE ×2 (12:55)
[2018-03-18] MEDS ORDERED: KETOROLAC 30 MG/ML VIAL IVP ONE (12:55)
--- NOTE | 2018-03-18 12:55 | NUR ---
77 YO MALE [place] [facility].MED HX: AF, PACE MAKER , CHRONIC RES FAILURE ; TRACH & [facility] VENT, DM, RENAL INSUF WITH L NEPHROSTOMY, G TUBE, SEIZURE. MENDIETA'S CATH [place] [facility] SKIN IS PINK/WARM/DRY;PT ACTING NEUROLOGIBALLY AT BASE LINE. LUNGS CLEAR BL; HR EVEN AND REGULAR; PATIENT STATES PAIN OF 0/10 AT THIS TIME; PATIENT POSITIONED FOR COMFORT; HOB ELEVATED; BEDRAILS UP X2; BED DOWN. ER MADE AWARE OF PT STATUS. Addendum: 03/18/18 at 1439 by [email or web address] VENT SETTING: FiO2 28%, VT 500 ML, RATE 12/MIN, FLOW 40, PEEP 5 CMH2O.
[2018-03-18] MEDS ORDERED: ACETAMINOPHEN 650 MG SUPP RC ONE ×2 (12:59→13:15)
--- NOTE | 2018-03-18 13:00 | NUR ---
BM : LOOSE STOOL LARGE AMOUNT. Addendum: 03/18/18 at 1437 by [email or web address] GAYATRI'S CATH : URINE 400 CC, YELLOW,CLOUDY, FOUL SMELL. NEPHROS; URINE 80 CC, YELLOW,CLOUDY, FOUL SMELL.
[2018-03-18 13:35] LABS: APPEARANCE,URINE CLOUDY (CLEAR); BASOPHILS % (AUTO) 0.1 % (0.0-2.0); COLOR,URINE YELLOW (YELLOW); HEMATOCRIT 38.8 % (36-52); HEMOGLOBIN 12.8 g/dL (12.0-18.0); LYMPHOCYTES # (AUTO) 1.2 K/uL (2.0-11.5); LYMPHOCYTES % (AUTO) 4.3 % (20.5-51.1); MEAN CORPUSCULAR HEMOGLOBIN 31 pg (27-31); MEAN CORPUSCULAR HGB CONC 33 g/dL (33-37); MEAN CORPUSCULAR VOLUME 95.2 fL (80-94); MONOCYTES # (AUTO) 0.7 K/uL (0.8-1.0); MONOCYTES % (AUTO) 2.6 % (1.7-9.3); NEUTROPHILS # (AUTO) 26.1 K/uL (1.8-7.7); PH,URINE 7.5 (5.0-9.0); PLATELET COUNT (AUTO) 276 K/uL (140-450); RED BLOOD CELL COUNT(AUTO) 4.08 MIL/uL (4.20-6.10); RED CELL DISTRIBUTION WIDTH 17.5 % (11.6-13.7)
[2018-03-18 13:36] LABS: BILIRUBIN,URINE NEGATIVE (NEGATIVE); BLOOD, URINE 3+ (NEGATIVE); LEUKOCYTE ESTERASE ,URINE 2+ (NEGATIVE); NITRITE, URINE NEGATIVE (NEGATIVE); UGLUCOSE NEGATIVE (NEGATIVE)
[2018-03-18 13:47] LABS: RBC,URINE 20-50 /HPF (0-5); WBC,URINE TOO MANY TO COUNT /HPF (0-5)
[2018-03-18 13:52] LABS: PROTHROMBIN TIME 9.6 secs (10.8-13.4)
[2018-03-18 14:00] LABS: ALBUMIN 3.8 g/dL (3.4-5.0); ANION GAP 11.4 (8-16); ASPARTATE AMINOTRANSFERASE 19 U/L (15-37); CARBON DIOXIDE 30.2 mmol/L (21-32); CHLORIDE 97 mmol/L (98-107); CREATININE 2.1 mg/dL (0.7-1.3); GLUCOSE 204 mg/dL (74-106); POTASSIUM 4.6 mmol/L (3.5-5.1); SODIUM SERUM 134 mmol/L (136-145); TOTAL BILIRUBIN 0.7 mg/dL (0.0-1.0)
[2018-03-18] MEDS ORDERED: NACL 0.9% 2,000 ML IV ONE (14:05)
[2018-03-18 14:06] LABS: UREA NITROGEN, BLOOD 93 mg/dL (7-18)
[2018-03-18] MEDS ORDERED: LEVOFLOXACIN 500 MG/D5W PREMIX 100 ML IV ONE (14:10)
[2018-03-18] MEDS ORDERED: LORazepam 2 MG/ML VIAL IM/IVP PRN (14:55)
[2018-03-18] MEDS ORDERED: HYDROcodone/APAP 5/325 MG 1 TAB TAB PO PRN (14:55)
[2018-03-18] MEDS ORDERED: NACL 0.9% 1,000 ML IV SCH (14:55)
[2018-03-18] MEDS ORDERED: ONDANSETRON 4 MG/2 ML VIAL IM/IVP PRN (14:55)
[2018-03-18] MEDS ORDERED: DOCUSATE SODIUM 100 MG GELCAP PO PRN (14:55)
[2018-03-18] MEDS ORDERED: ZOLPIDEM 5 MG TAB PO PRN (14:55)
[2018-03-18] MEDS ORDERED: MORPHINE SULFATE 2 MG/ML SYR IVP PRN (14:55)
--- NOTE | 2018-03-18 15:16 | NUR ---
STABLE NO SOB NOTED GOOD CHEST RISEDEEP TRACHEAL SUCTION FOR COPIUOS THICK YELLOW/GREEN SECRETIONS AIRWAY PATENT
[2018-03-18 15:32] LABS: BARBITURATE, URINE NEG. ng/ml (NEG <=200); BENZODIAZEPINE, URINE NEG. ng/mL (NEG <=200); CANNABINOID, URINE NEG. ng/mL (NEG <=50); COCAINE, URINE NEG. ng/mL (NEG <=300); OPIATE, URINE NEG. ng/mL (NEG <=2000); PHENCYCLIDINE SCREEN,URINE NEG. ng/mL (NEG <=25)
--- NOTE | 2018-03-18 15:32 | NUR ---
TRANSFERRED PATIENT TO [facility]-A REMOVED FROM VENTILATOR PLACED ON SUPPLEMENTAL OXYGEN VIA E-TANK AT 15 LPM TO AMBU BAG/INLINE SUCTION CATHETER/TRACH BAG DEPRESSION EVERY 6 SECONDS TOLERATED TRANSFER WELL WITHOUT ADVERSE REACTIONS NOTED SATURATION 96% HR 65
[2018-03-18 15:42] LABS: HDL CHOLESTEROL 30 mg/dL (40-60); LIPASE 46 U/L (73-393); MAGNESIUM 2.9 mg/dL (1.8-2.4); TRIGLYCERIDES 709 mg/dL (30-150)
--- NOTE | 2018-03-18 15:44 | NUR ---
PLACED BACK ON A EnthuseAPE R860 VENTILATOR WITH SAME SETTINGS NOTED COMPRESSOR ON AND FUNCTIONING WELL
--- NOTE | 2018-03-18 15:45 | NUR ---
Patient will be admitted to care of dr velasco. Admited to tele. Will go to room 124A. Belongings list completed. Report to FABIO SANTOYO.
--- NOTE | 2018-03-18 15:45 | NUR ---
Admitted from ED, with chief complaint of COFFEE GROUND EMESIS X 1 DAY FROM [facility]. PT IS A, OPENS EYES, APHASIC., CHRONIC TRACH TO VENTILATOR. NO SOB NOTED. NO SIGN SOF PAIN AT THIS TIME. PT 77 y/o ,Male, SETTLED PT TO BED, WITH GTUBE , CLAMPED, WITH MENDIETA DRAINING MODERATE AMOUNTS OF CLOUDY YELLOW URINE.AND NEPHROSTOMY TUBE DRAINING SMALL AMOUNTS OF YELLOW URINE. ID bracelet on. Belongings list checked. BED ON LOWEST POSITION, ALARM ON, 3 SIDE RAILS RAISED UP.
[2018-03-18] MEDS ORDERED: SODIUM PHOSPHATE 118 ML ENEM RC PRN ×2 (15:55→16:05)
[2018-03-18] MEDS ORDERED: NON-FORMULARY ITEM (Bisacodyl (Dulcolax) 10 MG) GT SCH (15:55)
[2018-03-18] MEDS ORDERED: INSULIN LISPRO SLIDING SCALE 100 UNITS/ML VIAL SUBQ PRN (15:55)
[2018-03-18] MEDS ORDERED: cloNIDine 0.1 MG TAB GT PRN (15:55)
[2018-03-18] MEDS ORDERED: ACETAMINOPHEN 325 MG GT SCH (15:55)
--- NOTE | 2018-03-18 16:15 | NUR ---
G-TUBE RESIDUAL 15 MLS NOTED.
[2018-03-18] MEDS ORDERED: DEXTROSE 50% 50 ML SYR IVP PRN (16:20)
[2018-03-18] MEDS ORDERED: DOCUSATE 100 MG/10 ML UDC GT PRN (16:20)
--- NOTE | 2018-03-18 17:25 | NUR ---
TOLERATING VENTILATOR WELL WITHOUT INCIDENT GOD CHEST RISE YANETH RADICAL-7 CONTINUOS PULSE OXIMETER PLACED AT BEDSIDE ON AND FUNCTIONING WELL LOW SATURATION ALARM SET AT 92%
--- NOTE | 2018-03-18 18:00 | NUR ---
NPO MAINTAINED ORDERED. SECRETIONS SUCTIONED NEEDED.
[2018-03-18] MEDS: SIMETHICONE 80 MG TAB.CHEW GT SCH (18:09)
[2018-03-18] MEDS: FUROSEMIDE 40 MG/5 ML ORAL SOL UDC GT SCH (18:09)
[2018-03-18] MEDS ORDERED: PANTOPRAZOLE 40 MG INJ VIAL IVP SCH (18:30)
[2018-03-18] MEDS: DEXT 5% / NACL 0.9% 500 ML IV SCH (18:36)
--- NOTE | 2018-03-18 19:00 | NUR ---
PT RESTING. NO SOB NOTED. NO SIGN SOF PAIN. WILL ENDORSE TO NEXT SHIFT NURSE FOR CONTINUITY OF CARE.
--- NOTE | 2018-03-18 19:20 | NUR ---
RECEIVED BEDSIDE REPORT FROM AM NURSE. PT TELE. ASLEEP, AROUSABLE BY TACTILE STIMULI, NON VERBAL, QUADRIPLEGIC WITH LEFT SIDED NEPHROSTOMY TUBE DRAINING CLEAR YELLOW DRAINAGE.WITH MENDIETA CATHETER DRAINING YELLOW URINE,PATENT.WITH TRACHEOSTOMY TO VENT. PT ON ISOLATION LOZENGE MAKER HELPER SPUTUM, MDRO, ESBL OF KIDNEY ASPIRATE.PT PLACED ON LOW POSITION. FREQUENT MONITORING. WILL CONTINUE TO MONITOR
[2018-03-18] MEDS ORDERED: PIPERACILLIN/TAZOBACTAM 2.25 GM VIAL IV ONE (19:38)
--- NOTE | 2018-03-18 19:56 | NUR ---
FIRST CHECK DONE BY RT INOCENCIA JADE. PATIENT RESTING COMFORTABLY. VENT PLUGGED INTO RED OUTLET. ALARMS ON AND AUDIBLE. AMBU BAG AT BEDSIDE. TRACH CLEAN AND PATENT. VENT AT ORDERED SETTINGS: AC, 12, 500, +5, 28%. VITALS STABLE: 100%, PULSE 60, RATE 18, COARSE BREATH SOUNDS. WILL CONTINUE TO MONITOR.
[2018-03-18] MEDS: PIPER/TAZO 2.25GM/D5W PREMIX 50 ML IV SCH (20:29)
[2018-03-18] MEDS: CARVEDILOL 12.5 MG TAB GT SCH (20:41)
[2018-03-18] MEDS: DOCUSATE 100 MG/10 ML UDC GT SCH (20:41)
[2018-03-18] MEDS: ISOSORBIDE DINITRATE 10 MG TAB GT SCH (20:42)
[2018-03-18] MEDS: SIMVASTATIN 20 MG TAB GT SCH (20:42)
[2018-03-18] MEDS ORDERED: FLUCONAZOLE 200 MG/NS PREMIX 100 ML IV ONE (20:43)
[2018-03-18] MEDS: GLYCOPYRROLATE 0.2 MG/ML VIAL IM SCH (20:43)
[2018-03-18] MEDS ORDERED: NON-FORMULARY ITEM (Cranberry Fruit Concentrate (Cranberry) 450 MG) GT SCH (21:00)
--- NOTE | 2018-03-18 21:00 | NUR ---
INFORMED OF HIGH LACTIC ACID AT 3.2. AWARE.
[2018-03-18] MEDS: FLUCONAZOLE IV SCH (21:22)
[2018-03-18] MEDS: NS IV SCH (21:22)
--- NOTE | 2018-03-18 21:24 | NUR ---
TRANSPORTED TO RADIOLOGY FOR CT SCAN OF THE ABDOMEN W/O CONTRAST. WITH RT WITH PT, HOOKED TO 02 AND BAGGING TECHNIQUE DONE. AND HOOKED TO CYTOGENETIC TECHNICIAN. PT TRANSPORT DONE SAFELY WITHOUT S/SX'S OF DISTRESS. NO SIGNS OF PAIN.
--- NOTE | 2018-03-18 22:00 | NUR ---
SENT BACK TO ROOM CONTINUOUS O2 WITH RT AT BEDSIDE WITH 2 NURSES, AND HOOKED TO ICING MACHINE OPERATOR. NO SIGNS OF RESPIRATORY DISTRESS. WILL CONTINUE TO MONITOR.
--- NOTE | 2018-03-18 22:08 | NUR ---
ASSISTED IN TRANSPORT OF PATIENT FROM [facility] TO CT FOR ABDOMEN SCAN WITH NO INCIDENT. VITALS REMAINED STABLE. ONCE BACK IN [facility], RECONNECTED TO VENT. VENT PLUGGED INTO RED OUTLET. ALARMS ON AND AUDIBLE. CONTINUOUS PULSE OX RECONNECTED. AMBU BAG BACK AT BEDSIDE. TRACH CLEAN AND PATENT.
[2018-03-18] MEDS ORDERED: ECOTRIN 81 MG TABEC PO SCH (22:35)
--- NOTE | 2018-03-18 22:40 | NUR ---
MADE AWARE OF TROPONIN I AT 0.309.
[2018-03-19] VITALS (7 sets, daily range): BP systolic 127–156; BP diastolic 39–58
[2018-03-19] MEDS ORDERED: PIPERACILLIN/TAZOBACTAM 2.25 GM VIAL IV ONE ×2 (03:11→05:58)
[2018-03-19] MEDS ORDERED: DEXTROSE 50% 50 ML SYR IVP PRN (03:15)
--- NOTE | 2018-03-19 03:40 | NUR ---
PT VOMITED X1 EPISODE,COFFEE GROUND EMESIS(LIGHT COLORED) WHILE RT SUCTIONING DONE. RT STABLIZED RESPIRATION, NO SOB, STABLE RATE AND RHYTHYM AND PULSE OX. INFORMED
--- NOTE | 2018-03-19 03:40 | NUR ---
NURSE MYRON AT BEDSIDE. SUCTIONED PATIENT X1 FOR SMALL AMOUNT OF THICK BEIGE SECRETIONS. WHEN SUCTIONED, PATIENT COUGHED HARD AND PRODUCED LIGHT COLORED COFFEE GROUND EMESIS. ATTEMPTED TO SUCTION ABOVE CUFF, HOWEVER, PT CLAMPED MOUTH AND TEETH SHUT. SUCTIONED ONCE MORE TO ENSURE THERE WAS NO ASPIRATION AND NOTHING WAS PRODUCED. REMAINED AT BEDSIDE FOR AN ADDITIONAL 10 MINS. BP INCREASED TO 155/58 BUT LOWERED BACK TO 140/50. ALL OTHER VITALS REMAINED STABLE AT 96%, PULSE 60, RATE 20, PEAK PRESSURE 32, PLATEAU PRESSURE 32. WILL CONTINUE TO MONITOR. BREATH SOUNDS CLEAR AFTER SUCTIONING.
--- NOTE | 2018-03-19 03:49 | NUR ---
BP STABILIZED AFTER 1 EPISODE OF VOMITING.FROM 155/58 [facility]. NOW AT 140/50. WILL CONTINUE TO MONITOR
[2018-03-19] MEDS: DEXT 5% / NACL 0.9% 500 ML IV SCH ×4 (04:35→21:50)
[2018-03-19] MEDS: BLOOD GLUCOSE MONITORING 1 DEV DEV FS SCH ×4 (05:30→20:19)
[2018-03-19] MEDS: INSULIN LISPRO SLIDING SCALE 100 UNITS/ML VIAL SUBQ PRN ×3 (06:32→20:19)
[2018-03-19] MEDS: PIPER/TAZO 2.25GM/D5W PREMIX 50 ML IV SCH ×5 (07:00→23:34)
--- NOTE | 2018-03-19 07:15 | NUR ---
RECEIVED PATIENT REPORT AT BEDSIDE. PATIENT IS ASLEEP BUT AROUSABLE. PATIENT IS APHASIC. PATIENT TRACH TO VENT WITH SETTINGS: 28% FIO2, FLOW RATE OF 45 VT 500 PEEP OF 5. PATIENT ON CONTINUOUS O2 MONITORING. O2 SAT 98% AT THIS TIME. NO S/S OF DISTRESS. MENDIETA CATHETER IN PLACE, DRAINING CLEAR YELLOW URINE. LEFT NEPHROSTOMY TUBE NOTED IN PLACE, DRAINING SCANT AMOUNT OF CLEAR YELLOW URINE. G-TUBE IN PLACE, CLAMPED. PATIENT NPO EXCEPT MEDS AT THIS TIME. DISTENDED ABD NOTED WITH HYPOACTIVE BOWEL SOUNDS. PATIENT ON TELE MONITORING, BED LOWERED WITH CALL LIGHT WITHIN REACH. WILL CONTINUE TO MONITOR
--- NOTE | 2018-03-19 07:28 | NUR ---
ENDORSED BEDSIDE REPORT TO AM NURSE. PT IN STABLE CONDITION.
--- NOTE | 2018-03-19 07:42 | NUR ---
RECEIVED ON A Loude[place] CARESCAPE R860 VENTILATOR WITH COMPRESSOR ON AND FUNCTIONING WELL PLUGGED INTO RED OUTLET TOLERATING WELL WITHOUT INCIDENT TO A PORTEX DCT #7 AIRWAY SECURED WITH A EDMAR TRACH TIE CUFF PRESSURE CHECKED NOTED ROMARIOIMO RADICAL-7 CONTINUOS PULSE OXIMETER AT BEDSIDE ON AND FUNCTIONING WELL LOW SATURATION ALARM SET AT 92% AMBU BAG AT HOB LOC QUIET RESPONSIVE TO STIMULUS/SUCTIONING BREATH SOUNDS DECREASED BILATERAL WITH GOOD CHEST RISE AIRWAY PATENT
[2018-03-19] MEDS: DOCUSATE 100 MG/10 ML UDC GT SCH ×2 (08:40→20:15)
[2018-03-19] MEDS: SIMETHICONE 80 MG TAB.CHEW GT SCH ×3 (08:40→17:41)
[2018-03-19] MEDS: ALLOPURINOL 100 MG TAB GT SCH (08:41)
[2018-03-19] MEDS: DIGOXIN 0.125 MG TAB GT SCH (08:41)
[2018-03-19] MEDS: FAMOTIDINE 20 MG TAB GT SCH (08:41)
[2018-03-19] MEDS: CARVEDILOL 12.5 MG TAB GT SCH ×2 (08:41→20:19)
[2018-03-19] MEDS: FUROSEMIDE 40 MG/5 ML ORAL SOL UDC GT SCH (08:42)
[2018-03-19] MEDS: LACTOBACILLUS RHAMNOSUS GG 1 EACH CAP PO SCH (08:42)
[2018-03-19] MEDS: ISOSORBIDE DINITRATE 10 MG TAB GT SCH ×2 (08:42→20:15)
[2018-03-19] MEDS: amLODIPine 5 MG TAB GT SCH (08:42)
[2018-03-19] MEDS: GLYCOPYRROLATE 0.2 MG/ML VIAL IM SCH ×2 (08:43→20:16)
[2018-03-19] MEDS ORDERED: ASPIRIN 81 MG TAB.CHEW PO SCH (09:00)
[2018-03-19] MEDS ORDERED: ASPIRIN 81 MG TAB.CHEW GT SCH (09:00)
--- NOTE | 2018-03-19 09:03 | NUR ---
PATIENT HAS BEEN SCREENED AND CATEGORIZED HIGH NUTRITION RISK. PATIENT WILL BE SEEN WITHIN 1-2 DAYS OF ADMISSION. 03/19/18 03/20/[address]
[2018-03-19 09:17] LABS: BASOPHILS % (AUTO) 0.2 % (0.0-2.0); EOSINOPHILS # (AUTO) 0.2 K/uL (0-0.4); HEMATOCRIT 32.8 % (36-52); HEMOGLOBIN 10.4 g/dL (12.0-18.0); LYMPHOCYTES # (AUTO) 1.2 K/uL (2.0-11.5); LYMPHOCYTES % (AUTO) 6.5 % (20.5-51.1); MEAN CORPUSCULAR HEMOGLOBIN 30 pg (27-31); MEAN CORPUSCULAR HGB CONC 32 g/dL (33-37); MEAN CORPUSCULAR VOLUME 95.7 fL (80-94); MONOCYTES # (AUTO) 0.7 K/uL (0.8-1.0); MONOCYTES % (AUTO) 3.9 % (1.7-9.3); NEUTROPHILS % (AUTO) 88.4 % (42.2-75.2); PLATELET COUNT (AUTO) 202 K/uL (140-450); RED BLOOD CELL COUNT(AUTO) 3.43 MIL/uL (4.20-6.10); RED CELL DISTRIBUTION WIDTH 17.7 % (11.6-13.7); WHITE BLOOD COUNT (AUTO) 18.1 K/uL (4.8-10.8)
--- NOTE | 2018-03-19 09:22 | NUR ---
RESTING COMFORTABLY NO EVIDENCE OF PULMONARY DISTRESS NOTED DEEP TRACHEAL SUCTION FOR MODERATE THIN YELLOW SECRETIONS AIRWAY PATENT
[2018-03-19 09:33] LABS: ANION GAP 8.9 (8-16); CARBON DIOXIDE 26.6 mmol/L (21-32); CHLORIDE 106 mmol/L (98-107); GLUCOSE 165 mg/dL (74-106); POTASSIUM 3.5 mmol/L (3.5-5.1); SODIUM SERUM 138 mmol/L (136-145)
[2018-03-19 09:35] LABS: UREA NITROGEN, BLOOD 89 mg/dL (7-18)
--- NOTE | 2018-03-19 11:00 | NUR ---
PATIENT GIVEN BED BATH. PATIENT TURNED AND REPOSITIONED FOR COMFORT. PATIENT HAD A BM. STOOL SOFT AND MODERATE IN AMOUNT. PATIENT CLEANED. WILL CONTINUE TO MONITOR
[2018-03-19] MEDS ORDERED: ALBUTEROL SULFATE/IPRATROPIU 3 ML SOL IH PRN ×2 (11:25→12:55)
[2018-03-19] MEDS ORDERED: PANTOPRAZOLE 40 MG INJ VIAL IVP SCH (11:45)
--- NOTE | 2018-03-19 11:50 | NUR ---
RESTING WELL NO APPARENT RESPIRATORY DISTRESS NOTED GOOD CHEST RISE ANS AERATION THROUGHOUT LUNG VELAZCO
[2018-03-19] MEDS ORDERED: ALBUTEROL SULFATE/IPRATROPIU 3 ML SOL IH SCH (12:00)
[2018-03-19] MEDS ORDERED: FUROSEMIDE 40 MG/4 ML VIAL IVP SCH (12:00)
[2018-03-19 12:12] LABS: CHOL/HDL RATIO 3.3 (1-4.5)
[2018-03-19] MEDS ORDERED: MAGNESIUM HYDROXIDE 2400 MG/30 ML UDC PO SCH (12:30)
[2018-03-19 12:35] LABS: LDL (CALC) 8.8 mg/dL (60-100)
--- NOTE | 2018-03-19 13:15 | NUR ---
PATIENT SEEN BY DR WALTER. ORDERS TO OBTAIN CONSENT FOR EGD. CONSENT OBTAINED VIA TELEPHONE. CONSENT FILED IN THE CHART
--- NOTE | 2018-03-19 13:28 | NUR ---
PATIENT SEEN BY DR Jase MARIE
[2018-03-19] MEDS ORDERED: POTASSIUM CHLORIDE 20% 40 MEQ/15 ML UDC GT SCH (13:30)
[2018-03-19] MEDS ORDERED: MAGNESIUM CITRATE 300 ML BTL PO SCH (13:30)
[2018-03-19] MEDS: ALBUTEROL SULFATE/IPRATROPIU 3 ML SOL IH SCH ×2 (13:38→18:47)
--- NOTE | 2018-03-19 13:38 | NUR ---
NO DISTRESS NOTED AT THIS TIME GOOD CHEST RISE
--- NOTE | 2018-03-19 14:08 | NUR ---
SCREEN FOR LOW SUE SCALE: PT SKIN INTACT, OLD HEALED SCAR TO SACRAL COCCYX AREA. ALL PRESSURE INJURY PREVENTION INTERVENTIONS IN PLACE: -TURN AND REPOSITION PATIENT Q 2H OFFLOAD LEFT AND RIGHT HIPS -ASSESS AND MONITOR SKIN CONDITION DURING POSITION CHANGE -OFFLOAD BILATERAL HEELS BY PLACING PILLOWS UNDER CALVES AT ALL TIMES, UNLESS OTHERWISE CONTRAINDICATED -PRESSURE REDISTRIBUTION SURFACE THERAPY -KEEP SKIN CLEAN AND DRY AT ALL TIMES.
[2018-03-19] MEDS ORDERED: fentaNYL 0.05 MG/ML VIAL ONE (14:27)
[2018-03-19] MEDS ORDERED: MIDAZOLAM 2 MG/2 ML VIAL ONE (14:27)
--- NOTE | 2018-03-19 15:43 | NUR ---
03/19/18 RD INITIAL ASSESSMENT COMPLETED PLEASE REFER TO NUTRITION ASSESSMENT UNDER CARE ACTIVITY FOR ESTIMATED NUTRITIONAL NEEDS. 1. RECOMMEND VITAL AF 1.2 AT GOAL RATE 70 ML/HR, INITIATE AT 10 ML/HR, ADVANCE Q8H. -THIS WILL PROVIDE 1680 ML, 2016 KCAL, AND 126 GM OF PROTEIN, WHICH MEETS 100% OF ESTIMATED NEEDS. 2. RECOMMEND FREE WATER FLUSH [address] TO FOLLOW-UP 2-3 DAYS, HIGH RISK CHAPINCITO DOMINGUEZ RD
--- NOTE | 2018-03-19 15:57 | NUR ---
RESTING WELL GOOD CHEST RISE
--- NOTE | 2018-03-19 17:28 | NUR ---
NO RESPIRATORY DISTRESS NOTED GOOD CHEST RISE AIRWAY PATENT
[2018-03-19] MEDS: METOCLOPRAMIDE 10 MG/10 ML SYRP UDC GT SCH (17:41)
[2018-03-19] MEDS: SENNA 8.6 MG TAB PO SCH (17:42)
--- NOTE | 2018-03-19 18:00 | NUR ---
SOAP SUDS ENEMA ADMINISTERED. PATIENT HAD LARGE SOFT STOOL. PATIENT CLEANED AND REPOSITIONED. PATIENT TOLERATED WELL
[2018-03-19] MEDS: FLUCONAZOLE IV SCH (18:52)
[2018-03-19] MEDS: NS IV SCH (18:52)
--- NOTE | 2018-03-19 19:22 | NUR ---
PATIENT REPORT GIVEN AT BEDSIDE. PATIENT ENDORSED IN STABLE CONDITION
--- NOTE | 2018-03-19 19:23 | NUR ---
RECEIVED REPORT FROM DAY SHIFT NURSE ISMAEL-NATANAEL AT BEDSIDE. PT IS ASLEEP BUT AROUSABLE. PATIENT IS APHASIC. PATIENT TRACH TO VENT WITH SETTINGS: 28% FIO2, FLOW RATE OF 45, O2SAT 100- PATIENT ON CONTINUOUS O2 MONITORING. NO S/S OF RESPIRATORY DISTRESS OR DISCOMFORT NOTED AT THIS TIME. MENDIETA CATHETER IN PLACE, DRAINING CLEAR YELLOW URINE. LEFT NEPHROSTOMY TUBE NOTED IN PLACE, DRAINING SCANT AMOUNT OF CLEAR YELLOW URINE. G-TUBE IN PLACE, CLAMPED. PATIENT NPO EXCEPT MEDS AT THIS TIME. DISTENDED ABD NOTED WITH HYPOACTIVE BOWEL SOUNDS. PATIENT ON TELE MONITORING, BED IN LOWEST POSITION, BOTH SIDE RAILS UP, BED BREAKS ON AND BED ALARM ON. BEDSIDE TABLE AND CALL LIGHT ARE WITHIN REACH. WILL CONTINUE TO MONITOR
--- NOTE | 2018-03-19 20:00 | NUR ---
VITAL SIGNS TAKEN AND TOLERATED WELL. BLOOD GLUCOSE 159-WILL ADMINISTER INSULIN COVERAGE. NO S/S OF RESPIRATORY DISTRESS OR DISCOMFORT NOTED AT THIS TIME. WILL CONTINUE TO MONITOR.
--- NOTE | 2018-03-19 20:00 | NUR ---
ORAL CARE WAS ATTEMPTED HOWEVER PT PURSED HIS LIPS PREVENTING ORAL CARE. PROVIDED LIP MOISTURIZER. NO S/S OF RESPIRATORY DISTRESS OR DISCOMFORT AT THIS TIME. WILL CONTINUE TO MONITOR.
[2018-03-19] MEDS: SIMVASTATIN 20 MG TAB GT SCH (20:15)
--- NOTE | 2018-03-19 20:20 | NUR ---
SCHEDULED MEDICATION GIVEN AND TOLERATED WELL. COREG NOT GIVEN DUE TO DECREASE DIASTOLIC BP AND HR. INSULIN COVERAGE GIVEN AND TOLERATED WELL. NO S/S OF RESPIRATORY DISTRESS OR DISCOMFORT NOTED AT THIS TIME. WILL CONTINUE TO MONITOR.
--- NOTE | 2018-03-19 22:00 | NUR ---
PT CONTINUES TO SLEEP. NO S/S OF RESPIRATORY DISTRESS OR DISCOMFORT AT THIS TIME. WILL CONTINUE TO MONITOR.
--- NOTE | 2018-03-19 23:34 | NUR ---
SCHEDULED MEDICATION ZOSYN GIVEN AND TOLERATED WELL. NO S/S OF RESPIRATORY DISTRESS OR DISCOMFORT NOTED AT THIS TIME. WILL CONTINUE TO MONITOR.
[2018-03-19] MEDS: DEXT 5% / NACL 0.9% 1,000 ML IV SCH (23:46)
--- NOTE | 2018-03-19 23:46 | NUR ---
DR. FAUSTIN AWARE OF 500ML BAG NOT AVAILABLE ON UNIT AND CHANGED ORDER TO 1,000ML BAG. NEW IVF BAG HUNG. PT TOLERATED WELL. NO S/S OF RESPIRATORY DISTRESS OR DISCOMFORT NOTED AT THIS TIME. WILL CONTINUE TO MONITOR.
[2018-03-20] VITALS: BP 134/47
--- NOTE | 2018-03-20 | NUR ---
VITAL SIGNS TAKEN AND TOLERATED WELL. PT CONTINUES TO PURSE HIS LIPS AND REFUSES ORAL CARE. LIP MOISTURIZER APPLIED. NO S/S OF RESPIRATORY DISTRESS OR DISCOMFORT NOTED AT THIS TIME. WILL CONTINUE TO MONITOR.
--- NOTE | 2018-03-20 02:00 | NUR ---
PT CONTINUES TO SLEEP. NO S/S OF RESPIRATORY DISTRESS OR DISCOMFORT NOTED AT THIS TIME. WILL CONTINUE TO MONITOR.
[2018-03-20 04:00] VITALS: BP 149/51
--- NOTE | 2018-03-20 04:00 | NUR ---
VITAL SIGNS TAKEN AND TOLERATED WELL. PT CONTINUES TO SLEEP IN BED. NO S/S OF RESPIRATORY DISTRESS OR DISCOMFORT NOTED AT THIS TIME. WILL CONTINUE TO MONITOR.
--- NOTE | 2018-03-20 04:00 | NUR ---
PT CONTINUES TO SLEEP IN BED. NO S/S OF RESPIRATORY DISTRESS OR DISCOMFORT NOTED AT THIS TIME. WILL CONTINUE TO MONITOR.
--- NOTE | 2018-03-20 04:00 | NUR ---
ATTEMPTED ORAL CARE HOWEVER PT CONTINUES TO PURSE HIS LIPS. MOISTURIZER APPLIED TO LIPS. NO S/S OF RESPIRATORY DISTRESS OR DISCOMFORT NOTED AT THIS TIME. WILL CONTINUE TO MONITOR.
[2018-03-20] MEDS: PIPER/TAZO 2.25GM/D5W PREMIX 50 ML IV SCH ×3 (05:08→18:15)
--- NOTE | 2018-03-20 05:08 | NUR ---
SCHEDULED MEDICATION ZOSYN GIVEN AND TOLERATED WELL. PT CONTINUES TO SLEEP IN BED. NO S/S OF RESPIRATORY DISTRESS OR DISCOMFORT NOTED AT THIS TIME. WILL CONTINUE TO MONITOR.
[2018-03-20] MEDS: BLOOD GLUCOSE MONITORING 1 DEV DEV FS SCH ×4 (05:36→20:10)
--- NOTE | 2018-03-20 05:36 | NUR ---
BLOOD GLUCOSE 168- WILL ADMINISTER INSULIN COVERAGE.
[2018-03-20] MEDS: INSULIN LISPRO SLIDING SCALE 100 UNITS/ML VIAL SUBQ PRN ×3 (06:20→17:13)
--- NOTE | 2018-03-20 06:20 | NUR ---
INSULIN COVERAGE GIVEN. PT TOLERATED WELL. NO S/S OF RESPIRATORY DISTRESS OR DISCOMFORT NOTED AT THIS TIME. WILL CONTINUE TO MONITOR.
[2018-03-20] MEDS: METOCLOPRAMIDE 10 MG/10 ML SYRP UDC GT SCH ×3 (06:27→16:48)
--- NOTE | 2018-03-20 06:27 | NUR ---
SCHEDULED MEDICATION REGLAN GIVEN AND TOLERATED WELL. NO S/S OF RESPIRATORY DISTRESS OR DISCOMFORT NOTED AT THIS TIME. WILL CONTINUE TO MONITOR.
[2018-03-20] MEDS: ALBUTEROL SULFATE/IPRATROPIU 3 ML SOL IH SCH ×3 (06:38→18:51)
--- NOTE | 2018-03-20 07:25 | NUR ---
ENDORSED PT CARE TO DAY SHIFT NURSE CLIFF FOR CONTINUITY OF CARE.
--- NOTE | 2018-03-20 07:26 | NUR ---
RECEIVED REPORT FROM NIGHT NURSE. PT LYING IN BED. PT ON VENT, NO DISTRESS OBSERVED. RESPIRATIONS EVEN AND UNLABORED. . TRACH IN PLACE, PATENT AND INTACT. VENT SETTINGS FIO2: 28%, VT: 500, R: 12, FR: 45, PEEP: 5. IV 24G RIGHT HAND/22G LEFT HAND PATENT AND INTACT. MENDIETA IN PLACE, PATENT. REVIEWED CARE PLAN PT UNABLE TO UNDERSTAND. PT IS NON VERBAL. SAFETY MEASURES IN PLACE. CONTACT PRECAUTIONS IN PLACE. CALL LIGHT AT BEDSIDE. WILL CONTINUE TO MONITOR.
[2018-03-20 08:00] VITALS: BP 154/54
[2018-03-20 08:15] LABS: BASOPHILS % (AUTO) 0.1 % (0.0-2.0); EOSINOPHILS # (AUTO) 0.1 K/uL (0-0.4); EOSINOPHILS % (AUTO) 0.7 % (0.0-4.0); HEMATOCRIT 31.2 % (36-52); LYMPHOCYTES # (AUTO) 1.5 K/uL (2.0-11.5); LYMPHOCYTES % (AUTO) 10.4 % (20.5-51.1); MEAN CORPUSCULAR HEMOGLOBIN 31 pg (27-31); MEAN CORPUSCULAR HGB CONC 32 g/dL (33-37); MEAN CORPUSCULAR VOLUME 95.8 fL (80-94); MONOCYTES # (AUTO) 0.9 K/uL (0.8-1.0); MONOCYTES % (AUTO) 6.3 % (1.7-9.3); NEUTROPHILS # (AUTO) 11.8 K/uL (1.8-7.7); NEUTROPHILS % (AUTO) 82.5 % (42.2-75.2); PLATELET COUNT (AUTO) 189 K/uL (140-450); RED BLOOD CELL COUNT(AUTO) 3.26 MIL/uL (4.20-6.10); WHITE BLOOD COUNT (AUTO) 14.3 K/uL (4.8-10.8)
[2018-03-20] MEDS ORDERED: fentaNYL 0.05 MG/ML VIAL IVP ONE (08:15)
[2018-03-20] MEDS ORDERED: MIDAZOLAM 2 MG/2 ML VIAL IVP ONE (08:15)
[2018-03-20 08:18] LABS: CARBON DIOXIDE 26.2 mmol/L (21-32); CHLORIDE 107 mmol/L (98-107); CREATININE 2.1 mg/dL (0.7-1.3); GLUCOSE 178 mg/dL (74-106); POTASSIUM 3.2 mmol/L (3.5-5.1); SODIUM SERUM 145 mmol/L (136-145)
[2018-03-20 08:21] LABS: MAGNESIUM 2.8 mg/dL (1.8-2.4); PHOSPHORUS 2.2 mg/dL (2.5-4.9)
[2018-03-20] MEDS ORDERED: BISACODYL 10 MG SUPP RC PRN (08:35)
--- NOTE | 2018-03-20 08:44 | NUR ---
VENT CHECK, NO SXN NEEDED AIRWAY IS PATENT AND PT IS SLEEPING
[2018-03-20] MEDS ORDERED: BISACODYL 10 MG SUPP RC SCH (09:00)
[2018-03-20] MEDS: DOCUSATE 100 MG/10 ML UDC GT SCH ×2 (09:27→20:09)
[2018-03-20] MEDS: PANTOPRAZOLE 40 MG INJ VIAL IVP SCH (09:28)
[2018-03-20] MEDS: POTASSIUM CHLORIDE 20% 40 MEQ/15 ML UDC GT SCH (09:28)
[2018-03-20] MEDS: FUROSEMIDE 20 MG/2 ML VIAL IVP SCH (09:29)
[2018-03-20] MEDS: amLODIPine 5 MG TAB GT SCH (09:29)
[2018-03-20] MEDS: LACTOBACILLUS RHAMNOSUS GG 1 EACH CAP PO SCH (09:29)
[2018-03-20] MEDS: CARVEDILOL 12.5 MG TAB GT SCH ×2 (09:30→20:10)
[2018-03-20] MEDS: SENNA 8.6 MG TAB PO SCH ×3 (09:30→16:48)
[2018-03-20] MEDS: ISOSORBIDE DINITRATE 10 MG TAB GT SCH ×2 (09:31→20:09)
[2018-03-20] MEDS: ALLOPURINOL 100 MG TAB GT SCH (09:31)
[2018-03-20] MEDS: FAMOTIDINE 20 MG TAB GT SCH (09:31)
[2018-03-20] MEDS: SIMETHICONE 80 MG TAB.CHEW GT SCH ×3 (09:31→16:48)
[2018-03-20 09:32] LABS: UREA NITROGEN, BLOOD 73 mg/dL (7-18)
[2018-03-20] MEDS: DIGOXIN 0.125 MG TAB GT SCH (09:32)
[2018-03-20] MEDS: GLYCOPYRROLATE 0.2 MG/ML VIAL IM SCH ×2 (09:33→20:09)
--- NOTE | 2018-03-20 09:40 | NUR ---
PATIENT LYING DOWN IN BED. NO DISTRESS NOTED. FLACC 0. CONDITION UNCHANGED. SCHEDULED MEDICATIONS DUE GIVEN. SAFETY MEASURES IN PLACE, CALL LIGHT WITHIN REACH. WILL CONTINUE TO MONITOR.
--- NOTE | 2018-03-20 10:00 | NUR ---
ASSISTED KNOCKOUT WORKER IN CLEANING AND REPOSITIONING PATIENT. NO DISTRESS NOTED. WILL CONTINUE TO MONITOR.
--- NOTE | 2018-03-20 10:09 | NUR ---
VENT CHECK, SXN PT SMALL AMT OF YELLOW SECRETIONS, PT RESTING
[2018-03-20 12:00] VITALS: BP 148/56
[2018-03-20] MEDS: DEXT 5% / NACL 0.9% 1,000 ML IV SCH (12:31)
--- NOTE | 2018-03-20 12:49 | NUR ---
PATIENT LYING DOWN IN BED SLEEPING, AROUSABLE BY VOICE. NO DISTRESS NOTED. CONDITION UNCHANGED. SCHEDULED MEDICATIONS DUE GIVEN. SAFETY MEASURES IN PLACE, WILL CONTINUE TO MONITOR.
[2018-03-20] MEDS: ACETAMINOPHEN 325 MG TAB PO PRN ×2 (13:18→20:09)
--- NOTE | 2018-03-20 13:20 | NUR ---
PATIENT HAS A FEVER OF 102 VIA TEMPORAL, TYLENOL GIVEN PER MD ORDERS. COOLING MEASURES APPLIED. WILL CONTINUE TO MONITOR.
--- NOTE | 2018-03-20 13:31 | NUR ---
RECEIVED ON A [employer] R860 VENTILATOR WITH COMPRESSOR ON AND FUNCTIONING WELL PLUGGED INTO RED OUTLET TOLERATING WELL WITHOUT INCIDENT TO A PORTEX DCT #7 AIRWAY SECURED WITH A EDMAR TRACH TIE MASIMO RADICAL-7 CONTINUOS PULSE OXIMETER AT BEDSIDE ON AND FUNCTIONING WELL LOW SATURATION ALARM SET AT 92% AMBU BAG AT HOB LOC QUIET GOOD CHEST RISE AIRWAY PATENT
--- NOTE | 2018-03-20 14:32 | NUR ---
Search Coordinator Note: Assessment correction: Patient's healthcare decision maker is his sister Taty Carranzaado
--- NOTE | 2018-03-20 15:00 | NUR ---
FEVER GONE DOWN TO 100.8, COOLING MEASURES IN PLACE. WILL CONTINUE TO MONITOR.
--- NOTE | 2018-03-20 15:41 | NUR ---
RESTING COMFORTABLY NO EVIDENCE OF PULMONARY DISTRESS NOTED GOOD CHEST RISE AND AERATION THROUGHOUT LUNG VELAZCO AIRWAY PATENT
[2018-03-20 16:00] VITALS: BP 139/54
[2018-03-20] MEDS ORDERED: ASCORBIC ACID 500 MG/5 ML ORASYR GT SCH (16:00)
[2018-03-20] MEDS ORDERED: SODIUM FERRIC GLUCONATE 125 MG in NACL 0.9% 100 ML IV SCH (16:30)
[2018-03-20] MEDS ORDERED: SODIUM FERRIC GLUCONATE 12.5 MG/ML AMP IV ONE (16:41)
--- NOTE | 2018-03-20 17:09 | NUR ---
NO EVIDENCE OF RESPIRATORY DISTRESS NOTED AT THIS TIME GOOD CHEST RISE AIRWAY PATENT
--- NOTE | 2018-03-20 17:30 | NUR ---
PATIENT LYING DOWN IN BED. NO DISTRESS NOTED. CONDITION UNCHANGED. WILL CONTINUE TO MONITOR.
--- NOTE | 2018-03-20 19:23 | NUR ---
GAVE REPORT TO MOVIE SHOT CAMERAMAN NURSE FOR CONTINUITY OF CARE. PATIENT IN STABLE CONDITION.
--- NOTE | 2018-03-20 19:24 | NUR ---
RECEIVED REPORT FROM DAY SHIFT NURSE CHAVO-RN AT BEDSIDE. PT IS ASLEEP BUT AROUSABLE. PATIENT IS APHASIC. PATIENT TRACH TO VENT WITH SETTINGS: 26% FIO2, FLOW RATE OF 50, O2SAT 97- PATIENT ON CONTINUOUS O2 MONITORING. NO S/S OF RESPIRATORY DISTRESS OR DISCOMFORT NOTED AT THIS TIME. MENDIETA CATHETER IN PLACE, DRAINING CLEAR YELLOW URINE. LEFT NEPHROSTOMY TUBE NOTED IN PLACE, DRAINING SCANT AMOUNT OF CLEAR YELLOW URINE. G-TUBE IN PLACE, CLAMPED. PATIENT NPO EXCEPT MEDS AT THIS TIME. DISTENDED ABD NOTED WITH HYPOACTIVE BOWEL SOUNDS. PATIENT ON TELE MONITORING, BED IN LOWEST POSITION, BOTH SIDE RAILS UP, BED BREAKS ON AND BED ALARM ON. BEDSIDE TABLE AND CALL LIGHT ARE WITHIN REACH. WILL CONTINUE TO MONITOR
[2018-03-20 20:00] VITALS: BP 117/61
--- NOTE | 2018-03-20 20:00 | NUR ---
LOW BLOOD PRESSURE AND HEART RATE NOTED. FEVER NOTED. WILL INITIATE COOLING MEASURES AND ADMINISTER TYLENOL FOR FEVER.
--- NOTE | 2018-03-20 20:00 | NUR ---
VITAL SIGNS TAKEN AND TOLERATED WELL. BLOOD GLUCOSE 147-NO INSULIN COVERAGE NEEDED. NO S/S OF RESPIRATORY DISTRESS OR DISCOMFORT NOTED AT THIS TIME. WILL CONTINUE TO MONITOR.
--- NOTE | 2018-03-20 20:00 | NUR ---
ORAL CARE GIVEN AND LIP MOISTURIZER APPLIED. PT TOLERATED WELL. NO S/S OF RESPIRATORY DISTRESS OR DISCOMFORT NOTED AT THIS TIME. WILL CONTINUE TO MONITOR.
[2018-03-20] MEDS: SIMVASTATIN 20 MG TAB GT SCH (20:08)
[2018-03-20] MEDS: MEROPENEM 500 MG in NACL 0.9% 50 ML IV SCH (20:10)
--- NOTE | 2018-03-20 20:10 | NUR ---
SCHEDULED MEDICATION GIVEN AND TOLERATED WELL. TYLENOL GIVEN DUE TO FEVER. COREG NOT GIVEN DUE TO DECREASED BLOOD PRESSURE AND HEART RATE. ICE PACKS INCORPORATED. NO S/S OF RESPIRATORY DISTRESS OR DISCOMFORT NOTED AT THIS TIME. WILL CONTINUE TO MONITOR.
--- NOTE | 2018-03-20 22:00 | NUR ---
PT SLEEPING AT THIS TIME. NO S/S OF RESPIRATORY DISTRESS OR DISCOMFORT NOTED AT THIS TIME. WILL CONTINUE TO MONITOR.
[2018-03-21] VITALS: BP 132/56
--- NOTE | 2018-03-21 | NUR ---
VITAL SIGNS TAKEN AND TOLERATED WELL. ORAL CARE GIVEN AND LIP MOISTURIZER APPLIED. PT TOLERATED WELL. NO S/S OF RESPIRATORY DISTRESS OR DISCOMFORT NOTED AT THIS TIME. WILL CONTINUE TO MONITOR.
[2018-03-21] MEDS: DEXT 5% / NACL 0.9% 1,000 ML IV SCH (00:45)
--- NOTE | 2018-03-21 00:45 | NUR ---
NEW IVF BAG HUNG AND PT TOLERATED WELL. NO S/S OF RESPIRATORY DISTRESS OR DISCOMFORT NOTED AT THIS TIME. WILL CONTINUE TO MONITOR.
--- NOTE | 2018-03-21 02:00 | NUR ---
PT CONTINUES TO SLEEP IN BED. NO S/S OF RESPIRATORY DISTRESS OR DISCOMFORT NOTED AT THIS TIME. WILL CONTINUE TO MONITOR.
[2018-03-21 04:00] VITALS: BP 105/66
--- NOTE | 2018-03-21 04:00 | NUR ---
ORAL CARE WAS ATTEMPTED HOWEVER PT PURSED HIS LIPS. LIP MOISTURIZER APPLIED AND TOLERATED WELL. NO S/S OF RESPIRATORY DISTRESS OR DISCOMFORT NOTED AT THIS TIME. WILL CONTINUE TO MONITOR.
--- NOTE | 2018-03-21 04:00 | NUR ---
VITAL SIGNS TAKEN AND TOLERATED WELL. NO S/S OF RESPIRATORY DISTRESS OR DISCOMFORT NOTED AT THIS TIME. WILL CONTINUE TO MONITOR.
[2018-03-21] MEDS: MEROPENEM 500 MG in NACL 0.9% 50 ML IV SCH ×3 (04:39→20:41)
--- NOTE | 2018-03-21 04:39 | NUR ---
SCHEDULED MEDICATION MERREM GIVEN AND TOLERATED WELL. NO S/S OF RESPIRATORY DISTRESS OR DISCOMFORT NOTED AT THIS TIME. WILL CONTINUE TO MONITOR.
--- NOTE | 2018-03-21 06:00 | NUR ---
BLOOD GLUCOSE 172-WILL ADMINISTER INSULIN COVERAGE.
[2018-03-21] MEDS: BLOOD GLUCOSE MONITORING 1 DEV DEV FS SCH ×4 (06:34→21:26)
[2018-03-21] MEDS: METOCLOPRAMIDE 10 MG/10 ML SYRP UDC GT SCH ×3 (06:35→16:38)
[2018-03-21] MEDS: INSULIN LISPRO SLIDING SCALE 100 UNITS/ML VIAL SUBQ PRN ×2 (06:37→12:30)
--- NOTE | 2018-03-21 06:37 | NUR ---
SCHEDULED MEDICATION REGLAN GIVEN AND INSULIN COVERAGE GIVEN. PT TOLERATED WELL. NO S/S OF RESPIRATORY DISTRESS OR DISCOMFORT NOTED AT THIS TIME. WILL CONTINUE TO MONITOR.
[2018-03-21] MEDS: ALBUTEROL SULFATE/IPRATROPIU 3 ML SOL IH SCH ×3 (06:47→18:47)
--- NOTE | 2018-03-21 06:47 | NUR ---
RECEIVED PT ON CARESCAPE ON DOCUMENTED SETTINGS PTS TRACH PORTEX 7 IS SECURE BS COARSE I\L HHN GIVEN WITH 3 MG DUONEB PT IN HF QUIET ALARMS ARE ON AND FUNCTIONAL BMV HOB VENT PLUGGED INTO RED OUTLET CONT. POX IN PLACE
[2018-03-21 06:48] LABS: BASOPHILS % (AUTO) 0.3 % (0.0-2.0); EOSINOPHILS # (AUTO) 0.1 K/uL (0-0.4); EOSINOPHILS % (AUTO) 0.7 % (0.0-4.0); HEMATOCRIT 34.5 % (36-52); HEMOGLOBIN 10.9 g/dL (12.0-18.0); LYMPHOCYTES # (AUTO) 1.3 K/uL (2.0-11.5); LYMPHOCYTES % (AUTO) 9.3 % (20.5-51.1); MEAN CORPUSCULAR HEMOGLOBIN 30 pg (27-31); MEAN CORPUSCULAR HGB CONC 32 g/dL (33-37); MEAN CORPUSCULAR VOLUME 95.8 fL (80-94); MONOCYTES % (AUTO) 7.2 % (1.7-9.3); NEUTROPHILS # (AUTO) 11.9 K/uL (1.8-7.7); NEUTROPHILS % (AUTO) 82.5 % (42.2-75.2); PLATELET COUNT (AUTO) 201 K/uL (140-450); RED CELL DISTRIBUTION WIDTH 17.5 % (11.6-13.7); WHITE BLOOD COUNT (AUTO) 14.4 K/uL (4.8-10.8)
--- NOTE | 2018-03-21 07:14 | NUR ---
ENDORSED PT CARE TO DAY SHIFT NURSE CLIFF FOR CONTINUITY OF CARE.
--- NOTE | 2018-03-21 07:15 | NUR ---
RECEIVED REPORT FROM NIGHT NURSE. PT LYING IN BED. RESPIRATIONS EVEN AND UNLABORED. TRACH TO VENT FIO2 26% VT:500 R: 12 FLOW: 50 PEEP: 5. IV LEFT WRIST INTACT, PATENT. VITALS STABLE NO DISTRESS OBSERVED AT THIS TIME. SAFETY MEASURES IN PLACE. CALL LIGHT AT BEDSIDE. REVIEWED CARE PLAN PT APHASIC, UNABLE TO VERBALIZE UNDERSTANDING. WILL CONTINUE TO MONITOR.
[2018-03-21 07:33] LABS: ANION GAP 14.9 (8-16); CARBON DIOXIDE 26.5 mmol/L (21-32); CHLORIDE 110 mmol/L (98-107); CREATININE 1.9 mg/dL (0.7-1.3); GLUCOSE 179 mg/dL (74-106); POTASSIUM 3.4 mmol/L (3.5-5.1); SODIUM SERUM 148 mmol/L (136-145); UREA NITROGEN, BLOOD 57 mg/dL (7-18)
[2018-03-21 08:00] VITALS: BP 167/64
[2018-03-21] MEDS ORDERED: POTASSIUM CHLORIDE 20% 40 MEQ/15 ML UDC GT ONE (08:15)
[2018-03-21] MEDS: NACL 0.9% 1,000 ML IV SCH (09:00)
--- NOTE | 2018-03-21 09:00 | NUR ---
PT LYING IN BED NO DISTRESS AT THIS TIME. RESPIRATIONS EVEN AND UNLABORED. GIVEN ORDERED DUE MEDICATIONS. SAFETY MEASURES IN PLACE. CALL LIGHT AT BEDSIDE. WILL CONTINUE TO MONITOR.
[2018-03-21] MEDS: FAMOTIDINE 20 MG TAB GT SCH (09:08)
[2018-03-21] MEDS: CARVEDILOL 12.5 MG TAB GT SCH ×2 (09:08→20:40)
[2018-03-21] MEDS: SIMETHICONE 80 MG TAB.CHEW GT SCH ×3 (09:08→16:39)
[2018-03-21] MEDS: DIGOXIN 0.125 MG TAB GT SCH (09:08)
[2018-03-21] MEDS: ALLOPURINOL 100 MG TAB GT SCH (09:09)
[2018-03-21] MEDS: SENNA 8.6 MG TAB PO SCH ×3 (09:09→16:39)
[2018-03-21] MEDS: ISOSORBIDE DINITRATE 10 MG TAB GT SCH ×2 (09:09→20:39)
[2018-03-21] MEDS: amLODIPine 5 MG TAB GT SCH (09:09)
[2018-03-21] MEDS: ASCORBIC ACID 500 MG/5 ML ORASYR GT SCH (09:10)
[2018-03-21] MEDS: ASPIRIN 81 MG TAB.CHEW PO SCH (09:10)
[2018-03-21] MEDS: SODIUM PHOS / POTASSIUM PHOS 1 PKT PDR GT SCH ×3 (09:10→16:38)
[2018-03-21] MEDS: LACTOBACILLUS RHAMNOSUS GG 1 EACH CAP PO SCH (09:10)
[2018-03-21] MEDS: PANTOPRAZOLE 40 MG INJ VIAL IVP SCH (09:11)
[2018-03-21] MEDS: FERROUS SULFATE 300 MG/5 ML UDC GT SCH (09:11)
[2018-03-21] MEDS: POTASSIUM CHLORIDE 20% 40 MEQ/15 ML UDC GT SCH (09:11)
[2018-03-21] MEDS: DOCUSATE 100 MG/10 ML UDC GT SCH ×2 (09:11→21:26)
[2018-03-21] MEDS: FUROSEMIDE 20 MG/2 ML VIAL IVP SCH (09:12)
[2018-03-21] MEDS: GLYCOPYRROLATE 0.2 MG/ML VIAL IM SCH ×2 (09:45→20:43)
--- NOTE | 2018-03-21 11:30 | NUR ---
PT LYING IN BED EYES OPEN. NO DISTRESS AT THIS TIME. RESPIRATIONS EVEN AND UNLABORED. BLOOD SUGAR CHECK COMPLETED. IV SITE PATENT, INTACT AND FLOWING. SAFETY MEASURES IN PLACE. WILL CONTINUE TO MONITOR.
[2018-03-21 12:00] VITALS: BP 154/59
[2018-03-21] MEDS ORDERED: FUROSEMIDE 20 MG/2 ML VIAL IVP SCH (12:20)
[2018-03-21 12:26] LABS: FERRITIN 206 ng/mL (30-400)
--- NOTE | 2018-03-21 13:00 | NUR ---
PT LYING IN BED. RESPIRATIONS EVEN AND UNLABORED. GIVEN ORDERED MEDICATIONS DUE. SAFETY MEASURES IN PLACE. WILL CONTINUE TO MONITOR.
--- NOTE | 2018-03-21 15:10 | NUR ---
PT LYING IN BED. RESPIRATIONS EVEN AND UNLABORED. PERFORMED ORAL CARE, PT TOLERATED WELL. SAFETY MEASURES IN PLACE. WILL CONTINUE TO MONITOR.
[2018-03-21 16:00] VITALS: BP 148/52
--- NOTE | 2018-03-21 17:00 | NUR ---
PT LYING IN BED. NO DISTRESS OBSERVED AT THIS TIME. ORDERED DUE MEDICATIONS GIVEN, PT TOLERATED WELL. SAFETY MEASURES IN PLACE. WILL CONTINUE TO MONITOR.
--- NOTE | 2018-03-21 19:27 | NUR ---
GAVE REPORT TO INCOMING NIGHT NURSE FOR CONTINUITY OF CARE. PT STABLE LYING IN BED. NO DISTRESS AT THIS TIME.
--- NOTE | 2018-03-21 19:30 | NUR ---
RECEIVED REPORT FROM [facility] NURSE TONY AT BEDSIDE FOR CONTINUITY OF CARE.DNR. IV NOTED L WRIST 22G NS 20ML/HR. NO SOB NO S/S OF DISTRESS ON VENT TO TRACH: A/C VC FIO2 24%, VT 500ML, FLOW 50% RR 22. TUBE FEEDING VITAL AF 1.2 20ML/HR W/ H2O 100 Q8H (TO BE INCREASED AT 2200 BY 10ML TILL REACH GOAL). MENDIETA CATHETER IN PLACE. ALSO HAS NEPROSTOMY TUBE IN PLACE LEFT SIDE MINIMUM DRAINAGE D/T BLOCKED POSSIBLE KIDNEY STONE. SKIN INTACT.
[2018-03-21 20:00] VITALS: BP 169/56
--- NOTE | 2018-03-21 20:30 | NUR ---
MEDS GIVEN NO RESIDUAL. WILL CONTINUE TO MONITOR.
[2018-03-21] MEDS: SIMVASTATIN 20 MG TAB GT SCH (20:40)
--- NOTE | 2018-03-21 22:00 | NUR ---
TUBE FEEDING VITAL AF 1.2 INCREASED BY 10ML = 30ML HR WITH H20 100ML/ Q8H. NO RESIDUAL. WILL INCREASE AGAIN 0600 03/22.
[2018-03-22] VITALS: BP 149/57
[2018-03-22 04:00] VITALS: BP 169/59
[2018-03-22] MEDS: MEROPENEM 500 MG in NACL 0.9% 50 ML IV SCH ×3 (04:16→20:41)
--- NOTE | 2018-03-22 04:30 | NUR ---
PT BLOOD PRESSURE ELEVATED 169/59 HR 60 PACED. SPOKE TO MD COATS AWARE OF ELEVATED BLOOD PRESSURE AND SUGGESTED TO GIVE AM BP MED EARLY ISORDIL.
[2018-03-22] MEDS: ISOSORBIDE DINITRATE 10 MG TAB GT SCH ×2 (04:48→20:37)
[2018-03-22] MEDS: BLOOD GLUCOSE MONITORING 1 DEV DEV FS SCH ×4 (05:00→21:10)
[2018-03-22] MEDS: INSULIN LISPRO SLIDING SCALE 100 UNITS/ML VIAL SUBQ PRN ×3 (05:08→18:13)
--- NOTE | 2018-03-22 05:30 | NUR ---
CHANGED TUBE FEEDING. VITAL AF 1.2. TO NEW START AT 0530. ALSO NO RESIDUAL NOTED, INCREASED RATE TO 40ML/HR WITH WATER 100ML Q8H.
--- NOTE | 2018-03-22 06:20 | NUR ---
REASSESSED BP AFTER MED. BP IS 157/63 HR 60. WILL CONTINUE TO MONITOR.
[2018-03-22] MEDS: METOCLOPRAMIDE 10 MG/10 ML SYRP UDC GT SCH ×3 (06:33→17:19)
[2018-03-22] MEDS: ALBUTEROL SULFATE/IPRATROPIU 3 ML SOL IH SCH ×3 (06:43→19:27)
--- NOTE | 2018-03-22 07:13 | NUR ---
ENDORSED REPORT TO [facility] NURSE HANKS FOR CONTINUITY OF CARE.
--- NOTE | 2018-03-22 07:20 | NUR ---
RECEIVED REPORT FROM NEEDLE CONTROL CHENILLER NURSE AT BEDSIDE. PT IS AWAKE, OX1. NONVERBAL. DNR. IV NOTED L WRIST 22G, INFUSING NS AT 20ML/HR. NO S/S OF DISTRESS ON MECHANICAL VENT: A/C VC FIO2 24%, VT 500ML, PEEP 5, RR 22. TUBE FEEDING VITAL AF 1.2, RUNNING AT 40ML/HR W/ H2O FLUSH 100ML Q8H. MENDIETA CATHETER IN PLACE, DRAINING YELLOW URINE WITH WHITE SEDIMENTS. NEPHROSTOMY TUBE IN LEFT SIDE MINIMUM DRAINAGE D/T POSSIBLE BLOCKAGE OF KIDNEY STONES. SKIN INTACT. FALL AND ASPIRATION PRECAUTION IN PLACE. CALL LIGHT WITHIN REACH.
[2018-03-22] MEDS: NACL 0.9% 1,000 ML IV SCH (07:55)
[2018-03-22 08:00] VITALS: BP 161/61
--- NOTE | 2018-03-22 08:15 | NUR ---
G TUBE RESIDUAL 0ML. HOWEVER, 500ML OF AIR WAS TAKEN OUT.
[2018-03-22 08:26] LABS: ANION GAP 13.1 (8-16); CARBON DIOXIDE 25.4 mmol/L (21-32); CHLORIDE 117 mmol/L (98-107); CREATININE 1.8 mg/dL (0.7-1.3); GLUCOSE 178 mg/dL (74-106); POTASSIUM 3.5 mmol/L (3.5-5.1); SODIUM SERUM 152 mmol/L (136-145); UREA NITROGEN, BLOOD 44 mg/dL (7-18)
[2018-03-22 08:45] LABS: MAGNESIUM 2.6 mg/dL (1.8-2.4); PHOSPHORUS 2.2 mg/dL (2.5-4.9)
[2018-03-22] MEDS: FERROUS SULFATE 300 MG/5 ML UDC GT SCH (08:54)
[2018-03-22] MEDS: DOCUSATE 100 MG/10 ML UDC GT SCH ×2 (08:54→20:37)
[2018-03-22] MEDS: ASCORBIC ACID 500 MG/5 ML ORASYR GT SCH (08:54)
[2018-03-22] MEDS: CARVEDILOL 12.5 MG TAB GT SCH ×2 (08:55→18:08)
[2018-03-22] MEDS: SENNA 8.6 MG TAB PO SCH ×3 (08:56→17:19)
[2018-03-22] MEDS: GLYCOPYRROLATE 0.2 MG/ML VIAL IM SCH ×2 (08:57→20:39)
[2018-03-22] MEDS: LACTOBACILLUS RHAMNOSUS GG 1 EACH CAP PO SCH (08:59)
[2018-03-22] MEDS: FAMOTIDINE 20 MG TAB GT SCH (08:59)
[2018-03-22] MEDS: SIMETHICONE 80 MG TAB.CHEW GT SCH ×3 (08:59→17:19)
[2018-03-22] MEDS: amLODIPine 5 MG TAB GT SCH (08:59)
[2018-03-22] MEDS: PANTOPRAZOLE 40 MG INJ VIAL IVP SCH (09:00)
[2018-03-22] MEDS: DIGOXIN 0.125 MG TAB GT SCH (09:00)
[2018-03-22] MEDS: FUROSEMIDE 20 MG/2 ML VIAL IVP SCH (09:00)
[2018-03-22] MEDS: ASPIRIN 81 MG TAB.CHEW PO SCH (09:00)
[2018-03-22] MEDS: ALLOPURINOL 100 MG TAB GT SCH (09:00)
[2018-03-22] MEDS: POTASSIUM CHLORIDE 20% 40 MEQ/15 ML UDC GT SCH (09:01)
[2018-03-22 10:20] LABS: BASOPHILS % (AUTO) 0.2 % (0.0-2.0); EOSINOPHILS # (AUTO) 0.2 K/uL (0-0.4); EOSINOPHILS % (AUTO) 1.3 % (0.0-4.0); HEMATOCRIT 30.1 % (36-52); HEMOGLOBIN 9.6 g/dL (12.0-18.0); LYMPHOCYTES # (AUTO) 1.7 K/uL (2.0-11.5); LYMPHOCYTES % (AUTO) 13.7 % (20.5-51.1); MEAN CORPUSCULAR HEMOGLOBIN 31 pg (27-31); MEAN CORPUSCULAR HGB CONC 32 g/dL (33-37); MEAN CORPUSCULAR VOLUME 95.2 fL (80-94); MONOCYTES # (AUTO) 0.9 K/uL (0.8-1.0); MONOCYTES % (AUTO) 6.9 % (1.7-9.3); NEUTROPHILS # (AUTO) 9.8 K/uL (1.8-7.7); NEUTROPHILS % (AUTO) 77.9 % (42.2-75.2); PLATELET COUNT (AUTO) 218 K/uL (140-450); RED BLOOD CELL COUNT(AUTO) 3.16 MIL/uL (4.20-6.10); RED CELL DISTRIBUTION WIDTH 16.6 % (11.6-13.7); WHITE BLOOD COUNT (AUTO) 12.5 K/uL (4.8-10.8)
[2018-03-22] MEDS ORDERED: SODIUM PHOS / POTASSIUM PHOS 1 PKT PDR PO SCH (10:50)
[2018-03-22] MEDS: NACL 0.45% 500 ML IV SCH (10:59)
--- NOTE | 2018-03-22 11:00 | NUR ---
FLEET ENEMA GIVEN. BMX1 MODERATE AMOUNT, GREENISH BROWN STOOL.
[2018-03-22 12:00] VITALS: BP 144/51
[2018-03-22] MEDS: SODIUM PHOS / POTASSIUM PHOS 1 PKT PDR PO SCH ×2 (12:16→17:18)
[2018-03-22 12:56] LABS: TRANSFERRIN 194 mg/dL (200-370)
--- NOTE | 2018-03-22 14:37 | NUR ---
ADJUSTED G TUBE FEEDING TO 50ML/HR
--- NOTE | 2018-03-22 14:49 | NUR ---
SPOKE WITH DR ZAZUETA. PT IS HARD STICK, IV LEFT HAND STILL GOOD BUT HAS BEEN THERE FOR 4DAYS. MD IS OK TO LEAVE IT THERE. NO NEW IV INSERT NEEDED.
--- NOTE | 2018-03-22 15:40 | NUR ---
MADE DR WALTER AWARE, G TUBE RESIDUAL 0ML BUT 500ML OF AIR WAS TAKEN OUT. DR WALTER SAID IT'S NOT PROBLEM WITH G TUBE, COULD BE THE PROBLEM WITH TRACHEOSTOMY. WILL F/U WITH RT.
--- NOTE | 2018-03-22 15:56 | NUR ---
03/22/18 RD FOLLOW UP COMPLETED PLEASE REFER TO NUTRITION ASSESSMENT UNDER CARE ACTIVITY FOR ESTIMATED NUTRITIONAL NEEDS. 1. CONTINUE VITAL AF 1.2 AT GOAL RATE 70 ML/HR, INITIATE AT 10 ML/HR, ADVANCE Q8H. -THIS WILL PROVIDE 1680 ML, 2016 KCAL, AND 126 GM OF PROTEIN, WHICH MEETS 100% OF ESTIMATED NEEDS. 2. CONTINUE FREE WATER FLUSH [address] TO FOLLOW-UP 2-3 DAYS, HIGH RISK CHAPINCITO DOMINGUEZ RD
[2018-03-22 16:00] VITALS: BP 168/59
--- NOTE | 2018-03-22 17:13 | NUR ---
SPOKE WITH RT SORAYA, MADE HIM AWARE G TUBE HAS A LOT OF AIR, 500ML, WHEN CHECKING FOR RESIDUAL. RT DOESN'T THINK IT IS RELATED TO TRACHEOSTOMY.
--- NOTE | 2018-03-22 17:26 | NUR ---
CONTINUE TO MONITOR PT ON VENT WITH SETTINGS CHARTED BREATH SOUNDS PRESENT BILAT CLEAR AND COURSE SXN PT WITH MIN AMT OFF WHITE SECS TRACH SITE SECURE VENT PLUGGED INTO RED OUTLET AMBU BAG AT BEDSIDE
--- NOTE | 2018-03-22 18:01 | NUR ---
SPOKE WITH DR ZAZUETA, OK TO GIVE THE CARVEDILOL NOW WHICH IS DUE AT 2100, WILL LET BANK APPRAISER KNOW.
--- NOTE | 2018-03-22 18:18 | NUR ---
PT FINISHED HALF OF THE [place] AND ONLY 100ML OF THE GOLYTELY. PT DOESN'T WANT TO DRINK ANY MORE, WILL TRY LATER.
--- NOTE | 2018-03-22 19:30 | NUR ---
ENDORSED PT TO QUALITY ANALYST/TECHNICAL WRITER RN. PT IN STABLE CONDITION.
--- NOTE | 2018-03-22 19:36 | NUR ---
RECEIVED PT ON PORTEX 7DCT TRACH ON VENT SETTINGS: AC/VC 500, 12, +5, 24%. AIRWAY IS SECURED AND PATENT. VENT IS PLUGGED INTO RED OUTLET AND AMBUBAG IS IN ROOM. VENT ALARMS ARE AUDIBLE AND FUNCTIONING. DUONEB TX IS GIVEN. NO SOB NOTED. WILL CONTINUE TO MONITOR.
--- NOTE | 2018-03-22 19:37 | NUR ---
RECEIVED REPORT FROM DAY SHIFT RN, FOR CONTINUITY OF CARE. PT IS APHASIC ON TRACH TO VENT WITH FOLLOWING SETTINGS: FIO2 24%, VT 500, RATE 12, FLOW 50, AND PEEP 5. PT IS UNABLE TO MAKE NEEDS KNOWN, UNABLE TO FOLLOW COMMANDS. PT BREATHS EQUAL AND UNLABORED. PT SKIN IS INTACT, ONLY A HEALED SACRAL PRESSURE ULCER NOTED. PT IS BEDBOUND. 22G IV TO LEFT HAND, ASYMPTOMATIC AND INTACT. TEMPERATURE IS 99.5, COOLING MEASURES IN PLACE. OTHER VITAL SIGNS WITHIN NORMAL LIMITS. PT STABLE, NO SIGNS OF DISTRESS NOTED AT THIS TIME. BED IN LOWEST POSITION, BED ALARM ON. CALL LIGHT WITHIN REACH, WILL CONTINUE TO MONITOR.
[2018-03-22 20:00] VITALS: BP 150/48
[2018-03-22] MEDS: SIMVASTATIN 20 MG TAB GT SCH (20:38)
--- NOTE | 2018-03-22 20:45 | NUR ---
ADMINISTERED SCHEDULED MEDICATIONS, PT TOLERATED WELL.
[2018-03-23] VITALS: BP 171/63
--- NOTE | 2018-03-23 00:55 | NUR ---
BLOOD PRESSURE ELEVATED, WILL INFORM RESIDENT DR FAUSTIN.
[2018-03-23] MEDS: CARVEDILOL 12.5 MG TAB GT SCH ×2 (02:05→09:54)
--- NOTE | 2018-03-23 02:15 | NUR ---
ADMINISTERED COREG FOR BLOOD PRESSURE. CHECKED TEMP AGAIN AND IT IS 103.4. ADMINISTERED TYLENOL ORDERED. PT TOLERATED WELL.
[2018-03-23] MEDS: ACETAMINOPHEN 325 MG TAB PO PRN (02:19)
--- NOTE | 2018-03-23 03:15 | NUR ---
SPOKE TO DR FAUSTIN ABOUT TEMPERATURE GOING DOWN TO 102.5. DR WILL INCREASE FLUIDS.
[2018-03-23 04:00] VITALS: BP 150/63
[2018-03-23 04:23] LABS: BASOPHILS % (AUTO) 0.2 % (0.0-2.0); EOSINOPHILS # (AUTO) 0.1 K/uL (0-0.4); EOSINOPHILS % (AUTO) 0.9 % (0.0-4.0); HEMATOCRIT 31.6 % (36-52); HEMOGLOBIN 9.9 g/dL (12.0-18.0); LYMPHOCYTES % (AUTO) 15.9 % (20.5-51.1); MEAN CORPUSCULAR HEMOGLOBIN 30 pg (27-31); MEAN CORPUSCULAR HGB CONC 32 g/dL (33-37); MEAN CORPUSCULAR VOLUME 96.4 fL (80-94); MONOCYTES # (AUTO) 1.1 K/uL (0.8-1.0); MONOCYTES % (AUTO) 8.3 % (1.7-9.3); NEUTROPHILS # (AUTO) 9.5 K/uL (1.8-7.7); NEUTROPHILS % (AUTO) 74.7 % (42.2-75.2); PLATELET COUNT (AUTO) 231 K/uL (140-450); RED BLOOD CELL COUNT(AUTO) 3.27 MIL/uL (4.20-6.10); RED CELL DISTRIBUTION WIDTH 17.3 % (11.6-13.7); WHITE BLOOD COUNT (AUTO) 12.7 K/uL (4.8-10.8)
--- NOTE | 2018-03-23 04:25 | NUR ---
VITAL SIGNS WITHIN NORMAL LIMITS. TEMPERATURE NOW 99.2, COOLING MEASURES STILL IN PLACE. PT STABLE, NO SIGNS OF DISTRESS NOTED AT THIS TIME. BED IN LOWEST POSITION, BED ALARM ON. CALL LIGHT WITHIN REACH, WILL CONTINUE TO MONITOR.
[2018-03-23] MEDS: NACL 0.45% 500 ML IV SCH ×2 (04:51→20:17)
[2018-03-23] MEDS: MEROPENEM 500 MG in NACL 0.9% 50 ML IV SCH ×3 (04:52→20:19)
[2018-03-23 06:02] LABS: MAGNESIUM 2.5 mg/dL (1.8-2.4)
[2018-03-23 06:32] LABS: ALBUMIN 2.9 g/dL (3.4-5.0); ANION GAP 18.1 (8-16); ASPARTATE AMINOTRANSFERASE 13 U/L (15-37); CARBON DIOXIDE 21.4 mmol/L (21-32); CHLORIDE 118 mmol/L (98-107); CREATININE 1.8 mg/dL (0.7-1.3); GLUCOSE 190 mg/dL (74-106); POTASSIUM 3.5 mmol/L (3.5-5.1); SODIUM SERUM 154 mmol/L (136-145); TOTAL BILIRUBIN 0.4 mg/dL (0.0-1.0); UREA NITROGEN, BLOOD 44 mg/dL (7-18)
[2018-03-23] MEDS: BLOOD GLUCOSE MONITORING 1 DEV DEV FS SCH ×4 (06:56→20:17)
[2018-03-23] MEDS: METOCLOPRAMIDE 10 MG/10 ML SYRP UDC GT SCH ×3 (06:56→17:06)
[2018-03-23] MEDS: ALBUTEROL SULFATE/IPRATROPIU 3 ML SOL IH SCH ×3 (07:10→19:16)
--- NOTE | 2018-03-23 07:17 | NUR ---
RECEIVED TRACH PT WITH A PORTEX 7 TRACH ON VENT. SETTINGS AC 12, VT 500, PEEP 5 AND FIO2 24%. PT SUCTIONED OBTAINED MODERATE AMOUNT OF THICK YELLOW SECRETIONS, AIRWAY IS PATENT AND TRACH IS SECURE. PT OPENS HIS EYES BUT IT NOT ALERT. PT IS NOT IN ANY DISTRESS AT THIS TIME. VENT IS PLUGGED INTO A RED OUTLET WITH ALARMS ON AND FUNCTIONING. WILL CONTINUE TO MONITOR.
--- NOTE | 2018-03-23 07:24 | NUR ---
ENDORSED TO DAY SHIFT RN FOR CONTINUITY OF CARE, PT IN STABLE CONDITION.
--- NOTE | 2018-03-23 07:25 | NUR ---
RECEIVED BEDSIDE REPORT FROM PM SHIFT NURSE. PT LYING IN BED, AWAKE, NO SIGNS OF DISTRESS. WILL CONTINUE TO MONITOR.
[2018-03-23 08:00] VITALS: BP 164/66
--- NOTE | 2018-03-23 09:30 | NUR ---
PT AWAKE, RESPIRATIONS EVEN & UNLABORED, TRACH TO VENT IN PLACE. NO SIGNS OF DISTRESS. LEFT HAND IV INTACT & ASYMPTOMATIC. ORAL CARE PROVIDED. SPONGE BATH PROVIDED, PT REPOSITIONED VIA 2-PERSON TOTAL ASSIST. MENDIETA CATH & NEPHROSTOMY INTACT, BOTH DRAINING YELLOW URINE. WILL CONTINUE TO MONITOR.
[2018-03-23] MEDS: FERROUS SULFATE 300 MG/5 ML UDC GT SCH (09:52)
[2018-03-23] MEDS: PANTOPRAZOLE 40 MG INJ VIAL IVP SCH (09:52)
[2018-03-23] MEDS: FUROSEMIDE 20 MG/2 ML VIAL IVP SCH (09:52)
[2018-03-23] MEDS: ASCORBIC ACID 500 MG/5 ML ORASYR GT SCH (09:52)
[2018-03-23] MEDS: DOCUSATE 100 MG/10 ML UDC GT SCH ×2 (09:53→20:18)
[2018-03-23] MEDS: amLODIPine 5 MG TAB GT SCH (09:53)
[2018-03-23] MEDS: FAMOTIDINE 20 MG TAB GT SCH (09:53)
[2018-03-23] MEDS: ASPIRIN 81 MG TAB.CHEW PO SCH (09:53)
[2018-03-23] MEDS: ALLOPURINOL 100 MG TAB GT SCH (09:54)
[2018-03-23] MEDS: SIMETHICONE 80 MG TAB.CHEW GT SCH ×3 (09:54→17:06)
[2018-03-23] MEDS: SENNA 8.6 MG TAB PO SCH ×3 (09:55→17:06)
[2018-03-23] MEDS: DIGOXIN 0.125 MG TAB GT SCH (09:55)
[2018-03-23] MEDS: POTASSIUM CHLORIDE 20% 40 MEQ/15 ML UDC GT SCH (09:56)
[2018-03-23] MEDS ORDERED: SODIUM PHOS / POTASSIUM PHOS 1 PKT PDR PO SCH (10:35)
[2018-03-23] MEDS: ISOSORBIDE DINITRATE 10 MG TAB GT SCH ×2 (10:37→20:17)
[2018-03-23] MEDS: LACTOBACILLUS RHAMNOSUS GG 1 EACH CAP PO SCH (10:37)
[2018-03-23] MEDS: GLYCOPYRROLATE 0.2 MG/ML VIAL IM SCH ×2 (10:37→20:18)
--- NOTE | 2018-03-23 11:16 | NUR ---
PT SUCTIONED OBTAINED MODERATE AMOUNT OF THICK WHITE SECRETIONS, AIRWAY IS PATENT AND TRACH IS SECURE. WILL CONTINUE TO MONITOR.
[2018-03-23 12:00] VITALS: BP 148/84
--- NOTE | 2018-03-23 12:00 | NUR ---
OBTAINED GT RESIDUAL OF 10ML. GT FEEDING RATE OF VITAL AF 1.2 INCREASED FROM 60ML/HR TO 70ML/HR. ABD SOFT WITH ACTIVE BOWEL SOUNDS. ORAL CARE PROVIDED. PT CLEAN & DRY AT THIS TIME. REPOSITIONED VIA 2-PERSON TOTAL ASSIST. LEFT HAND IV INTACT & ASYMPTOMATIC. CALL LIGHT WITHIN REACH. TRACH TO VENT IN PLACE.
[2018-03-23] MEDS: INSULIN LISPRO SLIDING SCALE 100 UNITS/ML VIAL SUBQ PRN ×3 (12:26→20:20)
--- NOTE | 2018-03-23 13:15 | NUR ---
PT AWAKE, APHASIC, UNABLE TO MAKE NEEDS KNOWN OR FOLLOW SIMPLE INSTRUCTIONS. TRACH TO VENT IN PLACE, RESPIRATIONS EVEN & UNLABORED. LEFT HAND IV INTACT & ASYMPTOMATIC WITH ONGOING IVF. GT IN PLACE WITH ONGOING FEEDING.
[2018-03-23] MEDS: SODIUM PHOS / POTASSIUM PHOS 1 PKT PDR PO SCH ×2 (14:13→17:06)
--- NOTE | 2018-03-23 15:50 | NUR ---
PT ASLEEP, RESPIRATIONS EVEN & UNLABORED. MENDIETA CATH & NEPHROSTOMY IN PLACE & DRAINING WELL. CONT GT FEEDING @ 70ML/HR. CONT IVF 1/2NS @ 20ML/HR.
[2018-03-23 16:00] VITALS: BP 138/59
[2018-03-23 17:10] LABS: ANION GAP 11.8 (8-16); CARBON DIOXIDE 22.7 mmol/L (21-32); CHLORIDE 120 mmol/L (98-107); CREATININE 1.6 mg/dL (0.7-1.3); GLUCOSE 215 mg/dL (74-106); POTASSIUM 4.5 mmol/L (3.5-5.1); SODIUM SERUM 150 mmol/L (136-145); UREA NITROGEN, BLOOD 41 mg/dL (7-18)
--- NOTE | 2018-03-23 17:10 | NUR ---
BEDSIDE REPORT GIVEN TO PM SHIFT NURSE SHERYL.
--- NOTE | 2018-03-23 19:10 | NUR ---
RECEIVED REPORT FROM [facility] NURSE BEE AT BEDSIDE FOR CONTINUITY OF CARE.DNR. IV NOTED L WRIST 22G NS 20ML/HR. NO SOB NO S/S OF DISTRESS ON VENT TO TRACH: . TUBE FEEDING VITAL AF 1.2 70 ML/HR W/ H2O 100 Q4H . MENDIETA CATHETER IN PLACE. ALSO HAS NEPROSTOMY TUBE IN PLACE LEFT SIDE MINIMUM DRAINAGE D/T BLOCKED POSSIBLE KIDNEY STONE. SKIN INTACT.
[2018-03-23 19:50] VITALS: BP 134/60
[2018-03-23] MEDS: SIMVASTATIN 20 MG TAB GT SCH (20:18)
[2018-03-24] VITALS (7 sets, daily range): BP systolic 143–163; BP diastolic 51–67
--- NOTE | 2018-03-24 00:25 | NUR ---
PT CURRENTLY SLEEPING. NO SOB NO S/S OF DISTRESS ON RA. WILL CONTINUE TO MONITOR.
--- NOTE | 2018-03-24 04:30 | NUR ---
IV SITE ASKED MD COATS IF SHE CAN PUT ADDITIONAL ORDERS : TO KEEP IV SITE CANNULA IN PLACE, BECAUSE HE IS A HARD STICK. SHE STATED SHE WILL LET AM RESIDENTS KNOW.
[2018-03-24] MEDS: MEROPENEM 500 MG in NACL 0.9% 50 ML IV SCH ×3 (04:39→21:12)
[2018-03-24] MEDS: INSULIN LISPRO SLIDING SCALE 100 UNITS/ML VIAL SUBQ PRN ×3 (05:45→21:14)
[2018-03-24] MEDS: BLOOD GLUCOSE MONITORING 1 DEV DEV FS SCH ×4 (05:56→21:11)
[2018-03-24] MEDS: ALBUTEROL SULFATE/IPRATROPIU 3 ML SOL IH SCH ×3 (06:28→18:46)
--- NOTE | 2018-03-24 06:28 | NUR ---
RECEIVED PT ON CARESCAPE ON DOCUMENTED SETTINGS ALARMS ARE ON AND AUDIBLE PTS TRACH PORTEX 7 IS SECURE PT IN HF QUIET BS RHONCI I\L HHN GVIEN WITH 3 MG DUONEB CONT POX IN PLACE VENT PLUGGED INTO RED OUTLET BMV HOB
[2018-03-24] MEDS: METOCLOPRAMIDE 10 MG/10 ML SYRP UDC GT SCH ×3 (06:40→16:30)
--- NOTE | 2018-03-24 07:14 | NUR ---
[facility] RAI AT BEDSIDE FOR CONTINUITY OF CARE.
--- NOTE | 2018-03-24 07:15 | NUR ---
RECEIVED REPORT FROM THE SHEET METAL ENGINEER NURSE AT BEDSIDE FOR CONTINUITY OF CARE. PT IS APHASIC. SEIZURE PRECAUTION IN PLACE. CONTACT ISO. PT IS BEDBOUND, TRACH TO VENT: FIO2 24%, VT 500, RESP 12, PEEP 5. PT IS ALSO ON GTUBE. VITAL AF 1.2 AT 70ML/HR H20 FLUSH OF 100ML/Q 4HR. PT TOLERATING WELL. PT HAS MENDIETA IN PLACE. L NEPHROSTOMY TUBE IN PLACE. SKIN INTACT. PER SHEET METAL ENGINEER RN, BM 2 TIMES ON HER SHIFT THIS MORNING. IV ON L WRIST 22G 1/NS AT 70ML/HR. WILL CONTINUE TO MONITOR PT.
[2018-03-24 08:16] LABS: BASOPHILS % (AUTO) 0.3 % (0.0-2.0); EOSINOPHILS # (AUTO) 0.5 K/uL (0-0.4); EOSINOPHILS % (AUTO) 3.3 % (0.0-4.0); HEMATOCRIT 32.1 % (36-52); HEMOGLOBIN 10.1 g/dL (12.0-18.0); LYMPHOCYTES % (AUTO) 14.1 % (20.5-51.1); MEAN CORPUSCULAR HEMOGLOBIN 31 pg (27-31); MEAN CORPUSCULAR HGB CONC 32 g/dL (33-37); MEAN CORPUSCULAR VOLUME 96.6 fL (80-94); MONOCYTES % (AUTO) 6.8 % (1.7-9.3); NEUTROPHILS # (AUTO) 10.5 K/uL (1.8-7.7); NEUTROPHILS % (AUTO) 75.5 % (42.2-75.2); PLATELET COUNT (AUTO) 247 K/uL (140-450); RED BLOOD CELL COUNT(AUTO) 3.32 MIL/uL (4.20-6.10); RED CELL DISTRIBUTION WIDTH 17.5 % (11.6-13.7); WHITE BLOOD COUNT (AUTO) 13.9 K/uL (4.8-10.8)
[2018-03-24] MEDS: ISOSORBIDE DINITRATE 10 MG TAB GT SCH ×2 (08:44→21:11)
[2018-03-24] MEDS: ASPIRIN 81 MG TAB.CHEW PO SCH (08:44)
[2018-03-24] MEDS: DIGOXIN 0.125 MG TAB GT SCH (08:44)
[2018-03-24] MEDS: amLODIPine 5 MG TAB GT SCH (08:44)
[2018-03-24] MEDS: LACTOBACILLUS RHAMNOSUS GG 1 EACH CAP PO SCH (08:45)
[2018-03-24] MEDS: CARVEDILOL 12.5 MG TAB GT SCH (08:45)
[2018-03-24] MEDS: FAMOTIDINE 20 MG TAB GT SCH (08:45)
[2018-03-24] MEDS: SIMETHICONE 80 MG TAB.CHEW GT SCH ×3 (08:46→17:06)
[2018-03-24] MEDS: SODIUM PHOS / POTASSIUM PHOS 1 PKT PDR PO SCH ×3 (08:46→17:06)
[2018-03-24] MEDS: DOCUSATE 100 MG/10 ML UDC GT SCH ×2 (08:47→21:00)
[2018-03-24] MEDS: ASCORBIC ACID 500 MG/5 ML ORASYR GT SCH (08:47)
[2018-03-24] MEDS: ALLOPURINOL 100 MG TAB GT SCH (08:47)
[2018-03-24] MEDS: SENNA 8.6 MG TAB PO SCH ×3 (08:47→17:00)
[2018-03-24] MEDS: FERROUS SULFATE 300 MG/5 ML UDC GT SCH (08:47)
[2018-03-24] MEDS: PANTOPRAZOLE 40 MG INJ VIAL IVP SCH (08:48)
[2018-03-24] MEDS: FUROSEMIDE 20 MG/2 ML VIAL IVP SCH (08:48)
[2018-03-24] MEDS: POTASSIUM CHLORIDE 20% 40 MEQ/15 ML UDC GT SCH (08:48)
[2018-03-24] MEDS: GLYCOPYRROLATE 0.2 MG/ML VIAL IM SCH ×2 (08:49→21:12)
[2018-03-24 08:52] LABS: ANION GAP 15.4 (8-16); CARBON DIOXIDE 20.6 mmol/L (21-32); CHLORIDE 119 mmol/L (98-107); CREATININE 1.5 mg/dL (0.7-1.3); GLUCOSE 207 mg/dL (74-106); SODIUM SERUM 151 mmol/L (136-145); UREA NITROGEN, BLOOD 39 mg/dL (7-18)
[2018-03-24 08:56] LABS: MAGNESIUM 2.3 mg/dL (1.8-2.4); PHOSPHORUS 1.9 mg/dL (2.5-4.9)
--- NOTE | 2018-03-24 09:05 | NUR ---
ADMINISTERED MORNING MEDS VIA GTUBE, IM, AND IVP. PT TOLERATED WELL. CHECKED FOR GTUBE PLACEMENT, RESIDUAL-0, AND PATENTCY. WORKING WELL. FLUSHES WELL. TOTAL FLUID VIA GTUBE WAS 300ML. ORAL CARE DONE. APPLIED LIP MOISTURIZER. NO SIGNS OF DISTRESS. RESTARTED FEEDING. WILL CONTINUE TO MONITOR PT.
--- NOTE | 2018-03-24 11:20 | NUR ---
ASSISTED GARMENT TAG STRINGER WITH TURNING PT AND WITH MORNING ADL'S. EMPTIED 800ML LIGHT JANIS URINE FROM MENDIETA CATH AND 100ML FROM NEPHROSTOMY TUBE. PT TOLERATED WELL. WILL CONTINUE TO MONITOR PT.
[2018-03-24] MEDS: NACL 0.45% 500 ML IV SCH ×3 (11:34→23:52)
--- NOTE | 2018-03-24 12:56 | NUR ---
ADMINISTERED SCHEDULED MEDICATIONS VIA GTUBE AND IVPB. PT TOLERATED WELL. CHECKED FOR PLACEMENT, RESIDUAL-0, AND PATENCY. NO SIGNS OF DISTRESS. WILL CONTINUE TO MONITOR PT.
[2018-03-24] MEDS ORDERED: DEXTROSE 5% 1,000 ML IV SCH (13:55)
--- NOTE | 2018-03-24 14:35 | NUR ---
03/24/18 RD FOLLOW UP COMPLETED PLEASE REFER TO NUTRITION PROGRESS NOTE UNDER CARE ACTIVITY FOR ESTIMATED NUTRITION NEEDS. RD RECOMMENDATIONS: 1. CONTINUE VITAL AF 1.2 AT GOAL RATE 70 ML/HR -THIS WILL PROVIDE 1680 ML, 2016 KCAL, AND 126 GM OF PROTEIN, WHICH MEETS 100%+ OF ESTIMATED NEEDS. 2. CONTINUE FREE WATER FLUSH [address] TO FOLLOW-UP 2-3 DAYS, HIGH RISK KENNY AHUMADA MBA, RD
--- NOTE | 2018-03-24 15:34 | NUR ---
PT RESTING COMFORTABLY. NO SIGNS OF DISTRESS. FLACC-0. WILL CONTINUE TO MONITOR PT.
--- NOTE | 2018-03-24 18:55 | NUR ---
Received pt stable on vent support at documented settings, suctioned small amount of white thick secretions, hhn tx given, tolerated well, no resp distress or SOB noted at this time, Portex 7 trach secured/patent/midline, alarms set and audible, vent plugged into red outlet, ambu bag at bedside, pulse ox on, will cont to monitor.
--- NOTE | 2018-03-24 19:10 | NUR ---
ENDORSED PT TO THE BICYCLE MECHANIC NURSE AT BEDSIDE FOR CONTINUITY OF CARE. PT IS IN STABLE CONDITION.
--- NOTE | 2018-03-24 19:15 | NUR ---
RECEIVED REPORT FROM [facility] NURSE RAI AT BEDSIDE FOR CONTINUITY OF CARE.DNR. IV NOTED L WRIST 22G D5W 30ML/HR. NO SOB NO S/S OF DISTRESS ON VENT TO TRACH: . TUBE FEEDING VITAL AF 1.2 70 ML/HR W/ H2O 100 Q4H . MENDIETA CATHETER IN PLACE. ALSO HAS NEPROSTOMY TUBE IN PLACE LEFT SIDE MINIMUM DRAINAGE D/T BLOCKED POSSIBLE KIDNEY STONE. SKIN INTACT.
[2018-03-24] MEDS: SIMVASTATIN 20 MG TAB GT SCH (21:11)
--- NOTE | 2018-03-25 01:30 | NUR ---
STARTED NEW FEEDING VITAL AF 1.2 RATE 70ML/HR, H2O 100 Q4H, NO RESIDUAL. WILL CONTINUE TO MONITOR.
[2018-03-25 04:00] VITALS: BP 164/69
[2018-03-25] MEDS: MEROPENEM 500 MG in NACL 0.9% 50 ML IV SCH ×3 (04:40→21:09)
--- NOTE | 2018-03-25 05:08 | NUR ---
SPOKE TO RESIDENT MD WHITAKER AND I LET HER KNOW OF PT ELEVATED BP OF 164/69 HR 58 I ADVISED HER IF I SHOULD GIVE AM BP MED . WILL ADMIN AND CONTINUE TO MONITOR.
[2018-03-25] MEDS: METOCLOPRAMIDE 10 MG/10 ML SYRP UDC GT SCH ×3 (05:16→16:06)
[2018-03-25] MEDS: BLOOD GLUCOSE MONITORING 1 DEV DEV FS SCH ×4 (05:16→21:07)
[2018-03-25] MEDS: CARVEDILOL 12.5 MG TAB GT SCH (05:17)
[2018-03-25] MEDS: INSULIN LISPRO SLIDING SCALE 100 UNITS/ML VIAL SUBQ PRN ×2 (05:18→21:19)
--- NOTE | 2018-03-25 05:30 | NUR ---
ASSESSED PT AND NOTICE IV SITE HAD 2 BLISTERS NEAR IV SITE; I STOPPED IV AND D/C CANNULA. CANNULA INTACT, IV FLUIDS INFILTRATED. CROP PULLER WAS NOTIFIED. picture in chart. as of now blister is intact and open to air.
[2018-03-25 06:29] VITALS: BP 137/66
[2018-03-25] MEDS: ALBUTEROL SULFATE/IPRATROPIU 3 ML SOL IH SCH ×3 (06:29→18:54)
--- NOTE | 2018-03-25 06:29 | NUR ---
REC'D PT ON CARESCAPE VENT SETTINGS AC12 VT 500 PEEP 5 FIO2 24% ALARMS ON AND AUDIBLE AND AMBU BAG AT SIDE OF VENT AND VENT IS PLUGGED INTO RED OUTLET, NO HHN GIVEN AT THIS TIME PT IS SLEEPING WITH NO SIGNS OF DISTRESS NOTED, B\S ARE CLEAR BILATERALLY, SXN PT SMALL AMT OF THIN WHITE SECRETIONS, PT IS TRACH WITH PORTEX 7 AND SKIN INTEGRITY IS INTACT.
[2018-03-25] MEDS ORDERED: MORPHINE SULFATE 2 MG/ML SYR IVP PRN (06:50)
[2018-03-25] MEDS ORDERED: ZOLPIDEM 5 MG TAB PO PRN (06:50)
[2018-03-25] MEDS ORDERED: LORazepam 2 MG/ML VIAL IM/IVP PRN (06:50)
--- NOTE | 2018-03-25 06:51 | NUR ---
ADMIN COREG 1 HR AGO BP AT 134/82 WILL CONTINUE TO MONITOR.
--- NOTE | 2018-03-25 07:15 | NUR ---
ENDORSED REPORT TO DAYSMSFT NURSE FOR CONTINUITY OF CARE.
--- NOTE | 2018-03-25 07:45 | NUR ---
PATIENT WAS RESTING COMFORTABLY, RESPONSIVE TO NAME. RESPIRATION EVEN, UNLABOR ON VENT AT 24%FIO2. SKIN DRY AND WARM. IV PATENT AND INTACT. FLACC 0. GTUBE, NEPHROSTOMY TUBE ARE CLEAN AND INTACT. MENDIETA DRAINING YELLOW URINE. PLAN OF CARE WAS DISCUSSED WITH PATIENT. BED AT LOW POSITION. SIDE RAILS UP. CALL LIGHT WITHIN REACH
[2018-03-25 07:53] LABS: BASOPHILS # (AUTO) 0.1 K/uL (0.00-0.22); BASOPHILS % (AUTO) 0.4 % (0.0-2.0); EOSINOPHILS # (AUTO) 0.3 K/uL (0-0.4); EOSINOPHILS % (AUTO) 2.3 % (0.0-4.0); HEMATOCRIT 31.6 % (36-52); HEMOGLOBIN 9.9 g/dL (12.0-18.0); LYMPHOCYTES # (AUTO) 2.2 K/uL (2.0-11.5); LYMPHOCYTES % (AUTO) 15.8 % (20.5-51.1); MEAN CORPUSCULAR HEMOGLOBIN 31 pg (27-31); MEAN CORPUSCULAR HGB CONC 31 g/dL (33-37); MEAN CORPUSCULAR VOLUME 97.3 fL (80-94); MONOCYTES # (AUTO) 0.9 K/uL (0.8-1.0); MONOCYTES % (AUTO) 6.7 % (1.7-9.3); NEUTROPHILS # (AUTO) 10.4 K/uL (1.8-7.7); NEUTROPHILS % (AUTO) 74.8 % (42.2-75.2); PLATELET COUNT (AUTO) 270 K/uL (140-450); RED BLOOD CELL COUNT(AUTO) 3.24 MIL/uL (4.20-6.10); RED CELL DISTRIBUTION WIDTH 17.5 % (11.6-13.7); WHITE BLOOD COUNT (AUTO) 13.9 K/uL (4.8-10.8)
[2018-03-25 08:00] VITALS: BP 111/60
[2018-03-25] MEDS: LACTOBACILLUS RHAMNOSUS GG 1 EACH CAP PO SCH (08:55)
[2018-03-25] MEDS: FERROUS SULFATE 300 MG/5 ML UDC GT SCH (08:55)
[2018-03-25] MEDS: PANTOPRAZOLE 40 MG INJ VIAL IVP SCH (08:55)
[2018-03-25] MEDS: ASCORBIC ACID 500 MG/5 ML ORASYR GT SCH (08:56)
[2018-03-25] MEDS: FAMOTIDINE 20 MG TAB GT SCH (08:56)
[2018-03-25] MEDS: amLODIPine 5 MG TAB GT SCH (08:56)
[2018-03-25] MEDS: ALLOPURINOL 100 MG TAB GT SCH (08:56)
[2018-03-25] MEDS: SIMETHICONE 80 MG TAB.CHEW GT SCH ×3 (08:56→16:06)
[2018-03-25] MEDS: GLYCOPYRROLATE 0.2 MG/ML VIAL IM SCH ×2 (08:57→21:08)
[2018-03-25] MEDS: FUROSEMIDE 20 MG/2 ML VIAL IVP SCH (08:57)
[2018-03-25] MEDS: ASPIRIN 81 MG TAB.CHEW PO SCH (08:57)
[2018-03-25] MEDS: DIGOXIN 0.125 MG TAB GT SCH (08:58)
[2018-03-25] MEDS: ISOSORBIDE DINITRATE 10 MG TAB GT SCH ×2 (08:58→21:08)
[2018-03-25] MEDS: DOCUSATE 100 MG/10 ML UDC GT SCH ×2 (08:58→21:00)
[2018-03-25] MEDS: POTASSIUM CHLORIDE 20% 40 MEQ/15 ML UDC GT SCH (08:59)
[2018-03-25] MEDS: SENNA 8.6 MG TAB PO SCH ×3 (08:59→16:06)
--- NOTE | 2018-03-25 09:15 | NUR ---
vent check, airway is patent and pt resting
[2018-03-25] MEDS: NACL 0.45% 500 ML IV SCH ×3 (09:39→22:57)
--- NOTE | 2018-03-25 09:47 | NUR ---
PATIENT WAS RESTING COMFORTABLY, RESPONSIVE BY NAME. RESPIRATION EVEN, UNLABOR ON VENT. MEDS WERE GIVEN PER ORDER. ORAL CARE AND MENDIETA CATHETER CARE WAS GIVEN. NO DISTRESS NOTED AT THIS TIME Addendum: 03/25/18 at 1225 by Loretta Calderon RN FEEDING RESIDUAL IS 0. PATIENT TOLERATING FEEDING WELL.
[2018-03-25 10:04] LABS: ANION GAP 17.1 (8-16); CARBON DIOXIDE 18.3 mmol/L (21-32); CHLORIDE 119 mmol/L (98-107); CREATININE 1.6 mg/dL (0.7-1.3); GLUCOSE 162 mg/dL (74-106); POTASSIUM 4.4 mmol/L (3.5-5.1); SODIUM SERUM 150 mmol/L (136-145); UREA NITROGEN, BLOOD 38 mg/dL (7-18)
[2018-03-25 10:19] LABS: MAGNESIUM 2.4 mg/dL (1.8-2.4); PHOSPHORUS 2.4 mg/dL (2.5-4.9)
--- NOTE | 2018-03-25 11:07 | NUR ---
vent check sxn pt small amt of white secretions airway is patent and pt resting
--- NOTE | 2018-03-25 11:42 | NUR ---
ABG DRAWN ON RB WITHOUT INCIDENT WITH NO CHANGES MADE TO VENT
[2018-03-25 12:00] VITALS: BP 156/68
--- NOTE | 2018-03-25 12:24 | NUR ---
PATIENT WAS RESTING COMFORTABLY. RESPIRATION EVEN, UNLABOR ON VENT. FLACC 0. MEDS WERE GIVEN PER ORDER. ORAL CARE WAS GIVEN. FEEDING RESIDUAL CHECKED AT 5ML, PATIENT TOLERATING FEEDING WELL. NO DISTRESS NOTED AT THIS TIME
--- NOTE | 2018-03-25 12:53 | NUR ---
VENT CHECK TRACH DONE SNX PT SMALL AMT OF WHITE SECRETIONS PT RESTING
--- NOTE | 2018-03-25 13:25 | NUR ---
PATIENT WAS AWAKE. RESPIRATION EVEN, UNLABOR ON VENT. WOUND DRESSING WAS APPLIED ON LEFT HAND. PATIENT WAS SUCTION. NO DISTRESS NOTED AT THIS TIME
--- NOTE | 2018-03-25 15:00 | NUR ---
PATIENT WAS RESTING COMFORTABLY. RESPIRATION EVEN, UNLABOR ON VENT. NO DISTRESS NOTED AT THIS TIME
[2018-03-25 16:00] VITALS: BP 148/52
--- NOTE | 2018-03-25 16:00 | NUR ---
PATIENT WAS RESTING COMFORTABLY. RESPIRATION EVEN, UNLABOR ON VENT. FEEDING RESIDUAL WAS 5ML, PATIENT TOLERATING FEEDING WELL. ORAL CARE WAS GIVEN. PATIENT WAS SUCTIONED. NO DISTRESS NOTED AT THIS TIME. CALL LIGHT WITHIN REACH
--- NOTE | 2018-03-25 18:00 | NUR ---
PATIENT WAS RESTING COMFORTABLY. RESPIRATION EVEN, UNLABOR ON VENT. IV PATENT AND INTACT. NO DISTRESS NOTED AT THIS TIME.
--- NOTE | 2018-03-25 19:02 | NUR ---
Received pt stable on vent support at documented settings, suctioned small amount of thin white secretions, hhn tx given, tolerated well, no resp distress or SOB noted at this time, Portex 7 DCT trach secured/patent/midline, alarms set and audible, ambu bag at [facility], vent plugged into red outlet, cont pulse ox on, will cont to monitor.
--- NOTE | 2018-03-25 19:30 | NUR ---
ENDORSEMENT GIVEN TO MINE SURVEYOR NURSE. PATIENT IS STABLE AT THIS TIME
--- NOTE | 2018-03-25 19:31 | NUR ---
RECEIVED PT IN STABLE CONDITION FROM AM NURSE. PT OPEN EYES WHEN NAME CALLED. ON TELE MONITOR.-PACED. BEDREST. WITH TRACH TO VENT, O2SAT 100%. NO RESPIRATORY DISTRESS NOTED. HAS IVF INFUSING WELL ON THE RT HAND#24. CLEAR AND PATENT. GT FEEDING ON WITH NO RESIDUAL NOTED. MENDIETA CATHETER DRAINING TO A CLEAR YELLOW URINE. AND ALSO WITH LT NEPHROSTOMY TUBE WITH SMALL DRAINAGE NOTED. HAS LT HAND SKIN TEAR, DRESSING IN PLACED. SCD TO BLE ALSO IN PLACED. BED ON LOW POSITION. SIDE RAILS ARE PADDED FOR SEIZURE PRECAUTION. FREQUENT ROUNDS NEEDED. CALL LIGHT WITHIN REACH. ON CONTACT ISOLATION . WILL CONTINUE TO MONITOR.
[2018-03-25 20:00] VITALS: BP 137/53
[2018-03-25] MEDS: SIMVASTATIN 20 MG TAB GT SCH (21:08)
--- NOTE | 2018-03-25 21:19 | NUR ---
BLOOD SUGAR WAS CHECKED RESULT 155. INSULIN COVERAGE GIVEN SUBQ. WITH CONTINUOS GT FEEDING.
--- NOTE | 2018-03-25 23:00 | NUR ---
PT IS LEEP. NO RESPIRATORY DISTRESS NOTED.
[2018-03-26 00:10] VITALS: BP 139/52
--- NOTE | 2018-03-26 00:30 | NUR ---
PT REPOSITIONED FOR COMFORT. NO DISTRESS NOTED.
--- NOTE | 2018-03-26 02:00 | NUR ---
SLEEPING AT THIS TIME. NO RESPIRATORY DISTRESS NOTED.
--- NOTE | 2018-03-26 03:54 | NUR ---
REPOSITIONED FOR COMFORT. NO BM NOTED.
[2018-03-26] MEDS: MEROPENEM 500 MG in NACL 0.9% 50 ML IV SCH ×3 (04:39→20:25)
[2018-03-26 04:43] VITALS: BP 156/69
--- NOTE | 2018-03-26 05:00 | NUR ---
PT TOLERATING GT FEEDING WELL. NO RESIDUAL NOTED.
[2018-03-26] MEDS: BLOOD GLUCOSE MONITORING 1 DEV DEV FS SCH ×4 (06:05→20:26)
[2018-03-26] MEDS: NACL 0.45% 500 ML IV SCH ×2 (06:06→06:28)
[2018-03-26] MEDS: INSULIN LISPRO SLIDING SCALE 100 UNITS/ML VIAL SUBQ PRN (06:20)
[2018-03-26] MEDS: METOCLOPRAMIDE 10 MG/10 ML SYRP UDC GT SCH ×3 (06:29→17:37)
[2018-03-26] MEDS: ALBUTEROL SULFATE/IPRATROPIU 3 ML SOL IH SCH ×3 (06:32→19:24)
--- NOTE | 2018-03-26 06:32 | NUR ---
RECEIVED PT ON DOCUMENTED SETTINGS ALARMS ARE ON AND FUNCTIONAL PT IN HF QUIET PTS TRACH PORTEX 7 DCT IS SECURE BS RHONCI HHN GIVEN I\L WITH 3 MG DUONEB CONT PULSE OX IN PLACE VENT PLUGGED INTO RED OUTLET BMV HOB
--- NOTE | 2018-03-26 07:18 | NUR ---
ENDORSED BEDSIDE NOTES TO AM SHIFT NURSE. NO S/S'X OF COFFEE GROUND EMESIS. STILL WITH ABDOMINAL DISTENTION BUT DR. VILLANUEVA. CHANGED TO NEW FEEDING AND CONTINUED WITH PRESENT FLOW RATE AND WATER FLUSH ORDERED. ENDORSED TO NEXT SHIFT.
--- NOTE | 2018-03-26 07:20 | NUR ---
ENDORSED PT IN STABLE CONDITION TO AM NURSE FOR CONTINUITY OF CARE.
--- NOTE | 2018-03-26 07:21 | NUR ---
RECEICVED REPORT FROM PM NURSE AT BEDSIDE FOR CONTINUITY OF CARE. PT IS TRACT TO VENT DEPENDENT. IS ON CONTACT ISOLATION OF ESBL IN [place]. PT IS APHASIC, AOX1. UNABLE TO MAKE HIS NEEDS BE KNOWN. RESPONDS TO VOICE. HAS G-TUBE FEEDING INFUSING AT 70ML/HR WITH 100 ML WATER FLUSH Q4HRS. PT IS ON IVF INFUSING AT 100 ML/HR, HAS IV ACCESS ON HIS RT WRIST 24 G. PATENT AND INTACT. HAS FC IN PLACE. PT IS TOTAL CARE, BEDBOUND, SKIN IS INTACT , HAS BLISTER ON HIS LFT WRIST AND RT LOWER THIGH. PT STABLE AT THIS TIME, NO SIGN OF DISTRESS NOTED. PT HAS DISTENDED STOMACH, PER PM NURSE, PT HAD BMX2 IN HER SHIFT. PASSES GAS. ALL SAFETY MEASURE IN PLACE. WILL CONTINUE TO MONITOR PT.
[2018-03-26 07:54] LABS: BASOPHILS % (AUTO) 0.3 % (0.0-2.0); EOSINOPHILS # (AUTO) 0.3 K/uL (0-0.4); EOSINOPHILS % (AUTO) 2.3 % (0.0-4.0); HEMATOCRIT 30.3 % (36-52); HEMOGLOBIN 9.6 g/dL (12.0-18.0); LYMPHOCYTES # (AUTO) 2.5 K/uL (2.0-11.5); MEAN CORPUSCULAR HEMOGLOBIN 31 pg (27-31); MEAN CORPUSCULAR HGB CONC 32 g/dL (33-37); MEAN CORPUSCULAR VOLUME 97.1 fL (80-94); MONOCYTES # (AUTO) 0.9 K/uL (0.8-1.0); MONOCYTES % (AUTO) 7.9 % (1.7-9.3); NEUTROPHILS # (AUTO) 7.8 K/uL (1.8-7.7); NEUTROPHILS % (AUTO) 67.5 % (42.2-75.2); PLATELET COUNT (AUTO) 296 K/uL (140-450); RED BLOOD CELL COUNT(AUTO) 3.12 MIL/uL (4.20-6.10); RED CELL DISTRIBUTION WIDTH 17.2 % (11.6-13.7); WHITE BLOOD COUNT (AUTO) 11.6 K/uL (4.8-10.8)
[2018-03-26 08:07] VITALS: BP 118/64
[2018-03-26] MEDS: SENNA 8.6 MG TAB PO SCH ×3 (09:00→17:37)
[2018-03-26] MEDS: DOCUSATE 100 MG/10 ML UDC GT SCH ×2 (09:00→20:16)
[2018-03-26] MEDS: CARVEDILOL 12.5 MG TAB GT SCH (09:30)
[2018-03-26] MEDS: amLODIPine 5 MG TAB GT SCH (09:30)
[2018-03-26] MEDS: ASCORBIC ACID 500 MG/5 ML ORASYR GT SCH (09:30)
[2018-03-26] MEDS: POTASSIUM CHLORIDE 20% 40 MEQ/15 ML UDC GT SCH (09:30)
[2018-03-26] MEDS: FERROUS SULFATE 300 MG/5 ML UDC GT SCH (09:30)
[2018-03-26] MEDS: ISOSORBIDE DINITRATE 10 MG TAB GT SCH ×2 (09:30→20:15)
[2018-03-26] MEDS: SIMETHICONE 80 MG TAB.CHEW GT SCH ×3 (09:30→17:37)
[2018-03-26] MEDS: GLYCOPYRROLATE 0.2 MG/ML VIAL IM SCH (09:30)
[2018-03-26] MEDS: FAMOTIDINE 20 MG TAB GT SCH (09:30)
[2018-03-26] MEDS: ALLOPURINOL 100 MG TAB GT SCH (09:30)
[2018-03-26] MEDS: FUROSEMIDE 20 MG/2 ML VIAL IVP SCH (09:30)
[2018-03-26] MEDS: PANTOPRAZOLE 40 MG INJ VIAL IVP SCH (09:30)
[2018-03-26] MEDS: DIGOXIN 0.125 MG TAB GT SCH (09:30)
[2018-03-26] MEDS: LACTOBACILLUS RHAMNOSUS GG 1 EACH CAP PO SCH (09:30)
[2018-03-26] MEDS: ASPIRIN 81 MG TAB.CHEW PO SCH (09:30)
--- NOTE | 2018-03-26 09:30 | NUR ---
HELD SENNA AND COLACE PT HAVING LOOSE WATERY STOOL. DR AWARE. NO RESIDUAL, PT ABDOMEN DISTENDED, SOFT TO TOUCH. PT TOLERATED WELL. NO SIGN OF DISTRESS NOTED. ALL SAFETY MEASURE IN PLACE. WILL CONTINUE TO MONITOR PT.
[2018-03-26] MEDS: NACL 0.45% 1,000 ML IV SCH (12:00)
[2018-03-26 12:08] VITALS: BP 144/66
[2018-03-26] MEDS: SODIUM PHOS / POTASSIUM PHOS 1 PKT PDR PO SCH ×2 (12:36→17:38)
[2018-03-26 13:00] LABS: ANION GAP 16.3 (8-16); CARBON DIOXIDE 19.2 mmol/L (21-32); CHLORIDE 116 mmol/L (98-107); CREATININE 1.4 mg/dL (0.7-1.3); GLUCOSE 172 mg/dL (74-106); POTASSIUM 4.5 mmol/L (3.5-5.1); SODIUM SERUM 147 mmol/L (136-145); UREA NITROGEN, BLOOD 38 mg/dL (7-18)
--- NOTE | 2018-03-26 13:00 | NUR ---
CHECKED ON PT. SUCTIONED AND PROVIDED ORAL CARE . CHANGED G-TUBE. STOMACH IS DISTENDED, NO RESIDUAL OBTAINED. CHANGED HER TUBE FEEDING , STARTED WITH 70 ML/HR WITH 100 ML FLUSH Q4HRS . ADMINISTERED MEDS TO PT TOLERATED WELL. NO SIGN OF DISTRESS NOTED. RT AT BEDSIDE. ALL SAFETY MEASURE IN PLACE. WILL CONTINUE TO MONITOR PT.
[2018-03-26 16:00] VITALS: BP 113/37
--- NOTE | 2018-03-26 16:30 | NUR ---
CHECKED ON PT, LYING ON HIS BED. NO SIGN OF DISTRESS NOTED. IVF INFUSING WELL. ABDOMEN DISTENDED, CHECKED GTUBE RESIDUAL, NONE OBTAINED. PT APPEARS CALM AND COMFORTABLE. REPOSITIONED HIM WITH HELP OF CAN, HAS MUCOID STOOL . NO STOOL SEEN. ALL SAFETY MEASURE IN PLACE. RT WITH PT. WILL CONTINUE TO MONITOR PT.
[2018-03-26] MEDS: GLYCOPYRROLATE 1 MG TAB GT SCH (17:37)
--- NOTE | 2018-03-26 17:49 | NUR ---
ADMINISTERED MEDS TO PT ORDERED. TOLERATED WELL. GTUBE RESIDUAL 5 ML. ABDOMEN IS DISTENDED , SOFT TO TOUCH. BP 113/37, MD AWARE. REPOSITIONED PT AND RAISED HIS LEG. PROVIDED ORAL CARE, PT RESIST TO OPEN HIM MOUTH. NO SIGN OF DISTRESS NOTED ON PT, CALM AND RELAXED. GTUBE FLUSHING AND PATENT. BS 131, NO INSULIN COVERAGE REQUIRED.ALL SAFETY MEASURE IN PLACE. WILL CONTINUE TO MONITOR PT.
--- NOTE | 2018-03-26 19:15 | NUR ---
ENDORSED PT TO PM NURSE AT BEDSIDE FOR CONTINUITY OF CARE. PT IN STABLE CONDITION.
--- NOTE | 2018-03-26 19:16 | NUR ---
RECEIVED REPORT FROM AM NURSE AT BEDSIDE FOR CONTINUITY OF CARE. PT IS TRACT TO VENT DEPENDENT. CONTACT ISOLATION OF ESBL IN URINE. PT IS APHASIC, AOX1. UNABLE TO MAKE HIS NEEDS BE KNOWN. RESPONDS TO VOICE. HAS G-TUBE FEEDING INFUSING AT 70ML/HR WITH 100 ML WATER FLUSH Q4HRS. PT IS ON IVF INFUSING WELL, HAS IV ACCESS ON HIS RT WRIST 24 G. PATENT AND INTACT. HAS FC IN PLACE. PT IS TOTAL CARE, BEDBOUND, SKIN IS INTACT , HAS BLISTER ON HIS LFT WRIST WITH DRESSING IN PLACE. ALSO WITH RT LOWER THIGH BLISTER, CLOSED. OFF LOADING DONE. PT STABLE AT THIS TIME, NO SIGN OF DISTRESS NOTED. PT HAS DISTENDED STOMACH, AWARE ALL SAFETY MEASURE IN PLACE. WILL CONTINUE TO MONITOR PT.
--- NOTE | 2018-03-26 19:22 | NUR ---
PT AWAKE AND QUIET. RECEIVED ON ORDERED VENT SETTINGS: AC, 12, 500, +5, 24%. TRACH PATENT, DRY AND CLEAN. VITALS STABLE: 100%, PULSE 59, RATE 25, BREATH SOUNDS COARSE. SUCTIONED SCANT AMOUNT OF THICK WHITE SECRETIONS. TX GIVEN WITH NO ADVERSE REACTION. ALARMS ON AND AUDIBLE. AMBU BAG AT BEDSIDE ON BACK OF VENT.
[2018-03-26 20:00] VITALS: BP 148/57
[2018-03-26] MEDS: SIMVASTATIN 20 MG TAB GT SCH (20:15)
--- NOTE | 2018-03-26 21:00 | NUR ---
ADMINISTERED MEDS TO PT ORDERED. TOLERATED WELL. GTUBE RESIDUAL 5 ML. ABDOMEN IS DISTENDED , SOFT TO TOUCH. MD AWARE. PROVIDED ORAL CARE, PT RESIST TO OPEN HIM MOUTH. NO SIGN OF DISTRESS NOTED ON PT, CALM AND RELAXED. GTUBE FLUSHING AND PATENT. BS 145, NO INSULIN COVERAGE REQUIRED.ALL SAFETY MEASURE IN PLACE. WILL CONTINUE TO MONITOR PT.
--- NOTE | 2018-03-26 22:10 | NUR ---
CHECKED ON PT. SUCTIONED AND PROVIDED ORAL CARE . CHANGED DRESSING ON G-TUBE. STOMACH IS DISTENDED, NO RESIDUAL OBTAINED. NO SIGN OF DISTRESS NOTED.. RT AT BEDSIDE.ALL SAFETY MEASURE IN PLACE. WILL CONTINUE TO MONITOR PT.
[2018-03-27] VITALS (7 sets, daily range): BP systolic 60–169; BP diastolic 55–63
--- NOTE | 2018-03-27 | NUR ---
PT SLEEPING NO DISTRESS NOTED, BM NOTED WHILE TURNING PT Q2 HRS WITH NETWORK RELATIONS CONSULTANT'S
--- NOTE | 2018-03-27 00:57 | NUR ---
RECEIVED ON A [employer] R860 VENTILATOR WITH COMPRESSOR ON AND FUNCTIONING WELL PLUGGED INTO RED OUTLET TOLERATING WELL WITHOUT INCIDENT TO A PORTEX DCT #7 AIRWAY SECURED WITH A EDMAR TRACH TIE CUFF PRESSURE CHECKED NOTED MASIMO RADICAL-7 CONTINUOS PULSE OXIMETER A BEDSIDE ON AND FUNCTIONING WELL LOW SATURATION SET AT 92% AMBU BAG AT HOB LOC QUIET BREATH SOUNDS COARSE RHONCHI BILATERAL WITH GOOD CHEST RISE DEEP TRACHEAL SUCTION FOR MODERATE THICK YELLOW SECRETIONS AIRWAY PATENT
[2018-03-27] MEDS: NACL 0.45% 1,000 ML IV SCH (02:26)
--- NOTE | 2018-03-27 03:15 | NUR ---
PT'S RR WENT UP TO 30. INFORMED RT. RT WAS AT BEDSIDE. SUNCTIONED PT.
--- NOTE | 2018-03-27 04:03 | NUR ---
NO EVIDENCE OF PULMONARY DISTRESS NOTED GOOD CHEST RISE
--- NOTE | 2018-03-27 05:00 | NUR ---
PT BP HIGH AT 169/74. PER DR. KERRY TIMMONS ISORDIL EARLY. CARRIED OUT DR. SEYMOUR.
[2018-03-27] MEDS: ISOSORBIDE DINITRATE 10 MG TAB GT SCH ×2 (05:23→20:16)
[2018-03-27] MEDS: MEROPENEM 500 MG in NACL 0.9% 50 ML IV SCH ×3 (05:24→20:13)
--- NOTE | 2018-03-27 05:36 | NUR ---
NO DISTRESS NOTED GOOD CHEST RISE DEEP TRACHEAL SUCTION FOR SMALL THIN YELLOW SECRETIONS AIRWAY PATENT
[2018-03-27] MEDS: BLOOD GLUCOSE MONITORING 1 DEV DEV FS SCH ×4 (06:00→20:04)
--- NOTE | 2018-03-27 06:00 | NUR ---
PP WENT DOWN TO 140/ 60. WILL CONTINUE TO MONITOR.WILL ENDORSE TO AM NURSE THAT ISORDIL WAS GIVEN EARLY PER DR'S ORDER.
--- NOTE | 2018-03-27 06:05 | NUR ---
DRESSING CHANGED ON LEFT WRIST BLISTER. NO DRAINAGE NOTED. DRAINED PT OF NEPHROSTOMY 200 ML OUTPUT.
[2018-03-27] MEDS: ALBUTEROL SULFATE/IPRATROPIU 3 ML SOL IH SCH ×3 (06:22→19:03)
--- NOTE | 2018-03-27 06:22 | NUR ---
REC'D PT ON CARESCAPE VENT SETTINGS AC12 VT 500 PEEP 5 FIO2 24% ALARMS ON AND AUDIBLE AND VENT IS PLUGGED INTO RED OUTLET, PT SLEEPING WITH NO SIGNS OF DISTRESS NOT HHN GIVEN, B\S ARE COARSE BILATERALLY, SXN PT SMALL AMT OF THICK WHITE SECRETIONS, PT IS TRACH WITH PORTEX DCT 7 AND SKIN INTEGRITY IS INTACT, AMBU BAG AT SIDE OF VENT
--- NOTE | 2018-03-27 07:20 | NUR ---
RECEIVED PT FROM THE BASKETBALL COMMENTATOR NURSE AT BEDSIDE FOR CONTINUITY OF CARE. PT IS SLEEPING. AOX0, APHASIC. PT IS TRACH TO VENT. SETTING: FIO2 24%, VT 500, RR 12, PEEP 5. PACEMAKER- ON PACED RHYTHM. MENDIETA CATH IN PLACE. GTUBE FEEDING, VITAL AF 1.2 AT 70ML/HR, H20 FLUSH OF 100ML/Q 4HR. IV ON R HAND 24G 1/2 NS 70ML/HR. PT'S SKIN: BLISTER L WRIST AND R THIGH. LAST BM 03/26. WILL CONTINUE TO MONITOR PT.
[2018-03-27 08:03] LABS: BASOPHILS % (AUTO) 0.4 % (0.0-2.0); EOSINOPHILS # (AUTO) 0.3 K/uL (0-0.4); EOSINOPHILS % (AUTO) 2.8 % (0.0-4.0); HEMATOCRIT 28.9 % (36-52); HEMOGLOBIN 9.2 g/dL (12.0-18.0); LYMPHOCYTES # (AUTO) 2.2 K/uL (2.0-11.5); LYMPHOCYTES % (AUTO) 21.4 % (20.5-51.1); MEAN CORPUSCULAR HEMOGLOBIN 31 pg (27-31); MEAN CORPUSCULAR HGB CONC 32 g/dL (33-37); MONOCYTES # (AUTO) 0.7 K/uL (0.8-1.0); MONOCYTES % (AUTO) 6.4 % (1.7-9.3); NEUTROPHILS # (AUTO) 7.1 K/uL (1.8-7.7); PLATELET COUNT (AUTO) 284 K/uL (140-450); RED BLOOD CELL COUNT(AUTO) 2.98 MIL/uL (4.20-6.10); RED CELL DISTRIBUTION WIDTH 17.9 % (11.6-13.7); WHITE BLOOD COUNT (AUTO) 10.3 K/uL (4.8-10.8)
[2018-03-27 08:17] LABS: CREATININE 1.3 mg/dL (0.7-1.3); GLUCOSE 151 mg/dL (74-106); UREA NITROGEN, BLOOD 39 mg/dL (7-18)
[2018-03-27 08:28] LABS: CHLORIDE 118 mmol/L (98-107); POTASSIUM 4.4 mmol/L (3.5-5.1)
[2018-03-27 08:54] LABS: SODIUM SERUM 150 mmol/L (136-145)
[2018-03-27 08:55] LABS: ANION GAP 18.9 (8-16); CARBON DIOXIDE 17.5 mmol/L (21-32)
[2018-03-27] MEDS: amLODIPine 5 MG TAB GT SCH (09:12)
[2018-03-27] MEDS: SIMETHICONE 80 MG TAB.CHEW GT SCH ×3 (09:12→16:47)
[2018-03-27] MEDS: LACTOBACILLUS RHAMNOSUS GG 1 EACH CAP PO SCH (09:12)
[2018-03-27] MEDS: SODIUM PHOS / POTASSIUM PHOS 1 PKT PDR PO SCH ×3 (09:12→16:46)
[2018-03-27] MEDS: ASCORBIC ACID 500 MG/5 ML ORASYR GT SCH (09:13)
[2018-03-27] MEDS: SENNA 8.6 MG TAB PO SCH ×3 (09:13→16:46)
[2018-03-27] MEDS: GLYCOPYRROLATE 1 MG TAB GT SCH ×2 (09:13→16:47)
[2018-03-27] MEDS: ASPIRIN 81 MG TAB.CHEW PO SCH (09:13)
[2018-03-27] MEDS: DIGOXIN 0.125 MG TAB GT SCH (09:13)
[2018-03-27] MEDS: CARVEDILOL 12.5 MG TAB GT SCH (09:13)
[2018-03-27] MEDS: ALLOPURINOL 100 MG TAB GT SCH (09:13)
[2018-03-27] MEDS: POTASSIUM CHLORIDE 20% 40 MEQ/15 ML UDC GT SCH (09:14)
[2018-03-27] MEDS: DOCUSATE 100 MG/10 ML UDC GT SCH ×2 (09:14→20:16)
[2018-03-27] MEDS: METOCLOPRAMIDE 10 MG/10 ML SYRP UDC GT SCH ×3 (09:14→16:47)
[2018-03-27] MEDS: FAMOTIDINE 20 MG TAB GT SCH (09:14)
[2018-03-27] MEDS: PANTOPRAZOLE 40 MG INJ VIAL IVP SCH (09:14)
[2018-03-27] MEDS: FERROUS SULFATE 300 MG/5 ML UDC GT SCH (09:15)
--- NOTE | 2018-03-27 09:39 | NUR ---
ADMINISTERED MORNING MEDS VIA GTUBE. CHECKED FOR PLACEMENT, RESIDUAL-0, AND PATENCY. TOLERATED WELL. FLUSHED WELL. ORAL CARE DONE. WILL CONTINUE TO MONITOR PT.
--- NOTE | 2018-03-27 10:58 | NUR ---
PER DYEING MACHINE BACK TENDER, PT HAS A MODERATE AMOUNT OF CLEAR MUCOUS FROM THE ANUS. NOTIFIED DR. RODRIGUEZ AND KIRAN. THEY CAME AND SAW THE SOILED PAD. PER DYEING MACHINE BACK TENDER, PT HAD ONE YESTERDAY BUT VERY SMALL. WILL FOLLOW UP PER MD.
[2018-03-27] MEDS: INSULIN LISPRO SLIDING SCALE 100 UNITS/ML VIAL SUBQ PRN (12:14)
--- NOTE | 2018-03-27 13:10 | NUR ---
DR ZAZUETA INQUIRED ABOUT PT.
--- NOTE | 2018-03-27 13:18 | NUR ---
KUB TAKEN AT BEDSIDE.
--- NOTE | 2018-03-27 14:09 | NUR ---
PT SLEEPING SOUNDLY. NO SIGNS OF DISTRESS. WILL CONTINUE TO MONITOR PT.
--- NOTE | 2018-03-27 15:18 | NUR ---
RADIOLOGY CALLED REGARDING CRITICAL RADIOLOGY REPORT. FAX CAME IN. TOOK THE FAX TO DR ZAZUETA. PER , WILL ORDER ABD CT.
--- NOTE | 2018-03-27 15:28 | NUR ---
ORDERS TO HOLD FEEDING, NPO EXCEPT MEDS. TURNED OFF FEEDING. IVF STILL INFUSING D5 1/2 NS AT 70ML/HR. WILL ADMINISTER.
[2018-03-27] MEDS: DEXT 5% / NACL 0.45% 1,000 ML IV SCH (15:35)
--- NOTE | 2018-03-27 15:40 | NUR ---
STARTED A NEW IV ON R FOOT 22G. 1 ATTEMPT. NO DISTRESS NOTED. WILL CONTINUE TO MONITOR PT.
--- NOTE | 2018-03-27 16:54 | NUR ---
ADMINISTERED SCHEDULED MEDS VIA GTUBE. CHECKED FOR PLACEMENT, RESIDUAL-0, AND PATENCY. PT TOLERATED WELL. AWAITING CT.
--- NOTE | 2018-03-27 19:15 | NUR ---
ENDORSED PT TO THE ENGINE INSTALLER NURSE AT BEDSIDE FOR CONTINUITY OF CARE. PT IS IN STABLE CONDITION. PT STILL TO HAVE CT OF ABD.
--- NOTE | 2018-03-27 19:16 | NUR ---
RECEIVED BEDSIDE REPORT FROM CECELIA SANTOYO. PT IS A&O X0. PT IS APHASIC. PT IS TRACH TO VENT: 24%/500VT/RR12/ PEEP 5. PT HAS GTUBE IS CURRENTLY NPO FOR CT ABD/PELVIS WITH CONTRAST. PT WITH MENDIETA CATH DRAINING YELLOW URINE. PT HAS LEFT NEPHROSTOMY TUBE. PT HAS IV ON R FOOT 22G INFUSING D5 1/2NS AT 70ML/HR. PT IS FALL,SEIZURES, AND ASPIRATION PRECAUTION. PT HAS L HAND BLISTER OPEN TO AIR AND CLOSED BLISTER ON RIGHT THIGH. PT CLOSE TO NURSES STATION. BED ON LOWEST POSITION AND BED ALARM ON.
[2018-03-27] MEDS ORDERED: MEROPENEM 500 MG VIAL IV ONE (20:13)
--- NOTE | 2018-03-27 20:13 | NUR ---
DUE MEDICATIONS GIVEN PT TOLERATED WELL. NO RESIDUAL. PROVIDED ORAL CARE. PT WOULD PURSEE HIS LIPS WAS NOT ABLE TO CLEAN TONGUE. NO DISTRESS NOTED. PT TOLERATED WELL.
[2018-03-27] MEDS: SIMVASTATIN 20 MG TAB GT SCH (20:16)
--- NOTE | 2018-03-27 22:28 | NUR ---
PT RESTING IN BED. NO DISTRESS NOTED.
[2018-03-28] VITALS: BP 127/57
--- NOTE | 2018-03-28 | NUR ---
PTS VITAL SIGNS ARE WITHIN NORMAL LIMITS. NO DISTRESS NOTED. SAFETY MEASURES ARE IN PLACE WILL CONTINUE TO MONITOR.
--- NOTE | 2018-03-28 01:30 | NUR ---
PT SLEEPING COMFORTABLY IN BED. NO DISTRESS NOTED. SAFETY MEASURES ARE IN PLACE.
--- NOTE | 2018-03-28 03:45 | NUR ---
RT AT BEDSIDE. PTS VITAL SIGNS ARE WITHIN NORMAL LIMITS. NO DISTRESS NOTED AT THIS TIME. SAFETY MEASURES ARE IN PLACE.
[2018-03-28 03:48] VITALS: BP 124/67
[2018-03-28] MEDS: MEROPENEM 500 MG in NACL 0.9% 50 ML IV SCH ×3 (04:20→20:40)
[2018-03-28] MEDS: DEXT 5% / NACL 0.45% 1,000 ML IV SCH (04:23)
[2018-03-28] MEDS: BLOOD GLUCOSE MONITORING 1 DEV DEV FS SCH ×4 (05:49→20:40)
--- NOTE | 2018-03-28 06:00 | NUR ---
PT RESTING COMFORTABLY IN BED. NO DISTRESS NOTED. ALL SAFETY MEASURES ARE IN PLACE. BED ON LOWEST POSITION.
--- NOTE | 2018-03-28 07:20 | NUR ---
ENDORSED PT TO DAY SHIFT NURSE. PT IN STABLE CONDITION. SAFETY MEASURES IN PLACE.
--- NOTE | 2018-03-28 07:20 | NUR ---
RECEIVED REPORT FROM BRIM BLOCKER RN. PT RESTING IN BED. SPONTANEOUS EYES OPENING, NON-VERBAL, WITHDRAWS TO PAIN. SKIN DRY AND WARM TO TOUCH. ON TRACH TO VENT AC 12 FIO2 24% TV 500 PEEP 5. LUNGS CLEAR ON AUSCULTATION. PERIPHERAL LINE ON RIGHT FOOT AC 22G . FLUSHES WELL. D5%1/2 NS RUNNING AT 70 ML/HR. OPEN WOUND AND BLISTER NOTED ON LEFT HAND. ADAPTIC DRESSING IN PLACE. CONTRACTED LEFT UPPER EXTREMITY. UNABLE TO MOVE EXTREMITIES SELF. ABDOMEN DISTENDED. ACTIVE BOWEL SOUND. NO ACUTE RESPIRATORY DISTRESS NOTED. ON TELE MONITORING. KEPT PT ON COMFORTABLE POSITION. BED IN LOW POSITION LOCKED. WILL CONTINUE TO MONITOR.
[2018-03-28] MEDS: ALBUTEROL SULFATE/IPRATROPIU 3 ML SOL IH SCH ×3 (07:53→19:01)
--- NOTE | 2018-03-28 07:54 | NUR ---
RECEIVED ON A [employer] CARESCAPE R860 VENTILATOR WITH COMPRESSOR ON AND FUNCTIONING WELL TO A PORTEX DCT #7 AIRWAY SECURED WITH A EDMAR TRACH TIE MASIMO RADICAL-7 CONTINUOS PULSE OXIMETER AT BEDSIDE ON AND FUNCTIONING WELL LOW SATURATION LOW SATURATION ALARM SET AT 92% AMBU BAG NOTED AT HOB GOOD CHEST RISE DEEP TRACHEAL SUCTION FOR MODERATE THIN YELLOW SECRETIONS AIRWAY PATENT
[2018-03-28 08:00] VITALS: BP 163/76
[2018-03-28 08:14] LABS: BASOPHILS # (AUTO) 0.1 K/uL (0.00-0.22); BASOPHILS % (AUTO) 0.5 % (0.0-2.0); EOSINOPHILS # (AUTO) 0.3 K/uL (0-0.4); EOSINOPHILS % (AUTO) 3.2 % (0.0-4.0); HEMATOCRIT 29.1 % (36-52); HEMOGLOBIN 9.2 g/dL (12.0-18.0); LYMPHOCYTES # (AUTO) 1.7 K/uL (2.0-11.5); LYMPHOCYTES % (AUTO) 15.9 % (20.5-51.1); MEAN CORPUSCULAR HEMOGLOBIN 31 pg (27-31); MEAN CORPUSCULAR HGB CONC 32 g/dL (33-37); MEAN CORPUSCULAR VOLUME 97.4 fL (80-94); MONOCYTES # (AUTO) 0.6 K/uL (0.8-1.0); MONOCYTES % (AUTO) 5.2 % (1.7-9.3); NEUTROPHILS % (AUTO) 75.2 % (42.2-75.2); PLATELET COUNT (AUTO) 289 K/uL (140-450); RED BLOOD CELL COUNT(AUTO) 2.98 MIL/uL (4.20-6.10); RED CELL DISTRIBUTION WIDTH 17.6 % (11.6-13.7); WHITE BLOOD COUNT (AUTO) 10.7 K/uL (4.8-10.8)
--- NOTE | 2018-03-28 08:25 | NUR ---
TRANSFERRED TO RADIOLOGY FOR CT SCAN OF ABDOMINAL/PELVIC REGION REMOVED PATIENT FROM VENTILATOR PLACED ON OXYGEN VIA E-TANK AT 15 LPM TO INLINE SUCTION CATHETER/TRACHEAL TUBE AMBU BAG DEPRESSION EVERY 6 SECONDS WITH THE EXCEPTION OF BREATH HOLD DURING SCANNING INSTRUCTIONS TOLERATED PROCEDURE WELL SATURATION 100% HR 60
[2018-03-28 08:29] LABS: ANION GAP 15.8 (8-16); CARBON DIOXIDE 17.3 mmol/L (21-32); CHLORIDE 118 mmol/L (98-107); CREATININE 1.1 mg/dL (0.7-1.3); GLUCOSE 132 mg/dL (74-106); POTASSIUM 4.1 mmol/L (3.5-5.1); SODIUM SERUM 147 mmol/L (136-145); UREA NITROGEN, BLOOD 34 mg/dL (7-18)
--- NOTE | 2018-03-28 08:38 | NUR ---
TRANSFERRED PATIENT BACK TO [facility] 124-A OXYGEN VIA E-TANK AT 15 LPM TO INLINE SUCTION CATHETER/TRACHEAL TUBE AMBU BAG DEPRESSION EVERY 6 SECONDS TOLERATED TRANSFER WELL WITHOUT INCIDENT SATURATION 100% HR 60
--- NOTE | 2018-03-28 08:42 | NUR ---
PLACED PATIENT BACK ON CONTINUOS VENTILATION VIA Milk [employer] R860 WITH SAME SETTINGS NOTED PREVIOUSLY
--- NOTE | 2018-03-28 08:45 | NUR ---
PER TENISHA DURÁN TO ADMINISTER G-TUBE MEDS BUT HOLD G-TUBE FEEDING. TUBE FEEDING ON HOLD.
[2018-03-28] MEDS: METOCLOPRAMIDE 10 MG/10 ML SYRP UDC GT SCH ×3 (09:09→16:19)
[2018-03-28] MEDS: GLYCOPYRROLATE 1 MG TAB GT SCH ×2 (09:09→16:19)
[2018-03-28] MEDS: SODIUM PHOS / POTASSIUM PHOS 1 PKT PDR PO SCH ×3 (09:10→16:19)
[2018-03-28] MEDS: DOCUSATE 100 MG/10 ML UDC GT SCH (09:10)
[2018-03-28] MEDS: CARVEDILOL 12.5 MG TAB GT SCH (09:11)
[2018-03-28] MEDS: FERROUS SULFATE 300 MG/5 ML UDC GT SCH (09:11)
[2018-03-28] MEDS: amLODIPine 5 MG TAB GT SCH (09:12)
[2018-03-28] MEDS: ISOSORBIDE DINITRATE 10 MG TAB GT SCH ×2 (09:12→20:39)
[2018-03-28] MEDS: SIMETHICONE 80 MG TAB.CHEW GT SCH ×3 (09:12→16:19)
[2018-03-28] MEDS: POTASSIUM CHLORIDE 20% 40 MEQ/15 ML UDC GT SCH (09:13)
[2018-03-28] MEDS: FAMOTIDINE 20 MG TAB GT SCH (09:13)
[2018-03-28] MEDS: ALLOPURINOL 100 MG TAB GT SCH (09:13)
[2018-03-28] MEDS: LACTOBACILLUS RHAMNOSUS GG 1 EACH CAP PO SCH (09:14)
[2018-03-28] MEDS: SENNA 8.6 MG TAB PO SCH ×3 (09:14→16:20)
[2018-03-28] MEDS: PANTOPRAZOLE 40 MG INJ VIAL IVP SCH (09:14)
[2018-03-28] MEDS: ASPIRIN 81 MG TAB.CHEW PO SCH (09:14)
[2018-03-28] MEDS: DIGOXIN 0.125 MG TAB GT SCH (09:22)
[2018-03-28] MEDS: ASCORBIC ACID 500 MG/5 ML ORASYR GT SCH (09:22)
--- NOTE | 2018-03-28 09:23 | NUR ---
AT [address] ACCOMPANIED BY RT, ASSIGNED NURSE AND MOTOR VEHICLE ESCORT DRIVER IN STABLE CONDITION VIA BED. PT WAS ON STABLE CONDITION THROUGHOUT THE PROCEDURE. TAKEN BACK TO ROOM VIA BED AT 0842. ASSISTED BY RT, MOTOR VEHICLE ESCORT DRIVER AND ASSIGNED RN.
--- NOTE | 2018-03-28 10:01 | NUR ---
RESTING COMFORTABLY NO PULMONARY DISTRESS NOTED GOOD CHEST RISE
--- NOTE | 2018-03-28 11:48 | NUR ---
NO INDICATIONS OF RESPIRATORY DISTRESS NOTED AT THIS TIME DEEP TRACHEAL SUCTION FOR MODERATE THIN YELLOW SECRETIONS NOTED AIRWAY PATENT
[2018-03-28 12:00] VITALS: BP 145/69
[2018-03-28] MEDS ORDERED: MAGNESIUM CITRATE 300 ML BTL PO SCH (13:00)
--- NOTE | 2018-03-28 13:18 | NUR ---
. MEDICINE ADMINISTERED ORDERED. ORAL CARE PROVIDED. KEPT PT IN COMFORTABLE POSITION. WILL CONTINUE TO MONITOR.
--- NOTE | 2018-03-28 13:24 | NUR ---
PT HAVING BM AT THIS TIME. EXTRA DOSE OF SENNA NOT ADMINISTERED PER DR. ZAZUETA.
--- NOTE | 2018-03-28 13:29 | NUR ---
DR. ZAZUETA MADE AWARE ABOUT PT'S BM. ORDERED HELD STAT ENEMA. ENEMA NOT ADMINISTERED.
[2018-03-28] MEDS: NACL 0.45% 1,000 ML IV SCH (13:39)
[2018-03-28] MEDS ORDERED: POTASSIUM CHLORIDE 20% 40 MEQ/15 ML UDC GT SCH (14:00)
--- NOTE | 2018-03-28 14:21 | NUR ---
FOLLOW UP WITH DR. ZAZUETA IF SHE WANT TO GIVE 20 MEQ POTASSIUM AT 1400. MADE AWARE THAT PT RECEIVED 40 MEQ POTASSIUM THIS MORNING AND POTASSIUM 4.1. SAID DO NOT GIVE 1400 POTASSIUM. 20 MEQ POTASSIUM HELD FOR 1400.
[2018-03-28 16:00] VITALS: BP 141/56
--- NOTE | 2018-03-28 16:25 | NUR ---
RESIDUAL CHECKED, WAS 0. ADMINISTERED MEDICINE SCHEDULED. TOLERATING WELL. NO ACUTE RESP DISTRESS NOTED. NO CHANGE IN LOC. WILL CONTINUE TO MONITOR.
--- NOTE | 2018-03-28 16:49 | NUR ---
RESTING COMFORTABLY NO APPARENT RESPIRATORY DISTRESS NOTED GOOD CHEST RISE DEEP TRACHEAL SUCTION FOR SMALL THIN YELLOW SECRETIONS AIRWAY PATENT CHANGED TRACH TUBE DRAIN SPONGE
--- NOTE | 2018-03-28 17:16 | NUR ---
REPOSITIONED. PT CLEANED AND KEPT DRY, KEPT IN COMFORTABLE POSITION.
--- NOTE | 2018-03-28 18:51 | NUR ---
NO CHANGE IN LOC. RESTING IN BED COMFORTABLY.
--- NOTE | 2018-03-28 19:21 | NUR ---
REPORT GIVEN TO CURB SUPERVISOR RN FOR CONTINUITY OF CARE. PT ON STABLE CONDITION.
--- NOTE | 2018-03-28 19:22 | NUR ---
RECEIVED REPORT FROM DAY SHIFT CHOLO-RN AT BEDSIDE. PT RESTING IN BED. SPONTANEOUS EYES OPENING, NON-VERBAL, WITHDRAWS TO PAIN. SKIN DRY AND WARM TO TOUCH. ON TRACH TO VENT AC 12 FIO2 24%, TV 500, PEEP 5, FLOW RATE 50. LUNGS CLEAR ON AUSCULTATION. PERIPHERAL LINE ON RIGHT FOOT AC 22G . FLUSHES WELL. D5%1/2 NS RUNNING AT 70 ML/HR. G-TUBE IN PLACE AND FEEDING VITAL AF 1.2 AT 70ML/HR WITH WATER FLUSHES 100ML Q4H. NEPHROSTOMY TUBE ALSO IN PLACE ON LEFT FLANK. OPEN WOUND AND BLISTER NOTED ON LEFT HAND AND RIGHT THIGH. ADAPTIC DRESSING IN PLACE. CONTRACTED LEFT UPPER EXTREMITY. UNABLE TO MOVE EXTREMITIES SELF. ABDOMEN DISTENDED. ACTIVE BOWEL SOUND. NO ACUTE RESPIRATORY DISTRESS NOTED. ON TELE MONITORING. KEPT PT ON COMFORTABLE POSITION. BED IN LOW POSITION, BED BREAKS LOCKED, BOTH SIDE RAILS UP, FALL AND SEIZURE PRECAUTIONS ARE IN PLACE. WILL CONTINUE TO MONITOR.
[2018-03-28 20:00] VITALS: BP 128/47
--- NOTE | 2018-03-28 20:00 | NUR ---
ZERO RESIDUAL NOTED. ORAL CARE WAS ATTEMPTED HOWEVER PT PURSED LIPS AND REFUSED ORAL CARE. LIP MOISTURIZER APPLIED. PT TOLERATED WELL. NO S/S OF RESPIRATORY DISTRESS OR DISCOMFORT NOTED AT THIS TIME. WILL CONTINUE TO MONITOR.
--- NOTE | 2018-03-28 20:00 | NUR ---
VITAL SIGNS TAKEN AND TOLERATED WELL. NO S/S OF RESPIRATORY DISTRESS OR DISCOMFORT NOTED AT THIS TIME. WILL CONTINUE TO MONITOR.
--- NOTE | 2018-03-28 20:00 | NUR ---
BLOOD GLUCOSE 157- WILL ADMINISTER INSULIN COVERAGE.
[2018-03-28] MEDS: SIMVASTATIN 20 MG TAB GT SCH (20:40)
--- NOTE | 2018-03-28 20:40 | NUR ---
SCHEDULED MEDICATION GIVEN AND TOLERATED WELL. NO S/S OF RESPIRATORY DISTRESS OR DISCOMFORT NOTED AT THIS TIME. WILL CONTINUE TO MONITOR.
[2018-03-28] MEDS: INSULIN LISPRO SLIDING SCALE 100 UNITS/ML VIAL SUBQ PRN (20:56)
--- NOTE | 2018-03-28 20:56 | NUR ---
INSULIN COVERAGE GIVEN. PT TOLERATED WELL. NO S/S OF RESPIRATORY DISTRESS OR DISCOMFORT NOTED AT THIS TIME. WILL CONTINUE TO MONITOR.
--- NOTE | 2018-03-28 23:00 | NUR ---
PT RESTING IN BED. NO S/S OF RESPIRATORY DISTRESS OR DISCOMFORT NOTED AT THIS TIME. WILL CONTINUE TO MONITOR.
[2018-03-29] VITALS: BP 119/53
--- NOTE | 2018-03-29 | NUR ---
VITAL SIGNS TAKEN AND TOLERATED WELL. ORAL CARE WAS ATTEMPTED HOWEVER PT CONTINUES TO PURSE LIPS REFUSING ORAL CARE. LIP MOISTURIZER APPLIED. NATANAEL HOYOS AND JENIFER ASSISTED ME WITH REPOSITIONING AND PERINEAL CARE AFTER PT HAD LOOSE BM. NO S/S OF RESPIRATORY DISTRESS OR DISCOMFORT NOTED AT THIS TIME. WILL CONTINUE TO MONITOR.
--- NOTE | 2018-03-29 02:00 | NUR ---
PT CONTINUES TO SLEEP IN BED. NO S/S OF RESPIRATORY DISTRESS OR DISCOMFORT NOTED AT THIS TIME. WILL CONTINUE TO MONITOR.
[2018-03-29 04:00] VITALS: BP 133/50
--- NOTE | 2018-03-29 04:00 | NUR ---
VITAL SIGNS TAKEN AND TOLERATED WELL. ORAL CARE ATTEMPTED HOWEVER PT CONTINUES TO PURSE LIPS. LIP MOISTURIZER APPLIED. NEW IVF BAG HUNG. PT TOLERATED WELL. NO S/S OF RESPIRATORY DISTRESS OR DISCOMFORT NOTED AT THIS TIME. WILL CONTINUE TO MONITOR.
[2018-03-29] MEDS: NACL 0.45% 1,000 ML IV SCH ×3 (04:05→21:13)
[2018-03-29] MEDS: MEROPENEM 500 MG in NACL 0.9% 50 ML IV SCH ×3 (04:20→21:12)
--- NOTE | 2018-03-29 04:20 | NUR ---
SCHEDULED MEDICATION MERREM GIVEN AND TOLERATED WELL. NO S/S OF RESPIRATORY DISTRESS OR DISCOMFORT NOTED AT THIS TIME. WILL CONTINUE TO MONITOR.
--- NOTE | 2018-03-29 06:00 | NUR ---
PT CONTINUES TO SLEEP IN BED. NO S/S OF RESPIRATORY DISTRESS OR DISCOMFORT NOTED AT THIS TIME. WILL CONTINUE TO MONITOR.
[2018-03-29] MEDS: METOCLOPRAMIDE 10 MG/10 ML SYRP UDC GT SCH ×3 (06:34→16:22)
[2018-03-29] MEDS: BLOOD GLUCOSE MONITORING 1 DEV DEV FS SCH ×4 (06:34→21:13)
[2018-03-29] MEDS: GLYCOPYRROLATE 1 MG TAB GT SCH ×2 (06:34→16:21)
--- NOTE | 2018-03-29 06:34 | NUR ---
BLOOD GLUCOSE 133-NO INSULIN COVERAGE NEEDED. SCHEDULED MEDICATION GIVEN AND TOLERATED WELL. PT HAD SECOND BM-LOOSE. PERINEAL CARE GIVEN. ENDORSED PT CARE TO DAY SHIFT NURSE RN FOR CONTINUITY OF CARE.
[2018-03-29 07:12] LABS: BASOPHILS % (AUTO) 0.5 % (0.0-2.0); EOSINOPHILS # (AUTO) 0.5 K/uL (0-0.4); EOSINOPHILS % (AUTO) 4.7 % (0.0-4.0); HEMATOCRIT 29.3 % (36-52); HEMOGLOBIN 9.5 g/dL (12.0-18.0); LYMPHOCYTES # (AUTO) 1.6 K/uL (2.0-11.5); LYMPHOCYTES % (AUTO) 15.1 % (20.5-51.1); MEAN CORPUSCULAR HEMOGLOBIN 31 pg (27-31); MEAN CORPUSCULAR HGB CONC 32 g/dL (33-37); MEAN CORPUSCULAR VOLUME 96.9 fL (80-94); MONOCYTES # (AUTO) 0.5 K/uL (0.8-1.0); MONOCYTES % (AUTO) 4.9 % (1.7-9.3); NEUTROPHILS % (AUTO) 74.8 % (42.2-75.2); PLATELET COUNT (AUTO) 304 K/uL (140-450); RED BLOOD CELL COUNT(AUTO) 3.03 MIL/uL (4.20-6.10); WHITE BLOOD COUNT (AUTO) 10.6 K/uL (4.8-10.8)
--- NOTE | 2018-03-29 07:19 | NUR ---
ENDORSED PT CARE TO DAY SHIFT NURSE RN FOR CONTINUITY OF CARE.
[2018-03-29] MEDS: ALBUTEROL SULFATE/IPRATROPIU 3 ML SOL IH SCH ×3 (07:24→19:04)
--- NOTE | 2018-03-29 07:24 | NUR ---
RECEIVED ON A [employer] CARESCAPE R860 VENTILATOR WITH COMPRESSOR ON AND FUNCTIONING WELL PLUGGED INTO RED OUTLET TOLERATING WELL WITHOUT INCIDENT TO A PORTEX DCT #7 AIRWAY SECURED WITH A EDMAR TRACH TIE MASIMO RADICAL-7 CONTINUOS PULSE OXIMETER AT BESIDE ON AND FUNCTIONING WELL LOW SATURATION ALARM SET AT 92% AMBU BAG NOTED AT HOB LOC QUIET RESTING COMFORTABLY GOOD CHEST RISE AIRWAY PATENT
--- NOTE | 2018-03-29 07:30 | NUR ---
RECEIVED REPORT FROM PM SHIFT AT BEDSIDE. PT OPEN EYES SPONTANEOUSLY BUT UNABLE TO FOLLOW COMMANDS. NON-VERBAL, WITHDRAWS TO PAIN. SKIN WARM TO TOUCH. ON TRACH TO VENT AC 12 FIO2 24%, TV 500, PEEP 5, FLOW RATE 50.NO ACUTE RESPIRATORY DISTRESS NOTED. PERIPHERAL LINE ON RIGHT FOOT AC 22G RUNNING 0.45 % NS RUNNING AT 70 ML/HR. G-TUBE IN PLACE AND FEEDING VITAL AF 1.2 AT 70ML/HR WITH ZERO RESIDUAL NOTED. NEPHROSTOMY TUBE ALSO IN PLACE ON LEFT FLANK WITH YELLOW CLEAR URINE NOTED. SKIN NON INTACT ( SEE WOUND ASSESSMENT). LEFT UPPER EXTREMITY CONTRACTED. ABDOMEN DISTENDED. ACTIVE BOWEL SOUND. HOB ELEVATED 30 DEGREES WITH LOW BED POSITION. FALL AND SEIZURE PRECAUTIONS ARE IN PLACE. WILL CONTINUE TO MONITOR.
[2018-03-29 07:49] LABS: ANION GAP 14.7 (8-16); CHLORIDE 117 mmol/L (98-107); CREATININE 1.1 mg/dL (0.7-1.3); GLUCOSE 145 mg/dL (74-106); POTASSIUM 4.7 mmol/L (3.5-5.1); SODIUM SERUM 146 mmol/L (136-145); UREA NITROGEN, BLOOD 29 mg/dL (7-18)
[2018-03-29 08:00] VITALS: BP 131/53
--- NOTE | 2018-03-29 08:15 | NUR ---
TUBE FEEDING BAG AND TUBE ARE REPLACED.
[2018-03-29] MEDS: DOCUSATE 100 MG/10 ML UDC GT SCH (08:19)
[2018-03-29] MEDS: ASCORBIC ACID 500 MG/5 ML ORASYR GT SCH (08:19)
[2018-03-29] MEDS: FERROUS SULFATE 300 MG/5 ML UDC GT SCH (08:19)
[2018-03-29] MEDS: SENNA 8.6 MG TAB PO SCH ×3 (08:20→16:21)
[2018-03-29] MEDS: LACTOBACILLUS RHAMNOSUS GG 1 EACH CAP PO SCH (08:20)
[2018-03-29] MEDS: SIMETHICONE 80 MG TAB.CHEW GT SCH ×3 (08:20→16:22)
[2018-03-29] MEDS: CARVEDILOL 12.5 MG TAB GT SCH (08:20)
[2018-03-29] MEDS: ALLOPURINOL 100 MG TAB GT SCH (08:21)
[2018-03-29] MEDS: ASPIRIN 81 MG TAB.CHEW PO SCH (08:21)
[2018-03-29] MEDS: DIGOXIN 0.125 MG TAB GT SCH (08:21)
[2018-03-29] MEDS: FAMOTIDINE 20 MG TAB GT SCH (08:21)
[2018-03-29] MEDS: SODIUM PHOS / POTASSIUM PHOS 1 PKT PDR PO SCH ×3 (08:21→16:22)
[2018-03-29] MEDS: ISOSORBIDE DINITRATE 10 MG TAB GT SCH ×2 (08:22→21:12)
[2018-03-29] MEDS: amLODIPine 5 MG TAB GT SCH (08:22)
[2018-03-29] MEDS ORDERED: POTASSIUM CHLORIDE 20% 40 MEQ/15 ML UDC GT SCH (09:00)
--- NOTE | 2018-03-29 09:00 | NUR ---
oral care and seun care given. due meds given, pt tolerated well.
--- NOTE | 2018-03-29 09:06 | NUR ---
NO EVIDENCE OF PULMONARY DISTRESS NOTED AT THIS TIME GOOD CHEST RISE DEEP TRACHEAL SUCTION FOR MODERATE THICK PALE YELLOW SECRETIONS AIRWAY PATENT
--- NOTE | 2018-03-29 11:15 | NUR ---
NO SOB NOTED GOOD CHEST RISE DEEP TRACHEAL SUCTION FOR SMALL THIN YELLOW SECRETIONS
--- NOTE | 2018-03-29 11:45 | NUR ---
empty the nephrotomy bag urine 250 mls. pt no situation change, will continue to monitor.
[2018-03-29 12:00] VITALS: BP 128/55
--- NOTE | 2018-03-29 13:05 | NUR ---
NO EVIDENCE OF RESPIRATORY DISTRESS NOTED AT THIS TIME GOOD CHEST RISE AND AERATION THROUGHOUT LUNG VELAZCO AIRWAY PATENT
--- NOTE | 2018-03-29 14:30 | NUR ---
pt had loose bm, cleaned with supervisor dog license officer, turned and repositioned pt.
--- NOTE | 2018-03-29 15:44 | NUR ---
STABLE NO SOB NOTED AT THIS TIME GOOD CHEST RISE DEEP TRACHEAL SUCTION FOR MODERATE SEMI THICK PLAE YELLOW SECRETIONS AIRWAY PATENT
[2018-03-29 16:00] VITALS: BP 111/52
[2018-03-29] MEDS: INSULIN LISPRO SLIDING SCALE 100 UNITS/ML VIAL SUBQ PRN (16:28)
--- NOTE | 2018-03-29 16:34 | NUR ---
bs checked 155, 2 units insulin coverage given.
--- NOTE | 2018-03-29 17:48 | NUR ---
RESTING WELL NO PULMONARY ABNORMALITIES AT THIS TIME GOOD CHEST RISE AND AERATION THROUGHOUT AIRWAY PATENT
--- NOTE | 2018-03-29 19:14 | NUR ---
Received pt stable on vent support at documented settings, suctioned small amounts of thick white yellow secretions, hhn tx given, tolerated well, no resp distress or SOB noted at this time, Portex 7 trach secured/patent/midline, alarms set and audible, ambu bag at bedside, vent plugged into red outlet, pulse ox on, will cont to monitor.
--- NOTE | 2018-03-29 19:20 | NUR ---
RECEIVED REPORT FROM DAY SHIFT ISMA-RN AT BEDSIDE. PT RESTING IN BED. SPONTANEOUS EYES OPENING, NON-VERBAL, WITHDRAWS TO PAIN. SKIN DRY AND WARM TO TOUCH. ON TRACH TO VENT AC 12 FIO2 24%, TV 500, PEEP 5, FLOW RATE 50. LUNGS CLEAR ON AUSCULTATION. PERIPHERAL LINE ON RIGHT FOOT AC 22G . FLUSHES WELL. D5%1/2 NS RUNNING AT 70 ML/HR. G-TUBE IN PLACE AND FEEDING VITAL AF 1.2 AT 70ML/HR WITH WATER FLUSHES 100ML Q4H. NEPHROSTOMY TUBE ALSO IN PLACE ON LEFT FLANK. OPEN WOUND AND BLISTER NOTED ON LEFT HAND AND RIGHT THIGH. ADAPTIC DRESSING IN PLACE. CONTRACTED LEFT UPPER EXTREMITY. UNABLE TO MOVE EXTREMITIES SELF. ABDOMEN DISTENDED. ACTIVE BOWEL SOUND. NO ACUTE RESPIRATORY DISTRESS NOTED. ON TELE MONITORING. KEPT PT ON COMFORTABLE POSITION. BED IN LOW POSITION, BED BREAKS LOCKED, BOTH SIDE RAILS UP, FALL AND SEIZURE PRECAUTIONS ARE IN PLACE. WILL CONTINUE TO MONITOR.
[2018-03-29 20:00] VITALS: BP 118/39
--- NOTE | 2018-03-29 20:00 | NUR ---
VITAL SIGNS TAKEN AND TOLERATED WELL. BLOOD GLUCOSE 134-NO INSULIN COVERAGE NEEDED. NO S/S OF RESPIRATORY DISTRESS OR DISCOMFORT NOTED AT THIS TIME. WILL CONTINUE TO MONITOR.
--- NOTE | 2018-03-29 20:00 | NUR ---
ORAL CARE GIVEN AND TOLERATED WELL. NO S/S OF RESPIRATORY DISTRESS OR DISCOMFORT NOTED AT THIS TIME. WILL CONTINUE TO MONITOR.
[2018-03-29] MEDS: SIMVASTATIN 20 MG TAB GT SCH (21:12)
--- NOTE | 2018-03-29 21:13 | NUR ---
SCHEDULED MEDICATION GIVEN AND TOLERATED WELL. NEW IVF BAG HUNG AND TOLERATED WELL. NO S/S OF RESPIRATORY DISTRESS OR DISCOMFORT NOTED AT THIS TIME. WILL CONTINUE TO MONITOR.
--- NOTE | 2018-03-29 23:00 | NUR ---
PT CONTINUES TO SLEEP IN BED. NO S/S OF RESPIRATORY DISTRESS OR DISCOMFORT NOTED AT THIS TIME. WILL CONTINUE TO MONITOR.
[2018-03-30] VITALS: BP 133/58
--- NOTE | 2018-03-30 | NUR ---
VITAL SIGNS TAKEN AND TOLERATED WELL. ORAL CARE GIVEN AND TOLERATED WELL. NO S/S OF RESPIRATORY DISTRESS OR DISCOMFORT NOTED AT THIS TIME. WILL CONTINUE TO MONITOR.
--- NOTE | 2018-03-30 02:00 | NUR ---
PT CONTINUES TO SLEEP IN BED. NO S/S OF RESPIRATORY DISTRESS OR DISCOMFORT NOTED AT THIS TIME. WILL CONTINUE TO MONITOR.
[2018-03-30 04:00] VITALS: BP 129/59
--- NOTE | 2018-03-30 04:00 | NUR ---
VITAL SIGNS TAKEN AND TOLERATED WELL. ORAL CARE ATTEMPTED HOWEVER PT PURSED LIPS REFUSING. NO S/S OF RESPIRATORY DISTRESS OR DISCOMFORT NOTED AT THIS TIME. WILL CONTINUE TO MONITOR.
--- NOTE | 2018-03-30 04:30 | NUR ---
NEW BOTTLE OF VITAL AF 1.2 HUNG AND TUBING. INFUSING WELL. NO S/S OF RESPIRATORY DISTRESS OR DISCOMFORT NOTED AT THIS TIME. WILL CONTINUE TO MONITOR.
[2018-03-30] MEDS: MEROPENEM 500 MG in NACL 0.9% 50 ML IV SCH ×2 (04:54→12:06)
--- NOTE | 2018-03-30 04:54 | NUR ---
SCHEDULED MEDICATION GIVEN AND TOLERATED WELL. NO S/S OF RESPIRATORY DISTRESS OR DISCOMFORT NOTED AT THIS TIME. WILL CONTINUE TO MONITOR.
[2018-03-30] MEDS: METOCLOPRAMIDE 10 MG/10 ML SYRP UDC GT SCH ×3 (06:28→17:17)
[2018-03-30] MEDS: GLYCOPYRROLATE 1 MG TAB GT SCH ×2 (06:28→17:17)
[2018-03-30] MEDS: BLOOD GLUCOSE MONITORING 1 DEV DEV FS SCH ×4 (06:28→21:29)
--- NOTE | 2018-03-30 06:28 | NUR ---
BLOOD GLUCOSE 123-NO INSULIN COVERAGE NEEDED. SCHEDULED MEDICATIONS GIVEN AND TOLERATED WELL. NO S/S OF RESPIRATORY DISTRESS OR DISCOMFORT NOTED AT THIS TIME. WILL CONTINUE TO MONITOR.
[2018-03-30] MEDS: ALBUTEROL SULFATE/IPRATROPIU 3 ML SOL IH SCH ×3 (07:05→19:36)
--- NOTE | 2018-03-30 07:12 | NUR ---
RECEIVED TRACH PT WITH A PORTEX 7 TRACH ON VENT. SETTINGS AC 12, VT 500, PEEP 5 AND FIO2 24%. PT SUCTIONED OBTAINED SMALL AMOUNT OF THICK WHITE COLORED SECRETIONS, AIRWAY IS PATENT AND TRACH IS SECURE. PT IS NOT ALERT BUT NOT IN ANY DISTRESS AT THIS TIME. VENT IS PLUGGED INTO A RED OUTLET WITH ALARMS ON AND FUNCTIONING. WILL CONTINUE TO MONITOR.
--- NOTE | 2018-03-30 07:13 | NUR ---
ENDORSED PT CARE TO DAY SHIFT NURSE CRISTAL-RN FOR CONTINUITY OF CARE.
--- NOTE | 2018-03-30 07:14 | NUR ---
REPORT RECEIVED FROM PM SHIFT NURSE. PT ASLEEP IN BED, RESPIRATIONS EVEN & UNLABORED. RT AT BEDSIDE PROVIDING CARE. TRACH TO VENT, MENDIETA CATH, NEPHROSTOMY, & GT ALL INTACT & IN PLACE. RIGHT FOOT IV INTACT & ASYMPTOMATIC WITH ONGOING IVF INFUSION. CALL LIGHT WITHIN REACH.
[2018-03-30 08:00] VITALS: BP 128/54
[2018-03-30] MEDS: SODIUM PHOS / POTASSIUM PHOS 1 PKT PDR PO SCH ×3 (08:42→17:17)
[2018-03-30] MEDS: ISOSORBIDE DINITRATE 10 MG TAB GT SCH (08:50)
[2018-03-30] MEDS: ASCORBIC ACID 500 MG/5 ML ORASYR GT SCH (08:50)
[2018-03-30] MEDS: DOCUSATE 100 MG/10 ML UDC GT SCH (08:50)
[2018-03-30] MEDS: DIGOXIN 0.125 MG TAB GT SCH (08:50)
[2018-03-30] MEDS: FERROUS SULFATE 300 MG/5 ML UDC GT SCH (08:50)
[2018-03-30] MEDS: ASPIRIN 81 MG TAB.CHEW PO SCH (08:51)
[2018-03-30] MEDS: LACTOBACILLUS RHAMNOSUS GG 1 EACH CAP PO SCH (08:51)
[2018-03-30] MEDS: SENNA 8.6 MG TAB PO SCH ×3 (08:51→17:17)
[2018-03-30] MEDS: CARVEDILOL 12.5 MG TAB GT SCH (08:51)
[2018-03-30] MEDS: amLODIPine 5 MG TAB GT SCH (08:51)
[2018-03-30] MEDS: FAMOTIDINE 20 MG TAB GT SCH (08:51)
[2018-03-30] MEDS: ALLOPURINOL 100 MG TAB GT SCH (08:52)
[2018-03-30] MEDS: SIMETHICONE 80 MG TAB.CHEW GT SCH ×3 (08:52→17:17)
--- NOTE | 2018-03-30 08:55 | NUR ---
DUE MEDS GIVEN VIA GT. PT JUAN FRANCISCO WELL. PT AWAKE, APHASIC. TRACH TO VENT IN PLACE. RESPIRATIONS EVEN & UNLABORED. ORAL CARE PROVIDED. PT REPOSITIONED. MENDIETA CATH & LEFT NEPHROSTOMY INTACT & IN PLACE. GT PATENT WITH CONTINUOUS FEEDING. RIGHT FOOT IV INTACT & ASYMPTOMATIC WITH ONGOING IVF INFUSION. CALL LIGHT WITHIN REACH.
[2018-03-30 09:06] LABS: BASOPHILS % (AUTO) 0.2 % (0.0-2.0); EOSINOPHILS # (AUTO) 0.4 K/uL (0-0.4); EOSINOPHILS % (AUTO) 3.4 % (0.0-4.0); HEMOGLOBIN 9.9 g/dL (12.0-18.0); LYMPHOCYTES # (AUTO) 1.6 K/uL (2.0-11.5); LYMPHOCYTES % (AUTO) 15.3 % (20.5-51.1); MEAN CORPUSCULAR HEMOGLOBIN 31 pg (27-31); MEAN CORPUSCULAR HGB CONC 32 g/dL (33-37); MEAN CORPUSCULAR VOLUME 96.4 fL (80-94); MONOCYTES # (AUTO) 0.5 K/uL (0.8-1.0); MONOCYTES % (AUTO) 4.6 % (1.7-9.3); NEUTROPHILS # (AUTO) 7.8 K/uL (1.8-7.7); NEUTROPHILS % (AUTO) 76.5 % (42.2-75.2); PLATELET COUNT (AUTO) 302 K/uL (140-450); RED BLOOD CELL COUNT(AUTO) 3.22 MIL/uL (4.20-6.10); RED CELL DISTRIBUTION WIDTH 17.1 % (11.6-13.7); WHITE BLOOD COUNT (AUTO) 10.2 K/uL (4.8-10.8)
[2018-03-30 09:15] LABS: ANION GAP 15.3 (8-16); CARBON DIOXIDE 19.1 mmol/L (21-32); CHLORIDE 113 mmol/L (98-107); GLUCOSE 153 mg/dL (74-106); POTASSIUM 4.4 mmol/L (3.5-5.1); SODIUM SERUM 143 mmol/L (136-145); UREA NITROGEN, BLOOD 28 mg/dL (7-18)
--- NOTE | 2018-03-30 10:45 | NUR ---
Applique Cutter Note: I faxed patient's medical information to [facility].
--- NOTE | 2018-03-30 11:02 | NUR ---
PT AWAKE, LYING IN SEMIFOWLERS IN BED. TRACH TO VENT IN PLACE, RESPIRATIONS EVEN & UNLABORED. NO SIGNS OF DISTRESS. CALL LIGHT WITHIN REACH. WILL CONTINUE TO MONITOR.
--- NOTE | 2018-03-30 11:18 | NUR ---
PT SUCTIONED OBTAINED SMALL AMOUNT OF THICK WHITE SECRETIONS, AIRWAY IS PATENT AND TRACH IS SECURE. PT IS NOT IN ANY DISTRESS AT THIS TIME. WILL CONTINUE TO MONITOR.
--- NOTE | 2018-03-30 11:45 | NUR ---
Tender Labor Note: Alexei Florian from [facility] their admission Yasri will call me back.
[2018-03-30 12:00] VITALS: BP 141/67
--- NOTE | 2018-03-30 13:18 | NUR ---
Cashier Wrapper Note: Per Yasir from [facility] , they don't have any isolation beds at this time, she asked me if isolation can be colonized, I relayed this information to . Per , she will ask and call me back.
--- NOTE | 2018-03-30 14:05 | NUR ---
SEEN BY WOUND CARE NURSE.
--- NOTE | 2018-03-30 14:17 | NUR ---
PER CHARGE NURSE REQUEST TO CHECK LEFT HAND EXTEND TO THUMB OPEN WOUND, NOTICE OF PARTIAL THICKNESS LOSS OF SKIN AND PARTIALLY COVERED WITH VERSATEL DRESSING AND OPSITE DRESSING, IRREGULAR SHAPE APPROXIMATELY 6X8X0.2 CM, WOUND BED PINK WITH LIGHT PURPLE TOWARD THUMB AREA, MOIST, NO ODOR, KENNETH-WOUND SKIN INTACT. SPOKE TO DR. ADAMS AND RECOMMENDATION -CLEANSE LEFT HAND OPEN WOUND WITH NS. PAT DRY, APPLY XEROFORM DRESSING, WRAP WITH KERLIX ROLL CHANGE Q72 HOURS AND PRN IF SOILING. PRIMARY RN NOTIFIED PLAN OF CARE.
--- NOTE | 2018-03-30 15:00 | NUR ---
Hydrostatic Tubing Tester Note: I faxed MD's order indicating patient does not need isolation to [facility]. I called and spoke with Chiqui from [facility] , per Chiqui, their admission coordinator Yasir will call me back.
[2018-03-30 16:00] VITALS: BP 136/68
--- NOTE | 2018-03-30 16:44 | NUR ---
PT IN BED, ASLEEP, RESPIRATIONS EVEN & UNLABORED. LEFT HAND DRESSING CLEAN, DRY, & INTACT. TRACH TO VENT IN PLACE. CALL LIGHT WITHIN REACH.
--- NOTE | 2018-03-30 17:10 | NUR ---
VENT CHECK COMPLETED. TRACH REMAINS SECURE WITH A PATENT AIRWAY. PT IS NOT IN ANY DISTRESS AT THIS TIME. VENT ALARMS REMAIN ON AND FUNCTIONING.
--- NOTE | 2018-03-30 17:46 | NUR ---
Keymodule Assembly Supervisor Note: I called and spoke with Yasir from [facility] , per Yasir, patient may return to room 3C, accepting physician is , charge nurse Valentina made aware.
--- NOTE | 2018-03-30 19:00 | NUR ---
SPOKE TO ILDA AT [facility]. REPORT GIVEN RE: PT.
--- NOTE | 2018-03-30 19:15 | NUR ---
REPORT GIVEN TO ENGAGEMENT MGR NURSE JUAN.
--- NOTE | 2018-03-30 19:16 | NUR ---
RECEIVED REPORT FROM DAY SHIFT CRISTAL-RN AT BEDSIDE. PT RESTING IN BED. SPONTANEOUS EYES OPENING, NON-VERBAL, WITHDRAWS TO PAIN. SKIN DRY AND WARM TO TOUCH. ON TRACH TO VENT AC 12 FIO2 24%, TV 500, PEEP 5, FLOW RATE 50. LUNGS CLEAR ON AUSCULTATION. FLUSHES WELL. D5%1/2 NS RUNNING AT 70 ML/HR. G-TUBE IN PLACE AND FEEDING VITAL AF 1.2 AT 70ML/HR WITH WATER FLUSHES 100ML Q4H. NEPHROSTOMY TUBE ALSO IN PLACE ON LEFT FLANK. OPEN WOUND AND BLISTER NOTED ON LEFT HAND AND RIGHT THIGH. ADAPTIC DRESSING IN PLACE. CONTRACTED LEFT UPPER EXTREMITY. UNABLE TO MOVE EXTREMITIES SELF. ABDOMEN DISTENDED. ACTIVE BOWEL SOUND. NO ACUTE RESPIRATORY DISTRESS NOTED. ON TELE MONITORING. KEPT PT ON COMFORTABLE POSITION. BED IN LOW POSITION, BED BREAKS LOCKED, BOTH SIDE RAILS UP, FALL AND SEIZURE PRECAUTIONS ARE IN PLACE. WILL CONTINUE TO MONITOR.
--- NOTE | 2018-03-30 19:44 | NUR ---
Received pt stable on vent support at documented settings, suctioned small amounts of clear white thin secretions, hhn tx given, tolerated well, no resp distress or SOB noted at this time, Portex 7 trach secured/patent/midline, alarms set and audible, ambu bag at bedside, vent plugged into red outlet, pulse ox on, will cont to monitor.
[2018-03-30 20:00] VITALS: BP 137/61
--- NOTE | 2018-03-30 20:00 | NUR ---
VITAL SIGNS TAKEN AND TOLERATED WELL. BLOOD GLUCOSE 113- NO INSULIN COVERAGE NEEDED. NO S/S OF RESPIRATORY DISTRESS OR DISCOMFORT NOTED AT THIS TIME. WILL CONTINUE TO MONITOR.
--- NOTE | 2018-03-30 20:50 | NUR ---
PT WHEELED OUT OF UNIT BY [facility]. PT IN STABLE CONDITION.
[2018-04-02] MEDS ORDERED: FOAM DRESSING TP SCH (09:00)
== END 2018-03-30 20:50 | DRG 870 ==
LOC: MED 12:46 → MTU 14:55
PROVIDERS: ADMIT General Practice; ATTEND General Practice
PROC: 5A1955Z Respiratory Ventilation, Greater than 96 Consecutive Hours (ICD-10-PCS; principal; 2018-03-18)
PROC: 0DJ08ZZ Inspection of Upper Intestinal Tract, Via Natural or Artificial Opening Endoscopic (ICD-10-PCS; 2018-03-19)
DX: A41.9 Sepsis, unspecified organism (principal); I50.43 Acute on chronic combined systolic (congestive) and diastolic (congestive) heart failure; I21.A1 Myocardial infarction type 2; N17.0 Acute kidney failure with tubular necrosis; J69.0 Pneumonitis due to inhalation of food and vomit; J96.10 Chronic respiratory failure, unspecified whether with hypoxia or hypercapnia; N39.0 Urinary tract infection, site not specified; J44.0 Chronic obstructive pulmonary disease with (acute) lower respiratory infection; G93.1 Anoxic brain damage, not elsewhere classified; I13.0 Hypertensive heart and chronic kidney disease with heart failure and stage 1 through stage 4 chronic kidney disease, or unspecified chronic kidney disease; I42.9 Cardiomyopathy, unspecified; N20.2 Calculus of kidney with calculus of ureter; K92.2 Gastrointestinal hemorrhage, unspecified; J98.11 Atelectasis; N18.4 Chronic kidney disease, stage 4 (severe); K56.7 Ileus, unspecified; E87.1 Hypo-osmolality and hyponatremia; I69.359 Hemiplegia and hemiparesis following cerebral infarction affecting unspecified side; Z99.11 Dependence on respirator [ventilator] status; E87.0 Hyperosmolality and hypernatremia; E11.22 Type 2 diabetes mellitus with diabetic chronic kidney disease; E78.5 Hyperlipidemia, unspecified; E86.0 Dehydration; I25.10 Atherosclerotic heart disease of native coronary artery without angina pectoris; I48.91 Unspecified atrial fibrillation; K21.9 Gastro-esophageal reflux disease without esophagitis; K56.41 Fecal impaction; K80.20 Calculus of gallbladder without cholecystitis without obstruction; M10.9 Gout, unspecified; Z16.12 Extended spectrum beta lactamase (ESBL) resistance; Z66 Do not resuscitate; Z96.642 Presence of left artificial hip joint; E78.1 Pure hyperglyceridemia; R13.10 Dysphagia, unspecified; E11.65 Type 2 diabetes mellitus with hyperglycemia; D50.9 Iron deficiency anemia, unspecified; E87.6 Hypokalemia; E83.39 Other disorders of phosphorus metabolism; E83.41 Hypermagnesemia; B96.20 Unspecified Escherichia coli [E. coli] as the cause of diseases classified elsewhere; B96.4 Proteus (mirabilis) (morganii) as the cause of diseases classified elsewhere; Z93.1 Gastrostomy status; Z93.6 Other artificial openings of urinary tract status; Z95.0 Presence of cardiac pacemaker; Z93.0 Tracheostomy status; Z79.4 Long term (current) use of insulin; Z79.82 Long term (current) use of aspirin; Z79.899 Other long term (current) drug therapy
CPT/HCPCS: 36415; 36600; 71045; 74018; 76604; 80048; 80053; 80162; 80305; 81001; 82728; 82803; 82948; 83036; 83540; 83605; 83690; 83735; 83880; 84100; 84134; 84443; 84484; 85025; 85045; 85610; 85730; 87040; 87070; 87081; 87086; 87186; 87205; 89220; 93005; 94002; 94003; 94640; 96361; 96365; 96375; 99285; C9113; J0696; J1450; J1815; J1885; J1940; J1956; J2185; J2250; J2543; J2916; J3010; J3490; J7030; J7042; J7060; J7620; J8597; Q0092

== ENCOUNTER 2018-05-18 23:29 | Inpatient (IN) | payer OTHER ==
[~2018-05-18] VITALS: Ht 175.3 cm; Wt 91.2 kg
[2018-05-18 23:29] VITALS: BP 114/31
--- NOTE | 2018-05-18 23:29 | NUR ---
[facility] EMS. Transfered from [facility] to bed by EMS staff. Nursing and Dr Griffith at bedside for evaluation.
[2018-05-18] MEDS ORDERED: NACL 0.9% 1,000 ML IV ONE (23:30)
--- NOTE | 2018-05-18 23:30 | NUR ---
77 YO M BIB AMBULANCE FROM [facility]. W/REPORTED ABD DISTENTION AND COFFEE GROUND EMESIS. ABD DISTENTION NOTED. HYPOACTIVE BOWEL SOUNDS. ABD IS ROUND AND FIRM. PACEMAKER PRESENT. G-TUBE PRESENT; NO REDNESS OR SWELLING AROUND SITE. NEPHROSTOMY TUBE PRESENT; NO REDNESS OR SWELLING NOTED AROUND SITE. MENDIETA CATH PRESENT. TRACEOSTOMY PRESENT. PT ON VENTALATOR. PT ALERT TO PAIN. PT LEFT ARM RETRACTED.
--- NOTE | 2018-05-18 23:50 | NUR ---
LAB AT BEDSIDE.
--- NOTE | 2018-05-19 00:30 | NUR ---
TOOK PT TO CT SCAN VIA AMBU BAG. RETURNED AT ABOUT 0055 AND PLACED PT BACK ON AC 12 500 +5 28%. SAT 100 HR 60 RR 18.
[2018-05-19 00:39] LABS: PROTHROMBIN TIME 10.4 secs (10.8-13.4)
[2018-05-19 00:46] LABS: ALBUMIN 3.8 g/dL (3.4-5.0); ANION GAP 16.5 (8-16); ASPARTATE AMINOTRANSFERASE 23 U/L (15-37); CARBON DIOXIDE 27.7 mmol/L (21-32); CHLORIDE 98 mmol/L (98-107); CREATININE 2.4 mg/dL (0.7-1.3); GLUCOSE 190 mg/dL (74-106); POTASSIUM 5.2 mmol/L (3.5-5.1); SODIUM SERUM 137 mmol/L (136-145); TOTAL BILIRUBIN 0.9 mg/dL (0.0-1.0)
[2018-05-19 00:53] LABS: UREA NITROGEN, BLOOD 97 mg/dL (7-18)
[2018-05-19] MEDS ORDERED: NACL 0.9% 2,500 ML IV ONE (00:55)
[2018-05-19] MEDS ORDERED: LEVOFLOXACIN 500 MG/D5W PREMIX 100 ML IV ONE (00:55)
[2018-05-19] MEDS ORDERED: PIPERACILLIN/TAZOBACTAM 3.375 GM in DEXTROSE 5% 50 ML IV ONE (00:55)
[2018-05-19] MEDS ORDERED: ENOXAPARIN 80 MG/0.8 ML SYR SUBQ ONE (01:05)
[2018-05-19] MEDS ORDERED: PIPERACILLIN/TAZOBACTAM 3.375 GM VIAL IV ONE (01:08)
[2018-05-19 01:15] LABS: HEMATOCRIT 37.9 % (36-52); HEMOGLOBIN 11.8 g/dL (12.0-18.0); MEAN CORPUSCULAR HEMOGLOBIN 30 pg (27-31); MEAN CORPUSCULAR HGB CONC 31 g/dL (33-37); MEAN CORPUSCULAR VOLUME 95.9 fL (80-94); PLATELET COUNT (AUTO) 238 K/uL (140-450); RED BLOOD CELL COUNT(AUTO) 3.95 MIL/uL (4.20-6.10); RED CELL DISTRIBUTION WIDTH 15.9 % (11.6-13.7)
[2018-05-19 01:29] LABS: APPEARANCE,URINE HAZY (CLEAR); BILIRUBIN,URINE NEGATIVE (NEGATIVE); BLOOD, URINE 3+ (NEGATIVE); COLOR,URINE YELLOW (YELLOW); LEUKOCYTE ESTERASE ,URINE 3+ (NEGATIVE); NITRITE, URINE NEGATIVE (NEGATIVE); UGLUCOSE NEGATIVE (NEGATIVE)
[2018-05-19 01:33] LABS: WHITE BLOOD COUNT (AUTO) 34.8 K/uL (4.8-10.8)
[2018-05-19 01:37] LABS: LYMPHOCYTES % (MANUAL) 3 % (20-46); METAMYELOCYTES % 2 % (0-0); MONOCYTES % (MANUAL) 4 % (5-12)
[2018-05-19 01:42] LABS: RBC,URINE >100 /HPF (0-5); WBC,URINE TOO MANY TO COUNT /HPF (0-5)
[2018-05-19] MEDS ORDERED: ONDANSETRON 4 MG/2 ML VIAL IM/IVP PRN (02:15)
[2018-05-19] MEDS ORDERED: DOCUSATE SODIUM 100 MG GELCAP PO PRN (02:15)
[2018-05-19] MEDS ORDERED: ACETAMINOPHEN 325 MG TAB PO PRN (02:15)
[2018-05-19] MEDS ORDERED: HYDROcodone/APAP 7.5/325 MG 1 TAB PO PRN (02:15)
--- NOTE | 2018-05-19 02:35 | NUR ---
PT RESITNG, VSS. WILL CONTINUE TO MONITOR.
--- NOTE | 2018-05-19 02:39 | NUR ---
Dr. Sheldon evaluating patient at bedside.
[2018-05-19] MEDS ORDERED: NACL 0.9% 1,000 ML IV SCH ×2 (03:00→10:15)
[2018-05-19] MEDS: DEXT 5% /NACL 0.9% 1,000 ML IV SCH ×3 (03:00→19:04)
[2018-05-19 03:21] LABS: BARBITURATE, URINE NEG. ng/ml (NEG <=200); BENZODIAZEPINE, URINE NEG. ng/mL (NEG <=200); CANNABINOID, URINE NEG. ng/mL (NEG <=50); COCAINE, URINE NEG. ng/mL (NEG <=300); OPIATE, URINE NEG. ng/mL (NEG <=2000); PHENCYCLIDINE SCREEN,URINE NEG. ng/mL (NEG <=25)
--- NOTE | 2018-05-19 03:23 | NUR ---
Patient will be admitted to care of DR. MALCOLM. Admited to TELE. Will go to room 123B. Belongings list completed. Report to JOHANN SANTOYO.
[2018-05-19 03:30] VITALS: BP 149/51
--- NOTE | 2018-05-19 03:30 | NUR ---
PT ARRIVED ON FLOOR VIA GURNEY ESCORTED BY ETIENNE SANTOYO LIVING SUPERVISOR NURSE. PT TRANSFERED TO 123B BED. PT IS AOX0 HIS EYES ARE EQUAL AND REACTIVE AND OPEN SPONTANEOUSLY. HE WITHDRAWS FORM PAIN. HE IS NON VERBAL AND IS A TRACH TO VENT WITH SETTINGS FOLLOWS FIO2 28 VT 500 R 12 PEEP 5. LUNG SOUNDS CLEAR. RR IS 12 02 95. OTHER V/S FOLLOWS T 97.9 P 60 R 12 B/P 149/51 02 95%. PT SKIN IN TACT EXCEPT FOR SACRAL REDNESS. UPPER LIMBS NOTED WITH SOME PITTING +1 EDEMA. LOWER LIMBS HX PVD AND PT IS BED BOUND AND IMMOBILE. PT IS APHASIC WITH NO S/S OF PAIN OR DISTRESS FLACC-O AT THIS TIME. PT ABD IS DISTENDED AND FIRM BUT NOT RIDGID. BOWEL SOUNDS POSITIVE ALL 4 QUADS. HOB UP 45%. 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 HE HAS A GT BUT IS CURRENTLY NPO. PT ADMITTED FOR CC FOR ABD DISTENTION COFFEE GROUND EMESIS X2DAYS AND BLOODY URINE. PT ADMISSION DX IS UROSEPSIS. HE HAS A MENDIETA CATHETER WHICH WAS CHANGED IN ER WELL NEPHROSTOMY TUBE.
[2018-05-19 03:35] LABS: CHOL/HDL RATIO 4.2 (1-4.5); FREE T4 (FREE THYROXINE) 1.43 ng/dL (0.76-1.46); PHOSPHORUS 5.2 mg/dL (2.5-4.9); THYROID STIMULATING HORMONE 2.34 uIU/mL (0.34-3.74)
[2018-05-19 03:44] LABS: MAGNESIUM 5.1 mg/dL (1.8-2.4)
--- NOTE | 2018-05-19 03:45 | NUR ---
CRITICAL LAB CALLED IN BY ALEE FROM LAB MAG 5.[address] KEITA MADE AWARE.
[2018-05-19] MEDS ORDERED: ALBUTEROL SULFATE/IPRATROPIU 3 ML SOL IH PRN (04:25)
[2018-05-19] MEDS ORDERED: SODIUM PHOSPHATE 118 ML ENEM RC PRN (04:30)
[2018-05-19] MEDS ORDERED: DEXTROSE 50% 50 ML SYR IVP PRN (04:35)
[2018-05-19] MEDS ORDERED: MINERAL OIL 135 ML ENEM RC SCH (05:00)
--- NOTE | 2018-05-19 06:30 | NUR ---
CRITICAL LAB REPORTED BY ALEE FROM LAB LACTIC ACID 6.5 UP FROM ER 5.3 BOLUS FLUIDS RUNNING, DR. KEITA AWARE.
--- NOTE | 2018-05-19 06:45 | NUR ---
FLEET OIL ENEMA GIVEN ORDERED, SMALL AMOUNT OF STOOL SOFT AND GRAYISH GREEN COLOR COMMING FROM BOWELS. PT TOLERATED WELL AWAITING FULL EFFECT OF FLEETS OIL ENEMA.
[2018-05-19] MEDS: ALBUTEROL SULFATE/IPRATROPIU 3 ML SOL IH SCH ×3 (07:00→20:07)
--- NOTE | 2018-05-19 07:01 | NUR ---
RECEIVED PT ON [place] ON DOCUMENTED SETTINGS ALARMS ARE ON AND FUNCTIONAL PTS TRACH PORTEX 7 IS SECURE BS COARSE HHN GIVEN I\L WITH 3 MG DUONEB PT IN HF NOT ALERT BMV HOB CONT. POX IN PLACE VENT PLUGGED INTO RED OUTLET
--- NOTE | 2018-05-19 07:15 | NUR ---
ENDORSED CARE TO CHAVO SANTOYO DAYSHIFT NURSE AT [facility] FOR CONTINUITY OF CRE, PT IN STABLE CONDITION.
--- NOTE | 2018-05-19 07:16 | NUR ---
RECEIVED REPORT FROM DYNAMITE RECLAIMER NURSE. PATIENT LYING DOWN IN BED RECEIVING A BREATHING TREATMENT. PATIENT APHASIC. NO DISTRESS NOTED. FLACC 0. VENT TO TRACH WITH VENT SETTINGS: FIO2:28%, VT:500, RATE:12, FLOW:50 L/MIN, PMAX 50. O2 AT AT 94% WITH CURRENT VENT SETTINGS. LUNGS CTA ON ALL LOBES. IV SITE INTACT, PATENT, AND INFUSING IVF PER MD ORDERS. GTUBE SITE IN PLACE, NO FEEDING AT THIS TIME. MENDIETA CATHETER IN PLACE DRAINING DARK YELLOW URINE. SKIN IS INTACT, WARM TO TOUCH, COLOR APPROPRIATE TO ETHNICITY. REVIEWED PLAN OF CARE WITH PATIENT. REINFORCEMENT NEEDED. SAFETY MEASURES IN PLACE, CALL LIGHT WITHIN REACH. WILL CONTINUE TO MONITOR.
--- NOTE | 2018-05-19 07:21 | NUR ---
PATIENT HAS BEEN SCREENED AND CATEGORIZED HIGH NUTRITION RISK. PATIENT WILL BE SEEN WITHIN 1-2 DAYS OF ADMISSION. 05/20/18-05/21/18 RAFAELA MICHELLE MS, RDN
[2018-05-19 07:41] LABS: HEMATOCRIT 35.7 % (36-52); HEMOGLOBIN 11.1 g/dL (12.0-18.0); MEAN CORPUSCULAR HEMOGLOBIN 30 pg (27-31); MEAN CORPUSCULAR HGB CONC 31 g/dL (33-37); MEAN CORPUSCULAR VOLUME 96.2 fL (80-94); PLATELET COUNT (AUTO) 222 K/uL (140-450); RED BLOOD CELL COUNT(AUTO) 3.72 MIL/uL (4.20-6.10); RED CELL DISTRIBUTION WIDTH 16.3 % (11.6-13.7)
[2018-05-19 07:43] LABS: ANION GAP 15.9 (8-16); CARBON DIOXIDE 29.1 mmol/L (21-32); CHLORIDE 100 mmol/L (98-107); CREATININE 2.3 mg/dL (0.7-1.3); GLUCOSE 168 mg/dL (74-106); SODIUM SERUM 141 mmol/L (136-145)
[2018-05-19 07:47] LABS: UREA NITROGEN, BLOOD 95 mg/dL (7-18)
[2018-05-19 07:48] LABS: PHOSPHORUS 4.2 mg/dL (2.5-4.9)
[2018-05-19 07:53] LABS: MAGNESIUM 4.6 mg/dL (1.8-2.4)
[2018-05-19 08:00] VITALS: BP 145/49
[2018-05-19 08:00] LABS: WHITE BLOOD COUNT (AUTO) 31.2 K/uL (4.8-10.8)
[2018-05-19] MEDS ORDERED: PIPER/TAZO 3.375GM/D5W PREMIX 50 ML IV SCH (08:00)
[2018-05-19] MEDS: BLOOD GLUCOSE MONITORING 1 DEV DEV FS SCH ×4 (08:28→20:39)
[2018-05-19 08:29] LABS: LYMPHOCYTES % (MANUAL) 5 % (20-46); MONOCYTES % (MANUAL) 6 % (5-12)
[2018-05-19 08:30] LABS: METAMYELOCYTES % 2 % (0-0)
[2018-05-19] MEDS ORDERED: FUROSEMIDE 20 MG TAB GT SCH (09:00)
[2018-05-19] MEDS: CARVEDILOL 12.5 MG TAB GT SCH ×2 (09:00→20:21)
[2018-05-19] MEDS ORDERED: DIGOXIN 0.125 MG TAB PO SCH (09:00)
--- NOTE | 2018-05-19 09:00 | NUR ---
DR. SHAY AT BEDSIDE REVIEWING PLAN OF CARE WITH PATIENT. SCHEDULED MEDICATIONS DUE GIVEN. WILL CONTINUE TO MONITOR.
[2018-05-19] MEDS: POLYETHYLENE GLYCOL 17 GM/PKT GT SCH ×2 (09:10→20:21)
[2018-05-19] MEDS: ASPIRIN 81 MG TAB.CHEW GT SCH (09:11)
[2018-05-19] MEDS: amLODIPine 5 MG TAB GT SCH (09:11)
[2018-05-19] MEDS: SODIUM PHOSPHATE 118 ML ENEM RC SCH ×2 (09:12→13:46)
--- NOTE | 2018-05-19 09:32 | NUR ---
DR. WAGGONER AT BEDSIDE REVIEWING PLAN OF CARE WITH PATIENT. WILL CONTINUE TO MONITOR.
[2018-05-19] MEDS ORDERED: VANCOMYCIN PER PHARMACY MC PRN (10:30)
[2018-05-19] MEDS ORDERED: VANCOMYCIN 1GM/DEXT 5% PREMIX 200 ML IV SCH (11:30)
--- NOTE | 2018-05-19 11:30 | NUR ---
ASSISTED PLANT ANATOMIST IN CLEANING AND REPOSITIONING PATIENT. PATIENT HAD A LARGE BOWEL MOVEMENT. WILL CONTINUE TO MONITOR.
[2018-05-19 12:00] VITALS: BP 134/43
--- NOTE | 2018-05-19 13:00 | NUR ---
ASSISTED LICENSING COORDINATOR IN CLEANING AND REPOSITIONING PATIENT. FLEET ENEMA GIVEN, PATIENT HAD ANOTHER SOFT, FORMED BM. OTHER SCHEDULED MEDICATIONS DUE GIVEN. WILL CONTINUE TO MONITOR.
--- NOTE | 2018-05-19 13:48 | NUR ---
RADIOLOGIST AT BEDSIDE PERFORMING ULTRASOUND OF BLE. WILL CONTINUE TO MONITOR.
[2018-05-19] MEDS: MEROPENEM 500 MG in NACL 0.9% 50 ML IV SCH (14:08)
--- NOTE | 2018-05-19 14:10 | NUR ---
PATIENT LYING DOWN IN BED SLEEPING, AROUSABLE BY VOICE. CONDITION UNCHANGED. SCHEDULED MEDICATIONS DUE GIVEN. WILL CONTINUE TO MONITOR.
[2018-05-19 16:00] VITALS: BP 150/45
--- NOTE | 2018-05-19 16:15 | NUR ---
ASSISTED NUCLEAR TECHNICIAN IN CLEANING AND REPOSITIONING PATIENT. NO DISTRESS NOTED. CONDITION UNCHANGED. WILL CONTINUE TO MONITOR.
[2018-05-19] MEDS: INSULIN LISPRO SLIDING SCALE 100 UNITS/ML VIAL SUBQ PRN ×2 (17:26→20:40)
--- NOTE | 2018-05-19 19:23 | NUR ---
GAVE REPORT TO CARDBOARD CUTTER NURSE FOR CONTINUITY OF CARE. WILL CONTINUE TO MONITOR.
--- NOTE | 2018-05-19 19:24 | NUR ---
REPORT RECEIVED FROM AM NURSE AT BEDSIDE. PT IN STABLE CONDITION. AAOX1. INTRODUCED SELF TO PT. BOARD UPDATED. FLACC 0. AFEBRILE. NO SOB. IV SITE R HAND 22G RUNNING D5NS@120ML/HR PATENT AND INTACT. SKIN WARM, DRY, AND INTACT BUT HAS SACRAL REDNESS. PT IS TRACH TO VENT. VENT SETTINGS ARE FIO2 28, VT 500, RR 12, PEEP 5. PT HAS MENDIETA. PT HAS UROSTOMY. PT HAS GTUBE. BED LOCKED IN LOW POSITION. CALL ORR WITHIN REACH. SAFETY PRECAUTIONS IN PLACE. SZ PRECAUTIONS IN PLACE. ALL NEEDS MET AT THIS TIME. WILL CONTINUE TO MONITOR.
[2018-05-19 20:00] VITALS: BP 171/75
--- NOTE | 2018-05-19 20:15 | NUR ---
Received pt stable on vent support at documented settings, suctioned moderate amounts of thick yellow green secretions, hhn tx given, tolerated well, no resp distress or SOB noted at this time, Portex 7 trach secured/patent/midline, alarms set and audible, vent plugged into red outlet, ambu bag at bedside, pulse ox on, will cont to monitor.
[2018-05-19] MEDS: ATORVASTATIN 20 MG TAB PO SCH (20:21)
--- NOTE | 2018-05-19 20:21 | NUR ---
LIPITOR, MIRALAX, AND COREG GIVEN THROUGH GTUBE. BS 169. 2 UNITS OF HUMALOG GIVEN SUBQ. PT TOLERATED WELL.
--- NOTE | 2018-05-19 22:30 | NUR ---
PT LAYING IN BED SUPINE. NO S/S OF DISTRESS NOTED. WILL CONTINUE TO MONITOR.
[2018-05-20] VITALS: BP 176/52
[2018-05-20] MEDS: MEROPENEM 500 MG in NACL 0.9% 50 ML IV SCH ×2 (00:11→13:36)
--- NOTE | 2018-05-20 00:11 | NUR ---
QUIANA HUNG AND RUNNING. PT TOLERATING WELL.
--- NOTE | 2018-05-20 01:15 | NUR ---
PT HAD BIG BM. PT CHANGED. OCCULT BLOOD SENT TO LAB.
[2018-05-20] MEDS: DEXT 5% /NACL 0.9% 1,000 ML IV SCH ×4 (01:30→12:20)
--- NOTE | 2018-05-20 03:45 | NUR ---
PT SLEEPING COMFORTABLY IN BED. NO S/S OF DISTRESS NOTED. FLACC 0. NO SOB. AFEBRILE. RESPIRATIONS EVEN, UNLABORED, AND WNL. WILL CONTINUE TO MONITOR.
[2018-05-20 04:00] VITALS: BP 162/63
[2018-05-20] MEDS: BLOOD GLUCOSE MONITORING 1 DEV DEV FS SCH ×4 (05:31→20:20)
[2018-05-20] MEDS: INSULIN LISPRO SLIDING SCALE 100 UNITS/ML VIAL SUBQ PRN (05:34)
--- NOTE | 2018-05-20 05:34 | NUR ---
BS 154. 2 UNITS OF HUMALOG GIVEN.
--- NOTE | 2018-05-20 07:00 | NUR ---
REPORT GIVEN TO AM NURSE AT BEDSIDE. PT IN STABLE CONDITION.
--- NOTE | 2018-05-20 07:01 | NUR ---
RECEIVED REPORT FROM CASH REGISTER OPERATOR NURSE. PATIENT LYING DOWN IN BED RECEIVING A BREATHING TREATMENT. PATIENT APHASIC. NO DISTRESS NOTED. FLACC 0. VENT TO TRACH WITH VENT SETTINGS: FIO2:28%, VT:500, RATE:12, FLOW:50 L/MIN, PMAX 50. O2 AT AT 96% WITH CURRENT VENT SETTINGS. LUNGS COARSE ON ALL LOBES. IV SITE INTACT, PATENT, AND INFUSING IVF PER MD ORDERS. GTUBE SITE IN PLACE, NO FEEDING AT THIS TIME. MENDIETA CATHETER IN PLACE DRAINING YELLOW URINE. SKIN IS INTACT, WARM TO TOUCH, COLOR APPROPRIATE TO ETHNICITY. REVIEWED PLAN OF CARE WITH PATIENT. REINFORCEMENT NEEDED. SAFETY MEASURES IN PLACE, CALL LIGHT WITHIN REACH. WILL CONTINUE TO MONITOR.
[2018-05-20] MEDS: ALBUTEROL SULFATE/IPRATROPIU 3 ML SOL IH SCH ×3 (07:55→19:31)
[2018-05-20 08:00] VITALS: BP 124/52
[2018-05-20] MEDS: CARVEDILOL 12.5 MG TAB GT SCH ×2 (09:00→20:10)
[2018-05-20] MEDS ORDERED: DIGOXIN 0.125 MG TAB PO SCH (09:00)
--- NOTE | 2018-05-20 09:40 | NUR ---
PATIENT LYING DOWN IN BED. NO DISTRESS NOTED. FLACC 0. CONDITION UNCHANGED. ASSISTED SHOE REPAIR SUPERVISOR IN CLEANING AND REPOSITIONING PATIENT. SCHEDULED MEDICATIONS DUE GIVEN. MOUTH, KENNETH, AND MENDIETA CATHETER CARE PROVIDED. SAFETY MEASURES IN PLACE, CALL LIGHT WITHIN REACH. WILL CONTINUE TO MONITOR.
[2018-05-20] MEDS: ASPIRIN 81 MG TAB.CHEW GT SCH (09:41)
[2018-05-20] MEDS: POLYETHYLENE GLYCOL 17 GM/PKT GT SCH ×2 (09:42→20:10)
[2018-05-20] MEDS: amLODIPine 5 MG TAB GT SCH (09:42)
--- NOTE | 2018-05-20 11:15 | NUR ---
PATIENT LYING DOWN IN BED SLEEPING, AROUSABLE BY VOICE. NO DISTRESS NOTED. CONDITION UNCHANGED. CALLED LAB REGARDING BLOOD DRAW THIS MORNING, LAB CEMETERY VAULT INSTALLER WILL COME TRY AND DRAW BLOOD AGAIN. WILL CONTINUE TO MONITOR.
[2018-05-20 12:00] VITALS: BP 146/42
[2018-05-20] MEDS: SODIUM PHOSPHATE 118 ML ENEM RC SCH (13:40)
--- NOTE | 2018-05-20 13:40 | NUR ---
PATIENT'S OLD IV LINE ON RIGHT HAND INFILTRATED. IV LINE REMOVED WITH MINIMAL BLOOD AND LUMEN COMPLETELY INTACT. NEW IV LINE INSERTED ON LEFT HAND #22 GAUGE ON FIRST ATTEMPT. PATIENT TOLERATED WELL. ASSISTED VACUUM BOTTLE ASSEMBLER IN CLEANING AND REPOSITIONING PATIENT. PATIENT HAD MUCUOUS BM AND SOFT STOOLS EARLIER TODAY. FLEET ENEMA WITHHELD AT THIS TIME. SAFETY MEASURES IN PLACE, CALL LIGHT WITHIN REACH. WILL CONTINUE TO MONITOR.
[2018-05-20 15:09] LABS: BASOPHILS % (AUTO) 0.1 % (0.0-2.0); EOSINOPHILS # (AUTO) 0.1 K/uL (0-0.4); EOSINOPHILS % (AUTO) 0.7 % (0.0-4.0); HEMATOCRIT 33.1 % (36-52); HEMOGLOBIN 10.4 g/dL (12.0-18.0); MEAN CORPUSCULAR HEMOGLOBIN 30 pg (27-31); MEAN CORPUSCULAR HGB CONC 31 g/dL (33-37); MEAN CORPUSCULAR VOLUME 96.2 fL (80-94); MONOCYTES # (AUTO) 0.8 K/uL (0.8-1.0); MONOCYTES % (AUTO) 5.6 % (1.7-9.3); NEUTROPHILS # (AUTO) 12.8 K/uL (1.8-7.7); NEUTROPHILS % (AUTO) 86.6 % (42.2-75.2); PLATELET COUNT (AUTO) 202 K/uL (140-450); RED BLOOD CELL COUNT(AUTO) 3.44 MIL/uL (4.20-6.10); RED CELL DISTRIBUTION WIDTH 16.3 % (11.6-13.7); WHITE BLOOD COUNT (AUTO) 14.8 K/uL (4.8-10.8)
[2018-05-20 15:22] LABS: MAGNESIUM 3.7 mg/dL (1.8-2.4); PHOSPHORUS 1.9 mg/dL (2.5-4.9)
[2018-05-20 15:30] LABS: ANION GAP 10.8 (8-16); CARBON DIOXIDE 29.9 mmol/L (21-32); CHLORIDE 110 mmol/L (98-107); CREATININE 1.6 mg/dL (0.7-1.3); GLUCOSE 165 mg/dL (74-106); SODIUM SERUM 148 mmol/L (136-145)
[2018-05-20 15:32] LABS: POTASSIUM 2.7 mmol/L (3.5-5.1); UREA NITROGEN, BLOOD 67 mg/dL (7-18)
[2018-05-20 16:00] VITALS: BP 125/59
[2018-05-20] MEDS ORDERED: VANCOMYCIN 1GM/DEXT 5% PREMIX 200 ML IV SCH (16:00)
[2018-05-20] MEDS ORDERED: POTASSIUM CHLORIDE 20% 40 MEQ/15 ML UDC GT SCH (16:00)
[2018-05-20] MEDS ORDERED: POTASSIUM CHLORIDE 40 MEQ, LIDOCAINE MPF 1% - 5 mL VIAL 25 MG in NACL 0.9% 250 ML IV SCH (16:30)
[2018-05-20] MEDS ORDERED: DIGOXIN 0.125 MG TAB GT SCH (16:30)
--- NOTE | 2018-05-20 16:44 | NUR ---
ASSISTED INDUSTRIAL CONTROLLER IN CLEANING AND REPOSITIONING PATIENT. PATIENT TOLERATED WELL. SCHEDULED MEDICATIONS DUE GIVEN. WILL CONTINUE TO MONITOR.
[2018-05-20] MEDS ORDERED: POTASSIUM PHOSPHATE 15 MM in NACL 0.9% 250 ML IV ONE (17:50)
--- NOTE | 2018-05-20 18:20 | NUR ---
PATIENT LYING DOWN IN BED SLEEPING, AROUSABLE BY VOICE. NO DISTRESS NOTED. FLACC 0. SCHEDULED MEDICATIONS DUE GIVEN. WILL CONTINUE TO MONITOR.
[2018-05-20] MEDS ORDERED: SODIUM PHOS / POTASSIUM PHOS 1 PKT PDR GT SCH (18:30)
--- NOTE | 2018-05-20 19:30 | NUR ---
GAVE REPORT TO SYSTEM ADMINISTRATION ADVISOR NURSE FOR CONTINUITY OF CARE. PATIENT IN STABLE CONDITION.
--- NOTE | 2018-05-20 19:31 | NUR ---
REPORT RECEIVED FROM AM NURSE AT BEDSIDE. PT IN STABLE CONDITION. AAOX1. INTRODUCED SELF TO PT. BOARD UPDATED. FLACC 0. NO SOB. AFEBRILE. IV SITE L HAND 22G RUNNING D5NS@80ML/HR PATENT AND INTACT. SKIN WARM, DRY, AND INTACT WITH NO OPEN WOUNDS. BUT HAS SACRAL REDNESS. PT HAS MENDIETA. PT HAS UROSTOMY. PT HAS GTUBE. PT ON MECH VENT. SETTINGS ARE FIO2 28, VT 500, PEEP 5, RR 12. BED LOCKED IN LOW POSITION. CALL ORR WITHIN REACH. SAFETY PRECAUTIONS IN PLACE. Addendum: 05/20/18 at 5 by Chuy Bright RN SZ PRECAUTIONS IN PLACE.
--- NOTE | 2018-05-20 19:40 | NUR ---
Received pt stable on vent support at documented settings, suctioned moderate amounts of thick white secretions, hhn tx given, tolerated well, no resp distress or SOB noted at this time, Portex 7 trach secured/patent/midline, alarms set and audible, ambu bag at bedside, vent plugged into red outlet, pulse ox on, will cont to monitor.
[2018-05-20 20:00] VITALS: BP 163/62
[2018-05-20] MEDS: SODIUM PHOS / POTASSIUM PHOS 1 PKT PDR PO SCH (20:10)
--- NOTE | 2018-05-20 20:10 | NUR ---
NEUTROPHOS, LIPITOR, MIRALAX, AND COREG GIVEN THROUGH GTUBE. PT TOLERATED WELL. BS 146. NO INSULIN COVERAGE NEEDED.
[2018-05-20] MEDS: ATORVASTATIN 20 MG TAB PO SCH (20:11)
--- NOTE | 2018-05-20 23:00 | NUR ---
GTUBE FEEDING STARTED. ORDERS TO BEGIN @10ML/HR AND INCREASE Q8H BY 10ML/HR. 100ML H20 FLUSH Q4H. HOLD WHEN RESIDUAL >200 AND STOP FOR 1 HOUR. RESUME WHEN RESIDUAL IS <50. PT TOLERATED WELL.
[2018-05-21] VITALS: BP 170/57
[2018-05-21] MEDS: SODIUM PHOS / POTASSIUM PHOS 1 PKT PDR PO SCH ×4 (00:41→12:35)
[2018-05-21] MEDS: MEROPENEM 500 MG in NACL 0.9% 50 ML IV SCH ×2 (00:41→12:35)
--- NOTE | 2018-05-21 00:41 | NUR ---
NEUTROPHOS GIVEN THROUGH GTUBE. MERREM HUNG AND RUNNING. PT TOLERATED WELL.
--- NOTE | 2018-05-21 01:45 | NUR ---
PT SLEEPING COMFORTABLY IN BED. NO S/S OF DISTRESS NOTED. NO SOB. NO N/V. AFEBRILE. FLACC 0. ALL NEEDS MET AT THIS TIME.
--- NOTE | 2018-05-21 03:26 | NUR ---
NEUTROPHOS GIVEN THROUGH GTUBE. PT TOLERATED WELL.
[2018-05-21 04:00] VITALS: BP 179/66
[2018-05-21] MEDS: BLOOD GLUCOSE MONITORING 1 DEV DEV FS SCH ×4 (05:52→20:16)
[2018-05-21] MEDS: INSULIN LISPRO SLIDING SCALE 100 UNITS/ML VIAL SUBQ PRN ×2 (05:54→20:40)
--- NOTE | 2018-05-21 05:54 | NUR ---
BS 158. 2 UNITS OF HUMALOG GIVEN. PT TOLERATED WELL.
--- NOTE | 2018-05-21 06:15 | NUR ---
RESIDUAL OF 5ML. FEEDING INCREASED TO 20ML/HR PER PROTOCOL.
--- NOTE | 2018-05-21 07:05 | NUR ---
REPORT GIVEN TO AM NURSE AT BEDSIDE. PT IN STABLE CONDITION.
--- NOTE | 2018-05-21 07:06 | NUR ---
RECEIVED REPORT FROM FEATHER STITCHER NURSE. PATIENT LYING DOWN IN BED RECEIVING A BREATHING TREATMENT. PATIENT APHASIC. NO DISTRESS NOTED. FLACC 0. VENT TO TRACH WITH VENT SETTINGS: FIO2:28%, VT:500, RATE:12, FLOW:50 L/MIN, PMAX 50. O2 AT AT 96% WITH CURRENT VENT SETTINGS. LUNGS COARSE ON ALL LOBES. IV SITE INTACT, PATENT, AND INFUSING IVF PER MD ORDERS. GTUBE SITE IN PLACE, GTUBE FEEDING INFUSING PER MD ORDERS. MENDIETA CATHETER IN PLACE DRAINING YELLOW URINE. SKIN IS INTACT, WARM TO TOUCH, COLOR APPROPRIATE TO ETHNICITY. REDNESS NOTED ON PERINEAL AREA. REVIEWED PLAN OF CARE WITH PATIENT. REINFORCEMENT NEEDED. SAFETY MEASURES IN PLACE, CALL LIGHT WITHIN REACH. WILL CONTINUE TO MONITOR.
[2018-05-21] MEDS: ALBUTEROL SULFATE/IPRATROPIU 3 ML SOL IH SCH ×3 (07:12→19:47)
[2018-05-21 08:00] VITALS: BP 127/64
[2018-05-21 08:00] LABS: BASOPHILS % (AUTO) 0.1 % (0.0-2.0); EOSINOPHILS # (AUTO) 0.2 K/uL (0-0.4); EOSINOPHILS % (AUTO) 1.1 % (0.0-4.0); HEMATOCRIT 30.9 % (36-52); HEMOGLOBIN 9.7 g/dL (12.0-18.0); LYMPHOCYTES # (AUTO) 1.2 K/uL (2.0-11.5); MEAN CORPUSCULAR HEMOGLOBIN 30 pg (27-31); MEAN CORPUSCULAR HGB CONC 31 g/dL (33-37); MEAN CORPUSCULAR VOLUME 95.9 fL (80-94); MONOCYTES % (AUTO) 7.5 % (1.7-9.3); NEUTROPHILS # (AUTO) 11.2 K/uL (1.8-7.7); NEUTROPHILS % (AUTO) 82.3 % (42.2-75.2); PLATELET COUNT (AUTO) 205 K/uL (140-450); RED BLOOD CELL COUNT(AUTO) 3.22 MIL/uL (4.20-6.10); RED CELL DISTRIBUTION WIDTH 15.7 % (11.6-13.7); WHITE BLOOD COUNT (AUTO) 13.6 K/uL (4.8-10.8)
[2018-05-21 08:23] LABS: ANION GAP 15.1 (8-16); CHLORIDE 116 mmol/L (98-107); CREATININE 1.4 mg/dL (0.7-1.3); GLUCOSE 160 mg/dL (74-106); POTASSIUM 3.1 mmol/L (3.5-5.1); SODIUM SERUM 153 mmol/L (136-145); UREA NITROGEN, BLOOD 50 mg/dL (7-18)
[2018-05-21 08:29] LABS: MAGNESIUM 3.3 mg/dL (1.8-2.4); PHOSPHORUS 2.2 mg/dL (2.5-4.9)
[2018-05-21] MEDS: POLYETHYLENE GLYCOL 17 GM/PKT GT SCH ×2 (09:22→20:27)
[2018-05-21] MEDS: POTASSIUM CHLORIDE 20% 40 MEQ/15 ML UDC GT SCH (09:23)
[2018-05-21] MEDS: amLODIPine 5 MG TAB GT SCH (09:23)
[2018-05-21] MEDS: CARVEDILOL 12.5 MG TAB GT SCH ×2 (09:23→20:27)
[2018-05-21] MEDS: ASPIRIN 81 MG TAB.CHEW GT SCH (09:23)
--- NOTE | 2018-05-21 09:32 | NUR ---
PATIENT LYING DOWN IN BED. NO DISTRESS NOTED. CONDITION UNCHANGED. SCHEDULED MEDICATIONS DUE GIVEN. WILL CONTINUE TO MONITOR.
--- NOTE | 2018-05-21 09:55 | NUR ---
SCREEN FOR LOW SUE SCALE: PT SKIN INTACT, WILL CONTINUE ALL PREVENTION INTERVENTIONS -TURN AND REPOSITION PATIENT Q 2H OFFLOAD LEFT AND RIGHT HIPS -ASSESS AND MONITOR SKIN CONDITION DURING POSITION CHANGE, PLEASE PAY ATTENTION TO FEET AND HEELS -OFFLOAD BILATERAL HEELS BY PLACING PILLOWS UNDER CALVES AT ALL TIMES, UNLESS OTHERWISE CONTRAINDICATED -PRESSURE REDISTRIBUTION SURFACE THERAPY -KEEP SKIN CLEAN AND DRY AT ALL TIMES. PLEASE CONTACT WOUND CARE NURSE FOR CHANGE OF SKIN CONDITIONS.
[2018-05-21] MEDS: NACL 0.45% 1,000 ML IV SCH ×2 (10:44→20:41)
--- NOTE | 2018-05-21 11:20 | NUR ---
ASSISTED FENCE POST DRIVER IN CLEANING AND REPOSITIONING PATIENT. NO DISTRESS NOTED. CONDITION UNCHANGED. WILL CONTINUE TO MONITOR.
[2018-05-21 12:00] VITALS: BP 144/53
[2018-05-21] MEDS ORDERED: SODIUM PHOS / POTASSIUM PHOS 1 PKT PDR PO ONE (12:10)
[2018-05-21] MEDS ORDERED: POTASSIUM CHLORIDE 40 MEQ, LIDOCAINE MPF 1% - 5 mL VIAL 25 MG in NACL 0.9% 250 ML IV ONE (12:10)
[2018-05-21] MEDS: SODIUM PHOSPHATE 118 ML ENEM RC SCH (12:35)
--- NOTE | 2018-05-21 12:48 | NUR ---
SCHEDULED MEDICATIONS DUE GIVEN. CONDITION UNCHANGED. URINE CULTURE COLLECTED FROM MENDIETA CATHETER PORT. WILL CONTINUE TO MONITOR.
--- NOTE | 2018-05-21 14:08 | NUR ---
05/21/18 RD INITIAL ASSESSMENT COMPLETED PLEASE REFER TO NUTRITION ASSESSMENT UNDER CARE ACTIVITY FOR ESTIMATED NUTRITIONAL NEEDS. 1. CONTINUE TO GRADUALLY ADVANCE TUBE FEEDING VITAL AF 1.2 TO GOAL RATE 70 ML/HR. -CURRENT RATE OF 20 ML/HR IS PROVIDING 480 ML, 576 KCAL, AND 36 GM OF PROTEIN, WHICH MEETS 32% OF ESTIMATED KCAL AND PROTEIN NEEDS. -GOAL RATE OF 70 ML/HR WILL PROVIDE 1680 ML, 2016 KCAL, 126 GM OF PROTEIN, MEETING 100% OF ESTIMATED NEEDS. 2. RD TO FOLLOW-UP 2-3 DAYS, HIGH RISK [place]APINCITO DOMINGUEZ, RD
[2018-05-21 16:00] VITALS: BP 150/55
--- NOTE | 2018-05-21 16:30 | NUR ---
PATIENT LYING DOWN IN BED. NO DISTRESS NOTED. CONDITION UNCHANGED. WILL CONTINUE TO MONITOR.
--- NOTE | 2018-05-21 18:15 | NUR ---
ASSISTED INSPECTOR AND ADJUSTER GOLF CLUB HEAD IN CLEANING AND REPOSITIONING PATIENT. WILL CONTINUE TO MONITOR.
--- NOTE | 2018-05-21 19:30 | NUR ---
RECEIVED BEDSIDE REPORT FROM RN CHAVO, PATIENT IN BED, ON CONTACT, SEIZURE, AND ASPIRATION PRECAUTIONS, HOB AT 30 DEGREES, NO ACUTE SIGNS OF RESPIRATORY DISTRESS, TRAC TO VENT, SETTINGS AT FIO2 28, VT 500, RR 12, FLOW 50, PEEP 5, PMAX 50. LUNG SOUNDS CORACE, RR EVEN, UNLABORED. V/S TAKEN ALL WITHIN BASELINE, NOTED IV IN LEFT HAND 22 G INFUSING 1/2 NS AT 60 ML/HR, DRESSING INTACT. NOTED G-TUBE, 10 RESIDUES ASPIRATED, FEEDINGS AT 30 ML/HR, VITAL AF 1.2, ABDOMEN IS FIRM. NOTED LEFT NEPHROSTOMY TUBE, DRESSING INTACT, MENDIETA CATH IN PLACE DRAINING 100 ML CLEAR YELLOW URINE. SKIN INTACT. BED IN LOWEST POSITION, WILL START FREQUENT CHECKS.
--- NOTE | 2018-05-21 19:30 | NUR ---
GAVE REPORT TO EDGING MACHINE FEEDER NURSE FOR CONTINUITY OF CARE. PATIENT IN STABLE CONDITION.
[2018-05-21 20:00] VITALS: BP 150/48
--- NOTE | 2018-05-21 20:16 | NUR ---
BG 158 MEDICATED WITH 2 UNITS INSULIN, ALL DUE MEDICATIONS GIVEN.
[2018-05-21] MEDS: DOCUSATE 100 MG/10 ML UDC GT SCH (20:26)
[2018-05-21] MEDS: ATORVASTATIN 20 MG TAB PO SCH (20:27)
--- NOTE | 2018-05-21 22:30 | NUR ---
RESIDUALS AT 10 ML, INCREASED TUBE FEEDING TO 40 ML/HR. WILL CONTINUE TO MONITOR.
--- NOTE | 2018-05-21 23:30 | NUR ---
CHANGED TUBE FEEDING AND TUBING, INFUSING FEEDING AT 40 ML/HR.
[2018-05-22] VITALS (7 sets, daily range): BP systolic 124–167; BP diastolic 39–78
--- NOTE | 2018-05-22 | NUR ---
V/S TAKEN ALL WITHIN BASELINE WILL CONTINUE TO MONITOR.
[2018-05-22] MEDS: MEROPENEM 500 MG in NACL 0.9% 50 ML IV SCH ×2 (00:22→13:31)
--- NOTE | 2018-05-22 02:30 | NUR ---
PATIENT HIGH PRESSURE ALARM WENT OFF, O2SAT 92% SUCTIONED X 2, LIGHT BROWN SPUTUM NOTED, ALARM RESOLVED, O2SAT 99%. WILL CONTINUE TO MONITOR.
[2018-05-22] MEDS: NACL 0.45% 1,000 ML IV SCH ×3 (03:00→23:51)
--- NOTE | 2018-05-22 03:56 | NUR ---
V/S TAKEN BP 143/39 HR 61. WILL CONTINUE TO MONITOR.
--- NOTE | 2018-05-22 05:12 | NUR ---
PATIENT HAD BM, MODERATE, LIGHT BROWN, MUCUS LIKE.
--- NOTE | 2018-05-22 06:00 | NUR ---
PICC LINE DRESSING CHANGED, PATIENT C/O PAIN 11/05 WILL MEDICATE ACCORDING TO MD ORDER. Addendum: 05/22/18 at 0622 by Anali Meyer RN WRONG PATIENT
[2018-05-22] MEDS: BLOOD GLUCOSE MONITORING 1 DEV DEV FS SCH ×4 (06:19→20:22)
[2018-05-22] MEDS: INSULIN LISPRO SLIDING SCALE 100 UNITS/ML VIAL SUBQ PRN ×4 (06:20→20:22)
--- NOTE | 2018-05-22 06:22 | NUR ---
RESIDUES AT 0 ML INCREASED FEEDING TO 50 ML/HR.
--- NOTE | 2018-05-22 06:23 | NUR ---
MEDICATED WITH 2 UNITS INSULIN FOR BG 154.
[2018-05-22] MEDS: ALBUTEROL SULFATE/IPRATROPIU 3 ML SOL IH SCH ×3 (07:06→19:50)
--- NOTE | 2018-05-22 07:10 | NUR ---
ENDORSED PATIENT TO DAY SHIFT NURSE, PATIENT STABLE.
--- NOTE | 2018-05-22 07:15 | NUR ---
RECIVED PT ON VENT WITH SETTINGS CHARTED BREATH SOUNDS PRESENT BILAT CLEAR SXN PT WITH MIN AMT OFF WHITE SECS TRACH SITE SECURE AMBU BAG AT BEDSIDE VENT PLUGGED INTO RED OUTLET WILL CONTINUE TO MONTIOR
--- NOTE | 2018-05-22 07:16 | NUR ---
RECEIVED REPORT FROM REFRESH TECHNICIAN NURSE. PATIENT LYING DOWN IN BED. NO DISTRESS NOTED. PATIENT APHASIC. NO DISTRESS NOTED. FLACC 0. VENT TO TRACH WITH VENT SETTINGS: FIO2:28%, VT:500, RATE:12, FLOW:50 L/MIN, PMAX 50. O2 AT AT 98% WITH CURRENT VENT SETTINGS. LUNGS COARSE ON ALL LOBES. IV SITE INTACT, PATENT, AND INFUSING IVF PER MD ORDERS. GTUBE SITE IN PLACE, GTUBE FEEDING INFUSING PER MD ORDERS. MENDIETA CATHETER IN PLACE DRAINING YELLOW URINE. SKIN IS INTACT, WARM TO TOUCH, COLOR APPROPRIATE TO ETHNICITY. REVIEWED PLAN OF CARE WITH PATIENT. REINFORCEMENT NEEDED. SAFETY MEASURES IN PLACE, CALL LIGHT WITHIN REACH. WILL CONTINUE TO MONITOR.
[2018-05-22 07:48] LABS: CARBON DIOXIDE 23.3 mmol/L (21-32); CREATININE 1.3 mg/dL (0.7-1.3); GLUCOSE 163 mg/dL (74-106); UREA NITROGEN, BLOOD 37 mg/dL (7-18)
[2018-05-22 07:52] LABS: BASOPHILS % (AUTO) 0.2 % (0.0-2.0); EOSINOPHILS # (AUTO) 0.1 K/uL (0-0.4); EOSINOPHILS % (AUTO) 0.6 % (0.0-4.0); HEMATOCRIT 32.3 % (36-52); HEMOGLOBIN 10.1 g/dL (12.0-18.0); LYMPHOCYTES # (AUTO) 1.6 K/uL (2.0-11.5); MEAN CORPUSCULAR HEMOGLOBIN 30 pg (27-31); MEAN CORPUSCULAR HGB CONC 31 g/dL (33-37); MEAN CORPUSCULAR VOLUME 96.6 fL (80-94); MONOCYTES % (AUTO) 8.5 % (1.7-9.3); NEUTROPHILS % (AUTO) 76.7 % (42.2-75.2); PLATELET COUNT (AUTO) 229 K/uL (140-450); RED BLOOD CELL COUNT(AUTO) 3.35 MIL/uL (4.20-6.10); RED CELL DISTRIBUTION WIDTH 15.7 % (11.6-13.7); WHITE BLOOD COUNT (AUTO) 11.7 K/uL (4.8-10.8)
[2018-05-22 07:53] LABS: PHOSPHORUS 2.4 mg/dL (2.5-4.9)
[2018-05-22] MEDS ORDERED: SODIUM PHOS / POTASSIUM PHOS 1 PKT PDR GT SCH (07:55)
[2018-05-22 08:20] LABS: ANION GAP 14.9 (8-16); CHLORIDE 117 mmol/L (98-107); POTASSIUM 3.2 mmol/L (3.5-5.1); SODIUM SERUM 152 mmol/L (136-145)
[2018-05-22] MEDS ORDERED: POTASSIUM CHLORIDE 10 MEQ TABER PO SCH (09:15)
[2018-05-22] MEDS: POTASSIUM CHLORIDE 20% 40 MEQ/15 ML UDC GT SCH (09:17)
[2018-05-22] MEDS: DOCUSATE 100 MG/10 ML UDC GT SCH ×2 (09:17→20:08)
[2018-05-22] MEDS: CARVEDILOL 12.5 MG TAB GT SCH ×2 (09:18→20:08)
[2018-05-22] MEDS: DIGOXIN 0.125 MG TAB GT SCH (09:18)
[2018-05-22] MEDS: POLYETHYLENE GLYCOL 17 GM/PKT GT SCH ×2 (09:18→20:09)
[2018-05-22] MEDS: PANTOPRAZOLE 40 MG INJ VIAL IVP SCH (09:18)
[2018-05-22] MEDS: amLODIPine 5 MG TAB GT SCH (09:18)
[2018-05-22] MEDS: ASPIRIN 81 MG TAB.CHEW GT SCH (09:19)
[2018-05-22] MEDS ORDERED: POTASSIUM CHLORIDE 20% 40 MEQ/15 ML UDC GT SCH ×2 (09:25→09:30)
--- NOTE | 2018-05-22 09:40 | NUR ---
PATIENT LYING DOWN IN BED, NO DISTRESS NOTED. FLACC 0. SCHEDULED MEDICATIONS DUE GIVEN. SAFETY MEASURES IN PLACE, CALL LIGHT WITHIN REACH. WILL CONTINUE TO MONITOR.
--- NOTE | 2018-05-22 10:24 | NUR ---
ASSISTED TRANSCRIPTION SPECIALIST IN CLEANING AND REPOSITIONING PATIENT. NO DISTRESS NOTED. CONDITION UNCHANGED. WILL CONTINUE TO MONITOR.
[2018-05-22 11:48] LABS: T4 (THYROXINE) 6.1 ug/dL (4.5 - 12.0)
--- NOTE | 2018-05-22 12:30 | NUR ---
PATIENT LYING DOWN IN BED SLEEPING. CONDITION UNCHANGED. VENT SETTINGS UNCHANGED. WILL CONTINUE TO MONITOR.
--- NOTE | 2018-05-22 14:30 | NUR ---
PATIENT LYING DOWN IN BED SLEEPING, AROUSABLE BY VOICE. NO DISTRESS NOTED. FLACC 0. CONDITION UNCHANGED. WILL CONTINUE TO MONITOR.
[2018-05-22] MEDS ORDERED: VANCOMYCIN 1,500 MG in DEXTROSE 5% 250 ML IV SCH (15:00)
[2018-05-22] MEDS ORDERED: VANCOMYCIN 1GM/DEXT 5% PREMIX 200 ML IV SCH (15:00)
[2018-05-22] MEDS ORDERED: VANCOMYCIN 1,500 MG in NACL 0.9% 500 ML IV SCH (16:00)
--- NOTE | 2018-05-22 17:13 | NUR ---
ASSISTED ELECTRICIAN APPRENTICE POWERHOUSE IN CLEANING AND REPOSITIONING PATIENT. CONDITION UNCHANGED. WILL CONTINUE TO MONITOR.
--- NOTE | 2018-05-22 17:22 | NUR ---
continued to monitor pt on vent with settings as charted sxn pt with min amt off white secs breath sounds present bilat clear tracj site secure ambu bag at bedside vent plugged into red outlet
--- NOTE | 2018-05-22 19:12 | NUR ---
GAVE REPORT TO PAN HELPER NURSE FOR CONTINUITY OF CARE. PATIENT IN STABLE CONDITION.
--- NOTE | 2018-05-22 19:15 | NUR ---
RECEIVED PT WITH EYES OPEN, APHASIC, VITAL SIGNS TAKEN, BP SLIGHTLY ELEVATED, WILL GIVE DUE BP MEDICATION, ON TRACH TO VENT WITH SAT-99% ON FIO2-28% AND FLOW RATE OF 50L/MIN, NO SOB NOTED, G-TUBE FEEDING ON-GOING, HOB ELEVATED AT ALL TIMES, ABDOMEN DISTENDED BUT SOFT, IVF INFUSING WELL, MENDIETA CATH IN PLACE DRAINING YELLOW URINE, LEFT NEPHROSTOMY TUBE IN PLACE WITH NO OUTPUT NOTED, ON SEIZURE AND FALL PRECAUTION IN, WILL REPOSITION Q2H AND OFFLOAD PRESSURE AREAS.
[2018-05-22] MEDS: ATORVASTATIN 20 MG TAB PO SCH (20:08)
--- NOTE | 2018-05-22 20:11 | NUR ---
PATIENT RECEIVED ON DOCUMENTED VENT SETTINGS: AC, 12, 500, +5, 28%. VITALS STABLE: 98%, 60, RATE 21, COARSE BREATH SOUNDS. SXNED X1 FOR SMALL AMOUNT OF THICK CREAMY SECRETIONS. TX GIVEN WITH NO ADVERSE EFFECT. ALARMS ON AND AUDIBLE. TRACH PATENT AND SECURE. NO SOB OR DISTRESS. AMBU BAG AT BEDSIDE.
--- NOTE | 2018-05-22 20:30 | NUR ---
BLOOD SUGAR CHECKED WITH 169 RESULT, COVERAGE GIVEN, 5ML G-TUBE RESIDUAL NOTED, DUE MEDS ADMINISTERED, ORAL CARE USING VAP KIT DONE BUT PT DOESN'T WANT TO OPEN HIS MOUTH, ORAL MOISTURIZER APPLIED, ALL NEEDS ANTICIPATED.
--- NOTE | 2018-05-22 23:20 | NUR ---
5ML G-TUBE RESIDUAL NOTED, NEW FEEDING BAG STARTED AND INCREASED RATE TO 70ML/H WHICH IS THE GOAL RATE, MAINTAINED HOB ELEVATED AT ALL TIME, BP CHECKED 167/65, HR-60, DR KEITA MADE AWARE, STATED TO RECHECKED AGAIN LATER, MONITORED CLOSELY.
[2018-05-23] MEDS: MEROPENEM 500 MG in NACL 0.9% 50 ML IV SCH ×2 (00:34→12:11)
[2018-05-23 00:50] VITALS: BP 161/66
--- NOTE | 2018-05-23 00:50 | NUR ---
BP RECHECKED 161/66, PT SLEEPING, NO SIGNS OF DISTRESS, CONTINUE TO MONITOR CLOSELY. Addendum: 05/23/18 at 0144 by Mulugeta Guevara RN DR KEITA MADE AWARE OF LATEST BLOOD PRESSURE, HE STATED "THAT'S FINE.
--- NOTE | 2018-05-23 02:20 | NUR ---
PT HAD LARGE BM, MUCOID IN CONSISTENCY, PERINEAL CARE DONE BY PEST CONTROL TECHNICIAN, CONTINUE TO REPOSITION AND OFFLOAD PRESSURE AREAS.
[2018-05-23 04:00] VITALS: BP 166/74
--- NOTE | 2018-05-23 04:00 | NUR ---
PT SEEN WITH EYES CLOSED, OPEN EYES TO TOUCH, VITAL SIGNS TAKEN, BP ELEVATED-166/74, ASYMPTOMATIC, NO SIGNS OF PAIN OR RESP DISTRESS, DR KEITA MADE AWARE OF ELEVATED BP, NO NEW ORDER AT THIS TIME, CONTINUE TO MONITOR CLOSELY.
--- NOTE | 2018-05-23 05:30 | NUR ---
BLOOD SUGAR CHECKED WITH 156 RESULT, COVERAGE GIVEN, G-TUBE FEEDING INFUSING WELL, NO RESP DISTRESS NOTED, NO CHANGE IN CONDITION, FLACC-0, MONITORED CLOSELY.
[2018-05-23] MEDS: NACL 0.45% 1,000 ML IV SCH ×2 (05:33→14:20)
[2018-05-23] MEDS: INSULIN LISPRO SLIDING SCALE 100 UNITS/ML VIAL SUBQ PRN ×2 (05:37→12:12)
[2018-05-23] MEDS: BLOOD GLUCOSE MONITORING 1 DEV DEV FS SCH ×4 (06:56→21:43)
--- NOTE | 2018-05-23 07:15 | NUR ---
PT REPORT RECEIVED AT BEDSIDE FROM TRIPE COOKER NURSE MIGUEL. PT IS ASLEEP IN BED, NO S/S OF ACUTE DISTRESS, SOB, OR PAIN NOTED. PT IS TRACH TO VENT SETTINGS: FIO2 28%, PEEP 5, VT 500, RR 20. PT IS APHASIC. SKIN IS INTACT, HOWEVER SLIGHT REDNESS ON THE LOWER BACK/BOTTOM AREA. MENDIETA CATHETER NOTED TO BE DRAINING YELLOW URINE. G-TUBE NOTED, INFUSING VITAL FORMULA 70 ML/HR. IV SITE NOTED ON THE L HAND, 22 G, INFUSING 1/2 NS 60 ML/HR. NEPHROSTOMY TUBE NOTED INSERTED INTO THE L KIDNEY. 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 CURRENT CODE STATUS DNR. FALL PRECAUTIONS AND SEIZURE PRECAUTIONS ARE IN PLACE. PT IS ON CONTACT ISO FOR HX OF ESBL AND E.COLI SPUTUM, AND ACTIVE PRODUCE ASSISTANT SPUTUM. CALL LIGHT WITHIN REACH. WILL CONTINUE TO MONITOR.
--- NOTE | 2018-05-23 07:20 | NUR ---
PT SLEEPING, NO SIGNS OF RESPIRATORY DISTRESS, REPORT GIVEN TO NATANAEL CRENSHAW FOR CONTINUITY OF CARE.
[2018-05-23 07:34] LABS: HEMATOCRIT 31.7 % (36-52); MEAN CORPUSCULAR HEMOGLOBIN 30 pg (27-31); MEAN CORPUSCULAR HGB CONC 31 g/dL (33-37); MEAN CORPUSCULAR VOLUME 96.3 fL (80-94); PLATELET COUNT (AUTO) 222 K/uL (140-450); RED BLOOD CELL COUNT(AUTO) 3.29 MIL/uL (4.20-6.10); RED CELL DISTRIBUTION WIDTH 15.8 % (11.6-13.7); WHITE BLOOD COUNT (AUTO) 10.4 K/uL (4.8-10.8)
[2018-05-23] MEDS: ALBUTEROL SULFATE/IPRATROPIU 3 ML SOL IH SCH ×3 (07:41→19:42)
[2018-05-23 07:58] LABS: LYMPHOCYTES % (MANUAL) 20 % (20-46); MONOCYTES % (MANUAL) 10 % (5-12)
[2018-05-23 08:00] VITALS: BP 170/61
[2018-05-23 08:02] LABS: METAMYELOCYTES % 1 % (0-0)
[2018-05-23 08:03] LABS: MYELOCYTES % 1 % (0-0)
[2018-05-23 08:27] LABS: ANION GAP 13.5 (8-16); CHLORIDE 119 mmol/L (98-107); CREATININE 1.3 mg/dL (0.7-1.3); GLUCOSE 168 mg/dL (74-106); POTASSIUM 3.5 mmol/L (3.5-5.1); SODIUM SERUM 150 mmol/L (136-145); UREA NITROGEN, BLOOD 34 mg/dL (7-18)
[2018-05-23 08:32] LABS: MAGNESIUM 2.8 mg/dL (1.8-2.4); PHOSPHORUS 2.1 mg/dL (2.5-4.9)
[2018-05-23] MEDS: CARVEDILOL 12.5 MG TAB GT SCH ×2 (08:46→21:19)
[2018-05-23] MEDS: DOCUSATE 100 MG/10 ML UDC GT SCH ×2 (08:46→21:18)
[2018-05-23] MEDS: POLYETHYLENE GLYCOL 17 GM/PKT GT SCH ×2 (08:46→21:19)
[2018-05-23] MEDS: PANTOPRAZOLE 40 MG INJ VIAL IVP SCH (08:46)
[2018-05-23] MEDS: cloNIDine 0.1 MG TAB GT PRN (08:47)
[2018-05-23] MEDS: amLODIPine 5 MG TAB GT SCH (08:47)
[2018-05-23] MEDS: ASPIRIN 81 MG TAB.CHEW GT SCH (08:48)
[2018-05-23] MEDS: POTASSIUM CHLORIDE 20% 40 MEQ/15 ML UDC GT SCH (08:49)
--- NOTE | 2018-05-23 10:50 | NUR ---
PT CLEANED, CHANGED, AND REPOSITIONED. LINENS CHANGED. PT HAD A LARGE LOOSE STOOL.
[2018-05-23] MEDS ORDERED: GENTAMICIN PER PHARMACY MC PRN (11:35)
[2018-05-23 12:00] VITALS: BP 134/59
[2018-05-23] MEDS ORDERED: SODIUM PHOS / POTASSIUM PHOS 1 PKT PDR PO SCH ×2 (12:00→21:00)
[2018-05-23] MEDS ORDERED: MEROPENEM 500 MG VIAL IV ONE (12:15)
[2018-05-23 16:00] VITALS: BP 141/45
[2018-05-23] MEDS: GENTAMICIN 120 MG in DEXTROSE 5% 100 ML IV SCH (16:53)
--- NOTE | 2018-05-23 17:50 | NUR ---
NEW IV SITE STARTED, L FA 22 GAUGE, PATENT AND INTACT. PT TOLERATED WELL. THE ORIGINAL IV HAS INFILTRATED.
--- NOTE | 2018-05-23 19:15 | NUR ---
RECEIVED PT WITH EYES OPEN, APHASIC ON TRACH TO VENT WITH SAT-99% ON FIO2-28% AND FLOW RATE OF 50L/MIN, NO SOB NOTED, W/ VITAL AF 1.2 AT 60 G-TUBE FEEDING , HOB ELEVATED AT ALL TIMES, ABDOMEN DISTENDED BUT SOFT, IVF INFUSING WELL,RESIDUAL AT [address] MENDIETA CATH IN PLACE DRAINING YELLOW URINE, LEFT NEPHROSTOMY TUBE IN PLACE WITH 5 ML OUTPUT NOTED, ON SEIZURE AND FALL PRECAUTION IN, WILL REPOSITION Q2H AND OFFLOAD PRESSURE AREAS.
--- NOTE | 2018-05-23 19:25 | NUR ---
PT ENDORSED TO BLOW PIT HELPER NURSE IN STABLE CONDITION.
[2018-05-23 20:00] VITALS: BP 163/58
--- NOTE | 2018-05-23 21:00 | NUR ---
PT ON GTUBE, MEDICATED PT VIA GTUBE, PT TOLERATED WELL, PT'S TUBE FEEDING CHANGED WITH SAME RATE AND SAME FREQUENCY.
[2018-05-23] MEDS: ATORVASTATIN 20 MG TAB PO SCH (21:18)
--- NOTE | 2018-05-23 22:00 | NUR ---
PT CHECKED FOR BM, WITH BM NOTED, OPTIFORM REPLACED. Q2 TURNING DONE
--- NOTE | 2018-05-23 22:15 | NUR ---
ENDORSED TO ANOTHER PHARMACY TECHNICIAN NURSE FOR CONTINUITY OF CARE. PT IN STABLE CONDITION, SLEEPING. NOT IN RESPIRATORY DISTRESS. Addendum: 05/23/18 at 2231 by Julieta Monge RN WRONG PATIENT
[2018-05-24] VITALS: BP 142/60
[2018-05-24] MEDS: MEROPENEM 500 MG in NACL 0.9% 50 ML IV SCH ×2 (01:00→13:01)
--- NOTE | 2018-05-24 03:00 | NUR ---
SUNCTIONED PT, MINIMAL SECRETIONS NOTED ON MOUTH AND TRACH, YELLOW PHLEGM
[2018-05-24] MEDS: cloNIDine 0.1 MG TAB GT PRN ×2 (03:34→06:34)
[2018-05-24 04:00] VITALS: BP 135/62
[2018-05-24] MEDS: GENTAMICIN 120 MG in DEXTROSE 5% 100 ML IV SCH (05:00)
[2018-05-24] MEDS: BLOOD GLUCOSE MONITORING 1 DEV DEV FS SCH ×4 (06:43→21:19)
[2018-05-24] MEDS: INSULIN LISPRO SLIDING SCALE 100 UNITS/ML VIAL SUBQ PRN ×2 (06:44→17:12)
[2018-05-24] MEDS: NACL 0.45% 1,000 ML IV SCH ×2 (07:00→17:11)
--- NOTE | 2018-05-24 07:00 | NUR ---
INFORMED DR KEITA THAT BP WAS HIGH AT 170/80. PER TO WAIT FOR NEXT SCHEDULED DOSE FOR BP CLONIDINE GIVEN IS TO SOON.
--- NOTE | 2018-05-24 07:20 | NUR ---
RECEIVED PT REPORT FROM KARATE INSTRUCTOR NURSE MYRON AT BEDSIDE, PT. AWAKE, ALERT Ox0, APHASIC ON TRACH TO VENT WITH SAT-97%, FIO2-28%, FLOW RATE OF 50L, PEEP 5, VT 500, NO SOB NOTED, G-TUBE FEEDING RUNNING FORMULA VITAL AF 1.2 AT 70ML PER HOUR, RESIDUAL 5 ML, IV CATH 22 G NOTED ON LEFT ARM PATENT, INTACT, ASYMPTOMATIC. HOB ELEVATED 30 DEGREE, ABDOMEN DISTENDED BUT SOFT, MENDIETA CATH IN PLACE DRAINING YELLOW URINE, LEFT NEPHROSTOMY TUBE IN PLACE. RIGHT ARM SKIN LACERATION NOTED AT ANTECUBITAL AREA, DRESSING IN PLACE. ON SEIZURE AND FALL PRECAUTION IN, WILL REPOSITION Q2H AND OFFLOAD PRESSURE AREAS.
--- NOTE | 2018-05-24 07:44 | NUR ---
ENDORSED TO AM SHIFT NURSE FOR CONTINUITY OF CARE. PT'S BP ELEVATED. INFORMED AM NURSE THAT CLONIDINE WAS JUST GIVEN AT 0344. LESS THAN 6 HRS PER BP PROTOCOL. AM NURSE SHALL MEDICATE FOR BP PER MD ORDERS.
--- NOTE | 2018-05-24 07:45 | NUR ---
PATIENT RECEIVED ON DOCUMENTED VENT SETTINGS: AC, 12, 500, +5, 28%. VITALS STABLE: 100%, 60, RATE 23, COARSE BREATH SOUNDS. SXNED X2 FOR SMALL AMOUNT OF THIN CLEAR SECRETIONS. TX GIVEN WITH NO ADVERSE EFFECT. ALARMS ON AND AUDIBLE. TRACH PATENT AND SECURE. NO SOB OR DISTRESS. AMBU BAG AT BEDSIDE.
[2018-05-24] MEDS: ALBUTEROL SULFATE/IPRATROPIU 3 ML SOL IH SCH ×3 (07:50→19:27)
[2018-05-24 08:00] VITALS: BP 166/60
[2018-05-24] MEDS: ASPIRIN 81 MG TAB.CHEW GT SCH (08:50)
[2018-05-24] MEDS: amLODIPine 5 MG TAB GT SCH (08:51)
[2018-05-24] MEDS: POLYETHYLENE GLYCOL 17 GM/PKT GT SCH ×2 (08:52→21:00)
[2018-05-24] MEDS: PANTOPRAZOLE 40 MG INJ VIAL IVP SCH (08:52)
[2018-05-24] MEDS: DIGOXIN 0.125 MG TAB GT SCH (08:53)
[2018-05-24] MEDS: POTASSIUM CHLORIDE 20% 40 MEQ/15 ML UDC GT SCH (08:53)
[2018-05-24] MEDS: DOCUSATE 100 MG/10 ML UDC GT SCH ×2 (08:53→21:00)
[2018-05-24] MEDS: CARVEDILOL 12.5 MG TAB GT SCH ×2 (08:55→21:11)
--- NOTE | 2018-05-24 09:35 | NUR ---
PT HAD LARGE BM, DIARRHEA, YELLOW STOOL. PT WAS CLEANED, BED BATH GIVEN, LINENS CHANGED, NEW MENDIETA SECURE DEVICE PUT IN PLACE. MENDIETA CARE DONE. SCD IN PLACE
[2018-05-24 11:05] LABS: BASOPHILS % (AUTO) 0.3 % (0.0-2.0); EOSINOPHILS # (AUTO) 0.4 K/uL (0-0.4); EOSINOPHILS % (AUTO) 3.3 % (0.0-4.0); HEMATOCRIT 29.1 % (36-52); HEMOGLOBIN 9.3 g/dL (12.0-18.0); LYMPHOCYTES # (AUTO) 2.2 K/uL (2.0-11.5); LYMPHOCYTES % (AUTO) 19.7 % (20.5-51.1); MEAN CORPUSCULAR HEMOGLOBIN 31 pg (27-31); MEAN CORPUSCULAR HGB CONC 32 g/dL (33-37); MEAN CORPUSCULAR VOLUME 96.4 fL (80-94); MONOCYTES # (AUTO) 0.8 K/uL (0.8-1.0); MONOCYTES % (AUTO) 7.1 % (1.7-9.3); NEUTROPHILS # (AUTO) 7.7 K/uL (1.8-7.7); NEUTROPHILS % (AUTO) 69.6 % (42.2-75.2); PLATELET COUNT (AUTO) 201 K/uL (140-450); RED BLOOD CELL COUNT(AUTO) 3.02 MIL/uL (4.20-6.10); RED CELL DISTRIBUTION WIDTH 15.7 % (11.6-13.7); WHITE BLOOD COUNT (AUTO) 11.1 K/uL (4.8-10.8)
--- NOTE | 2018-05-24 11:10 | NUR ---
ORAL CARE DONE, PT TOLERATED FAIR.
[2018-05-24 11:19] LABS: ANION GAP 11.6 (8-16); CARBON DIOXIDE 17.7 mmol/L (21-32); CHLORIDE 120 mmol/L (98-107); CREATININE 1.1 mg/dL (0.7-1.3); GLUCOSE 143 mg/dL (74-106); POTASSIUM 4.3 mmol/L (3.5-5.1); SODIUM SERUM 145 mmol/L (136-145); UREA NITROGEN, BLOOD 33 mg/dL (7-18)
[2018-05-24 11:24] LABS: MAGNESIUM 2.6 mg/dL (1.8-2.4); PHOSPHORUS 2.4 mg/dL (2.5-4.9)
--- NOTE | 2018-05-24 13:17 | NUR ---
RECEIVED CALL FROM PHARMACIST CARLY, GIVE GENTAMICIN SCHEDULED, NO NEED TO WAIT FOR TROUGH BECAUSE IT'S A SENT OUT WHICH TAKES LONG TIME FOR RESULT TO COME BACK, WILL MONITOR TROUGH LEVEL TOMORROW.
[2018-05-24] MEDS ORDERED: FLUCONAZOLE 100 MG/NS PREMIX 50 ML IV SCH (14:00)
--- NOTE | 2018-05-24 14:12 | NUR ---
05/24/18 RD FOLLOW UP COMPLETED PLEASE REFER TO NUTRITION ASSESSMENT UNDER CARE ACTIVITY FOR ESTIMATED NUTRITIONAL NEEDS. 1. CONTINUE TUBE FEED VITAL AF 1.2 @ 70 ML/HR. - THIS WILL PROVIDE 1680 ML, 2016 KCAL, 126 GM OF PROTEIN, MEETING 100% OF ESTIMATED NEEDS. 2. CONTINUE FLUSH FLUSH [address] TO FOLLOW-UP 2-3 DAYS, HIGH RISK CHAPINCITO DOMINGUEZ RD
[2018-05-24] MEDS ORDERED: FERROUS SULFATE 300 MG/5 ML UDC GT SCH (14:17)
--- NOTE | 2018-05-24 15:00 | NUR ---
FEEDING FORMULA AND TUBING CHANGED. RUNNING 70ML/ HR, WATER FLUSH Q4H
[2018-05-24 16:00] VITALS: BP 125/56
--- NOTE | 2018-05-24 17:30 | NUR ---
PT HAD LARGE BM, DIARRHEA, BROWN IN COLOR. PT CLEANED, KENNETH CARE DONE, ORAL CARE DONE, LINENS CHANGED.
--- NOTE | 2018-05-24 19:30 | NUR ---
ENDORSED PT TO ESTHETICIAN/SPA COORDINATOR. PT IN STABLE CONDITION.
--- NOTE | 2018-05-24 19:31 | NUR ---
RECEIVED BEDSIDE REPORT FROM LATONYA RN, PT STABLE, NO DISTRESS NOTED, IV TO L FA 22G, PATENT, INTACT INFUSING 1/2 NS @ 60ML/HR, PT ON TRACH TO VENT, NO SOB NOTED, PT ON FIO2 28%, PEEP 5, MENDIETA CATH IN PLACE DRAINING YELLOW URINE, G TUBE IN PLACE WITH TUBE FEEDINGS, FLACC 0, INITIAL ASSESSMENT DONE, ALL SAFETY PRECAUTION MET, CALL LIGHT WITHIN REACH, WILL CONTINUE TO MONITOR.
--- NOTE | 2018-05-24 19:35 | NUR ---
Received pt stable on vent support at documented settings, suctioned small amounts of thin white secretions, hhn tx given, tolerated well, no resp distress or SOB noted at this time, Portex 7 trach secured/patent/midline, alarms set and audible, vent plugged into red outlet, ambu bag at bedside, pulse ox on, will cont to monitor.
[2018-05-24] MEDS: ATORVASTATIN 20 MG TAB PO SCH (21:11)
--- NOTE | 2018-05-24 21:19 | NUR ---
DUE MEDICATION ADMINISTERED, PT TOLERATED WELL, NO DISTRESS NOTED, CALL LIGHT WITHIN REACH, WILL CONTINUE TO MONITOR. Addendum: 05/24/18 at 2300 by Paradise Gordon RN COLACE AND MIRALAX HELD, PT BEEN HAVING LIQUID DIARRHEA.
--- NOTE | 2018-05-25 00:07 | NUR ---
CHECKED ON PT, PT RESTING, NO DISTRESS NOTED, V/S TAKEN WITHIN PT BASELINE, NO DISTRESS NOTED, CALL LIGHT WITHIN REACH, WILL CONTINUE TO MONITOR.
[2018-05-25] MEDS: MEROPENEM 500 MG in NACL 0.9% 50 ML IV SCH ×2 (00:22→12:50)
[2018-05-25 00:28] VITALS: BP 137/52
--- NOTE | 2018-05-25 03:55 | NUR ---
CHECKED ON PT, PT SLEEPING, NO DISTRESS NOTED, CALL LIGHT WITHIN REACH, WILL CONTINUE TO MONITOR
[2018-05-25] MEDS: BLOOD GLUCOSE MONITORING 1 DEV DEV FS SCH ×4 (06:15→21:31)
--- NOTE | 2018-05-25 06:17 | NUR ---
CHECKED ON PT, PT RESTING, NO DISTRESS NOTED, BS CHECKED 135, NO INSULIN COVERAGE PER SLIDING SCALE, PT TOLERATED WELL, CALL LIGHT WITHIN REACH, WILL CONTINUE TO MONITOR.
--- NOTE | 2018-05-25 07:27 | NUR ---
ENDORSED PT TO DAY SHIFT NURSE LATONYA RN, PT STABLE, NO DISTRESS NOTED, CALL LIGHT WITHIN REACH.
[2018-05-25 07:31] LABS: BASOPHILS % (AUTO) 0.3 % (0.0-2.0); EOSINOPHILS # (AUTO) 0.4 K/uL (0-0.4); EOSINOPHILS % (AUTO) 4.4 % (0.0-4.0); HEMATOCRIT 30.3 % (36-52); HEMOGLOBIN 9.5 g/dL (12.0-18.0); LYMPHOCYTES # (AUTO) 1.6 K/uL (2.0-11.5); LYMPHOCYTES % (AUTO) 17.4 % (20.5-51.1); MEAN CORPUSCULAR HEMOGLOBIN 30 pg (27-31); MEAN CORPUSCULAR HGB CONC 32 g/dL (33-37); MEAN CORPUSCULAR VOLUME 96.6 fL (80-94); MONOCYTES # (AUTO) 0.6 K/uL (0.8-1.0); MONOCYTES % (AUTO) 6.9 % (1.7-9.3); NEUTROPHILS # (AUTO) 6.4 K/uL (1.8-7.7); PLATELET COUNT (AUTO) 218 K/uL (140-450); RED BLOOD CELL COUNT(AUTO) 3.13 MIL/uL (4.20-6.10); RED CELL DISTRIBUTION WIDTH 16.1 % (11.6-13.7)
[2018-05-25] MEDS: ALBUTEROL SULFATE/IPRATROPIU 3 ML SOL IH SCH ×3 (07:45→20:24)
[2018-05-25 07:48] LABS: ANION GAP 12.8 (8-16); CARBON DIOXIDE 19.7 mmol/L (21-32); CHLORIDE 117 mmol/L (98-107); CREATININE 1.1 mg/dL (0.7-1.3); GLUCOSE 144 mg/dL (74-106); POTASSIUM 3.5 mmol/L (3.5-5.1); SODIUM SERUM 146 mmol/L (136-145); UREA NITROGEN, BLOOD 35 mg/dL (7-18)
--- NOTE | 2018-05-25 07:53 | NUR ---
RECEIVED TRACH PT WITH A PORTEX 7 TRACH ON VENT. SETTINGS AC 12, VT 500, PEEP 5 AND FIO2 28%. PT SUCTIONED OBTAINED SMALL AMOUNT OF THIN CLEAR/WHITE SECRETIONS, AIRWAY IS PATENT AND TRACH IS SECURE. VENT IS PLUGGED INTO A RED OUTLET WITH AMBU BAG NEAR BEDSIDE. VENT ALARMS ARE ON AND FUNCTIONING. PT IS NOT ALERT BUT IS NOT IN ANY DISTRESS AT THIS TIME. WILL CONTINUE TO MONITOR.
[2018-05-25] MEDS: POLYETHYLENE GLYCOL 17 GM/PKT GT SCH ×2 (09:00→21:10)
[2018-05-25] MEDS: FERROUS SULFATE 300 MG/5 ML UDC GT SCH (09:23)
[2018-05-25] MEDS: ASPIRIN 81 MG TAB.CHEW GT SCH (09:23)
[2018-05-25] MEDS: CARVEDILOL 12.5 MG TAB GT SCH ×2 (09:24→21:10)
[2018-05-25] MEDS: amLODIPine 5 MG TAB GT SCH (09:24)
[2018-05-25] MEDS: POTASSIUM CHLORIDE 20% 40 MEQ/15 ML UDC GT SCH (09:26)
[2018-05-25] MEDS: PANTOPRAZOLE 40 MG INJ VIAL IVP SCH (09:26)
[2018-05-25] MEDS: DOCUSATE 100 MG/10 ML UDC GT SCH ×2 (09:30→21:10)
--- NOTE | 2018-05-25 10:50 | NUR ---
ORAL CARE ADMINISTERED, PT. TOLERATED WELL.
--- NOTE | 2018-05-25 11:05 | NUR ---
PT. HAD BM, SMALL AMOUNT, BROWN, FORMED. PERICARE AND MENDIETA CARE DONE; LINENS CHANGED. PT TOLERATED WELL
[2018-05-25 11:32] LABS: MAGNESIUM 2.7 mg/dL (1.8-2.4); PHOSPHORUS 2.6 mg/dL (2.5-4.9)
[2018-05-25 12:00] VITALS: BP 146/63
[2018-05-25] MEDS: NACL 0.45% 1,000 ML IV SCH (16:59)
[2018-05-25] MEDS: GENTAMICIN 120 MG in DEXTROSE 5% 100 ML IV SCH (17:09)
--- NOTE | 2018-05-25 17:26 | NUR ---
PT REMAINS ON DOCUMENTED VENT SETTINGS. PT SUCTIONED OBTAINED SMALL AMOUNT OF THICK WHITE SECRETIONS. AIRWAY IS PATENT AND TRACH IS SECURE. PT IS NOT IN ANY DISTRESS AT THIS TIME. VENT IS PLUGGED INTO A RED OUTLET WITH ALARMS ON AND FUNCTIONING.
--- NOTE | 2018-05-25 18:40 | NUR ---
RECEIVED PT REPORT FROM WET POUR MIXER NURSE JENIFER AT BEDSIDE, PT. AWAKE, ALERT Ox0, APHASIC ON TRACH TO VENT WITH SAT-100%, FIO2-28%, FLOW RATE OF 50L, PEEP 5, VT 500, NO SOB NOTED OR ACUTE DISTRESS NOTED, G-TUBE FEEDING RUNNING FORMULA VITAL AF 1.2 AT 70ML PER HOUR, RESIDUAL 5 ML, IV CATH 22 G NOTED ON LEFT ARM PATENT, INTACT, ASYMPTOMATIC. HOB ELEVATED 30 DEGREE, ABDOMEN DISTENDED BUT SOFT, MENDIETA CATH IN PLACE DRAINING YELLOW URINE, LEFT NEPHROSTOMY TUBE IN PLACE. RIGHT ARM SKIN LACERATION NOTED AT ANTECUBITAL AREA, DRESSING IN PLACE. ON SEIZURE AND FALL PRECAUTION IN, WILL REPOSITION Q2H AND OFFLOAD PRESSURE AREAS. Addendum: 05/25/18 at 1846 by Messi Reeves RN CORRECT TIME IS 0730, NOT 184
--- NOTE | 2018-05-25 19:15 | NUR ---
ENDORSED PT TO VOUCHER EXAMINER RN. PT IN STABLE CONDITION.
--- NOTE | 2018-05-25 19:16 | NUR ---
RECEIVED BEDSIDE REPORT FROM DAY SHIFT NURSE LATONYA RN, PT STABLE, NO DISTRESS NOTED, IV TO L FA 22G, PATENT, INTACT, INFUSING 1/2 NS @60ML/HR, INFUSING WELL, PT ON TRACH TO VENT, NO SOB NOTED, MENDIETA IN PLACE DRAINING YELLOW URINE, NEPHROSTOMY TUBE INTACT, DRAINING YELLOW URINE, G TUBE IN PLACE WITH TUBE FEEDINGS, INITIAL ASSESSMENT DONE, ALL SAFETY PRECAUTION MET, CALL LIGHT WITHIN REACH, WILL CONTINUE TO MONITOR.
[2018-05-25] MEDS: ATORVASTATIN 20 MG TAB PO SCH (21:10)
--- NOTE | 2018-05-25 21:31 | NUR ---
DUE MEDICATION ADMINISTERED, PT TOLERATED WELL, NO DISTRESS NOTED, CALL LIGHT WITHIN REACH, WILL CONTINUE TO MONITOR.
[2018-05-26] VITALS: BP 140/56
--- NOTE | 2018-05-26 00:10 | NUR ---
CHECKED ON PT, PT SLEEPING, NO DISTRESS NOTED, V/S TAKEN, WITHIN PT BASELINE, DRESSING CLEAN DRY AND INTACT, NOT CHANGED, CALL LIGHT WITHIN REACH, WILL CONTINUE TO MONITOR.
[2018-05-26] MEDS: MEROPENEM 500 MG in NACL 0.9% 50 ML IV SCH ×2 (00:50→12:47)
--- NOTE | 2018-05-26 00:50 | NUR ---
DUE MEDICATION ADMINISTERED, PT TOLERATED WELL, NO DISTRESS NOTED, CALL LIGHT WITHIN REACH, WILL CONTINUE TO MONITOR.
--- NOTE | 2018-05-26 04:01 | NUR ---
CHECKED ON PT, PT SLEEPING, NO DISTRESS NOTED, CALL LIGHT WITHIN REACH, WILL CONTINUE TO MONITOR.
[2018-05-26] MEDS: BLOOD GLUCOSE MONITORING 1 DEV DEV FS SCH ×4 (05:44→20:57)
--- NOTE | 2018-05-26 05:44 | NUR ---
CHECKED ON PT, PT RESTING, NO DISTRESS NOTED, BLOOD SUGAR CHECKED 124, PT TOLERATED WELL, CALL LIGHT WITHIN REACH, WILL CONTINUE TO MONITOR.
--- NOTE | 2018-05-26 07:10 | NUR ---
RECEIVED PT REPORT FROM DIRECTOR ALUMNI RELATIONS NURSE JENIFER AT BEDSIDE. PT IS AWAKE, OX0, APHASIC. TRACH TO VENT. O2 SAT 100%, FIO2 28%, FLOW RATE 50, PEEP 5, VT 500. NO SOB NOTED OR ACUTE DISTRESS NOTED, G-TUBE FEEDING RUNNING VITAL AF 1.2 AT 70ML PER HOUR. IV CATH 22 G NOTED ON LEFT FA, PATENT, INTACT, ASYMPTOMATIC. HOB ELEVATED 30 DEGREE, ABDOMEN DISTENDED BUT SOFT, MENDIETA CATH IN PLACE DRAINING YELLOW URINE, LEFT NEPHROSTOMY TUBE IN PLACE, DRAINING YELLOW URINE. RIGHT ARM SKIN LACERATION NOTED AT ANTECUBITAL AREA, DRESSING IN PLACE. SEIZURE AND FALL PRECAUTION IN PLACE, WILL CONTINUE TO MONITOR.
--- NOTE | 2018-05-26 07:16 | NUR ---
ENDORSED PT TO DAY SHIFT NURSE LATONYA RN, PT STABLE, NO DISTRESS NOTED, CALL LIGHT WITHIN REACH.
[2018-05-26] MEDS: ALBUTEROL SULFATE/IPRATROPIU 3 ML SOL IH SCH ×3 (07:45→19:52)
[2018-05-26 08:00] VITALS: BP 148/57
--- NOTE | 2018-05-26 08:00 | NUR ---
G TUBE RESIDUAL 5ML. HOWEVER, 700ML AIR TAKING OUT FROM G TUBE.
[2018-05-26] MEDS: ASPIRIN 81 MG TAB.CHEW GT SCH (08:04)
[2018-05-26] MEDS: amLODIPine 5 MG TAB GT SCH (08:05)
[2018-05-26] MEDS: DIGOXIN 0.125 MG TAB GT SCH (08:05)
[2018-05-26] MEDS: FERROUS SULFATE 300 MG/5 ML UDC GT SCH (08:06)
[2018-05-26] MEDS: POLYETHYLENE GLYCOL 17 GM/PKT GT SCH ×2 (08:06→20:52)
[2018-05-26] MEDS: DOCUSATE 100 MG/10 ML UDC GT SCH ×2 (08:06→20:51)
[2018-05-26] MEDS: POTASSIUM CHLORIDE 20% 40 MEQ/15 ML UDC GT SCH (08:06)
[2018-05-26] MEDS: PANTOPRAZOLE 40 MG INJ VIAL IVP SCH (08:06)
[2018-05-26] MEDS: CARVEDILOL 12.5 MG TAB GT SCH ×2 (08:06→20:52)
[2018-05-26] MEDS: NACL 0.45% 1,000 ML IV SCH (09:15)
[2018-05-26 11:18] LABS: BASOPHILS % (AUTO) 0.4 % (0.0-2.0); EOSINOPHILS # (AUTO) 0.4 K/uL (0-0.4); EOSINOPHILS % (AUTO) 4.3 % (0.0-4.0); HEMATOCRIT 29.7 % (36-52); HEMOGLOBIN 9.4 g/dL (12.0-18.0); LYMPHOCYTES # (AUTO) 1.7 K/uL (2.0-11.5); LYMPHOCYTES % (AUTO) 20.9 % (20.5-51.1); MEAN CORPUSCULAR HEMOGLOBIN 31 pg (27-31); MEAN CORPUSCULAR HGB CONC 32 g/dL (33-37); MONOCYTES # (AUTO) 0.6 K/uL (0.8-1.0); MONOCYTES % (AUTO) 6.8 % (1.7-9.3); NEUTROPHILS # (AUTO) 5.7 K/uL (1.8-7.7); NEUTROPHILS % (AUTO) 67.6 % (42.2-75.2); PLATELET COUNT (AUTO) 219 K/uL (140-450); RED BLOOD CELL COUNT(AUTO) 3.06 MIL/uL (4.20-6.10); RED CELL DISTRIBUTION WIDTH 16.4 % (11.6-13.7); WHITE BLOOD COUNT (AUTO) 8.4 K/uL (4.8-10.8)
[2018-05-26 11:29] LABS: ANION GAP 15.8 (8-16); CARBON DIOXIDE 16.4 mmol/L (21-32); CHLORIDE 118 mmol/L (98-107); GLUCOSE 172 mg/dL (74-106); POTASSIUM 4.2 mmol/L (3.5-5.1); SODIUM SERUM 146 mmol/L (136-145); UREA NITROGEN, BLOOD 32 mg/dL (7-18)
--- NOTE | 2018-05-26 11:52 | NUR ---
VENT CHECK DONE. NO RESPIRATORY DISTRESS NOTED AT THIS TIME. WILL CONTINUE TO MONITOR.
--- NOTE | 2018-05-26 13:47 | NUR ---
VENT CHECK DONE. SCHEDULED BREATHING TREATMENT ADMINISTERED. TOLERATED TX WELL, NO ADVERSE SIDE EFFECTS. NO RESPIRATORY DISTRESS NOTED AT THIS TIME. WILL CONTINUE TO MONITOR. -
--- NOTE | 2018-05-26 14:37 | NUR ---
ORAL CARE AND MENDIETA CARE PERFORMED, PT TOLERATED WELL.
--- NOTE | 2018-05-26 15:28 | NUR ---
05/26/18 RD FOLLOW UP COMPLETED PLEASE REFER TO NUTRITION PROGRESS NOTE UNDER CARE ACTIVITY FOR ESTIMATED NUTRITION NEEDS. RD RECOMMENDATIONS: 1. CONTINUE TUBE FEED VITAL AF 1.2 @ 70 ML/HR. - THIS WILL PROVIDE 1680 ML, 2016 KCAL, 126 GM OF PROTEIN, MEETING 100% OF ESTIMATED NEEDS. THIS PROVIDES 94% UPPER-END EST KCAL NEEDS AND >100% UPPER-END EST PROTEIN NEEDS. 2. CONTINUE FLUSH FLUSH [address] TO FOLLOW-UP 2-3 DAYS, HIGH RISK RAFAELA MICHELLE MS, RDN
--- NOTE | 2018-05-26 15:29 | NUR ---
VENT CHECK DONE. NO RESPIRATORY DISTRESS NOTED AT THIS TIME. WILL CONTINUE TO MONITOR.
[2018-05-26 16:00] VITALS: BP 128/47
--- NOTE | 2018-05-26 16:40 | NUR ---
PT HAD ANOTHER BM, MODERATED AMOUNT, GREEN IN COLOR WITH WHITE YELLOWISH MUCUS. PT WAS CLEANED, LINENS CHANGED. SACRAL DRESSING CHANGED. REPOSITIONED PT TO RIGHT SIDE. DEEP SUCTION PERFORMED, LUNG SOUNDS CLEAR, RESUMED FEEDING AT 70ML/HR. HOB 30 DEGREES.
[2018-05-26] MEDS: GENTAMICIN 120 MG in DEXTROSE 5% 100 ML IV SCH (17:09)
--- NOTE | 2018-05-26 17:59 | NUR ---
VENT CHECK COMPLETED, PT REMAINS ON DOCUMENTED VENT SETTINGS. TRACH REMAINS SECURE WITH A PATENT AIRWAY. VENT ALARMS REMAIN ON AND FUNCTIONING. PT IS NOT IN ANY DISTRESS AT THIS TIME.
--- NOTE | 2018-05-26 19:20 | NUR ---
ENDORSED PT TO SOCIAL WORKER DELINQUENCY PREVENTION RN. PT IN STABLE CONDITION.
--- NOTE | 2018-05-26 19:21 | NUR ---
RECEIVED BEDSIDE REPORT FROM DAY SHIFT NURSE LATONYA RN, PT STABLE, NO DISTRESS NOTED, IV TO L FA 22G PATENT, INTACT, INFUSING 1/2 NS @ 60ML/HR, PT ON TRACH TO VENT, NO SOB NOTED, DRESSING INTACT, MENDIETA IN PLACE DRAINING YELLOW URINE, NEPHROSTOMY LINE PATENT, IN PLACE DRAINING YELLOW URINE, G TUBE IN PLACE WITH TUBE FEEDINGS, INITIAL ASSESSMENT DONE, ALL SAFETY PRECAUTION MET, CALL LIGHT WITHIN REACH, WILL CONTINUE TO MONITOR.
--- NOTE | 2018-05-26 19:52 | NUR ---
PATIENT RECEIVED ON DOCUMENTED VENT SETTINGS: AC, 12, 500, +5, 28%. VITALS STABLE: 99%, 60, RATE 20, COARSE BREATH SOUNDS. SXNED X1 FOR SMALL AMOUNT OF THICK CREAMY SECRETIONS. TX GIVEN WITH NO ADVERSE EFFECT. ALARMS ON AND AUDIBLE. TRACH PATENT AND SECURE. NO SOB OR DISTRESS. AMBU BAG AT BEDSIDE.
[2018-05-26] MEDS: ATORVASTATIN 20 MG TAB PO SCH (20:51)
--- NOTE | 2018-05-26 20:57 | NUR ---
DUE MEDICATION ADMINISTERED, PT TOLERATED WELL, NO DISTRESS NOTED, CALL LIGHT WITHIN REACH, WILL CONTINUE TO MONITOR.
[2018-05-26] MEDS: INSULIN LISPRO SLIDING SCALE 100 UNITS/ML VIAL SUBQ PRN (21:47)
[2018-05-27] VITALS: BP 142/61
--- NOTE | 2018-05-27 00:02 | NUR ---
CHECKED ON PT, PT RESTING, NO DISTRESS NOTED, V/S TAKEN, WNL, CALL LIGHT WITHIN REACH, WILL CONTINUE TO MONITOR.
[2018-05-27] MEDS: MEROPENEM 500 MG in NACL 0.9% 50 ML IV SCH (01:31)
--- NOTE | 2018-05-27 01:31 | NUR ---
DUE MEDICATION ADMINISTERED, PT TOLERATED WELL, NO DISTRESS NOTED, CALL LIGHT WITHIN REACH, WILL CONTINUE TO MONITOR.
--- NOTE | 2018-05-27 03:40 | NUR ---
CHECKED ON PT, PT RESTING, NO DISTRESS NOTED, CALL LIGHT WITHIN REACH, WILL CONTINUE TO MONITOR.
[2018-05-27] MEDS: NACL 0.45% 1,000 ML IV SCH ×2 (05:16→18:20)
[2018-05-27] MEDS: BLOOD GLUCOSE MONITORING 1 DEV DEV FS SCH ×4 (05:50→21:00)
--- NOTE | 2018-05-27 05:50 | NUR ---
CHECKED PT BLOOD SUGAR 143, NO INSULIN GIVEN PER PROTOCOL, PT TOLERATED WELL, NO DISTRESS NOTED, CALL LIGHT WITHIN REACH, WILL CONTINUE TO MONITOR.
[2018-05-27] MEDS: ALBUTEROL SULFATE/IPRATROPIU 3 ML SOL IH SCH ×3 (07:02→19:55)
--- NOTE | 2018-05-27 07:08 | NUR ---
RECEIVED TRACH PT WITH A PORTEX 7 TRACH ON VENT. SETTINGS AC 12, VT 500, PEEP 5 AND FIO2 28%. PT IS APHASIC, PT IS NOT SOB AND NOT IN RESPIRATORY DISTRESS AT THIS TIME. TRACH REMAINS SECURE WITH A PATENT AIRWAY. VENT IS PLUGGED INTO A RED OUTLET WITH ALARMS ON AND FUNCTIONING. WILL CONTINUE TO MONITOR.
--- NOTE | 2018-05-27 07:20 | NUR ---
ENDORSED PT TO DAY SHIFT NURSE CRISTAL RN, PT STABLE, NO DISTRESS NOTED, CALL LIGHT WITHIN REACH.
--- NOTE | 2018-05-27 07:21 | NUR ---
Received bedside report from pm nurse Paradise. Pt awake, nonverbal, respirations even & nonlabored, trach to vent in place, FLACC 0. Left forearm IV intact & asymptomatic. Mckeon cath & left nephrostomy in place & draining clear yellow urine. GT in place with ongoing feeding.
[2018-05-27 08:00] VITALS: BP 146/68
[2018-05-27 08:09] LABS: BASOPHILS % (AUTO) 0.3 % (0.0-2.0); EOSINOPHILS # (AUTO) 0.3 K/uL (0-0.4); EOSINOPHILS % (AUTO) 3.8 % (0.0-4.0); HEMATOCRIT 30.3 % (36-52); HEMOGLOBIN 9.5 g/dL (12.0-18.0); LYMPHOCYTES # (AUTO) 1.6 K/uL (2.0-11.5); LYMPHOCYTES % (AUTO) 18.4 % (20.5-51.1); MEAN CORPUSCULAR HEMOGLOBIN 30 pg (27-31); MEAN CORPUSCULAR HGB CONC 31 g/dL (33-37); MONOCYTES # (AUTO) 0.5 K/uL (0.8-1.0); MONOCYTES % (AUTO) 5.6 % (1.7-9.3); NEUTROPHILS # (AUTO) 6.2 K/uL (1.8-7.7); NEUTROPHILS % (AUTO) 71.9 % (42.2-75.2); PLATELET COUNT (AUTO) 234 K/uL (140-450); RED BLOOD CELL COUNT(AUTO) 3.12 MIL/uL (4.20-6.10); RED CELL DISTRIBUTION WIDTH 16.5 % (11.6-13.7); WHITE BLOOD COUNT (AUTO) 8.6 K/uL (4.8-10.8)
[2018-05-27 09:21] LABS: ANION GAP 16.3 (8-16); CARBON DIOXIDE 15.8 mmol/L (21-32); CHLORIDE 116 mmol/L (98-107); GLUCOSE 161 mg/dL (74-106); POTASSIUM 4.1 mmol/L (3.5-5.1); SODIUM SERUM 144 mmol/L (136-145); UREA NITROGEN, BLOOD 31 mg/dL (7-18)
[2018-05-27 09:26] LABS: MAGNESIUM 2.2 mg/dL (1.8-2.4); PHOSPHORUS 2.6 mg/dL (2.5-4.9)
[2018-05-27] MEDS: FERROUS SULFATE 300 MG/5 ML UDC GT SCH (09:50)
[2018-05-27] MEDS: DOCUSATE 100 MG/10 ML UDC GT SCH ×2 (09:50→21:00)
[2018-05-27] MEDS: POTASSIUM CHLORIDE 20% 40 MEQ/15 ML UDC GT SCH (09:50)
[2018-05-27] MEDS: CARVEDILOL 12.5 MG TAB GT SCH ×2 (09:51→21:05)
[2018-05-27] MEDS: amLODIPine 5 MG TAB GT SCH (09:51)
[2018-05-27] MEDS: ASPIRIN 81 MG TAB.CHEW GT SCH (09:51)
[2018-05-27] MEDS: PANTOPRAZOLE 40 MG INJ VIAL IVP SCH (09:52)
[2018-05-27] MEDS: POLYETHYLENE GLYCOL 17 GM/PKT GT SCH ×2 (09:52→21:06)
--- NOTE | 2018-05-27 10:10 | NUR ---
Pt awake, nonverbal, FLACC 0. Trach to vent in place. GT intact, jain cath & left nephrostomy draining well.
--- NOTE | 2018-05-27 11:22 | NUR ---
PT SUCTIONED OBTAINED SMALL AMOUNT OF THICK CLEAR SECRETIONS, AIRWAY IS PATENT AND TRACH IS SECURE. PT NOT IN ANY DISTRESS AT THIS TIME. WILL CONTINUE TO MONITOR.
--- NOTE | 2018-05-27 12:15 | NUR ---
Mod amt liquid brown stool present. Pericare provided. Pt repositioned. HOB elevated to 30deg. GT feeding ongoing. Left forearm IV intact with ongoing 1/2 NS @ 60 ml/hr.
--- NOTE | 2018-05-27 15:13 | NUR ---
VENT CHECK COMPLETED. PT TOLERATING VENT SETTINGS WELL. PT NOT IN ANY DISTRESS. WILL CONTINUE TO MONITOR.
[2018-05-27 16:00] VITALS: BP 142/66
--- NOTE | 2018-05-27 16:30 | NUR ---
Pt with mod amt liquid brown stool. Pericare provided. Pt repositioned. Whit ADL care well. Trach to vent in place, GT intact with ongoing Vital 1.2 @ 70ml/hr, jain cath & left nephrostomy draining clear yellow urine, left IV asymptomatic with ongoing 1/2NS @ 60ml/hr.
[2018-05-27] MEDS: INSULIN LISPRO SLIDING SCALE 100 UNITS/ML VIAL SUBQ PRN (16:59)
[2018-05-27] MEDS: GENTAMICIN 120 MG in DEXTROSE 5% 100 ML IV SCH (17:03)
--- NOTE | 2018-05-27 17:40 | NUR ---
PT REMAINS ON DOCUMENTED VENT SETTINGS. PT IS NOT IN ANY DISTRESS AT THIS TIME, NOT SOB. PT SUCTIONED OBTAINED SMALL AMOUNT OF THICK CLEAR/WHITE SECRETIONS. AIRWAY IS PATENT AND TRACH IS SECURE. VENT ALARMS REMAIN ON AND FUNCTIONING.
--- NOTE | 2018-05-27 19:15 | NUR ---
Report given to pm nurse Julieta.
--- NOTE | 2018-05-27 19:55 | NUR ---
RECEIVED ON A [employer] CARESCAPE R860 VENTILATOR PLUGGED INTO RED OUTLET TOLERATING WELL WITHOUT ADVERSE REACTIONS NOTED TO A PORTEX DCT #7 AIRWAY SECURED WITH A EDMAR TRACH TIE CUFF PRESSURE CHECKED NOTED YANETH RADICAL-7 CONTINUOS PULSE OXIMETER AT [facility] ON AND FUNCTIONING WELL LOW SATURATION SET AT 92% AMBU BAG AT HOB LOC QUIET RESPONSIVE TO PHYSICAL STIMULUS
[2018-05-27 20:00] VITALS: BP 111/60
--- NOTE | 2018-05-27 21:00 | NUR ---
BLOOS SUGAR AT 138MG/DL. NO INSULIN COVERAGE. CHECKED ON RESIDUAL BEFORE MEDICATION.GT RESIDUAL 5 ML PLACEMENT OF GT TUBE IN PLACE,GURGLING SOUNDS NOTED UPON CHECKING, W/ NEPHRO TUBE NOTED W/ MIN. DRAINAGE NOTED AT BAG. WILL MEASURE AT END OF SHIFT.
[2018-05-27] MEDS: ATORVASTATIN 20 MG TAB PO SCH (21:07)
--- NOTE | 2018-05-27 21:19 | NUR ---
RESTING WELL WITHOUT PULMONARY DISTRESS NOTED AT THIS TIME DEEP TRACHEAL SUCTION FOR LARGE THIN YELLOW SECRETIONS AIRWAY PATENT
[2018-05-28] VITALS: BP 111/60
--- NOTE | 2018-05-28 01:53 | NUR ---
NO RESPIRATORY DISTRESS NOTED GOOD CHEST RISE DEEP TRACHEAL SUCTION FOR MODERATE THICK PALE YELLOW SECRETIONS AIRWAY PATENT
--- NOTE | 2018-05-28 02:53 | NUR ---
NO SOB NOTED GOOD CHEST RISE
--- NOTE | 2018-05-28 03:45 | NUR ---
PT SUNCTIONED ON MOUTH, WITH MIN. AMOUNT OF SPUTUM.
--- NOTE | 2018-05-28 04:00 | NUR ---
PT'S HAD 1X BM, SOFT AND LOOSE (RE: DIARRHEA), PT ON MIRALAX FOR TREATMENT OF DISTENTION. PT CLEANED AND TURNED Q2
[2018-05-28] MEDS: BLOOD GLUCOSE MONITORING 1 DEV DEV FS SCH ×5 (05:46→21:08)
[2018-05-28] MEDS: INSULIN LISPRO SLIDING SCALE 100 UNITS/ML VIAL SUBQ PRN (05:47)
--- NOTE | 2018-05-28 07:45 | NUR ---
ENDORSED TO AM NURSE. PT IN STABLE CONDITION
--- NOTE | 2018-05-28 07:46 | NUR ---
RECEIVED REPORT FROM NIGHT RN. PT RESTING IN BED. AAOX1, APHASIC. NO S/S OF ACUTE DISTRESS. TRACH TO VENT. GTUBE PATENT AND INTACT. MENDIETA CATHETER AND NEPHROSTOMY BAG PATENT. IV SITE PATENT AND INTACT. CALL LIGHT WITHIN REACH. SAFETY MEASURES ENSURED. WILL CONTINUE TO MONITOR.
[2018-05-28] MEDS: ALBUTEROL SULFATE/IPRATROPIU 3 ML SOL IH SCH ×3 (07:48→19:59)
--- NOTE | 2018-05-28 07:56 | NUR ---
RECEIVED TRACH PT WITH A PORTEX 7 TRACH ON VENT. SETTINGS AC 12, VT 500, PEEP 5 AND FIO2 28%. PT SUCTIONED OBTAINED SMALL AMOUNT OF THIN WHITE SECRETIONS. PT IS APHASIC, PT IS NOT SOB AND NOT IN RESPIRATORY DISTRESS AT THIS TIME. TRACH REMAINS SECURE WITH A PATENT AIRWAY. VENT IS PLUGGED INTO A RED OUTLET WITH ALARMS ON AND FUNCTIONING. WILL CONTINUE TO MONITOR.
[2018-05-28 08:00] VITALS: BP 144/48
[2018-05-28] MEDS: CARVEDILOL 12.5 MG TAB GT SCH ×2 (09:13→21:10)
[2018-05-28] MEDS: DOCUSATE 100 MG/10 ML UDC GT SCH ×2 (09:13→21:09)
[2018-05-28] MEDS: DIGOXIN 0.125 MG TAB GT SCH (09:13)
[2018-05-28] MEDS: FERROUS SULFATE 300 MG/5 ML UDC GT SCH (09:13)
[2018-05-28] MEDS: PANTOPRAZOLE 40 MG INJ VIAL IVP SCH (09:14)
[2018-05-28] MEDS: amLODIPine 5 MG TAB GT SCH (09:14)
[2018-05-28] MEDS: POLYETHYLENE GLYCOL 17 GM/PKT GT SCH ×2 (09:14→21:09)
[2018-05-28] MEDS: ASPIRIN 81 MG TAB.CHEW GT SCH (09:14)
[2018-05-28] MEDS: POTASSIUM CHLORIDE 20% 40 MEQ/15 ML UDC GT SCH (09:14)
--- NOTE | 2018-05-28 09:20 | NUR ---
AM MEDS GIVEN THROUGH [employer]. NO S/S OF ACUTE DISTRESS. FLACC-0. WILL CONTINUE TO MONITOR.
[2018-05-28] MEDS ORDERED: GENTAMICIN PER PHARMACY MC PRN (10:05)
[2018-05-28 10:59] LABS: BASOPHILS # (AUTO) 0.1 K/uL (0.00-0.22); BASOPHILS % (AUTO) 0.6 % (0.0-2.0); EOSINOPHILS # (AUTO) 0.3 K/uL (0-0.4); EOSINOPHILS % (AUTO) 3.6 % (0.0-4.0); HEMOGLOBIN 9.1 g/dL (12.0-18.0); LYMPHOCYTES # (AUTO) 1.7 K/uL (2.0-11.5); MEAN CORPUSCULAR HEMOGLOBIN 31 pg (27-31); MEAN CORPUSCULAR HGB CONC 31 g/dL (33-37); MEAN CORPUSCULAR VOLUME 97.7 fL (80-94); MONOCYTES # (AUTO) 0.5 K/uL (0.8-1.0); MONOCYTES % (AUTO) 5.4 % (1.7-9.3); NEUTROPHILS # (AUTO) 6.8 K/uL (1.8-7.7); NEUTROPHILS % (AUTO) 72.4 % (42.2-75.2); PLATELET COUNT (AUTO) 214 K/uL (140-450); RED BLOOD CELL COUNT(AUTO) 2.97 MIL/uL (4.20-6.10); WHITE BLOOD COUNT (AUTO) 9.4 K/uL (4.8-10.8)
[2018-05-28] MEDS: NACL 0.45% 1,000 ML IV SCH (11:00)
[2018-05-28 11:05] LABS: ANION GAP 14.5 (8-16); CARBON DIOXIDE 17.3 mmol/L (21-32); CHLORIDE 115 mmol/L (98-107); GLUCOSE 138 mg/dL (74-106); POTASSIUM 4.8 mmol/L (3.5-5.1); SODIUM SERUM 142 mmol/L (136-145); UREA NITROGEN, BLOOD 33 mg/dL (7-18)
--- NOTE | 2018-05-28 11:34 | NUR ---
SACRALCOCCYX SKIN ASSESSMENT DONE WITH PRIMARY RN AT BEDSIDE, OLD HEALED SCARS, NO REDNESS OBSERVED AND SKIN INTACT.
--- NOTE | 2018-05-28 12:04 | NUR ---
PATIENT RESTING IN BED. NO S/S OF ACUTE DISTRESS. GTUBE FEEDING AND TUBING CHANGED. CALL LIGHT WITHIN REACH. SAFETY MEASURES ENSURED. WILL CONTINUE TO MONITOR.
--- NOTE | 2018-05-28 14:22 | NUR ---
05/28/18 RD FOLLOW UP COMPLETED PLEASE REFER TO NUTRITION PROGRESS NOTE UNDER CARE ACTIVITY FOR ESTIMATED NUTRITIONAL NEEDS. 1. CONTINUE TUBE FEED VITAL AF 1.2 @ 70 ML/HR. - THIS PROVIDES 1680 ML, 2016 KCAL, 126 GM OF PROTEIN, MEETING 100% OF ESTIMATED NEEDS. THIS PROVIDES 94% UPPER-END EST KCAL NEEDS AND >100% UPPER-END EST PROTEIN NEEDS. 2. RD TO FOLLOW-UP 2-3 DAYS, HIGH RISK DOMINIC WIN RD
[2018-05-28 15:52] VITALS: BP 137/40
--- NOTE | 2018-05-28 15:53 | NUR ---
PT RESTING IN BED. NO S/S OF ACUTE DISTRESS. FLACC-0; WILL CONTINUE TO MONITOR.
[2018-05-28] MEDS: GENTAMICIN 120 MG in DEXTROSE 5% 100 ML IV SCH (17:37)
--- NOTE | 2018-05-28 19:40 | NUR ---
RECEIVED TRACH PT WITH A PORTEX 7 TRACH ON VENT. SETTINGS AC RATE 12,FLOW 55, VT 500, PEEP 5 AND FIO2 28%. PT WITH LARGE AMOUNT OF LOOSE STOOL X 1, CHANGED AND TURNED. PT IS APHASIC, PT IS NOT SOB AND NOT IN RESPIRATORY DISTRESS AT THIS TIME. TRACH REMAINS SECURE WITH A PATENT AIRWAY. VENT IS PLUGGED INTO A RED OUTLET WITH ALARMS ON AND FUNCTIONING. WILL CONTINUE TO MONITOR.
--- NOTE | 2018-05-28 20:49 | NUR ---
REC'D PT ON CURRENT VENT SETTINGS. PT TRACH SECURE AND INTACT. VENT PLUGGED INTO RED OUTLET. ALARMS AUDIBLE. AMBU BAG AT BEDSIDE. NO SOB OR RESP DISTRESS AT THIS TIME. WILL CONTINUE TO MONITOR.
[2018-05-28] MEDS: ATORVASTATIN 20 MG TAB PO SCH (21:09)
--- NOTE | 2018-05-28 21:27 | NUR ---
PT MEDICATED VIA G TUBE. RESIDUAL 5 ML TAKEN FROM G TUBE. G TUBE IN PLACE WITH GURGLING SOUNDS. PT TOLERATED WELL.
[2018-05-29] VITALS: BP 140/54
[2018-05-29] MEDS: NACL 0.45% 1,000 ML IV SCH ×2 (03:34→21:22)
[2018-05-29] MEDS: ALBUTEROL SULFATE/IPRATROPIU 3 ML SOL IH SCH ×3 (07:13→19:18)
--- NOTE | 2018-05-29 07:13 | NUR ---
REC'D PT ON [place] VENT SETTINGS AC 12 VT 500 PEEP 5 FIO2 28% ALARMS ON AND AUDIBLE AMBU BAG AT SIDE OF VENT AND VENT IS PLUGGED INTO RED OUTLET, I\L TX GIVEN WITH DUONEB 3ML WITH NO ADVERSE REACTION POST TX B\S ARE COARSE BILATERALLY, SXN PT MODERATE AMT OF THICK WHITE SECRETIONS, PT IS TRACH WITH PORTEX 7 AND SKIN INTEGRITY IS INTACT.
--- NOTE | 2018-05-29 07:17 | NUR ---
PT IN STABLE CONDITION. WILL ENDORSE TO NEXT SHIFT.
[2018-05-29] MEDS: BLOOD GLUCOSE MONITORING 1 DEV DEV FS SCH ×4 (07:30→21:29)
--- NOTE | 2018-05-29 07:30 | NUR ---
RECEIVED PT FROM PM NURSE, PT OPENS EYES SPONTANEOUSLY BUT UNABLE TO FOLLOW COMMANDS. TRACH TO VENT WITHOUT RESPIRATORY DISTRESS NOTED. PT HAS LARGE ABD WITH ACTIVE BOWEL SOUND. PT HAS G-TUBE FEEDING WITH NO RESIDUAL NOTED. PT HAS MENDIETA CATH IN PLACE WITH CLEAR URINE NOTED. SKIN NON INTACT ( SEE WOUND ASSESSMENT). TURNED AND REPOSITIONED PT WITH PM NURSE, PT HAD BM, CLEANED PT, SEIZURE AND SAFETY PRECAUTION IN PLACE, WILL CONTINUE TO MONITOR PT.
[2018-05-29 08:00] VITALS: BP 146/64
[2018-05-29] MEDS: POTASSIUM CHLORIDE 20% 40 MEQ/15 ML UDC GT SCH (08:44)
[2018-05-29] MEDS: amLODIPine 5 MG TAB GT SCH (08:47)
[2018-05-29] MEDS: PANTOPRAZOLE 40 MG INJ VIAL IVP SCH (08:47)
[2018-05-29] MEDS: ASPIRIN 81 MG TAB.CHEW GT SCH (08:47)
[2018-05-29] MEDS: DOCUSATE 100 MG/10 ML UDC GT SCH ×2 (08:48→21:59)
[2018-05-29] MEDS: FERROUS SULFATE 300 MG/5 ML UDC GT SCH (08:48)
[2018-05-29] MEDS: POLYETHYLENE GLYCOL 17 GM/PKT GT SCH ×2 (08:48→21:00)
[2018-05-29] MEDS: CARVEDILOL 12.5 MG TAB GT SCH ×2 (08:49→21:26)
--- NOTE | 2018-05-29 09:00 | NUR ---
DUE MEDS GIVEN, ORAL CARE AND KENNETH CARE GIVEN. PT TOLERATED WELL
[2018-05-29 10:43] LABS: ANION GAP 16.7 (8-16); CARBON DIOXIDE 16.2 mmol/L (21-32); CHLORIDE 113 mmol/L (98-107); GLUCOSE 149 mg/dL (74-106); POTASSIUM 4.9 mmol/L (3.5-5.1); SODIUM SERUM 141 mmol/L (136-145); UREA NITROGEN, BLOOD 33 mg/dL (7-18)
--- NOTE | 2018-05-29 12:00 | NUR ---
ORAL CARE GIVEN.
[2018-05-29 16:00] VITALS: BP 141/67
--- NOTE | 2018-05-29 16:30 | NUR ---
TURNED AND REPOSITIONED PT. BS FINGER CHECKED, NO INSULIN COVERAGE NEEDED.
[2018-05-29] MEDS: GENTAMICIN 120 MG in DEXTROSE 5% 100 ML IV SCH (17:04)
--- NOTE | 2018-05-29 18:00 | NUR ---
TURNED AND REPOSITIONED PT. PT HAD BM, CLEANED PT. NO S/S OF RESPIRATORY DISTRESS NOTED.
--- NOTE | 2018-05-29 19:18 | NUR ---
PATIENT RECEIVED ON DOCUMENTED VENT SETTINGS: AC, 12, 500, +5, 28%. VITALS STABLE: 100%, 60, RATE 19, COARSE BREATH SOUNDS. SXNED X1 FOR SMALL AMOUNT OF THICK CREAMY SECRETIONS. TX GIVEN WITH NO ADVERSE EFFECT. ALARMS ON AND AUDIBLE. PORTEX 7 TRACH PATENT AND SECURE. NO SOB OR DISTRESS. AMBU BAG AT BEDSIDE.
--- NOTE | 2018-05-29 19:30 | NUR ---
RECEIVED TRACH PT WITH A PORTEX 7 TRACH ON VENT. SETTINGS AC RATE 12,FLOW 55, VT 500, PEEP 5 AND FIO2 28%. PT TURNED Q2 BY ASSOCIATE MANAGER AFFILIATE MARKETING'S. PT IS APHASIC, PT IS NOT SOB AND NOT IN RESPIRATORY DISTRESS AT THIS TIME. TRACH REMAINS SECURE WITH A PATENT AIRWAY. VENT IS PLUGGED INTO A RED OUTLET WITH ALARMS ON AND FUNCTIONING. WILL CONTINUE TO MONITOR.
[2018-05-29 20:00] VITALS: BP 135/54
[2018-05-29] MEDS: ATORVASTATIN 20 MG TAB PO SCH (21:26)
--- NOTE | 2018-05-29 21:55 | NUR ---
INFORMED THAT PT HAS A LOOSE BOWEL MVT FOR 3 DAYS NOW. ON MIRALAX FOR ABDOMINAL DISTENTION.3X BM PER 12 HR SHIFT FOR 3 DAYS NOW . PER HE MIGHT DO C DIFF IN THE AM AND HE MIGHT ORDER IT IN THE AM. FOR TONIGHT HOLD THE MIRALAX. CONTINUE W/ THE COLACE.CARRIED OUT OSMIN SEYMOUR.
--- NOTE | 2018-05-29 22:00 | NUR ---
PT CLEANED AND TURNED Q2. PT IN STABLE CONDITION
[2018-05-30 04:00] VITALS: BP 132/53
[2018-05-30] MEDS: BLOOD GLUCOSE MONITORING 1 DEV DEV FS SCH ×4 (06:42→21:12)
[2018-05-30 07:10] LABS: BASOPHILS % (AUTO) 0.3 % (0.0-2.0); EOSINOPHILS # (AUTO) 0.3 K/uL (0-0.4); EOSINOPHILS % (AUTO) 3.4 % (0.0-4.0); HEMATOCRIT 29.1 % (36-52); HEMOGLOBIN 9.3 g/dL (12.0-18.0); LYMPHOCYTES # (AUTO) 1.3 K/uL (2.0-11.5); LYMPHOCYTES % (AUTO) 13.4 % (20.5-51.1); MEAN CORPUSCULAR HEMOGLOBIN 31 pg (27-31); MEAN CORPUSCULAR HGB CONC 32 g/dL (33-37); MONOCYTES # (AUTO) 0.4 K/uL (0.8-1.0); MONOCYTES % (AUTO) 4.6 % (1.7-9.3); NEUTROPHILS # (AUTO) 7.7 K/uL (1.8-7.7); NEUTROPHILS % (AUTO) 78.3 % (42.2-75.2); PLATELET COUNT (AUTO) 247 K/uL (140-450); RED CELL DISTRIBUTION WIDTH 16.8 % (11.6-13.7); WHITE BLOOD COUNT (AUTO) 9.8 K/uL (4.8-10.8)
--- NOTE | 2018-05-30 07:16 | NUR ---
ENDORSED TO AM SHIFT NURSE, IN STABLE CONDITION, WITH ABDOMINAL DISTENTION AND BLOATING NOTED. DR. VILLANUEVA EARLIER. STOOL X 1 IN THE TIE MAN. NEPHROSTOMY FOR OBSERVATION OF LEAKING TUBE
[2018-05-30 07:18] LABS: ANION GAP 17.8 (8-16); CARBON DIOXIDE 15.5 mmol/L (21-32); CHLORIDE 111 mmol/L (98-107); GLUCOSE 170 mg/dL (74-106); POTASSIUM 4.3 mmol/L (3.5-5.1); SODIUM SERUM 140 mmol/L (136-145); UREA NITROGEN, BLOOD 34 mg/dL (7-18)
--- NOTE | 2018-05-30 07:20 | NUR ---
RECEIVED PT FROM MYRON SANTOYO; PT AWAKE, BUT UNABLE TO FOLLOW COMMANDS. TRACH TO VENT WITHOUT RESPIRATORY DISTRESS NOTED. PT HAS LARGE ABD WITH ACTIVE BOWEL SOUND. PT HAS G-TUBE FEEDING WITH NO RESIDUAL NOTED. PT HAS MENDIETA CATH IN PLACE WITH CLEAR URINE NOTED. SKIN NON INTACT. SEIZURE AND FALL PRECAUTION IN PLACE, BED IN THE LOWEST POSITION. WILL CONTINUE TO MONITOR.
[2018-05-30 07:26] LABS: MAGNESIUM 2.3 mg/dL (1.8-2.4); PHOSPHORUS 3.1 mg/dL (2.5-4.9)
[2018-05-30] MEDS: ALBUTEROL SULFATE/IPRATROPIU 3 ML SOL IH SCH ×3 (07:29→19:53)
--- NOTE | 2018-05-30 07:29 | NUR ---
RECEIVED ON A GE CARESCAPE R860 VENTILATOR PLUGGED INOT RED OUTLET TOLERATING WELL WITHOUT INCIDENT TO A PORTEX DCT #7 AIRWAY SECURED WITH A EDMAR TRACH TIE CUFF PRESSURE CHECKED NOTED MASIMO CONTINUOS PULSE OXIMETER AT [facility] [place] ON AND FUNCTIONING WELL LOW SATURATION ALARM SET AT 92% LOC QUIET RESPONSIVE TO PHYSICAL STIMULUS AMBU BAG AT HOB BREATH SOUNDS RHONCHI BILATERAL WITH GOOD CHEST RISE DEEP TRACHEAL SUCTION FOR SMALL PALE WHITE FROTHY SECRETIONS AIRWAY PATENT
[2018-05-30 08:00] VITALS: BP 149/65
--- NOTE | 2018-05-30 08:10 | NUR ---
G-TUBE RESIDUAL LESS THAN 5mL; ADMINISTERED MEDS, TOLERATED WELL.
[2018-05-30] MEDS: DIGOXIN 0.125 MG TAB GT SCH (08:19)
[2018-05-30] MEDS: POLYETHYLENE GLYCOL 17 GM/PKT GT SCH ×2 (08:19→20:40)
[2018-05-30] MEDS: ASPIRIN 81 MG TAB.CHEW GT SCH (08:20)
[2018-05-30] MEDS: CARVEDILOL 12.5 MG TAB GT SCH ×2 (08:20→20:39)
[2018-05-30] MEDS: amLODIPine 5 MG TAB GT SCH (08:20)
[2018-05-30] MEDS: DOCUSATE 100 MG/10 ML UDC GT SCH ×2 (08:21→20:39)
[2018-05-30] MEDS: FERROUS SULFATE 300 MG/5 ML UDC GT SCH (08:21)
[2018-05-30] MEDS: POTASSIUM CHLORIDE 20% 40 MEQ/15 ML UDC GT SCH (08:21)
[2018-05-30] MEDS: PANTOPRAZOLE 40 MG INJ VIAL IVP SCH (08:22)
--- NOTE | 2018-05-30 08:40 | NUR ---
ADJUSTED IVF 1/2 NS TO 40mL/HR.
--- NOTE | 2018-05-30 08:57 | NUR ---
AWAKE NO DISTRESS NOTED AT THIS TIME DEEP TRACHEAL SUCTION FOR SMALL PALE WHITE THIN TO FROTHY SECRETIONS AIRWAY PATENT
[2018-05-30] MEDS: SIMETHICONE 40 MG/0.6 ML GT SCH ×2 (09:07→20:40)
--- NOTE | 2018-05-30 11:40 | NUR ---
GAVE PT. SPONGE BATH; 1X SMALL LIQUID BM NOTED AT THIS TIME. DID PERICARE, MENDIETA CARE. CHANGED LINENS. TOLERATED WELL.
--- NOTE | 2018-05-30 12:12 | NUR ---
NO EVIDENCE OF PULMONARY IDSTRESS NOTED GOOD CHEST RISE DEEP TRACHEAL SUCTION FOR SMALL THICK YELLOW SECRETIONS AIRWAY PATENT
[2018-05-30] MEDS ORDERED: FUROSEMIDE 40 MG/4 ML VIAL IVP SCH ×3 (13:00→17:00)
--- NOTE | 2018-05-30 14:28 | NUR ---
NO RESPIRATORY DISTRESS NOTED AT THIS TIME GOOD CHEST RISE DEEP TRACHEAL SUCTION FOR LARGE THIN TO FROTHY YELLOW SECRETIONS AIRWAY PATENT
--- NOTE | 2018-05-30 15:00 | NUR ---
CHANGED FEEDING BOTTLE VITAL AF RUNNING AT 70mL/HR. AND TUBING. SWITCHED OUT SUCTION CANISTER. NO S/SX OF SOB OR DISTRESS NOTED. WILL CONTINUE TO MONITOR.
[2018-05-30 16:00] VITALS: BP 132/62
--- NOTE | 2018-05-30 16:08 | NUR ---
NO SOB NOTED GOOD CHEST RISE DEEP TRACHEAL SUCTION FOR MODERATE SEMI THICK YELLOW SECRETIONS AIRWAY PATENT
[2018-05-30] MEDS: GENTAMICIN 120 MG in DEXTROSE 5% 100 ML IV SCH (16:49)
--- NOTE | 2018-05-30 18:13 | NUR ---
CALLED LAB FOR [facility] AGUIRRE, SPOKE WITH LAB STAFF SHIRIN AND THE ORANGE PICKER WHO STATED WILL COME IF THERE IS A LABEL, IF NOT WILL CALL ME BACK.
--- NOTE | 2018-05-30 19:20 | NUR ---
ENDORSED PT TO MANAGER INTERNSHIP RN. PT IN STABLE CONDITION.
--- NOTE | 2018-05-30 19:21 | NUR ---
RECEIVED BEDSIDE REPORT FROM DAY SHIFT RN. PT IS A&OX0, APHASIC. RESPIRATIONS ARE EQUAL AND UNLABORED. TRACH TO VENT. SETTINGS: VT 500 FIO2 28%, RR 12, FLOW 50, PEEP 5. PT WITH G TUBE VITAL 1.2 AT 70ML/H WITH WATER FLUSH 100ML/4H. HAS LEFT NEPHROSTOMY DRAINING CLEAR YELLOW URINE. MENDIETA CATH IS IN PLACE DRAINING YELLOW URINE WITH SOME SEDIMENTS. IV TO L FA 22G TKO. DRESSING CLEAN DRY AND INTACT. PATIENT WITH SOME SACRAL REDNESS. IS CONTACT ISOLATION SPUTUM NEWSPAPER PHOTO EDITOR AND ESBO. PT ON FALL, ASPIRATION,SEIZURES, AND PRESSURE ULCERS PROTOCOL. BED ALARM ON AND LOWEST POSITION. WILL CONTINUE TO MONITOR.
[2018-05-30 20:00] VITALS: BP 119/50
--- NOTE | 2018-05-30 20:00 | NUR ---
SPOKE WITH MALA FROM PHARMACY. PER MALA GENTAMYCIN TROUGH IS 2.4 NOT 5.3. GENTAMYCIN WAS ALREADY ADMINISTERED TODAY. NEW TROUGH SCHEDULED TOMORROW 05/31/18@2459. WILL ENDORSE.
[2018-05-30] MEDS: ATORVASTATIN 20 MG TAB PO SCH (20:39)
--- NOTE | 2018-05-30 20:39 | NUR ---
PT HAD ABOUT 5 RESIDUAL AND A LOT OF AIR REMOVED. DUE MEDICATIONS WERE GIVEN. PT TOLERATED WELL. ATTEMPTED TO GIVE ORAL CARE PT PURSEED HIS LIPS. EDUCATED ON IMPORTANCE OF ORAL CARE TO PREVENT PNEUMONIA. WILL ATTEMPT AGAIN AT A LATER TIME. SAFETY MEASURES ARE IN PLACE.
[2018-05-30 20:45] VITALS: BP 132/62
--- NOTE | 2018-05-30 22:45 | NUR ---
ATTEMPTED TO PROVIDE ORAL CARE. PT PURSEED HIS LIPS. BENEFITS AND RISK WERE EXPLAINED. WILL ATTEMPT AT A LATER TIME.
--- NOTE | 2018-05-31 00:14 | NUR ---
PT RESTING COMFORTABLY IN BED. RESPIRATIONS ARE EQUAL AND UNLABORED. WILL CONTINUE TO MONITOR.
--- NOTE | 2018-05-31 00:56 | NUR ---
SUCTION PATIENT AND PROVIDED ORAL CARE. PT TOLERATED WELL. PT AWAKE A&OX O APHASIC. SAFETY MEASURES ARE IN PLACE. CALL LIGHT WITHIN REACH. WILL CONTINUE TO MONITOR.
--- NOTE | 2018-05-31 04:00 | NUR ---
PT RESTING COMFORTABLY IN BED. RESPIRATIONS ARE EQUAL AND UNLABORED. SUCTION MINIMAL THICK WHITE SECRETIONS. PT TOLERATED WELL. WILL CONTINUE TO MONITOR.
--- NOTE | 2018-05-31 06:00 | NUR ---
PT SLEEPING COMFORTABLY IN BED. NO DISTRESS NOTED. RESPIRATIONS ARE EQUAL AND UNLABORED. SUCTION MINIMAL THICK WHITE SECRETIONS. ALL SAFETY MEASURES ARE IN PLACE. WILL CONTINUE TO MONITOR.
[2018-05-31] MEDS: BLOOD GLUCOSE MONITORING 1 DEV DEV FS SCH ×2 (06:18→11:30)
--- NOTE | 2018-05-31 07:25 | NUR ---
ENDORSED PT TO DAY SHIFT RN. PT IN STABLE CONDITION.
[2018-05-31 07:28] LABS: BASOPHILS % (AUTO) 0.2 % (0.0-2.0); EOSINOPHILS # (AUTO) 0.3 K/uL (0-0.4); EOSINOPHILS % (AUTO) 3.2 % (0.0-4.0); HEMATOCRIT 28.5 % (36-52); HEMOGLOBIN 9.1 g/dL (12.0-18.0); LYMPHOCYTES # (AUTO) 1.4 K/uL (2.0-11.5); LYMPHOCYTES % (AUTO) 14.9 % (20.5-51.1); MEAN CORPUSCULAR HEMOGLOBIN 31 pg (27-31); MEAN CORPUSCULAR HGB CONC 32 g/dL (33-37); MEAN CORPUSCULAR VOLUME 96.6 fL (80-94); MONOCYTES # (AUTO) 0.6 K/uL (0.8-1.0); MONOCYTES % (AUTO) 5.9 % (1.7-9.3); NEUTROPHILS # (AUTO) 7.1 K/uL (1.8-7.7); NEUTROPHILS % (AUTO) 75.8 % (42.2-75.2); PLATELET COUNT (AUTO) 259 K/uL (140-450); RED BLOOD CELL COUNT(AUTO) 2.96 MIL/uL (4.20-6.10); RED CELL DISTRIBUTION WIDTH 17.1 % (11.6-13.7); WHITE BLOOD COUNT (AUTO) 9.4 K/uL (4.8-10.8)
--- NOTE | 2018-05-31 07:30 | NUR ---
RECEIVED PT FROM LINE SERVICE ATTENDANT NURSEJEYSON, PT IS AWAKE AND LYING ON THE BED WITH SIDE RAILS UP AND CALL LIGHT WITHIN REACH, FALL PRECAUTION INITIATED, PT IS ON A TRACH TO VENT AND WITH MENDIETA CATHETER IN PLACE AND A LEFT NEPHROSTOMY TUBE IN PLACE WELL. PT HAS AN IV LINE ON THE LEFT FA G.22 WITH NS AT 5ML/HR, PT HAS A G-TUBE IN PLACE WITH A VITAL AF CONTINUOUS FEEDING INFUSING AT A RATE OF 70ML/HR WITH WATER FLUSHING OF 100ML Q4H. PT HAS A BILATERAL ARMS EDEMA ,NO SOB OR DISTRESS NOTED AND WILL CONTINUE TO MONITOR PT.
[2018-05-31] MEDS: ALBUTEROL SULFATE/IPRATROPIU 3 ML SOL IH SCH ×2 (07:58→14:09)
--- NOTE | 2018-05-31 07:58 | NUR ---
RECEIVED ON A [employer] CARESCAPE R860 VENTILATOR PLUGGED INTO RED OUTLET TOLERATING WELL WITHOUT INCIDENT TO A PORTEX DCT #7 AIRWAY SECURED WITH A EDMAR TRACH TIE CUFF PRESSURE CHECKED NOTED YANETH RADICAL-7 CONTINUOS PULSE OXIMETER AT BEDSIDE ON AND FUNCTIONING WELL LOW SATURATION ALARM SET AT 92% AMBU BAG AT HOB LOC QUIET RESPONSIVE TO PHYSICAL STIMULUS BREATH SOUNDS RHONCHI BILATERAL WITH GOOD CHEST RISE DEEP TRACHEAL SUCTION FOR LARGE THIN TO FROTHY YELLOW SECRETIONS AIRWAY PATENT
[2018-05-31 08:00] VITALS: BP 130/57
--- NOTE | 2018-05-31 08:00 | NUR ---
PT'S VITAL SIGNS WAS CHECKED AND IS WITHIN NORMAL LIMIT. WILL MONITOR PT.
[2018-05-31 08:33] LABS: ANION GAP 16.3 (8-16); CARBON DIOXIDE 16.6 mmol/L (21-32); CHLORIDE 110 mmol/L (98-107); CREATININE 1.1 mg/dL (0.7-1.3); GLUCOSE 144 mg/dL (74-106); POTASSIUM 4.9 mmol/L (3.5-5.1); SODIUM SERUM 138 mmol/L (136-145); UREA NITROGEN, BLOOD 37 mg/dL (7-18)
[2018-05-31 08:38] LABS: PHOSPHORUS 3.5 mg/dL (2.5-4.9)
[2018-05-31] MEDS: FERROUS SULFATE 300 MG/5 ML UDC GT SCH (08:54)
[2018-05-31] MEDS: DOCUSATE 100 MG/10 ML UDC GT SCH (08:54)
[2018-05-31] MEDS: PANTOPRAZOLE 40 MG INJ VIAL IVP SCH (08:54)
[2018-05-31] MEDS: ASPIRIN 81 MG TAB.CHEW GT SCH (08:55)
[2018-05-31] MEDS: POLYETHYLENE GLYCOL 17 GM/PKT GT SCH (08:55)
[2018-05-31] MEDS: amLODIPine 5 MG TAB GT SCH (08:56)
[2018-05-31] MEDS: SIMETHICONE 40 MG/0.6 ML GT SCH (08:56)
[2018-05-31] MEDS: POTASSIUM CHLORIDE 20% 40 MEQ/15 ML UDC GT SCH (08:56)
--- NOTE | 2018-05-31 09:00 | NUR ---
PT IS AWAKE AND VITAL SIGNS TAKEN PRIOR TO MEDICATION ADMINISTRATION, MEDICATIONS GIVEN VIA G-TUBE AND PT TOLERATED IT. NO SIGN OF DISTRESS NOTED AND WILL CONTINUE TO MONITOR PT.
[2018-05-31] MEDS: CARVEDILOL 12.5 MG TAB GT SCH (09:03)
[2018-05-31] MEDS ORDERED: LAS20I IV (09:13)
[2018-05-31] MEDS ORDERED: SIME80CT70 GT (09:13)
--- NOTE | 2018-05-31 10:20 | NUR ---
RESTING COMFORTABLY NO SOB NOTED DEEP TRACHEAL SUCTION FOR LARGE THIN TO FROTHY YELLOW SECRETIONS AIRWAY PATENT
--- NOTE | 2018-05-31 10:24 | NUR ---
Spring Encaser Note: I faxed patient's medical information to [facility].
--- NOTE | 2018-05-31 11:00 | NUR ---
PT IS AWAKE AND WAS CLEANED AND REPOSITIONED, DRESSING CHANGE WA DONE WELL. NO SIGN OF DISTRESS NOTED AND WILL CONTINUE TO MONITOR PT.
--- NOTE | 2018-05-31 11:21 | NUR ---
Transportation arranged for pt with [facility] spoke with Charlene. Pt will be going back to [facility] [place] to vent. Deep suctioning will be required. RT will be with transport. Pt will be picked up at 1600 and will be brought to [facility] room 26 A. Informed pt's nurse Tobias RN for the time of pickling tank operator with SABINA.
--- NOTE | 2018-05-31 12:00 | NUR ---
NO EVIDENCE OF RESPIRATORY DISTRESS NOTED DEEP TRACHEAL SUCTION FOR MODERATE THICK PALE YELLOW SECRETIONS AIRWAY PATENT
[2018-05-31 12:13] LABS: FERRITIN 113 ng/mL (30-400); FOLIC ACID > 20.00 ng/mL (>3.0)
--- NOTE | 2018-05-31 12:35 | NUR ---
PT' BLOOD GLUCOSE WAS CHECKED AND RESULT IS 133, NO INSULIN COVERAGE NEEDED. CONTINUOUS FEEDING WAS STARTED ALSO AT A RATE OF 70ML WITH WATER FLUSHING OF 100 Q4H OF JEVITA 1.2 VIA G-TUBE. NO SIGN OF DISTRESS NOTED AND WILL CONTINUE TO MONITOR PT.
--- NOTE | 2018-05-31 12:51 | NUR ---
Human Resources Psychologist Note: Per Yasir from [facility] , patient may return to room 26A at their facility after 4pm today, accepting physician is , patient case manager Camila pearce.
--- NOTE | 2018-05-31 14:09 | NUR ---
RESTING WELL NO APPARENT PULMONARY DISTRESS NOTED GOOD CHEST RISE DEEP TRACHEAL SUCTION FOR MODERATE THIN PALE YELOOW SECRETIONS AIRWAY PATENT
--- NOTE | 2018-05-31 14:35 | NUR ---
CALLED [facility] AND GAVE REPORT TO NATANAEL RIOS, PT WILL BE PLACE IN [facility] UNDER THE SERVICE OF DR. HILL ALVARADO, DISCHARGED TEACHINGS WAS GIVEN TO BLANCA SANTOYO AND VERBALIZED UNDERSTANDING.
--- NOTE | 2018-05-31 15:00 | NUR ---
CALLED THE PT'S SISTER AND WAS ABLE TO TALK TO THE , PRIYANKA, INFORMED THAT PT WILL BE TRANSFERRED BACK TO [facility], BROTHER IN LAW VERBALIZED UNDERSTANDING.
--- NOTE | 2018-05-31 15:48 | NUR ---
NIGHTCLUB MANAGER AT BEDSIDE FOR PATIENT PHYSICAL HYGIENE AND REPOSITION FIBREGLASS GUN HAND TO ATTEMPT PATIENT AND VENTILATOR ASSESSMENT AT A LATER TIME NO SOB NOTED AT THIS TIME
[2018-05-31 16:00] VITALS: BP 128/58
--- NOTE | 2018-05-31 16:25 | NUR ---
DISCHARGED PT VIA GURNEY WITH THE [facility] PERSONNEL, DISCHARGE PAPER WORK WAS HANDED TO [facility] PERSONNEL. ARM BAND REMOVED AND IV LINE WAS IN PLACED ON HEPLOCK. FEEDING WAS STOPPED AND G-TUBE WAS IN PLACE WITH DRESSING, INTACT. NO SIGN OF DISTRESS NOTED AND PT IS STABLE AT THIS TIME.
[2018-05-31] MEDS ORDERED: CARV12.52 GT (17:00)
[2018-05-31] MEDS ORDERED: PIPER/TAZO 3.375GM/D5W PREMIX 50 ML IV SCH (18:00)
== END 2018-05-31 16:25 | DRG 870 ==
LOC: MED 23:29 → MTU 05-19 02:17
PROVIDERS: ADMIT General Practice; ATTEND General Practice
PROC: 5A1955Z Respiratory Ventilation, Greater than 96 Consecutive Hours (ICD-10-PCS; principal; 2018-05-19)
DX: A41.9 Sepsis, unspecified organism (principal); J69.0 Pneumonitis due to inhalation of food and vomit; I21.4 Non-ST elevation (NSTEMI) myocardial infarction; N17.0 Acute kidney failure with tubular necrosis; I50.43 Acute on chronic combined systolic (congestive) and diastolic (congestive) heart failure; N39.0 Urinary tract infection, site not specified; J96.10 Chronic respiratory failure, unspecified whether with hypoxia or hypercapnia; Z99.11 Dependence on respirator [ventilator] status; I69.359 Hemiplegia and hemiparesis following cerebral infarction affecting unspecified side; J98.11 Atelectasis; G93.1 Anoxic brain damage, not elsewhere classified; I13.0 Hypertensive heart and chronic kidney disease with heart failure and stage 1 through stage 4 chronic kidney disease, or unspecified chronic kidney disease; K92.2 Gastrointestinal hemorrhage, unspecified; E87.0 Hyperosmolality and hypernatremia; G93.40 Encephalopathy, unspecified; B37.0 Candidal stomatitis; Z93.0 Tracheostomy status; Z93.1 Gastrostomy status; R65.20 Severe sepsis without septic shock; I48.91 Unspecified atrial fibrillation; K56.41 Fecal impaction; Z66 Do not resuscitate; E78.5 Hyperlipidemia, unspecified; K21.9 Gastro-esophageal reflux disease without esophagitis; M10.9 Gout, unspecified; K86.89 Other specified diseases of pancreas; K80.20 Calculus of gallbladder without cholecystitis without obstruction; E87.5 Hyperkalemia; E83.39 Other disorders of phosphorus metabolism; E83.41 Hypermagnesemia; E11.51 Type 2 diabetes mellitus with diabetic peripheral angiopathy without gangrene; E83.52 Hypercalcemia; E78.2 Mixed hyperlipidemia; K76.0 Fatty (change of) liver, not elsewhere classified; J44.9 Chronic obstructive pulmonary disease, unspecified; I25.10 Atherosclerotic heart disease of native coronary artery without angina pectoris; Z96.642 Presence of left artificial hip joint; N18.9 Chronic kidney disease, unspecified; E11.22 Type 2 diabetes mellitus with diabetic chronic kidney disease; E87.6 Hypokalemia; D63.8 Anemia in other chronic diseases classified elsewhere; N40.0 Benign prostatic hyperplasia without lower urinary tract symptoms; B96.5 Pseudomonas (aeruginosa) (mallei) (pseudomallei) as the cause of diseases classified elsewhere; Y95 Nosocomial condition; B96.1 Klebsiella pneumoniae [K. pneumoniae] as the cause of diseases classified elsewhere; Z16.12 Extended spectrum beta lactamase (ESBL) resistance; Z79.4 Long term (current) use of insulin; Z79.899 Other long term (current) drug therapy; Z79.82 Long term (current) use of aspirin; I25.2 Old myocardial infarction; Z87.442 Personal history of urinary calculi
CPT/HCPCS: 36415; 71045; 74018; 80048; 80053; 80162; 80170; 80202; 80305; 81001; 82150; 82272; 82607; 82728; 82746; 82948; 83036; 83540; 83605; 83690; 83735; 83880; 84100; 84436; 84439; 84443; 84479; 84484; 85025; 85045; 85610; 85730; 87040; 87070; 87081; 87086; 87186; 87205; 89220; 93005; 93970; 94003; 94640; 96361; 96365; 99285; C9113; J1450; J1580; J1650; J1815; J1940; J1956; J2001; J2185; J2543; J3370; J3480; J7030; J7042; J7060; J7620; Q0092

== ENCOUNTER 2018-06-16 04:20 | Inpatient (IN) | payer OTHER ==
[2018-06-16] VITALS (25 sets, daily range): BP systolic 53–179; BP diastolic 27–83
[~2018-06-16] VITALS: Ht 165.1 cm; Wt 79.4 kg
[~2018-06-16 04:20] MED LIST changes: -FURO20TA8 GT; -INSU100S45 SUBQ; +LAS20I IV; -SIMV20TA6 GT
--- NOTE | 2018-06-16 04:20 | NUR ---
PT PRESENTS TO ED BIBA FROM [facility] WITH C/O BLOOD IN NEPHROSTOMY TUBE X 0000 HR. UPON ARRIVAL [facility] 12--BASELINE. MENDIETA PRESENT OF ARRIVAL. NEPHROSTOMY TUBE PRESENT. SOME BLEEDING NOTED TO NEPHROSTOMY TUBE. PT PLACED INTO BED, MATIAS SYKES.
--- NOTE | 2018-06-16 04:20 | NUR ---
Patient BIBA ACLS from [facility], transferred to bed 10. RN and RT evaluating patient at bedside.
--- NOTE | 2018-06-16 04:37 | NUR ---
# 14 FR Mckeon catheter with 10 ml utilizing sterile technique. Immediate return of 50 ml YELLOW CLOUDY urine noted. Bedside drainage bag placed below level of bladder. Urine sample collected and sent to lab. Pt tolerated procedure WELL.
[2018-06-16 05:07] LABS: APPEARANCE,URINE CLOUDY (CLEAR); BILIRUBIN,URINE NEGATIVE (NEGATIVE); BLOOD, URINE 2+ (NEGATIVE); COLOR,URINE YELLOW (YELLOW); LEUKOCYTE ESTERASE ,URINE 3+ (NEGATIVE); NITRITE, URINE NEGATIVE (NEGATIVE); PH,URINE 6.5 (5.0-9.0); UGLUCOSE NEGATIVE (NEGATIVE)
--- NOTE | 2018-06-16 05:10 | NUR ---
PT VOMITTED LARGE AMOUNT OF YELLOW EMESIS, ER MD NOTIFED. ORDER FOR 8MG ZOFRAN IVP RECEVIED.
[2018-06-16] MEDS ORDERED: ONDANSETRON 4 MG/2 ML VIAL IVP ONE (05:15)
[2018-06-16 05:19] LABS: ASPARTATE AMINOTRANSFERASE 15 U/L (15-37); TOTAL BILIRUBIN 0.5 mg/dL (0.0-1.0)
[2018-06-16 05:20] LABS: ALBUMIN 3.9 g/dL (3.4-5.0); CHLORIDE 94 mmol/L (98-107); GLUCOSE 145 mg/dL (74-106); POTASSIUM 3.6 mmol/L (3.5-5.1); SODIUM SERUM 135 mmol/L (136-145)
[2018-06-16 05:24] LABS: BASOPHILS % (AUTO) 0.3 % (0.0-2.0); EOSINOPHILS # (AUTO) 0.7 K/uL (0-0.4); HEMATOCRIT 35.5 % (36-52); HEMOGLOBIN 11.7 g/dL (12.0-18.0); LYMPHOCYTES % (AUTO) 19.8 % (20.5-51.1); MEAN CORPUSCULAR HEMOGLOBIN 30 pg (27-31); MEAN CORPUSCULAR HGB CONC 33 g/dL (33-37); MEAN CORPUSCULAR VOLUME 92.4 fL (80-94); MONOCYTES # (AUTO) 0.8 K/uL (0.8-1.0); MONOCYTES % (AUTO) 8.4 % (1.7-9.3); NEUTROPHILS # (AUTO) 6.4 K/uL (1.8-7.7); NEUTROPHILS % (AUTO) 64.5 % (42.2-75.2); PLATELET COUNT (AUTO) 255 K/uL (140-450); RED BLOOD CELL COUNT(AUTO) 3.84 MIL/uL (4.20-6.10); RED CELL DISTRIBUTION WIDTH 14.9 % (11.6-13.7)
[2018-06-16] MEDS ORDERED: ONDANSETRON 4 MG/2 ML VIAL ONE (05:24)
[2018-06-16 05:25] LABS: ANION GAP 11.5 (8-16); CARBON DIOXIDE 33.1 mmol/L (21-32); CREATININE 1.5 mg/dL (0.7-1.3); UREA NITROGEN, BLOOD 54 mg/dL (7-18)
[2018-06-16 05:32] LABS: RBC,URINE 3-10 (FEW) /HPF (0-5); WBC,URINE TOO MANY TO COUNT /HPF (0-5)
[2018-06-16] MEDS ORDERED: MEROPENEM 1,000 MG in NACL 0.9% 100 ML IV ONE (05:40)
--- NOTE | 2018-06-16 05:40 | NUR ---
ACCOMPAINED PT TO CT SCAN WITH RT AND INSURANCE INSTRUCTOR
--- NOTE | 2018-06-16 05:41 | NUR ---
0530 pt taken to cat scan. bagging pt with 100% fio2. and then placed back on vent with no incident
[2018-06-16] MEDS ORDERED: MEROPENEM 1,000 MG VIAL IV ONE (05:57)
[2018-06-16] MEDS ORDERED: LACT10SO1 GT (06:21)
[2018-06-16] MEDS ORDERED: FURO-570 GT (06:21)
[2018-06-16] MEDS ORDERED: ONDANSETRON 4 MG/2 ML VIAL IM/IVP PRN (06:45)
[2018-06-16] MEDS ORDERED: HYDROcodone/APAP 7.5/325 MG 1 TAB PO PRN (06:45)
--- NOTE | 2018-06-16 06:55 | NUR ---
Pt transferred to ICU7 FOR TELE CONVENIENCE viaBED WITH NATANAEL LOPEZ .
[2018-06-16] MEDS ORDERED: NACL 0.9% 1,000 ML IV SCH ×3 (07:00→10:55)
--- NOTE | 2018-06-16 07:00 | NUR ---
OXYGEN INCREASED TO 100% DUE TO DESATURATION. WILL CONTINUE TO MONITOR. Addendum: 06/16/18 at 0821 by Tammy Geiger RT AT 0720 OXYGEN WAS INCREASED TO 100% DUE TO DESATURATION. WILL CONTINUE TO MONITOR
--- NOTE | 2018-06-16 07:00 | NUR ---
Patient will be admitted to care of DR TOVAR. Admited to TELE. Will go to room ICU 7 FOR CONVIENCE . Belongings list completed. Report to NATANAEL MILLER .
--- NOTE | 2018-06-16 07:15 | NUR ---
TRANSFERRED PATIENT WITH RN TO ICU 7 WITHOUT INCIDENT.
--- NOTE | 2018-06-16 07:15 | NUR ---
Received report from CONSUMER ADVOCATE, patient being transferred to ICU bed, hooked to cardiac monitors, MRSA nasal swab taken
--- NOTE | 2018-06-16 07:17 | NUR ---
Patient blood pressure 10/[address] Bailey and physician said he will put orders for saline boluses. Patient with tracheostomy to ventilator FIO2 100% AC 12 tidal volume 500 PEEP 5 SO2 93%, Ronchi on all throughout anterior chest, Heart rate 61 bpm, pacemaker at left chest noted, no spikes noted in monitor at this time, palpable distal pulses, with Gtube irrigated with 10mL water with no resistance, no residuals, abdomen distended and round, with nephrostomy atleft flank with minimum pink colored output noted, minimal bleeding around site, jain catheter to drainage bag-minimal clear yellow urine noted, with peripheral line gauge.18 at right wrist-site asymptomatic, skin intact, with white hypopigmentation in sacral-coccyx area that looks like old pressure sore scar, SCDs applied to both legs Addendum: 06/16/18 at 1514 by Paulette Rhoades RN CORRECTION: [place] [id number] HOURS PATIENT'S BLOOD PRESSURE WAS 53/27 (DISREGARD 10/12)
[2018-06-16] MEDS ORDERED: NOREPINEPHRINE 4 MG in DEXTROSE 5% 250 ML IV PRN ×2 (07:20→07:25)
[2018-06-16] MEDS ORDERED: NACL 0.9% 1,000 ML IV ONE ×2 (07:20→10:55)
[2018-06-16] MEDS ORDERED: NOREPINEPHRINE 4 MG/4 ML VIAL IV ONE (07:34)
[2018-06-16 07:36] LABS: APPEARANCE,URINE HAZY (CLEAR); BILIRUBIN,URINE 1+ (NEGATIVE); BLOOD, URINE 3+ (NEGATIVE); COLOR,URINE BLOODY (YELLOW); LEUKOCYTE ESTERASE ,URINE 3+ (NEGATIVE); NITRITE, URINE POSITIVE (NEGATIVE); UGLUCOSE NEGATIVE (NEGATIVE)
[2018-06-16 07:41] LABS: RBC,URINE 80-100 /HPF (0-5)
[2018-06-16 07:44] LABS: WBC,URINE 16-25 (MOD) /HPF (0-5)
[2018-06-16] MEDS: NACL 0.9% 1,000 ML IV SCH ×2 (07:45→10:26)
--- NOTE | 2018-06-16 07:45 | NUR ---
DOCTORS' ROUNDS. PER DR. BECK PATIENT IS DNR AND HE PUT IN ORDER. NO PRESSORS, ACLS DRUGS. GIVE ONLY SALINE BOLUS ORDERED FOR HYPOTENSION
--- NOTE | 2018-06-16 09:28 | NUR ---
ABLE TO REACH TELEPHONE NUMBER OF PATIENT'S SISTER TONY PALACIOS ACCORDING TO DR. BECK EARLIER NOBODY WAS PICKING UP WHEN HE CALLED HER NUMBER THAT'S FOUND IN THE THE FACE SHEET. PER TONY SHE HAS NO WRITTEN FORM PROVING THAT SHE HAS DECISION MAKING CAPACITY OVER PATIENT. SHE ANSWERED "NO" WHEN ASKED IF THE PATIENT HAS A OR ADULT CHILDREN. ASKED ABOUT PATIENT'S ILLNESSES, SURGICAL, SMOKING AND PSYCHOLOGICAL HISTORY AND OTHER ADMISSION QUESTIONS, TONY ANSWERED "I DON'T KNOW ALL I KNOW HE HAD STROKE 2 YEARS AGO". UPDATED TONY OF PATIENT'S PLAN OF CARE AND SHE VERBALIZED UNDERSTANDING
[2018-06-16 09:30] LABS: CHOL/HDL RATIO 5.2 (1-4.5); FREE T4 (FREE THYROXINE) 1.15 ng/dL (0.76-1.46); MAGNESIUM 2.4 mg/dL (1.8-2.4); PHOSPHORUS 5.1 mg/dL (2.5-4.9); THYROID STIMULATING HORMONE 3.99 uIU/mL (0.34-3.74)
[2018-06-16] MEDS ORDERED: MAGNESIUM HYDROXIDE 2400 MG/30 ML UDC PO PRN (09:50)
[2018-06-16 09:57] LABS: PROTHROMBIN TIME 9.6 secs (10.8-13.4)
--- NOTE | 2018-06-16 10:00 | NUR ---
TITRATED OXYGEN TO 80%. NO RESPIRATORY DISTRESS NOTED. WILL CONTINUE TO MONITOR.
[2018-06-16] MEDS: DEXT 5% /NACL 0.9% 1,000 ML IV SCH ×3 (10:27→21:50)
--- NOTE | 2018-06-16 10:30 | NUR ---
TITRATED OXYGEN TO 60%. WILL CONTINUE TO MONITOR.
--- NOTE | 2018-06-16 10:50 | NUR ---
TITRATED OXYGEN TO 50%. RN AWARE. PULSE OX SAT 95%. WILL CONTINUE TO MONITOR.
--- NOTE | 2018-06-16 10:58 | NUR ---
INFORMED DR. BECK OF THE XRAY RESULT AND NEED ORDERS TO CONFIRM AND USE CENTRAL LINE, GI PROPHYLAXIS
--- NOTE | 2018-06-16 11:09 | NUR ---
INFORMED DR. BECK PATIENT HAS NO URINE OUTPUT FROM MENDIETA AND NEPHROSTOMY-NO NEW ORDERS RECEIVED
--- NOTE | 2018-06-16 12:16 | NUR ---
INFORMED DR. BECK OF PATIENT'S ABG RESULT, AND INFORMED THE NEED FOR SOCIAL, NUTRITION, WOUND AND PT CONSULT FOR PATIENT. "I WILL TAKE CARE OF IT" PER DR. BECK
[2018-06-16] MEDS ORDERED: CARV12.52 GT (13:08)
--- NOTE | 2018-06-16 13:20 | NUR ---
DR. BECK ORDERED TO INTERROGATE THE PACEMAKER. TRY BUT BUT NO RESPONSE. DR. ZARATE NOTIFIED.
--- NOTE | 2018-06-16 13:23 | NUR ---
PATIENT HAS BEEN SCREENED AND CATEGORIZED HIGH NUTRITION RISK. PATIENT WILL BE SEEN WITHIN 1-2 DAYS OF ADMISSION. 06/17/18 06/18/18 KENNY AHUMADA MBA, RD
[2018-06-16] MEDS: MEROPENEM 500 MG in NACL 0.9% 50 ML IV SCH ×2 (13:28→20:12)
[2018-06-16] MEDS ORDERED: DEXTROSE 50% 50 ML SYR IVP PRN (13:30)
[2018-06-16] MEDS ORDERED: INSULIN LISPRO SLIDING SCALE 100 UNITS/ML VIAL SUBQ PRN (13:30)
[2018-06-16] MEDS ORDERED: SODIUM PHOSPHATE 118 ML ENEM RC SCH (14:00)
[2018-06-16] MEDS ORDERED: MIDODRINE 5 MG TAB GT SCH (14:00)
[2018-06-16] MEDS ORDERED: ALBUTEROL SULFATE/IPRATROPIU 3 ML SOL IH PRN (14:20)
--- NOTE | 2018-06-16 14:20 | NUR ---
CALL THE [facility] WHICH ONLY GET ANSWER BY THE TAPE RECORDER., WILL CALL BACK ON REGULAR TIME.
--- NOTE | 2018-06-16 15:04 | NUR ---
TITRATED FIO2 TO 40%. PULSE OX SATURATION 96%. RN AWARE. NO DISTRESS NOTED. WILL CONTINUE TO MONITOR.
--- NOTE | 2018-06-16 16:00 | NUR ---
DR. BECK UPDATED PATIENT'S SISTER TONY OVER THE PHONE OF PATIENT'S CRITICAL CONDITION, LOW BP AND INFORMED IF LEVOPHED CAN BE GIVEN TO INCREASE BLOOD PRESSURE. PER PHYSICIAN THE SISTER DID NOT CONSENT ABOUT IT
[2018-06-16] MEDS: BLOOD GLUCOSE MONITORING 1 DEV DEV FS SCH ×2 (16:25→20:09)
--- NOTE | 2018-06-16 17:00 | NUR ---
PARTIAL SPONGE BATH DONE, DRESSING CHANGED IN LEFT NEPHROSTOMY AND SWAB AROUND SITE OLD DRESSING HAS PUS. SKIN LOOKS NORMAL AND NORMAL TEMPERATURE. DR. BECK MADE AWARE. ORAL CARE AND REPOSITIONING DONE ROUTINELY
--- NOTE | 2018-06-16 18:21 | NUR ---
DR. FAUSTIN HERE. AWARE PATIENT'S SBP 70s
[2018-06-16] MEDS: ALBUTEROL SULFATE/IPRATROPIU 3 ML SOL IH SCH (18:46)
--- NOTE | 2018-06-16 19:05 | NUR ---
RECEIVED REPORT FROM AM SHIFT. PT NONVERBAL. OPENS EYES SPONTANEOUSLY. NONTRACKING. LUNG SOUNDS DIMINISHED. TRACH TO VENT. FIO2 40 VT 400 PEEP 5. AFIB ON MONITOR. NPO EXCEPT MEDS. GTUBE DRAINING TO GRAVITY. FC IN PLACE. L NEPHROSTOMY NOTED. IV SITE RIGHT HAND. DRESSING INTACT. RIJ DRESSING CLEAN, INTACT. ON CONTACT ISOLATION FOR HX ESBL. EXTREMITIES COOL TO TOUCH. BED IN LOWEST POSITION. SIDE RAILS UP X4. WILL CONTINUE TO MONITOR.
--- NOTE | 2018-06-16 19:10 | NUR ---
LAB AT BEDSIDE AT THIS TIME FOR BLOOD DRAWS
[2018-06-16] MEDS: SIMETHICONE 80 MG TAB.CHEW GT SCH (20:11)
[2018-06-16] MEDS: LACTULOSE 20 GM/30 ML UDC GT SCH (20:11)
[2018-06-16] MEDS: DOCUSATE 100 MG/10 ML UDC GT SCH (20:11)
--- NOTE | 2018-06-16 22:44 | NUR ---
PT RESTING IN BED. AFEBRILE. MINIMAL DRAINAGE FROM LEFT NEPHROSTOMY NOTED. OPENS EYES SPONTANEOUSLY. NONTRACKING.
--- NOTE | 2018-06-16 23:03 | NUR ---
DR. FAUSTIN AT BEDSIDE AT THIS TIME. UPDATED ON PTS CURRENT CONDITION.
--- NOTE | 2018-06-16 23:24 | NUR ---
RT AT BEDSIDE AT THIS TIME
[2018-06-17] VITALS (15 sets, daily range): BP systolic 50–128; BP diastolic 19–78
--- NOTE | 2018-06-17 00:48 | NUR ---
PT RUNNING SLIGHT TEMP AT THIS TIME 100.1F COOLING MEASURES IMPLEMENTED FOR COMFORT.
--- NOTE | 2018-06-17 01:11 | NUR ---
RT AT BEDSIDE AT THIS TIME
[2018-06-17] MEDS: MEROPENEM 500 MG in NACL 0.9% 50 ML IV SCH ×2 (04:03→13:00)
--- NOTE | 2018-06-17 04:11 | NUR ---
TEMP OF 101.2 NOTED WILL ADMINISTER TYLENOL PRN AT THIS TIME
[2018-06-17] MEDS: ACETAMINOPHEN 325 MG TAB PO PRN ×2 (04:14→08:44)
[2018-06-17] MEDS: DEXT 5% /NACL 0.9% 1,000 ML IV SCH ×2 (04:30→11:56)
--- NOTE | 2018-06-17 05:07 | NUR ---
AM CARE PROVIDED AT THIS TIME
--- NOTE | 2018-06-17 05:20 | NUR ---
LAB AT BEDSIDE AT THIS TIME FOR BLOOD DRAWS
[2018-06-17] MEDS ORDERED: NACL 0.9% 1,000 ML IV ONE (06:15)
[2018-06-17] MEDS: ALBUTEROL SULFATE/IPRATROPIU 3 ML SOL IH SCH (06:24)
--- NOTE | 2018-06-17 06:24 | NUR ---
REC'D PT ON CARESCAPE VENT SETTINGS AC12 VT 500 PEEP 5 FIO2 40% ALARMS ON AND AUDIBLE AND AMBU BAG AT SIDE OF VENT AND VENT IS PLUGGED INTO RED OUTLET, I\L TX GIVEN WITH DUONEB 3ML WITH NO ADVERSE REACTION POST TX B\S ARE COARSE BILATERALLY SXN PT SMALL AMT OF THICK YELLOW SECRETIONS, PT IS TRACH WITH PORTEX 7 AND SKIN INTEGRITY IS INTACT PT IS RESTING
--- NOTE | 2018-06-17 06:30 | NUR ---
DR. BECK AT BEDSIDE AT THIS TIME. UPDATED ON PATIENTS CURRENT CONDITION. WILL CONTINUE TO FOLLOW UP ANY ADDITIONAL ORDERS.
--- NOTE | 2018-06-17 06:53 | NUR ---
LAB CALLED BACK. WILL REDRAW ALL LABS WITH NEXT AVAILABLE SHELL TRIM TOOL SETTER
--- NOTE | 2018-06-17 07:13 | NUR ---
ENDORSED CARE TO INCOMING SHIFT FOR CONTINUITY OF CARE.
--- NOTE | 2018-06-17 07:40 | NUR ---
ATTEMPTED TO CALL PATIENT'S SISTER TONY WITH THE 2 NUMBERS IN THE PATIENT'S CHART BUT NO ANSWER. WILL TRY AGAIN ANOTHER TIME TO GIVE UPDATE
--- NOTE | 2018-06-17 07:50 | NUR ---
PATIENT'S SISTER TONY CALLED BACK AND AFTER PROPER VERIFICATION UPDATED ABOUT PATIENT'S CONDITION, AND THAT THE VITAL SIGNS ARE WAY ABNORMALLY DOWN AND THIS COULD RESULT TO AND CLARIFIED AGAIN THE PATIENT'S DNR STATUS AND THAT NO MORE LIFE SAVING MEASURES BEING RENDERED. SISTER TONY VERBALIZED UNDERSTANDING AND NOTHING ELSE WILL BE DONE. INFORMED HER ALSO THAT SHE IS FREE TO COME VISIT HER BROTHER DURING THIS TIME
--- NOTE | 2018-06-17 07:56 | NUR ---
DOCTORS' ROUNDS HERE. INFORMED DR. BECK OF LATEST VITAL SIGNS AFTER 1 LITER BOLUS GIVEN, INFORMED THAT FAMILY ALREADY UPDATED
[2018-06-17 08:00] LABS: PHOSPHORUS 5.5 mg/dL (2.5-4.9)
--- NOTE | 2018-06-17 08:00 | NUR ---
RECEIVED PATIENT IN BED WITH TRACHEOSTOMY TO VENTILATOR AC 12 FIO2 40% TIDAL VOLUME 500 PEEP5 SO2 94%, PATIENT OPENS EYES TO PAIN, WITHDRAWS TO PAIN, NO VERBAL OUTPUT, WITH PACEMAKER IN LEFT CHEST HEART RATE 60BPM IN MONITOR JUNCTIONAL, BP 58/29 WITH DNR ORDERS, FEBRILE 101 AXILLARY, COOL PACKS APPLIED, WITH GTUBE TO GRAVITY NOTED MINIMAL YELLOWISH OUTPUT, ABDOMEN ROUND AND FIRM,HYPOACTIVE BOWEL SOUNDS, WITH LEFT SIDED NEPHROSTOMY MINIMAL PINK OUTPUT, MENDIETA CATHETER WITH MINIMAL CLEAR YELLOW URINE NOTED IN THE DRAINAGE BAG, NO PRESSURE SORES, WITH RIGHT INTERNAL JUGULAR CENTRAL LINE TRIPLE LUMEN NORMAL SALINE BOLUS INFUSING, [id number] ML/HR ALSO INFUSING
[2018-06-17] MEDS: BLOOD GLUCOSE MONITORING 1 DEV DEV FS SCH ×2 (08:24→11:57)
[2018-06-17] MEDS: DOCUSATE 100 MG/10 ML UDC GT SCH (08:44)
[2018-06-17] MEDS: SIMETHICONE 80 MG TAB.CHEW GT SCH (08:44)
[2018-06-17] MEDS: LACTULOSE 20 GM/30 ML UDC GT SCH (08:44)
[2018-06-17 08:55] LABS: ANION GAP 20.6 (8-16); CARBON DIOXIDE 14.1 mmol/L (21-32); CHLORIDE 105 mmol/L (98-107); CREATININE 3.2 mg/dL (0.7-1.3); GLUCOSE 121 mg/dL (74-106); POTASSIUM 4.7 mmol/L (3.5-5.1); SODIUM SERUM 135 mmol/L (136-145)
[2018-06-17 08:57] LABS: UREA NITROGEN, BLOOD 70 mg/dL (7-18)
[2018-06-17 08:58] LABS: HEMOGLOBIN 10.1 g/dL (12.0-18.0); MEAN CORPUSCULAR HEMOGLOBIN 29 pg (27-31); MEAN CORPUSCULAR HGB CONC 31 g/dL (33-37); MEAN CORPUSCULAR VOLUME 96.3 fL (80-94); PLATELET COUNT (AUTO) 58 K/uL (140-450); RED BLOOD CELL COUNT(AUTO) 3.43 MIL/uL (4.20-6.10); RED CELL DISTRIBUTION WIDTH 15.9 % (11.6-13.7)
[2018-06-17 08:59] LABS: WHITE BLOOD COUNT (AUTO) 54.3 K/uL (4.8-10.8)
[2018-06-17] MEDS ORDERED: ALLOPURINOL 100 MG TAB GT SCH (09:00)
[2018-06-17] MEDS ORDERED: PANTOPRAZOLE 40 MG INJ VIAL IVP SCH (09:00)
[2018-06-17] MEDS ORDERED: VANCOMYCIN HCL 750 MG in DEXTROSE 5% 250 ML IV SCH (09:10)
[2018-06-17] MEDS ORDERED: VANCOMYCIN PER PHARMACY MC PRN (09:15)
[2018-06-17 09:21] LABS: BASOPHILS % (MANUAL) 0 % (0-2); EOSINOPHILS % (MANUAL) 0 % (0-4); LYMPHOCYTES % (MANUAL) 2 % (20-46); MONOCYTES % (MANUAL) 3 % (5-12)
[2018-06-17 09:22] LABS: METAMYELOCYTES % 3 % (0-0); MYELOCYTES % 3 % (0-0)
[2018-06-17] MEDS ORDERED: VANCOMYCIN 500 MG in NACL 0.9% 100 ML IV SCH (11:00)
--- NOTE | 2018-06-17 11:34 | NUR ---
FOLLOWED UP WITH PHARMACY STAFF KIMBERLY VANCOMYCIN STOCK DID NOT ARRIVE YET
[2018-06-17] MEDS ORDERED: SODIUM PHOSPHATE 118 ML ENEM RC SCH (11:45)
--- NOTE | 2018-06-17 11:50 | NUR ---
DR. DAVIS CALLED AND TELEPHONE ORDERS RECEIVED THAT HE WANTS TO START NEW ANTIBIOTICS-READBACK AND VERIFIED
--- NOTE | 2018-06-17 12:23 | NUR ---
INFORMED DR. BECK ONLY MINERAL OIL FLEET ENEMA IS AVAILABLE IN THE [facility] AND HE HAS TO CHANGE HIS ORDER TO THAT
[2018-06-17] MEDS ORDERED: BISACODYL 10 MG SUPP RC SCH (12:30)
[2018-06-17] MEDS ORDERED: MICAFUNGIN SODIUM 100 MG in NACL 0.9% 100 ML IV SCH (13:00)
--- NOTE | 2018-06-17 13:00 | NUR ---
DR. BECK BEEN HERE IN THE UNIT. RN NOTED PATIENT'S FURTHER DROP IN SO2 AND BP THEN DISAPPEARED IN THE MONITOR. DR. BECK ASSESSED THE PATIENT AND PRONOUNCED THAT PATIENT
--- NOTE | 2018-06-17 13:05 | NUR ---
ATEMPTED TO CONTACT PATIENT'S SISTER TONY WITH THE 2 PHONE NUMBERS BUT NO ANSWER. WILL TRY AGAIN
--- NOTE | 2018-06-17 13:14 | NUR ---
REPORTED TO [facility]. BODY CAN BE RELEASED PER LILIANA. CASE NO. [id number]
--- NOTE | 2018-06-17 13:18 | NUR ---
PER NATANAEL QUEEN PT HAS AT 1300
--- NOTE | 2018-06-17 13:20 | NUR ---
PATIENT SISTER TONY PALACIOS CALLED AND INFORM ABOUT THE . SHE WILL MAKE ARRANGEMENT FOR MORTUARY AND WILL CALL BACK WHEN SHE GOT ONE.
--- NOTE | 2018-06-17 13:24 | NUR ---
PATIENT'S SISTER WAS NOTIFIED OF THE PATIENT'S BY ICU MYRTLE QUEEN OVER THE PHONE
[2018-06-17] MEDS ORDERED: TOBRAMYCIN 120 MG in DEXTROSE 5% 100 ML IV SCH (14:00)
--- NOTE | 2018-06-17 15:40 | NUR ---
PATIENT'S SISTER TONY AT BEDSIDE. PATIENT HAS NO BELONGINGS AT BEDSIDE
--- NOTE | 2018-06-17 15:50 | NUR ---
SHIPPING INSPECTOR ANIL TERRY CALLED BACK AND AFTER GETTING INFORMATION RELEASED THE PATIENT'S BODY WITH CASE NO. [phone]
--- NOTE | 2018-06-17 16:00 | NUR ---
POSTMORTEM CARE RENDERED
--- NOTE | 2018-06-17 16:11 | NUR ---
MORTUARY STAFF HERE. AND AFTER VERIFICATION WITH ICU CN. RELEASED THE BODY. PATIENT [facility]
[2018-06-17] MEDS ORDERED: MINERAL OIL 135 ML ENEM RC SCH (16:30)
[2018-06-18 09:14] LABS: T4 (THYROXINE) 7.1 ug/dL (4.5 - 12.0)
[2018-06-18 11:37] LABS: TRANSFERRIN 170 mg/dL (200-370)
[2018-06-19 06:20] LABS: FOLIC ACID > 20.00 ng/mL (>3.0)
== END 2018-06-17 13:00 | disposition expired | DRG 871 ==
LOC: MED 04:20 → MIC 06:44
PROVIDERS: ADMIT General Practice; ATTEND General Practice
PROC: 02HV33Z Insertion of Infusion Device into Superior Vena Cava, Percutaneous Approach (ICD-10-PCS; principal; 2018-06-16)
PROC: 5A1935Z Respiratory Ventilation, Less than 24 Consecutive Hours (ICD-10-PCS; 2018-06-16)
DX: A41.9 Sepsis, unspecified organism (principal); I21.A1 Myocardial infarction type 2; N17.0 Acute kidney failure with tubular necrosis; J96.21 Acute and chronic respiratory failure with hypoxia; G93.41 Metabolic encephalopathy; J69.0 Pneumonitis due to inhalation of food and vomit; N39.0 Urinary tract infection, site not specified; I48.91 Unspecified atrial fibrillation; R65.20 Severe sepsis without septic shock; Z95.0 Presence of cardiac pacemaker; Z86.73 Personal history of transient ischemic attack (TIA), and cerebral infarction without residual deficits; J44.9 Chronic obstructive pulmonary disease, unspecified; E11.9 Type 2 diabetes mellitus without complications; Z74.01 Bed confinement status; I50.9 Heart failure, unspecified; I11.0 Hypertensive heart disease with heart failure; E78.5 Hyperlipidemia, unspecified; Z93.0 Tracheostomy status; Z93.6 Other artificial openings of urinary tract status; K59.00 Constipation, unspecified; K80.20 Calculus of gallbladder without cholecystitis without obstruction; N20.0 Calculus of kidney; E02 Subclinical iodine-deficiency hypothyroidism; E83.39 Other disorders of phosphorus metabolism; D64.9 Anemia, unspecified; M10.9 Gout, unspecified; N13.9 Obstructive and reflux uropathy, unspecified; R13.10 Dysphagia, unspecified; I46.9 Cardiac arrest, cause unspecified; K25.9 Gastric ulcer, unspecified as acute or chronic, without hemorrhage or perforation
CPT/HCPCS: 36415; 36600; 51702; 71045; 80048; 80053; 81001; 82150; 82607; 82746; 82803; 82948; 83036; 83540; 83690; 83735; 83880; 84100; 84436; 84439; 84443; 84479; 84484; 85025; 85045; 85610; 85730; 87040; 87070; 87081; 87086; 87186; 87205; 93005; 94003; 94640; 96365; 96375; 99285; C9113; J1642; J1815; J2185; J2248; J2405; J3260; J3370; J3490; J7030; J7042; J7060; J7620; Q0092